=== PATIENT | male | born 1965 ===

== ENCOUNTER 2020-11-21 10:00 | Outpatient (RCR) | payer OTHER, SELFPAY | END 2020-12-07 09:20 | disposition home or self-care (01) | LOC: HO.PT 10:00 | PROVIDERS: PCP Student in an Organized Health Care Education/Training Program; Visit Provider Physician Assistant | DX: M26.81 Anterior soft tissue impingement (principal); Z94.0 Kidney transplant status | CPT/HCPCS: 97110; 97162; 97530 ==

== ENCOUNTER 2022-06-21 13:02 | Emergency (ER) | payer OTHER, SELFPAY ==
--- NOTE | ~2022-06-21 | XR_ITS ---
EXAMINATION: XR hip LT min 2V, XR lumbar spine 2-3V CLINICAL INFORMATION: Reason for Exam left hip pain after fall COMPARISON: None. TECHNIQUE: AP pelvis, 2 views left hip; 3 views lumbosacral spine FINDINGS: Pelvis and left hip no acute fracture or dislocation. Bilateral hip joint spaces are maintained. Small marginal osteophytes at both hips consistent with mild osteoarthritis. Pubic symphysis and sacroiliac joints are congruent and intact. Surgical clips project over the right pelvis. Vascular calcifications are seen. Patchy increased sclerosis of the bones about the pelvis and proximal femurs. Lumbar spine: Normal alignment. No subluxation. Vertebral body heights are maintained. No acute fracture. Mild multilevel degenerative disc disease with anterior endplate proliferative bone throughout the lumbar spine. Intervertebral disc heights are fairly well-maintained. Lower lumbar facet arthrosis. No pars defects. Moderate vascular calcifications. Patchy increased sclerosis throughout the bones noted. XR/XR lumbar spine 2-3V IMPRESSION: 1. No acute fracture or dislocation identified at the pelvis or left hip. 2. Mild multilevel degenerative disc disease throughout the lumbar spine. No subluxation or fracture in the lumbar spine. 3. Mild bilateral hip joint osteoarthritis. 4. Patchy increased sclerosis throughout the bones, nonspecific though cannot exclude sclerotic osseous metastasis is a potential etiology. Correlate with history of known malignancy and with PSA. Whole body bone scan may be helpful.
--- NOTE | ~2022-06-21 | XR_ITS ---
EXAMINATION: XR hip LT min 2V, XR lumbar spine 2-3V CLINICAL INFORMATION: Reason for Exam left hip pain after fall COMPARISON: None. TECHNIQUE: AP pelvis, 2 views left hip; 3 views lumbosacral spine FINDINGS: Pelvis and left hip no acute fracture or dislocation. Bilateral hip joint spaces are maintained. Small marginal osteophytes at both hips consistent with mild osteoarthritis. Pubic symphysis and sacroiliac joints are congruent and intact. Surgical clips project over the right pelvis. Vascular calcifications are seen. Patchy increased sclerosis of the bones about the pelvis and proximal femurs. Lumbar spine: Normal alignment. No subluxation. Vertebral body heights are maintained. No acute fracture. Mild multilevel degenerative disc disease with anterior endplate proliferative bone throughout the lumbar spine. Intervertebral disc heights are fairly well-maintained. Lower lumbar facet arthrosis. No pars defects. Moderate vascular calcifications. Patchy increased sclerosis throughout the bones noted. XR/XR hip LT min 2V IMPRESSION: 1. No acute fracture or dislocation identified at the pelvis or left hip. 2. Mild multilevel degenerative disc disease throughout the lumbar spine. No subluxation or fracture in the lumbar spine. 3. Mild bilateral hip joint osteoarthritis. 4. Patchy increased sclerosis throughout the bones, nonspecific though cannot exclude sclerotic osseous metastasis is a potential etiology. Correlate with history of known malignancy and with PSA. Whole body bone scan may be helpful.
[2022-06-21 13:21] VITALS: BP 158/90; PULSE 60; O2SAT 99
[2022-06-21 13:25] VITALS: BP 151/92; PULSE 62; RESP 18; TEMP 36.8; O2SAT 100; BMI 28.8
[2022-06-21 13:28] VITALS: BP 151/92; PULSE 60; RESP 18
--- NOTE | 2022-06-21 13:47 | ED.FALL ---
HPI - Fall General Chief Complaint: Fall Stated Complaint: fall from bath-+headstrike; refused c-collar Time Seen by Provider: 06/21/22 13:47 Source: patient Mode of arrival: EMS Limitations: no limitations History of Present Illness HPI Narrative: Patient walks with a walker due to neuropathy from diabetes, in addition he is a kidney transplant patient. No LOC. Patient with back pain and head pain. He slipped getting out of the bathtub complaint: fall Onset (ago): hour(s) Fall from: standing Fall witnessed: no Place fall occurred: home Loss of consciousness: none Context: tripped/slipped Related Data Home Medications Medication Instructions Recorded Confirmed amlodipine 10 mg tablet 10 mg PO DAILY 05/23/21 05/23/21 carvedilol 25 mg tablet 25 mg PO BID 05/23/21 05/23/21 dapagliflozin 10 mg tablet 10 mg PO DAILY 05/23/21 05/23/21 (Farxiga) entecavir 0.5 mg tablet 0.5 mg PO DAILY 05/23/21 05/23/21 ergocalciferol (vitamin D2) 1,250 1,250 mcg PO QWEEK 05/23/21 05/23/21 mcg (50,000 unit) capsule (Vitamin D2) gabapentin 100 mg capsule 0 mg PO 05/23/21 05/23/21 glipizide 10 mg tablet, extended 10 mg PO BID 05/23/21 05/23/21 release 24 hr hydrocortisone 1 % topical cream appl topical 05/23/21 05/23/21 insulin glargine 100 unit/mL (3 40 unit subcut 05/23/21 05/23/21 mL) subcutaneous pen (Lantus Solostar U-100 Insulin) magnesium oxide 400 mg (241.3 mg 400 mg PO DAILY 05/23/21 05/23/21 magnesium) tablet metformin 500 mg tablet 500 mg PO BID 05/23/21 05/23/21 omeprazole 40 mg capsule,delayed 40 mg PO BID 05/23/21 05/23/21 release pen needle, diabetic 31 gauge x #1,200 ea 05/23/21 05/23/21 5/16 (BD Ultra-Fine Short Pen Needle) ropinirole 0.5 mg tablet 0.5 mg PO BEDTIME 05/23/21 05/23/21 tacrolimus 0.75 mg tablet,extended 1.5 mg PO DAILY 05/23/21 05/23/21 release 24 hr (Envarsus XR) tacrolimus 1 mg tablet,extended 2 mg PO DAILY 05/23/21 05/23/21 release 24 hr (Envarsus XR) tamsulosin 0.4 mg capsule 0.4 mg PO DAILY 05/23/21 05/23/21 Allergies Allergy/AdvReac Type Severity Reaction Status Date / Time No Known Allergies Allergy Unverified 05/23/21 10:09 [No Known Allergies*] Review of Systems Review of Systems: Yes all other systems are reviewed and are negative Musculoskeletal: Comments: Head and back pain Neurologic: Denies Sensory deficit (Neuro) [facility] Past Medical History Medical History Diabetes HTN (hypertension) Surgical History Kidney transplanted Family History Family History Father Diabetes HTN (hypertension) Mother Diabetes HTN (hypertension) Brother Diabetes Chronic kidney disease Social History Social History Household Members: None Housing: Apartment Alcohol intake: never Patient Tobacco Use Status: Former Tobacco user Smoked in Last 30 Days: No Use of substances other than those prescribed or required for medical reasons: No Advance Directives: No Advance Directives Information Provided: Yes Physical Exam Vital Signs: Vital Signs: Last Vital Signs Temp 98.2 F 06/21/22 13:25 Pulse 54 06/21/22 14:35 Resp 18 06/21/22 14:35 BP 149/90 H 06/21/22 14:35 Pulse Ox 99 06/21/22 14:35 O2 Del Method 06/21/22 14:35 BMI result Body Mass Index 28.8 Const: Other: male chronically ill, looking older than stated age Nutritional Appearance: average body habitus Orientation/consciousness: oriented to person and patient oriented x3 Limitations: no limitations HEENT: Other: no evidence of any head trauma Ears: external ears normal General nose exam: Normal external nose present Mouth: Normal oral and palatal mucosa present and oropharynx normal Throat: Yes posterior oropharynx normal Eyes: General: appearance normal, both eyes and all related structures Neck: Other: supple Neck: Yes normal visual inspection Chest: Chest palpation & inspection: normal inspection of the chest Resp: Auscultation: clear to auscultation bilaterally Cardio: Jugular venous distension: no JVD Rate: regular rate Rhythm: regular rhythm Heart sounds: S1 normal heart sound present and S2 normal heart sound present GI: Inspection: Yes normal to inspection Palpation (GI): Soft to palpation, nontender and No hepatosplenomegaly present Auscultation: normal bowel sounds : General: Yes no CVA tenderness Back/Spine/Pelvis: Back: no CVA tenderness Skin: General skin exam: no rashes or lesions noted Neuro: Other: lower extremities are at baseline 4/5 or 3/5 General: oriented to person and patient oriented x3 Cranial nerves: Yes CN's II-XII intact bilaterally Sensory Exam: No Sensory deficit (Neuro) Extrem: Other: left hip with pain on range of motion Psych: Appearance: grossly normal Medical Decision Making Differential Diagnosis Differential Diagnoses: The differential diagnosis associated with the presentation includes (pelvic fracture, hip fracture, lumbar fracture) Independent Interpretation I performed an independent interpretation of an: Plain X-Ray (lumbar xray severe djd Hip xray no pelvic fracture, no hip fracture) Independent Historian Clinical information obtained from an independent historian. History obtained from or confirmed by: Other ([employer] INSPECTOR) Tests considered The following testing was considered but not selected: CT of hip but no subtle signs of fracture on xray Chronic Conditions Patient?s care impacted by: Diabetes, Hypertension and Other (renal failure with transplant) Discharge Plan Discharge Clinical Impression: Contusion of hip, Contusion of back Patient Disposition: Home, Self-Care Instructions: Contusion in Adults (ED), Hip Contusion (ED) Prescriptions: No Action Envarsus XR 0.75 mg tablet extended release 24 hr 1.5 mg PO DAILY ergocalciferol (vitamin D2) [Vitamin D2] 1,250 mcg (50,000 unit) capsule 1,250 mcg PO QWEEK entecavir 0.5 mg tablet 0.5 mg PO DAILY gabapentin 100 mg capsule 0 mg PO ropinirole 0.5 mg tablet 0.5 mg PO BEDTIME amlodipine 10 mg tablet 10 mg PO DAILY Farxiga 10 mg tablet 10 mg PO DAILY (DME) pen needle, diabetic [BD Ultra-Fine Short Pen Needle] 31 gauge x 5/16 needle See Rx Instructions subcut DAILY Qty: 1200 Rx Instructions: As directed hydrocortisone 1 % cream topical glipizide 10 mg tablet extended release 24hr 10 mg PO BID magnesium oxide 400 mg (241.3 mg magnesium) tablet 400 mg PO DAILY metformin 500 mg tablet 500 mg PO BID carvedilol 25 mg tablet 25 mg PO BID tamsulosin 0.4 mg capsule 0.4 mg PO DAILY omeprazole 40 mg capsule,delayed release(DR/EC) 40 mg PO BID Envarsus XR 1 mg tablet extended release 24 hr 2 mg PO DAILY Lantus Solostar U-100 Insulin 100 unit/mL (3 mL) insulin pen 40 unit subcut Referrals: Physician,Unknown J [Primary Care Provider] - 5 days
[2022-06-21 14:35] VITALS: BP 149/90; PULSE 54; RESP 18; O2SAT 99
== END 2022-06-21 15:28 | disposition home or self-care (01) ==
PROVIDERS: Emergency Provider Emergency Medicine
DX: S70.02XA Contusion of left hip, initial encounter (principal); S30.0XXA Contusion of lower back and pelvis, initial encounter; W18.2XXA Fall in (into) shower or empty bathtub, initial encounter; E11.21 Type 2 diabetes mellitus with diabetic nephropathy; I10 Essential (primary) hypertension; Z94.0 Kidney transplant status; Z87.891 Personal history of nicotine dependence; Z79.4 Long term (current) use of insulin; Z79.899 Other long term (current) drug therapy; Y93.E1 Activity, personal bathing and showering; Y92.012 Bathroom of single-family (private) house as the place of occurrence of the external cause; Y99.9 Unspecified external cause status
CPT/HCPCS: 72100; 73502; 99283; 99284

== ENCOUNTER 2022-09-08 05:16 | Emergency (ER) | payer OTHER, SELFPAY ==
--- NOTE | ~2022-09-08 | CT_ITS ---
Examination: CT thoracic and CT lumbar spine with IV contrast. CLINICAL HISTORY: Bilateral leg weakness. COMPARISON: Lumbar spine 06/21/2022. TECHNIQUE: 2 mm thin axial and reformatted 2 mm thin sagittal and coronal images of thoracic and lumbar spine were obtained following IV 85 mL Omnipaque 350. DLP 933. This CT examination was performed using dose optimization technique as appropriate, variously including the following: Automated exposure control Adjustment of MA and/or KV according to patient size(this includes techniques or standardized protocols for targeted exams where dose is matched to indication/reason for exam; extremities or head. Use of iterative reconstruction techniques. FINDINGS: THORACIC SPINE: On sagittal reconstructed images there is normal thoracic kyphosis. The vertebral heights, alignment and disc heights are normal. The bone marrow appears osteopenic. No fracture, lytic or sclerotic process seen. There is minimal ventral spondylosis. There is no evidence of disc bulge, herniation or spinal canal stenosis. The neural foramina are patent bilaterally. The prevertebral and paravertebral soft tissues are normal. Dependent upper and lower lobe lungs are unremarkable. Except for minimal scarring or atelectasis left lung base. LUMBAR SPINE: There is normal lumbar lordosis. The vertebral heights and alignment is normal. There is mild ventral spondylosis L3-L4, L4-L5 disc levels. No aggressive lytic or sclerotic process seen. Heterogeneous appearing bone marrow is noted likely osteopenia/osteoporosis process Excreted contrast is seen in bilateral kidney pelvises and calyces. Hard to exclude radiopaque stone. CT/CT thoracic spine w IV con IMPRESSION: 1. There is no visible fracture, lytic or sclerotic process seen in the thoracic or lumbar spine. 2. There is heterogeneous appearing thoracic, lumbar and pelvic bone marrow likely osteopenia/osteoporosis process. 3. There is minimal ventral spondylosis L3-L4 and L4-L5 disc levels.
[2022-09-08 05:34] VITALS: BP 142/80; PULSE 70; O2SAT 95; BMI 27.4
[2022-09-08 05:39] VITALS: BP 130/77; PULSE 58; RESP 14; TEMP 36.6; O2SAT 96
--- NOTE | 2022-09-08 05:43 | PC.NURSE ---
Pt aox4 at the bedside. Reports increased weakness. Pt is crying reporting being unable to leave the home for the last three months as the wheelchair ramp is not available and falling multiple times as home. Reports wheelchair does not fit inside the bathroom at home. Reports feeling depressed. MD aware.
[2022-09-08 05:59] LABS: MANUAL DIFF FLAG NO
[2022-09-08 06:01] LABS: Basophils Percent Auto 0.4 % (0-2); Eosinophils Absolute Auto 0.3 X10*3/uL (0.0-0.4); Eosinophils Percent Auto 3.8 % (0-4); Hematocrit 42.6 % (42.0-52.0); Hemoglobin 14.7 g/dl (14.0-18.0); Imm Gran Abs Auto 0.03 X10*3/uL (0.00-0.03); Imm Gran Pct Auto 0.4 % (0.0-0.4); Lymphocytes Absolute Auto 1.3 X10*3/uL (1.2-4.9); Lymphocytes Percent Auto 17.2 % (20-40); Mean Corpuscular HGB Conc 34.5 g/dl (31.0-36.0); Mean Corpuscular Volume 89.9 fL (80.0-98.0); Mean Platelet Volume 10.2 fL (9.4-12.4); Monocytes Absolute Auto 0.7 X10*3/uL (0.1-1.2); Monocytes Percent Auto 9.2 % (2-11); Neutrophils Absolute Auto 5.1 x10*3/uL (2.0-8.3); Platelet Count 142 X10*3/uL (160-400); Red Blood Count 4.74 X10*6/uL (4.60-5.80); White Blood Count 7.3 X10*3/uL (4.8-10.8)
[2022-09-08 06:17] LABS: Alanine Aminotransferase 20 U/L (0-40); Alkaline Phosphatase 205 U/L (39-117); Anion Gap 11 (12-20); Aspartate Amino Transferase 17 U/L (5-37); Bilirubin Total 0.3 mg/dL (0.0-1.0); Blood Urea Nitrogen 12 mg/dL (9-16); Calcium 7.8 mg/dL (8.4-10.2); Carbon Dioxide 29 mmol/L (22-29); Chloride 105 mmol/L (96-108); Estimated Glomerular Filt Rate > 60; Glucose Random 226 mg/dL (60-115); Potassium 3.9 mmol/L (3.3-5.1); Sodium 141 mmol/L (135-145); Total Protein 6.2 g/dL (6.5-8.0)
--- NOTE | 2022-09-08 07:25 | ED_ITS ---
HPI - General Adult General Chief complaint: Fall Stated complaint: Weakness Time Seen by Provider: 09/08/22 06:29 Source: patient and RN notes reviewed Mode of arrival: ambulatory Limitations: no limitations History of Present Illness HPI narrative: This is a [id number], with a past medical history of diabetes, diabetic neuropathy, and kidney transplant, who presents emergency department for ongoing worsening weakness in his lower extremities. Patient reports that 3 years ago after receiving his kidney transplant he has noticed increasing weakness in his legs. Initially he was using a cane to ambulate over the last 3 years but for the last 6 months he was using a walker, but 3 months ago he transitioned to using a wheelchair. Patient reports that over the last months he has been using a wheelchair to get around. He reports that he has been unable to get out of his bed for the last week due to weakness in his legs. He admits to falling out of his bed this morning because of the weakness, he called EMS and they were able to pick him up in place him back into his wheelchair he declined EMS transport at that time. He woke this morning and called the EMS as the would like to be re-evaluated due to chronic weakness in her legs. He denies hitting his head or loss of consciousness. He reports that he has had numbness and tingling into his abdomen ever since I was diagnosed with diabetic neuropathy , and has worsened over the last 3 months. He also admits to having back pain. He denies any fevers, chills chest pain, shortness of breath, palpitations, abdominal pain, nausea vomiting or diarrhea. He reports functional urinary incontinence as he is unable to get to the bathroom in time. Denies any bowel incontinence. Denies any bloody or black stool. Last moved his bowels yeste rday which was normal. He becomes very tearful as he is very upset that he no longer is independent in his home and requires more help to perform activities of daily living. He lives alone, has VNA services for 2 hours a day, has been seen by Physical therapy and Occupational therapy, but has not been seen by them in ?a while . No other complaints or concerns at this time. complaint: Weakness in legs Onset (ago): month(s) Location: lower extremity Radiation: non-radiation Relieving factors: none Exacerbating factors: none Associated symptoms: denies other symptoms Treatments prior to arrival: none Related Data Home Medications Medication Instructions Recorded Confirmed amlodipine 10 mg tablet 10 mg PO DAILY 05/23/21 09/08/22 carvedilol 25 mg tablet 25 mg PO BID 05/23/21 09/08/22 dapagliflozin 10 mg tablet 10 mg PO DAILY 05/23/21 09/08/22 ([facility]) entecavir 0.5 mg tablet 0.5 mg PO DAILY 05/23/21 09/08/22 gabapentin 100 mg capsule 100 mg PO TID 05/23/21 09/08/22 glipizide 10 mg tablet, extended 10 mg PO BID 05/23/21 09/08/22 release 24 hr insulin glargine 100 unit/mL (3 44 unit subcut BEDTIME 05/23/21 09/08/22 mL) subcutaneous pen (Lantus Solostar U-100 Insulin) metformin 500 mg tablet 500 mg PO BID 05/23/21 09/08/22 pen needle, diabetic 31 gauge x #1,200 ea 05/23/21 05/23/21/ (BD Ultra-Fine Short Pen Needle) ropinirole 0.5 mg tablet 0.5 mg PO BEDTIME 05/23/21 09/08/22 tacrolimus 1 mg tablet,extended 3 mg PO DAILY 05/23/21 09/08/22 release 24 hr (Envarsus XR) acetaminophen 650 mg 1,300 mg PO Q8H PRN Pain 09/08/22 09/08/22 tablet,extended release capsaicin 0.025 % topical cream 1 appl topical BID 09/08/22 09/08/22 docusate sodium 100 mg capsule 100 mg PO DAILY 09/08/22 09/08/22 duloxetine 30 mg capsule,delayed 30 mg PO DAILY 09/08/22 09/08/22 release Allergies Allergy/AdvReac Type Severity Reaction Status Date / Time No Known Allergies Allergy Unverified 05/23/21 10:09 [No Known Allergies*] Review of Systems Review of Systems: Constitutional: No Weight loss, No Fever, No Chills, No Night Sweats, No Fati lynn, No Malaise ENT/Mouth: No Hearing loss, No Ear Pain, No Nasal Congestion, No Sinus Pain, No Hoarseness, No sore throat, No Rhinorrhea, No Swallowing Difficulty Eyes: No Eye Pain, No Swelling, No Redness, No Foreign Body, No Discharge, No Vision Changes Cardiovascular: No Chest Pain, No SOB, No Dyspnea on Exertion, No Orthopnea, No Edema, No Palpitations Respiratory: No Cough, No Sputum, No Wheezing, No Smoke Exposure, No Dyspnea Gastrointestinal: No Nausea, No Vomiting, No Diarrhea, No Constipation, No Abdominal pain, No Hematochezia, No Melena Genitourinary: No irregular bleeding, No Dysuria, No Urinary Frequency, No Hematuria, No Urinary Incontinence/retention, No Urgency, No Flank Pain, No Urinary Flow Changes, No Hesitancy Musculoskeletal: No joint pain, No Myalgias, No Joint Swelling Skin: No Skin Lesions, No rash Neuro: No Weakness, +Numbness, + Paresthesias, No Loss of Consciousness, No Dizziness, No Headache Psych: No Anxiety/Panic, No Depression, No SI/HI/AH/VH, No Social Issues, Heme/Lymph: No Bruising, No Bleeding,No Lymphadenopathy Endocrine: No Polyuria, No Polydipsia, No Temperature Intolerance Yes all other systems are reviewed and are negative Constitutional: Constitutional: Reports as per HPI [facility] Past Medical History Medical History Diabetes HTN (hypertension) Surgical History Kidney transplanted Family History Family History Father Diabetes HTN (hypertension) Mother Diabetes HTN (hypertension) Brother Diabetes Chronic kidney disease Social History Social History Household Members: None Housing: Apartment Alcohol intake: never Patient Tobacco Use Status: Former Tobacco user Smoked in Last 30 Days: No Use of substances other than those prescribed or required for medical reasons: No Advance Directives: No Advance Directives Information Provided: Yes Physical Exam ED Vital Signs: Vital Signs - 24 hr 09/08/22 13:41 Pulse Rate 62 Respiratory Rate 20 Blood Pressure 137/86 Pulse Oximetry 96 Oxygen Delivery Method Room Air BMI result Body Mass Index 27.4 Const Other: At times he is tearful General: cooperative, comfortable and no acute distress Orientation/consciousness: patient oriented x3 Limitations: no limitations HENMT Head: Yes normal to inspection, Yes normocephalic and Yes atraumatic Ears: hearing grossly normal bilaterally General nose exam: Normal external nose present Face and sinus: Yes normal facial exam Mouth: Normal oral and palatal mucosa present, oropharynx normal and moist mu cous membranes Throat: Yes posterior oropharynx normal Eyes General: appearance normal, both eyes and all related structures Eyelids: Yes eyelids normal Conjunctivae: conjunctivae normal Sclerae: sclerae normal Pupils: Equal, round and reactive pupils present EOM: EOMs intact bilaterally Neck Neck: Yes normal visual inspection, Yes full ROM and Yes no lymphadenopathy Lymphatic: no lymphadenopathy noted Chest Chest palpation & inspection: normal inspection of the chest Resp Effort & Inspection: normal respiratory effort and able to speak in complete sentences Auscultation: clear to auscultation bilaterally, no crackles, no rales, no rhonchi and no wheezes Cardio Rate: regular rate Rhythm: regular rhythm Heart sounds: S1 normal heart sound present and S2 normal heart sound present GI Inspection: Yes normal to inspection Palpation (GI): Soft to palpation, nontender, no guarding and not rigid Rectal Exam - Male: Yes visual inspection normal and Yes normal sphincter tone General: Yes no CVA tenderness Back/Spine/Pelvis Other: No C-spine, T-spine or L-spine tenderness to palpation. No overlying erythema, edema, increased warmth to entire back. No skin changes noted. Lumbar paraspinous muscles with no tenderness to palpation. Back: no CVA tenderness Skin General skin exam: no rashes or lesions noted Trauma: no lacerations or abrasions Wounds: no wounds Neuro Other: Unable to differentiate between sharp and soft sensation on left side of abdomen; patient is able to feel the touch throughout the entire abdomen. General: patient oriented x3, moves all extremities and CN's II-XI intact bilaterally Cranial nerves: Yes Facial sensation intact/muscles of mastication intact, Yes Equal, round and reactive pupils present and Yes Bilaterally intact EOM present Cognition (Neuro): normal cognition Extrem Other: Bilateral DP pulses 2+, distal sensation intact. Patellar reflexes 2+ bilaterally, clonus on the right. Left arm with scarring noted from prior fistula, no surrounding erythema edema fluctuance General: Yes normal to inspection, Yes no pedal edema, Yes no calf tenderness and Yes muscle atrophy Right upper extremity: normal to inspection Left upper extremity: normal to inspection Right lower extremity: normal to inspection Left lower extremity: normal to inspection Course Reevaluation(s) Reevaluation #1: Patient has been intermittently crying throughout the entire day. When asked about why he is crying he says that he is upset that he has lost his independence and unable to and walk around. CT thoracic spine with IV contrast revealing no visible fracture, lytic or sclerotic process, and heterogeneous a ppearing thoracic lumbar and pelvic bone marrow likely osteopenia or osteoporosis process. Minimal ventral spondylosis L3-L4 and L4-L5 disc levels Patient's lab workup has been unremarkable. I discussed these results with the patient and he begins to cry again stating that he wants to get out of here. I explained with patient that I would like for him to be evaluated by Physical therapy, care team, and crisis. Given patient's living situation, living at home using wheelchair with limited visiting nursing assistance it seems as though he is unsafe to return home without more help. Patient willing to speak with these people. Vital signs have been stable throughout his stay in the emergency department. Time: 14:05 Reevaluation #2: Patient seen by care team who report patient has no SI or HI in believes that all of his sadness is secondary to loss of independence and difficulty getting around. Patient has not been able to leave his apartment in last 3 months in his landlord has not been making the necessary repairs to the ramp that patient would be using, as patient is now wheelchair bound. Because of this he has been unable to attend any of his appointments. He does have a SCREEN MAKING SUPERVISOR which is his daughter and another person. Your team spoke with patient's daughter and she sees her father daily and admits that patient has had a mental health declined because he is unable to these apartment. Patient has been in touch with a script editor in house in court care team completed the PCC report and complete a refe rral to [facility] for in-home therapy. Physical therapy recommends short-term rehab. Physician observation initiated pending short-term rehab placement Time: 14:41 Reevaluation #3: Case Management physician and patient adamantly refuses rehabilitation. I spoke with patient at length that this is the best course of treatment and that he is putting himself at risk for falls which can ultimately to very serious consequences including . Despite educating this patient on his current physical deconditioning patient still adamantly refuses as he reports that he has his own way of doing things and he is not comfortable here. I offered his home medications as well as food and coffee however he still refuses. From vital signs stable throughout his emergency for visit today. Patient is stable for discharge. Will get ambulance to transfer patient back into his home as he is unable to get himself up the stairs. Time: 16:37 Medications Administered Discontinued Medications Generic Name Dose Route Start Last Admin Trade Name Nohemy PRN Reason Stop Dose Admin Acetaminophen 975 mg 09/08/22 15:58 09/08/22 16:13 Acetaminophen 325 Mg Tablet PO 09/08/22 15:59 975 mg ONCE ONE Administration Gabapentin 100 mg 09/08/22 15:58 09/08/22 16:13 Gabapentin 100 Mg Capsule PO 09/08/22 15:59 100 mg ONCE ONE Administration Sodium Chloride 1,000 mls @ 999 mls/hr 09/08/22 09:23 09/08/22 12:20 Ns IVCONT 09/08/22 10:23 Infused .Q1H1M ONE Infusion Iohexol 85 ml 09/08/22 11:49 09/08/22 11:50 Iohexol 350 Mg/Ml 100 Ml Infus..Btl IV 09/08/22 11:50 85 ml ONCE ONE Administration Medical Decision Making Medical Decision Making MDM Narrative: 57-year-old male, with a past medical history of diabetic neuropathy, kidney transplant in 2019, presenting for evaluation of lower extremity weakness for the last 3 months. Three years ago he had a kidney transplant the and noticed a worsening function of his lower legs concern to use a cane for ambulation. He then switched over to a walker over the last 6 months as he has had difficulty ambulating. Reports over the last 3 months he has had more difficulty with ambulation, has been using a wheelchair. He also reports some numbness and tingling throughout his abdomen which is been present since ?he has had diabetic neuropathy? which has been ongoing for more than 3 months. Case discussed and patient was seen and evaluated by Dr. Gotti. Distribution of numbness and tingling in abdomen seems to be left-sided on examination. No red flag back pain symptoms. Plan: Labs, UA, Drug screen, CT t-spine and l-spine obtained. Attempt to obtain primary care office notes. Differential Diagnosis Differential Diagnoses: The differential diagnosis associated with the presentation includes Deconditioning, diabetic neuropathy, cauda equina, malignancy, spinal abscess, failure to thrive Admission/Observation Consideration of admission/observation: Escalation of care including admission/observation considered Lab Data [facility] Lab Attestation statement: I reviewed the patient's lab results. 09/08/22 05:52 09/08/22 05:52 Labs: Lab Results 09/08/22 09/08/22 09/08/22 Range/Units 05:52 05:52 10:39 WBC 7.3 (4.8-10.8) X10*3/uL RBC 4.74 (4.60-5.80) X10*6/uL Hgb 14.7 (14.0-18.0) g/dl Hct 42.6 (42.0-52.0) % MCV 89.9 (80.0-98.0) fL MCH 31.0 (27.0-33.0) pg MCHC 34.5 (31.0-36.0) g/dl RDW 12.0 (11.0-16.0) % Plt Count 142 L (160-400) X10*3/uL MPV 10.2 (9.4-12.4) fL Immature Gran % (Auto) 0.4 (0.0-0.4) % Neut % (Auto) 69.0 (45-73) % Lymph % (Auto) 17.2 L (20-40) % [place] % (Auto) 9.2 (2-11) % Eos % (Auto) 3.8 (0-4) % Baso % (Auto) 0.4 (0-2) % Lymph # (Auto) 1.3 (1.2-4.9) X10*3/uL [place] # (Auto) 0.7 (0.1-1.2) X10*3/uL Eos # (Auto) 0.3 (0.0-0.4) X10*3/uL Baso # (Auto) 0.0 (0.0-0.2) X10*3/uL Abs Immat Gran (auto) 0.03 (0.00-0.03) X10*3/uL Absolute Neuts (auto) 5.1 (2.0-8.3) x10*3/uL Absolute Nucleated RBC 0.000 (0.0-0.012) X10*3/uL Nucleated RBC % (auto) 0.0 (0.0-0.2) /100WBC Sodium 141 (135-145) mmol/L Potassium 3.9 (3.3-5.1) mmol/L Chloride 105 (96-108) mmol/L Carbon Dioxide 29 (22-29) mmol/L Anion Gap 11 L (12-20) BUN 12 (9-16) mg/dL Creatinine 1.14 (0.5-1.4) mg/dL Estim Creat Clear Calc 69.0 Estimated GFR > 60 POC Glucose (60-115) mg/dL Random Glucose 226 H (60-115) mg/dL Calcium 7.8 L (8.4-10.2) mg/dL Total Bilirubin 0.3 (0.0-1.0) mg/dL AST 17 (5-37) U/L ALT 20 (0-40) U/L Alkaline Phosphatase 205 H (39-117) U/L Total Creatine Kinase 159 (38-174) U/L Total Protein 6.2 L (6.5-8.0) g/dL Albumin 4.0 (3.5-5.0) g/dL Urine Opiates Screen Not Detected (Not Detect) Urine Fentanyl Screen Not Detected (Not Detect) Ur Barbiturates Screen Not Detected (Not Detect) Ur Phencyclidine Scrn Not Detected (Not Detect) Ur Amphetamines Screen Not Detected (Not Detect) U Benzodiazepines Scrn Not Detected (Not Detect) Urine Cocaine Screen Not Detected (Not Detect) U Marijuana (THC) Screen Not Detected (Not Detect) Ethyl Alcohol < 10 mg/dL COVID-19 ([facility]) (Negative) COVID-19 Clin Com 09/08/22 09/08/22 Range/Units 12:45 14:04 WBC (4.8-10.8) X10*3/uL RBC (4.60-5.80) X10*6/uL Hgb (14.0-18.0) g/dl Hct (42.0-52.0) % MCV (80.0-98.0) fL MCH (27.0-33.0) pg MCHC (31.0-36.0) g/dl RDW (11.0-16.0) % Plt Count (160-400) X10*3/uL MPV (9.4-12.4) fL Immature Gran % (Auto) (0.0-0.4) % Neut % (Auto) (45-73) % Lymph % (Auto) (20-40) % [place] % (Auto) (2-11) % Eos % (Auto) (0-4) % Baso % (Auto) (0-2) % Lymph # (Auto) (1.2-4.9) X10*3/uL [place] # (Auto) (0.1-1.2) X10*3/uL Eos # (Auto) (0.0-0.4) X10*3/uL Baso # (Auto) (0.0-0.2) X10*3/uL Abs Immat Gran (auto) (0.00-0.03) X10*3/uL Absolute Neuts (auto) (2.0-8.3) x10*3/uL Absolute Nucleated RBC (0.0-0.012) X10*3/uL Nucleated RBC % (auto) (0.0-0.2) /100WBC Sodium (135-145) mmol/L Potassium (3.3-5.1) mmol/L Chloride (96-108) mmol/L Carbon Dioxide (22-29) mmol/L Anion Gap (12-20) BUN (9-16) mg/dL Creatinine (0.5-1.4) mg/dL Estim Creat Clear Calc Estimated GFR POC Glucose 94 (60-115) mg/dL Random Glucose (60-115) mg/dL Calcium (8.4-10.2) mg/dL Total Bilirubin (0.0-1.0) mg/dL AST (5-37) U/L ALT (0-40) U/L Alkaline Phosphatase (39-117) U/L Total Creatine Kinase (38-174) U/L Total Protein (6.5-8.0) g/dL Albumin (3.5-5.0) g/dL Urine Opiates Screen (Not Detect) Urine Fentanyl Screen (Not Detect) Ur Barbiturates Screen (Not Detect) Ur Phencyclidine Scrn (Not Detect) Ur Amphetamines Screen (Not Detect) U Benzodiazepines Scrn (Not Detect) Urine Cocaine Screen (Not Detect) U Marijuana (THC) Screen (Not Detect) Ethyl Alcohol mg/dL COVID-19 (IL[facility]) Negative (Negative) COVID-19 Clin Com See Note Radiology Impression Discussion of test interpretation with radiology: I have reviewed the radiologist's reading. Radiologist Impression: Examination: CT thoracic and CT lumbar spine with IV contrast. CLINICAL HISTORY: Bilateral leg weakness. COMPARISON: Lumbar spine 06/21/2022. TECHNIQUE: 2 mm thin axial and reformatted 2 mm thin sagittal and coronal images of thoracic and lumbar spine were obtained following IV 85 mL Omnipaque 350. DLP 933. This CT examination was performed using dose optimization technique as appropriate, variously including the following: Automated exposure control Adjustment of MA and/or KV according to patient size(this includes techniques or standardized protocols for targeted exams where dose is matched to indication/reason for exam;? extremities or head. Use of iterative reconstruction techniques. FINDINGS: THORACIC SPINE:? On sagittal reconstructed images there is normal thoracic kyphosis. The vertebral heights, alignment and disc heights are normal. The bone marrow appears osteopenic. No fracture, lytic or sclerotic process seen. There is minimal ventral spondylosis. There is no evidence of disc bulge, herniation or spinal canal stenosis. The neural foramina are patent bilaterally. The prevertebral and paravertebral soft tissues are normal. Dependent upper and lower lobe lungs are unremarkable. Except for minimal scarring or atelectasis left lung base. LUMBAR SPINE: There is normal lumbar lordosis. The vertebral heights and alignment is normal. There is mild ventral spondylosis L3-L4, L4-L5 disc levels. No aggressive lytic or sclerotic process seen. Heterogeneous appearing bone marrow is noted likely osteopenia/osteoporosis process Excreted contrast is seen in bilateral kidney pelvises and calyces. Hard to exclude radiopaque stone. CT/CT thoracic spine w IV con IMPRESSION: 1.? There is no visible fracture, lytic or sclerotic process seen in the thoracic or lumbar spine. 2.? There is heterogeneous appearing thoracic, lumbar and pelvic bone marrow likely osteopenia/osteoporosis process. 3.? There is minimal ventral spondylosis L3-L4 and L4-L5 disc levels. ? Dictated By: Juan Alberto Hunter MD Examination: CT thoracic and CT lumbar spine with IV contrast. CLINICAL HISTORY: Bilateral leg weakness. COMPARISON: Lumbar spine 06/21/2022. TECHNIQUE: 2 mm thin axial and reformatted 2 mm thin sagittal and coronal images of thoracic and lumbar spine were obtained following IV 85 mL Omnipaque 350. DLP 933. This CT examination was performed using dose optimization technique as appropriate, variously including the following: Automated exposure control Adjustment of MA and/or KV according to patient size(this includes techniques or standardized protocols for targeted exams where dose is matched to indication/reason for exam;? extremities or head. Use of iterative reconstruction techniques. FINDINGS: THORACIC SPINE:? On sagittal reconstructed images there is normal thoracic kyphosis. The vertebral heights, alignment and disc heights are normal. The bone marrow appears osteopenic. No fracture, lytic or sclerotic process seen. There is minimal ventral spondylosis. There is no evidence of disc bulge, herniation or spinal canal stenosis. The neural foramina are patent bilaterally. The prevertebral and paravertebral soft tissues are normal. Dependent upper and lower lobe lungs are unremarkable. Except for minimal scarring or atelectasis left lung base. LUMBAR SPINE: There is normal lumbar lordosis. The vertebral heights and alignment is normal. There is mild ventral spondylosis L3-L4, L4-L5 disc levels. No aggressive lytic or sclerotic process seen. Heterogeneous appearing bone marrow is noted likely osteopenia/osteoporosis process Excreted contrast is seen in bilateral kidney pelvises and calyces. Hard to exclude radiopaque stone. CT/CT lumbar spine w IV con IMPRESSION: 1.? There is no visible fracture, lytic or sclerotic process seen in the thoracic or lumbar spine. 2.? There is heterogeneous appearing thoracic, lumbar and pelvic bone marrow likely osteopenia/osteoporosis process. 3.? There is minimal ventral spondylosis L3-L4 and L4-L5 disc levels. ? Dictated By: Juan Alberto Hunter MD External Record Review External record reviewed: Inpatient record, Office record, Outpatient record, Prior outpatient labs, Prior outpatient radiology, Primary care record and Outside ED record Patient had a recent telemedicine visit with his primary care physician on 09/04/2022, this visit was in regards to the patient being stuck in his apartmen t due to a disagreement with his landlord. In the no and explains that 1 of the ramps to get in and out of his house is blocked and patient cannot get out of his house. Department of Health is involved and they issued many ultimatum stew his landlord to unblock the ramp but they have not been patient is becoming depressed due to this. He does have BPH in with a psychiatrist and believes that the appointment is coming up soon. Primary care's plan was to follow-up with psychiatrist through [facility], sign medical release for his lower so his medical record could be involved. I also obtained medical records from [facility] to try and obtain records regarding any imaging of his back. Patient was seen in the emergency department at [facility] on 07/30/2022 for progressive weakness in his legs since receiving kidney transplant in 2019, and ultimately falling multiple times. At that time patient had a left 5th distal phalanx fracture. He also had a CT RLE, left femur x-ray, left hip x-ray, left knee x-ray, left tib-fib x-ray which were all unremarkable for any acute bony abnormalities. Medical documentation does not indicate that patient has had any imaging of his lumbar spine in the last 6 months. Therefore I think it is reasonable to obtain CT T-spine and L-spine today Critical Care Time Critical Care Time Critical Care Time: Yes Total Critical Care Time: 40 Attestation: I have personally provided critical care time exclusive of time spent on separately billable procedures. Time includes review of lab data, radiology results, discussion with consultants, and monitoring for potential decompensation. Intervention performed as documented. Discharge Plan Discharge Clinical Impression: Weakness Patient Disposition: Home, Self-Care Instructions: Weakness (ED) Additional Instructions: The imaging you had received of your back today showed evidence of osteoarthritis. You were seen by Physical therapy who recommend a short-term rehab, this is the best course of treatment for your weakness in your legs as your symptoms will only progressively get worse putting you more at risk for falls. I highly recommend this however you adamantly refused this today. Please follow-up with your primary care physician, call tomorrow to make an appointment. If any new or worsening symptoms occur please return for re-evaluation. Prescriptions: No Action acetaminophen 650 mg tablet extended release 1,300 mg PO Q8H PRN (Reason: Pain) capsaicin 0.025 % cream 1 appl topical BID docusate sodium 100 mg Capsule 100 mg PO DAILY duloxetine 30 mg Capsule,Delayed Release(Dr/Ec) 30 mg PO DAILY entecavir 0.5 mg tablet 0.5 mg PO DAILY gabapentin 100 mg capsule 100 mg PO TID ropinirole 0.5 mg tablet 0.5 mg PO BEDTIME amlodipine 10 mg tablet 10 mg PO DAILY Farxiga 10 mg tablet 10 mg PO DAILY (DME) pen needle, diabetic [BD Ultra-Fine Short Pen Needle] 31 gauge x 5/16 needle See Rx Instructions subcut DAILY Qty: 1200 Rx Instructions: As directed glipizide 10 mg tablet extended release 24hr 10 mg PO BID metformin 500 mg tablet 500 mg PO BID carvedilol 25 mg tablet 25 mg PO BID Envarsus XR 1 mg tablet extended release 24 hr 3 mg PO DAILY Lantus Solostar U-100 Insulin 100 unit/mL (3 mL) insulin pen 44 unit subcut BEDTIME Interventions: ED Discharge Assessment Last Done: 09/08/22 18:28 Discharge Date/Time: 09/08/22 18:29
[2022-09-08 07:55] LABS: Ethanol < 10 mg/dL
[2022-09-08 09:45] VITALS: BP 127/84; PULSE 60; RESP 18; TEMP 36.8; O2SAT 94
--- NOTE | 2022-09-08 10:09 | PHA.MEDREC ---
Pharmacy Consult ? Medication Reconciliation Pharmacy has completed the medication reconciliation. Med rec complete off of discharge summary dated 09/01 from [facility] on [address] [place] [address]
[2022-09-08] MEDS: 0.9 % Sodium Chloride 1,000 ML 999 ML IVCONT (10:12)
[2022-09-08 11:00] LABS: Amphetamine Screen Urine Not Detected (Not Detect); Barbiturates, Urine Not Detected (Not Detect); Benzodiazepines Screen Urine Not Detected (Not Detect); Cannabinoid Screen Urine Not Detected (Not Detect); Cocaine Screen Urine Not Detected (Not Detect); Fentanyl, urine Not Detected (Not Detect); Opiate Screen Urine Not Detected (Not Detect); Phencyclidine Screen Urine Not Detected (Not Detect)
[2022-09-08] MEDS: iohexoL 350 MG/ML 100 ML INFUS..BTL 85 ML IV (11:50)
[2022-09-08 12:59] LABS: Glucose, Whole Blood 94 mg/dL (60-115)
[2022-09-08 13:41] VITALS: BP 137/86; PULSE 62; RESP 20; O2SAT 96
--- NOTE | 2022-09-08 13:42 | PC.NURSE ---
pt tearful and upset about not being able to get around at home. consult to care team and PT in. Pt brought sandwich
[2022-09-08 14:29] LABS: COVID-19 Test Negative (Negative); IDNOW Serial# 08D9AD1C
--- NOTE | 2022-09-08 14:37 | MHC.CARE ---
CARE Team completed [facility] report due to Pts landlord not completing required updates at his apartment causing Pt to be bound to his apartment x 3months and not able to attend appts ect. Pt alleged that the landlord is now making him pay for the repairs and he is not able to.
--- NOTE | 2022-09-08 14:46 | PC.NURSE ---
pt has met with care team and is now meeting with PT. Recliner brought over from overflow for pt comfort.
--- NOTE | 2022-09-08 14:57 | MHC.CARE ---
CARE Team met with Pt secondary to consult placed for depression and deconditionig. Pt reports expressed frustration related to his recent decline in physical ability and not being able to leave his apartment in the past three months. Pt reports his landlord is not making the necessary repairs to a ramp as Pt is wheelchair bound. The ramp is the only way Pt is able to access the outside. Pt states he is not able to attend his appointments. Pt reports he has a RAIL TRANSPORTATION OPERATOR that is his daughter and another person. CARE Team spoke with Pts daughter Paul, she reported she sees her father daily and he has had a mental health decline since not being able to leave his apartment. She stated he trying to consult with a manager media relations in housing court, as now Pt is being told to have to pay for these repairs. She reports no safety concerns related to his mental health. CARE Team completed [facility] report and will complete a referral to [facility] for inhome therapy.
[2022-09-08] MEDS: Gabapentin 100 MG CAPSULE PO (16:13)
[2022-09-08] MEDS: Acetaminophen 325 MG TABLET 975 MG PO (16:13)
--- NOTE | 2022-09-08 17:05 | MHC.CM.ED ---
Addendum entered by Krystina Salas 09/08/22 17:14: Per Ryann, patient will need BLS transport, as he cannot get into his home. [place] booking BLS transport home. CM spoke with patient, and patient requesting when ambulance will come. Pt dressed and ready to go. Explained that could be an hour or more, as transport home is not an emergency. Pt states if his daughter comes first, he will go home with her. When patient questioned about how he would get in the home, pt states his daughter will help him. Pt is A&Ox4. Primary RN aware. Original Note: CM met with patient at request of Ryann GARCIA. PT is recommending STR. Pt refuses PT in a facility despite CM reassurance that he would get more therapy if he stays in a facility for 1-2 weeks, and then has home PT. Pt absolutely refuses STR, but wants home PT. States he cannot eat others food and he has pets. Pt is refusing to stay overnight and tells CM that he can go home in a private car. When CM asked him if he could get into a car and into his apartment, he adamantly states yes. Pt lives alone. Has W/C, walker and cane. Has a nephew who is his VETERINARY LABORATORY TECHNICIAN. 34 hours/week through [employer]. According to his medical record, patient has been home bound because his landlord has not repaired the ramp into his home. New HCP completed at pt request. New HCP is Paul Fabian (daughter) [phone]. Uploaded into [facility] and [facility]. Copies given to patient. Pt aware that 13 referrals have been placed for home PT with [facility] that contract with [facility]. CM will call pt with offers. Pt tells CM that his nephew will be picking him up. CM following for discharge planning.
--- NOTE | 2022-09-09 16:56 | MHC.CM.ED ---
CM spoke with Francie from [facility]. [facility] will provide home PT services and will be calling patient. CM called patient and updated him on home PT services. Pt is aware that [facility] will be calling him.
== END 2022-09-08 18:29 | disposition home or self-care (01) ==
PROVIDERS: Physician Assistant Medical; Emergency Provider Emergency Medicine Emergency Medical Services; PCP Family Medicine
DX: M62.81 Muscle weakness (generalized) (principal); M54.50 Low back pain, unspecified; M54.6 Pain in thoracic spine; Z87.891 Personal history of nicotine dependence; Z20.822 Contact with and (suspected) exposure to COVID-19; Z20.828 Contact with and (suspected) exposure to other viral communicable diseases; Z79.899 Other long term (current) drug therapy; Z99.3 Dependence on wheelchair
CPT/HCPCS: 36415; 72129; 72132; 80053; 80307; 82550; 82947; 85025; 87635; 96360; 96361; 97162; 99285; Q9967

== ENCOUNTER 2022-09-10 03:06 | Inpatient (IN) | payer OTHER, SELFPAY ==
[2022-09-10] VITALS (8 sets, daily range): BP systolic 115–146; BP diastolic 63–93; PULSE 54–68; RESP 17–20; TEMP 36.4–37.2; O2SAT 94–98; BMI 29.9
--- NOTE | 2022-09-10 03:58 | PC.NURSE ---
pt states prior to having issues with neuropathy and arthritis in his back he had the ability to ambulate with a walker, in the last 3 mos he is now w/c bound and unable to perform household tasks and care for himself, d/t issues with landlord and ramp he is not safe at home since he does not have access to exit/enter home, pt states police reports have been made to gain access to ramp however landlord has not complied and he has been stuck in his home, which is not w/c accessible inside, many of the doorways do not allow w/c access aox4 pt tearful
[2022-09-10 04:00] LABS: COVID-19 Test Negative (Negative); IDNOW Serial# 6674DD1D
[2022-09-10 04:05] LABS: Glucose, Whole Blood 241 mg/dL (60-115)
[2022-09-10 05:12] LABS: Glucose, Whole Blood 199 mg/dL (60-115)
--- NOTE | 2022-09-10 06:35 | ED.PSYCH ---
HPI - Psych General Chief Complaint: Psychiatric Symptoms Stated Complaint: SI Time Seen by Provider: 09/10/22 06:34 Source: patient, EMS, RN notes reviewed and old records reviewed Mode of arrival: EMS History of Present Illness HPI Narrative: 57-year-old male with a past medical history diabetes, diabetic neuropathy, renal transplant, wheelchair-bound, presenting to the ED via EMS complaining of increasing depression with SI. Patient not interactive/cooperative with history/physical exam with this manual writer. Nodding head yes to SI, denies HI or SI plan. Of note patient was recently seen and treated in our ED on 09/08 for chronic LLE weakness and depression, STR was recommended at that time however patient refused & was discharged home. Per triage patient is suicidal with plan to overdose on insulin. Increased stressors surrounding patient's current living situation/mary SADLER complaint: suicidal ideation and feels depressed Onset (ago): day(s) Related Data Home Medications Medication Instructions Recorded Confirmed amlodipine 10 mg tablet 10 mg PO DAILY 05/23/21 09/10/22 carvedilol 25 mg tablet 25 mg PO BID 05/23/21 09/10/22 dapagliflozin 10 mg tablet 10 mg PO DAILY 05/23/21 09/10/22 (Farxiga) entecavir 0.5 mg tablet 0.5 mg PO DAILY 05/23/21 09/10/22 gabapentin 100 mg capsule 100 mg PO TID 05/23/21 09/10/22 glipizide 10 mg tablet, extended 10 mg PO BID 05/23/21 09/10/22 release 24 hr insulin glargine 100 unit/mL (3 44 unit subcut BEDTIME 05/23/21 09/10/22 mL) subcutaneous pen (Lantus Solostar U-100 Insulin) metformin 500 mg tablet 500 mg PO BID 05/23/21 09/10/22 pen needle, diabetic 31 gauge x #1,200 ea 05/23/21 09/10/2209/09 (BD Ultra-Fine Short Pen Needle) ropinirole 0.5 mg tablet 0.5 mg PO BEDTIME 05/23/21 09/10/22 tacrolimus 1 mg tablet,extended 3 mg PO DAILY 05/23/21 09/10/22 release 24 hr (Envarsus XR) acetaminophen 650 mg 1,300 mg PO Q8H PRN Pain 09/08/22 09/10/22 tablet,extended release capsaicin 0.025 % topical cream 1 appl topical BID 09/08/22 09/10/22 docusate sodium 100 mg capsule 100 mg PO DAILY 09/08/22 09/10/22 duloxetine 30 mg capsule,delayed 30 mg PO DAILY 09/08/22 09/10/22 release Allergies Allergy/AdvReac Type Severity Reaction Status Date / Time No Known Allergies Allergy Verified 09/10/22 03:42 [No Known Allergies*] Review of Systems Review of Systems: Psych: No Anxiety/Panic, + Depression, +SI, No HI/AH/VH, No Social Issues History limited due to patient's uncooperation Yes all other systems are reviewed and are negative Constitutional: Constitutional: Reports as per [facility] Past Medical History Attestation statement: The following information was validated with the patient. Source: old records reviewed Medical History Diabetes HTN (hypertension) Surgical History Kidney transplanted Family History Family History Father Diabetes HTN (hypertension) Mother Diabetes HTN (hypertension) Brother Diabetes Chronic kidney disease Social History Social History Household Members: None Housing: Apartment Alcohol intake: unknown Patient Tobacco Use Status: Former Tobacco user Smoked in Last 30 Days: No Use of substances other than those prescribed or required for medical reasons: No Advance Directives: No Advance Directives Information Provided: No Healthcare Proxy: Yes Guardian: No Physical Exam Vital Signs: Vital Signs: Last Vital Signs Temp 97.6 F 09/10/22 11:50 Pulse 68 09/10/22 13:56 Resp 20 09/10/22 13:56 BP 137/84 09/10/22 13:56 Pulse Ox 94 09/10/22 13:56 O2 Del Method Room Air 09/10/22 13:56 BMI result Body Mass Index 29.9 Const: General: no acute distress Orientation/consciousness: patient oriented x3 HEENT: Head: Yes normal to inspection and Yes atraumatic Ears: hearing grossly normal bilaterally General nose exam: Normal external nose present Face and sinus: Yes normal facial exam Eyes: General: appearance normal, both eyes and all related structures EOM: EOMs intact bilaterally Neck: Neck: Yes normal visual inspection and Yes no meningeal signs Resp: Effort & Inspection: normal respiratory effort and no respiratory distress Cardio: Rate: regular rate Heart sounds: S1 normal heart sound present and S2 normal heart sound present GI: Inspection: Yes normal to inspection Skin: Rashes: no rashes Wounds: no wounds Neuro: General: patient oriented x3, tone normal, no meningeal signs and CN's II-XI intact bilaterally Gait exam (Neuro): Normal gait present Extrem: General: Yes normal to inspection Psych: Thought content: Suicidality present and Depressive thoughts present Course Course Course Narrative: -labs reassuring. Magnesium slightly low at 1.5 > p.o. repletion ordered. -labs otherwise unremarkable, patient was evaluated by CARE team and will now be an inpatient bed search. Physician observation initiated at 13:03 -1630--ED care transferred to [facility] pending inpatient bed search Medications Administered Generic Name Dose Route Start Last Admin Trade Name Nohemy PRN Reason Stop Dose Admin Amlodipine Besylate 10 mg 09/10/22 12:00 09/10/22 13:14 Amlodipine Besylate 10 Mg Tablet PO 10 mg DAILY GARRY Administration Protocol Capsaicin 1 appl 09/10/22 12:15 09/10/22 14:53 Capsaicin 0.025% Cream 60 Gm Tube TOPICAL Not Given BID GARRY Protocol Carvedilol 25 mg 09/10/22 12:15 09/10/22 13:14 Carvedilol 25 Mg Tablet PO 25 mg BID GARRY Administration Protocol Docusate Sodium 100 mg 09/10/22 12:15 09/10/22 13:15 Docusate Sodium 100 Mg Capsule PO Not Given DAILY GARRY Duloxetine HCl 30 mg 09/10/22 12:15 09/10/22 13:14 Duloxetine Hcl 30 Mg Capsule.Dr PO 30 mg DAILY GARRY Administration Gabapentin 100 mg 09/10/22 15:00 09/10/22 14:51 Gabapentin 100 Mg Capsule PO 100 mg TID GARRY Administration Glipizide 10 mg 09/10/22 12:15 09/10/22 13:16 Glipizide Xl 10 Mg Tab.Er.24 PO Not Given BID GARRY Metformin HCl 500 mg 09/10/22 12:15 09/10/22 13:16 Metformin Hcl 500 Mg Tablet PO Not Given BID GARRY Discontinued Medications Generic Name Dose Route Start Last Admin Trade Name Nohemy PRN Reason Stop Dose Admin Magnesium Oxide 800 mg 09/10/22 09:38 09/10/22 09:52 Magnesium Oxide 400 Mg Tablet PO 09/10/22 09:39 800 mg ONCE ONE Administration Medical Decision Making Medical Decision Making [facility] Narrative: 57-year-old male with a past medical history diabetes, diabetic neuropathy, renal transplant, wheelchair-bound, presenting to the ED via EMS complaining of increasing depression with SI. Patient not interactive/cooperative with history/physical exam with this manual writer. On exam vital signs stable, NAD, nontoxic appearing, +SI Labs and imaging reviewed from 09/08 Plan: Labs, CARE team consult Please refer to course for remaining clinical decision making, interpretation of labs/imaging results, and discussions with consultants and/or family members. Differential Diagnosis Differential Diagnoses: The differential diagnosis associated with the presentation includes As above Admission/Observation Consideration of admission/observation: Escalation of care including admission/observation considered Lab Data [facility] Lab Attestation statement: I reviewed the patient's lab results. 09/10/22 07:41 09/10/22 07:41 Labs: Lab Results 09/10/22 09/10/22 09/10/22 Range/Units 03:43 04:01 05:08 WBC (4.8-10.8) X10*3/uL RBC (4.60-5.80) X10*6/uL Hgb (14.0-18.0) g/dl Hct (42.0-52.0) % MCV (80.0-98.0) fL MCH (27.0-33.0) pg MCHC (31.0-36.0) g/dl RDW (11.0-16.0) % Plt Count (160-400) X10*3/uL MPV (9.4-12.4) fL Immature Gran % (Auto) (0.0-0.4) % Neut % (Auto) (45-73) % Lymph % (Auto) (20-40) % [place] % (Auto) (2-11) % Eos % (Auto) (0-4) % Baso % (Auto) (0-2) % Lymph # (Auto) (1.2-4.9) X10*3/uL Linn # (Auto) (0.1-1.2) X10*3/uL Eos # (Auto) (0.0-0.4) X10*3/uL Baso # (Auto) (0.0-0.2) X10*3/uL Abs Immat Gran (auto) (0.00-0.03) X10*3/uL Absolute Neuts (auto) (2.0-8.3) x10*3/uL Absolute Nucleated RBC (0.0-0.012) X10*3/uL Nucleated RBC % (auto) (0.0-0.2) /100WBC Sodium (135-145) mmol/L Potassium (3.3-5.1) mmol/L Chloride (96-108) mmol/L Carbon Dioxide (22-29) mmol/L Anion Gap (12-20) BUN (9-16) mg/dL Creatinine (0.5-1.4) mg/dL Estim Creat Clear Calc Estimated GFR POC Glucose 241 H 199 H (60-115) mg/dL Random Glucose (60-115) mg/dL Calcium (8.4-10.2) mg/dL Magnesium (1.6-2.6) mg/dL Total Bilirubin (0.0-1.0) mg/dL Direct Bilirubin (0.0-0.5) mg/dL AST (5-37) U/L ALT (0-40) U/L Alkaline Phosphatase (39-117) U/L Total Protein (6.5-8.0) g/dL Albumin (3.5-5.0) g/dL Urine Color Urine Appearance Urine pH (5.0-9.0) Ur Specific [place] (1.005-1.025) Urine Protein (Neg-Trace) mg/dL Urine Glucose (UA) (Negative) mg/dL Urine Ketones (Negative) mg/dL Urine Blood (Negative) Urine Nitrite (Negative) Ur Leukocyte Esterase (Negative) Urine RBC (0-2) /HPF Urine WBC (0-5) /HPF Ur Squamous Epith Cells (0-2) /HPF Urine Bacteria (None Seen) Hyaline Casts (0-2) /LPF Urine Opiates Screen (Not Detect) Urine Fentanyl Screen (Not Detect) Ur Barbiturates Screen (Not Detect) Ur Phencyclidine Scrn (Not Detect) Ur Amphetamines Screen (Not Detect) U Benzodiazepines Scrn (Not Detect) Urine Cocaine Screen (Not Detect) U Marijuana (THC) Screen (Not Detect) Ethyl Alcohol mg/dL COVID-19 (ILIR) Negative (Negative) COVID-19 Clin Com See Note 09/10/22 09/10/22 09/10/22 Range/Units 07:06 07:41 07:41 WBC 6.3 (4.8-10.8) X10*3/uL RBC 4.53 L (4.60-5.80) X10*6/uL Hgb 13.9 L (14.0-18.0) g/dl Hct 40.9 L (42.0-52.0) % MCV 90.3 (80.0-98.0) fL MCH 30.7 (27.0-33.0) pg MCHC 34.0 (31.0-36.0) g/dl RDW 12.3 (11.0-16.0) % Plt Count 149 L (160-400) X10*3/uL MPV 10.8 (9.4-12.4) fL Immature Gran % (Auto) 0.3 (0.0-0.4) % Neut % (Auto) 66.5 (45-73) % Lymph % (Auto) 19.6 L (20-40) % [place] % (Auto) 9.2 (2-11) % Eos % (Auto) 3.8 (0-4) % Baso % (Auto) 0.6 (0-2) % Lymph # (Auto) 1.2 (1.2-4.9) X10*3/uL Linn # (Auto) 0.6 (0.1-1.2) X10*3/uL Eos # (Auto) 0.2 (0.0-0.4) X10*3/uL Baso # (Auto) 0.0 (0.0-0.2) X10*3/uL Abs Immat Gran (auto) 0.02 (0.00-0.03) X10*3/uL Absolute Neuts (auto) 4.2 (2.0-8.3) x10*3/uL Absolute Nucleated RBC 0.000 (0.0-0.012) X10*3/uL Nucleated RBC % (auto) 0.0 (0.0-0.2) /100WBC Sodium 144 (135-145) mmol/L Potassium 4.0 (3.3-5.1) mmol/L Chloride 109 H (96-108) mmol/L Carbon Dioxide 28 (22-29) mmol/L Anion Gap 11 L (12-20) BUN 11 (9-16) mg/dL Creatinine 1.07 (0.5-1.4) mg/dL Estim Creat Clear Calc 76.4 Estimated GFR > 60 POC Glucose 145 H (60-115) mg/dL Random Glucose 126 H (60-115) mg/dL Calcium 7.8 L (8.4-10.2) mg/dL Magnesium 1.5 L (1.6-2.6) mg/dL Total Bilirubin 0.4 (0.0-1.0) mg/dL Direct Bilirubin 0.1 (0.0-0.5) mg/dL AST 14 (5-37) U/L ALT 16 (0-40) U/L Alkaline Phosphatase 130 H (39-117) U/L Total Protein 5.8 L (6.5-8.0) g/dL Albumin 3.7 (3.5-5.0) g/dL Urine Color Urine Appearance Urine pH (5.0-9.0) Ur Specific [place] (1.005-1.025) Urine Protein (Neg-Trace) mg/dL Urine Glucose (UA) (Negative) mg/dL Urine Ketones (Negative) mg/dL Urine Blood (Negative) Urine Nitrite (Negative) Ur Leukocyte Esterase (Negative) Urine RBC (0-2) /HPF Urine WBC (0-5) /HPF Ur Squamous Epith Cells (0-2) /HPF Urine Bacteria (None Seen) Hyaline Casts (0-2) /LPF Urine Opiates Screen (Not Detect) Urine Fentanyl Screen (Not Detect) Ur Barbiturates Screen (Not Detect) Ur Phencyclidine Scrn (Not Detect) Ur Amphetamines Screen (Not Detect) U Benzodiazepines Scrn (Not Detect) Urine Cocaine Screen (Not Detect) U Marijuana (THC) Screen (Not Detect) Ethyl Alcohol < 10 mg/dL COVID-19 (ILIR) (Negative) COVID-19 Clin Com 09/10/22 09/10/22 Range/Units 09:21 09:21 WBC (4.8-10.8) X10*3/uL RBC (4.60-5.80) X10*6/uL Hgb (14.0-18.0) g/dl Hct (42.0-52.0) % MCV (80.0-98.0) fL MCH (27.0-33.0) pg MCHC (31.0-36.0) g/dl RDW (11.0-16.0) % Plt Count (160-400) X10*3/uL MPV (9.4-12.4) fL Immature Gran % (Auto) (0.0-0.4) % Neut % (Auto) (45-73) % Lymph % (Auto) (20-40) % [place] % (Auto) (2-11) % Eos % (Auto) (0-4) % Baso % (Auto) (0-2) % Lymph # (Auto) (1.2-4.9) X10*3/uL Linn # (Auto) (0.1-1.2) X10*3/uL Eos # (Auto) (0.0-0.4) X10*3/uL Baso # (Auto) (0.0-0.2) X10*3/uL Abs Immat Gran (auto) (0.00-0.03) X10*3/uL Absolute Neuts (auto) (2.0-8.3) x10*3/uL Absolute Nucleated RBC (0.0-0.012) X10*3/uL Nucleated RBC % (auto) (0.0-0.2) /100WBC Sodium (135-145) mmol/L Potassium (3.3-5.1) mmol/L Chloride (96-108) mmol/L Carbon Dioxide (22-29) mmol/L Anion Gap (12-20) BUN (9-16) mg/dL Creatinine (0.5-1.4) mg/dL Estim Creat Clear Calc Estimated GFR POC Glucose (60-115) mg/dL Random Glucose (60-115) mg/dL Calcium (8.4-10.2) mg/dL Magnesium (1.6-2.6) mg/dL Total Bilirubin (0.0-1.0) mg/dL Direct Bilirubin (0.0-0.5) mg/dL AST (5-37) U/L ALT (0-40) U/L Alkaline Phosphatase (39-117) U/L Total Protein (6.5-8.0) g/dL Albumin (3.5-5.0) g/dL Urine Color Yellow Urine Appearance Clear Urine pH 6.5 (5.0-9.0) Ur Specific [place] 1.015 (1.005-1.025) Urine Protein Trace (Neg-Trace) mg/dL Urine Glucose (UA) >=1000 H (Negative) mg/dL Urine Ketones Negative (Negative) mg/dL Urine Blood Negative (Negative) Urine Nitrite Negative (Negative) Ur Leukocyte Esterase Small (1+) H (Negative) Urine RBC 0-2 (0-2) /HPF Urine WBC 0-5 (0-5) /HPF Ur Squamous Epith Cells 0-2 (0-2) /HPF Urine Bacteria None Seen (None Seen) Hyaline Casts 0-2 (0-2) /LPF Urine Opiates Screen Not Detected (Not Detect) Urine Fentanyl Screen Not Detected (Not Detect) Ur Barbiturates Screen Not Detected (Not Detect) Ur Phencyclidine Scrn Not Detected (Not Detect) Ur Amphetamines Screen Not Detected (Not Detect) U Benzodiazepines Scrn Not Detected (Not Detect) Urine Cocaine Screen Not Detected (Not Detect) U Marijuana (THC) Screen Not Detected (Not Detect) Ethyl Alcohol mg/dL COVID-19 (ILIR) (Negative) COVID-19 Clin Com Radiology Impression Discussion of test interpretation with radiology: I have reviewed the radiologist's reading. External Record Review External record reviewed: Inpatient record, Office record, Outpatient record, Prior outpatient labs, Prior outpatient radiology, Primary care record and Outside ED record Tests considered The following testing was considered but not selected: As above Discharge Plan Discharge Clinical Impression: Suicidal ideations Patient Disposition: Still a Patient Prescriptions: No Action acetaminophen 650 mg tablet extended release 1,300 mg PO Q8H PRN (Reason: Pain) capsaicin 0.025 % cream 1 appl topical BID docusate sodium 100 mg Capsule 100 mg PO DAILY duloxetine 30 mg Capsule,Delayed Release(Dr/Ec) 30 mg PO DAILY entecavir 0.5 mg tablet 0.5 mg PO DAILY gabapentin 100 mg capsule 100 mg PO TID ropinirole 0.5 mg tablet 0.5 mg PO BEDTIME amlodipine 10 mg tablet 10 mg PO DAILY Farxiga 10 mg tablet 10 mg PO DAILY (DME) pen needle, diabetic [BD Ultra-Fine Short Pen Needle] 31 gauge x 5/16 needle See Rx Instructions subcut DAILY Qty: 1200 Rx Instructions: As directed glipizide 10 mg tablet extended release 24hr 10 mg PO BID metformin 500 mg tablet 500 mg PO BID carvedilol 25 mg tablet 25 mg PO BID Envarsus XR 1 mg tablet extended release 24 hr 3 mg PO DAILY Lantus Solostar U-100 Insulin 100 unit/mL (3 mL) insulin pen 44 unit subcut BEDTIME Interventions: Caroline-Suicide Risk Severity Scale Last Done: 09/10/22 09:57
[2022-09-10 07:10] LABS: Glucose, Whole Blood 145 mg/dL (60-115)
--- NOTE | 2022-09-10 07:30 | PC.NURSE ---
Pt appears to be sleeping in bed, respirations even and unlabored. Patient observer at bedside.
[2022-09-10 07:48] LABS: MANUAL DIFF FLAG NO
[2022-09-10 07:52] LABS: Basophils Percent Auto 0.6 % (0-2); Eosinophils Absolute Auto 0.2 X10*3/uL (0.0-0.4); Eosinophils Percent Auto 3.8 % (0-4); Hematocrit 40.9 % (42.0-52.0); Hemoglobin 13.9 g/dl (14.0-18.0); Imm Gran Abs Auto 0.02 X10*3/uL (0.00-0.03); Imm Gran Pct Auto 0.3 % (0.0-0.4); Lymphocytes Absolute Auto 1.2 X10*3/uL (1.2-4.9); Lymphocytes Percent Auto 19.6 % (20-40); Mean Corpuscular Hemoglobin 30.7 pg (27.0-33.0); Mean Corpuscular Volume 90.3 fL (80.0-98.0); Mean Platelet Volume 10.8 fL (9.4-12.4); Monocytes Absolute Auto 0.6 X10*3/uL (0.1-1.2); Monocytes Percent Auto 9.2 % (2-11); Neutrophils Absolute Auto 4.2 x10*3/uL (2.0-8.3); Neutrophils Percent Auto 66.5 % (45-73); Platelet Count 149 X10*3/uL (160-400); Red Blood Count 4.53 X10*6/uL (4.60-5.80); Red Cell Distribution Width 12.3 % (11.0-16.0); White Blood Count 6.3 X10*3/uL (4.8-10.8)
[2022-09-10 08:20] LABS: Alanine Aminotransferase 16 U/L (0-40); Albumin Level 3.7 g/dL (3.5-5.0); Alkaline Phosphatase 130 U/L (39-117); Anion Gap 11 (12-20); Aspartate Amino Transferase 14 U/L (5-37); Bilirubin Direct 0.1 mg/dL (0.0-0.5); Bilirubin Total 0.4 mg/dL (0.0-1.0); Blood Urea Nitrogen 11 mg/dL (9-16); Calcium 7.8 mg/dL (8.4-10.2); Carbon Dioxide 28 mmol/L (22-29); Chloride 109 mmol/L (96-108); Creatinine Clr Calc Pharmacy 76.4; Estimated Glomerular Filt Rate > 60; Ethanol < 10 mg/dL; Glucose Random 126 mg/dL (60-115); Magnesium 1.5 mg/dL (1.6-2.6); Sodium 144 mmol/L (135-145); Total Protein 5.8 g/dL (6.5-8.0)
[2022-09-10 09:35] LABS: Appearance Urine Clear; Color Urine Yellow; Glucose Urine UA >=1000 mg/dL (Negative); Leukocyte Esterase Urine Small (1+) (Negative); Nitrite Urine Negative (Negative); PH 6.5 (5.0-9.0); Specific Gravity - Urine 1.015 (1.005-1.025); UMIC TRIGGER UACC YES; Urine Blood Negative (Negative); Urine Ketones Negative (Negative); Urine Protein Trace mg/dL (Neg-Trace)
[2022-09-10 09:41] LABS: Bacteria Urine None Seen (None Seen); Hyaline Casts Urine 0-2 /LPF (0-2); RBC Urine 0-2 /HPF (0-2); Squamous Epithelial Cell Urine 0-2 /HPF (0-2); UACC Culture Trigger YES; WBC Urine 0-5 /HPF (0-5)
[2022-09-10 09:50] LABS: Amphetamine Screen Urine Not Detected (Not Detect); Barbiturates, Urine Not Detected (Not Detect); Benzodiazepines Screen Urine Not Detected (Not Detect); Cannabinoid Screen Urine Not Detected (Not Detect); Cocaine Screen Urine Not Detected (Not Detect); Opiate Screen Urine Not Detected (Not Detect); Phencyclidine Screen Urine Not Detected (Not Detect)
[2022-09-10] MEDS: Magnesium Oxide 400 MG TABLET 800 MG PO (09:52)
--- NOTE | 2022-09-10 09:59 | PC.NURSE ---
Coffee and toast provided for patient, patient observer conversing with patient. Pt not endorsing suicidal ideation at this time, reporting depression.
[2022-09-10 10:00] LABS: Fentanyl, urine Not Detected (Not Detect)
[2022-09-10] MEDS: DULoxetine HCl 30 MG CAPSULE.DR PO (13:14)
[2022-09-10] MEDS: amLODIPine Besylate 10 MG TABLET PO (13:14)
[2022-09-10] MEDS: carvediloL 25 MG TABLET PO ×2 (13:14→22:11)
--- NOTE | 2022-09-10 14:22 | PC.NURSE ---
Plan for inpatient bedsearch, resting in bed patient observer at bedside
[2022-09-10] MEDS: Gabapentin 100 MG CAPSULE PO ×2 (14:51→22:11)
--- NOTE | 2022-09-10 15:01 | PC.NURSE ---
Belongings moved to laundry room in pod, medications sent to pharmacy
--- NOTE | 2022-09-10 16:05 | PC.NURSE ---
Requesting transfer to [facility] d/t problems with medication. Reporting pain and no relief with medications, tylenol offered which patient refused. Patient observer continues to be at bedside monitoring patient.
--- NOTE | 2022-09-10 17:41 | MHC.CM.ED ---
Pt complaining to CM that he has not gotten his medications today, especially his kidney medication and is very concerned since his is a kidney transplant patient. States he wants to leave and be transferred to [facility], as that is his hospital. Pt is an inpatient bed search for SI. CM called his HCP/daughter, Paul, who will bring his medications to the ED tonight. RN and provider aware.
--- NOTE | 2022-09-10 18:40 | PC.NURSE ---
Pt daughter brought home medications in
--- NOTE | 2022-09-10 19:19 | PC.NURSE ---
Took over care at 7:00pm From GILLIAN Mar, Call Pharmacy regarding pt own medication and requesting to taking them, Pharmacy aware.
[2022-09-10] MEDS: TACROLIMUS 1 MG 3 EACH PO (19:51)
--- NOTE | 2022-09-10 19:59 | PC.NURSE ---
Took over care at 7pm from Isabela, Called Pharmacy to address medication concern pending since 12:15pm, pt recieved medcation and remains a 1:1. pt is cooperative at this time, no sign of distress.
[2022-09-10 20:46] LABS: Glucose, Whole Blood 215 mg/dL (60-115)
--- NOTE | 2022-09-10 21:37 | PC.NURSE ---
pt is sleeping at his time no sign of distress or agitations, will continue to monitor.
[2022-09-10] MEDS: rOPINIRole HCL 0.5 MG TABLET PO (21:57)
[2022-09-10] MEDS: glipiZIDE XL 10 MG TAB.ER.24 PO (21:57)
[2022-09-10] MEDS: metFORMIN HCl 500 MG TABLET PO (22:11)
[2022-09-10] MEDS: Insulin Glargine,Hum.rec.anlog 100 UNIT/ML 10 ML VIAL 44 UNIT SUBCUT (22:12)
--- NOTE | 2022-09-10 22:20 | PC.NURSE ---
pt medicated per mar, pt denies any SI/ HI at his time. Will continue monitor
--- NOTE | 2022-09-10 23:03 | PC.NURSE ---
Pt is a&o, denies any sob or chest pain, pt medicated per Mar, Pt luther any SI/HI at this time, pt remains on a 1:1 at this time.
--- NOTE | 2022-09-10 23:03 | MHC.EDTECH ---
THIS PCT JUST ASSUMED CARE OF PATIENT ,VITALS SIGN TAKEN PATIENT RESTING QUIETLY IN BED ,THIS PCT IS ASSIGNED TO PROVIDE 1:1 FOR PATIENT .
[2022-09-11 06:16] VITALS: BP 122/71; PULSE 62; RESP 16; TEMP 36.7; O2SAT 96
[2022-09-11 07:10] VITALS: BP 138/76; PULSE 62; TEMP 36.7; O2SAT 93
[2022-09-11 07:25] LABS: Glucose, Whole Blood 203 mg/dL (60-115)
[2022-09-11] MEDS: Empagliflozin 10 MG TABLET PO (08:36)
[2022-09-11] MEDS: TACROLIMUS 1 MG 3 EACH PO (08:36)
[2022-09-11] MEDS: glipiZIDE XL 10 MG TAB.ER.24 PO ×2 (08:37→21:13)
[2022-09-11] MEDS: DULoxetine HCl 30 MG CAPSULE.DR PO (08:37)
[2022-09-11] MEDS: Docusate Sodium 100 MG CAPSULE PO (08:37)
[2022-09-11] MEDS: carvediloL 25 MG TABLET PO ×2 (08:37→21:15)
[2022-09-11] MEDS: metFORMIN HCl 500 MG TABLET PO ×2 (08:37→21:14)
[2022-09-11] MEDS: amLODIPine Besylate 10 MG TABLET PO (08:37)
[2022-09-11] MEDS: Gabapentin 100 MG CAPSULE PO ×3 (08:38→21:14)
--- NOTE | 2022-09-11 08:53 | PC.NURSE ---
pt medicated as charted. Up to a bedside chair for breakfast. states bilateral hand pain
--- NOTE | 2022-09-11 09:17 | MHC.EDTECH ---
[facility]. Used Urinal, washed up, eating breakfast. No compliants or concerns at this time.
--- NOTE | 2022-09-11 11:02 | ECG_ITS ---
Test Reason : admission Blood Pressure : / mmHG Vent. Rate : 055 BPM Atrial Rate : 055 BPM P-R Int : 218 ms QRS Dur : 086 ms QT Int : 436 ms P-R-T Axes : 019 011 046 degrees QTc Int : 417 ms Sinus bradycardia with 1st degree A-V block Otherwise normal ECG When compared with ECG of 29-AUG-2019 00:51, TX interval has increased T wave inversion no longer evident in Lateral leads Referred By: Marlin Gotti Electronically Signed By:Ac Lozano
--- NOTE | 2022-09-11 13:01 | PC.NURSE ---
PT MOSTLY NAPPING, AWAITING ADMISSION
--- NOTE | 2022-09-11 13:07 | PC.NURSE ---
REPORT GIVEN FOR S1 ADMISSION
--- OUTSIDE RECORDS SUMMARY | 2022-09-11 14:07 | XMS_ITS | Continuity of Care Document ---
Author Name Unknown Organization [facility] Address [address] [place] [address]- Care Team Providers Care Online Merchant Name Role Phone Jose Miguel SADLER, Sakshi Primary Care Physician Encounter [facility] [id number] Date(s): 04/23/20 - 05/23/20 [facility] [address] [place] [address]- Attending Physician: Dileep Montes Admitting Physician: AdmtrDileep Referring Physician: AdmtrDileep Allergies, Adverse Reactions, Alerts No Known Medication Allergies Immunizations Given and Recorded Vaccine Date Status Refusal Reason influenza virus vaccine, inactivated 03/21/20 Give n Not Given Vaccine Date Status Refusal Reason influenza virus vaccine, inactivated 1 02/03/18 No t Given Patient Refuses pneumococcal 23-valent vaccine 02/03/18 Not Given Patient Refuses 1Result Note: pt wants to get his vaccine at his dialysis center where he always gets it Medications Alcohol Pads See Instructions, # 200 each, Refills 5, Tot. Refills 5, Maintenance, use as directed for Type 2 Diabetes Mellitus, 03/23/20 7:59:00 EST, Supply, 168, cm, 03/20/20 23:11:00 EST, Height, 73.55, kg, 03/20/20 19:52:00 EST, Dry Weight Start Date: 03/23/20 Stop Date: 09/19/20 Status: Ordered amLODIPine 10 mg oral tablet 10 mg, 1, tablet, By Mouth, Daily, # 30 tablet, Refills 2, Tot. Refills 2, Maintenance, 03/13/20 15:34:00 EST, Route to Pharmacy Electronically, [facility], 167, cm, 03/13/20 9:06:00EST, Height, 86.2, kg, 01/22/20 7:46:00 EDT, Dry We... Start Date: 03/13/20 Stop Date: 06/11/20 Status: Ordered calcitriol 0.5 mcg oral capsule 2 capsule = 1 mcg, By Mouth, Daily, # 60 capsule, 2 Refills, Maintenance, 05/13/20 16:02:00 EST, Capsule, [facility], 168, cm, 04/02/20 13:09:00 EST, Height, 73.55, kg, 03/20/20 19:52:00 EST, Dry Weight Start Date: 05/13/20 Stop Date: 08/11/20 Status: Ordered Coreg 25 mg oral tablet 25 mg, 1, tablet, By Mouth, 2 times a day, # 60 tablet, Refills 2, Tot. Refills 2, Maintenance, 02/16/20 12:56:00 EDT, Route to Pharmacy Electronically, [facility], 167, cm, 02/15/2010:08:00 EDT, Height, 86.2, kg, 01/22/20 7:46:00 ED... Start Date: 02/16/20 Stop Date: 05/16/20 Status: Ordered dapagliflozin 10 mg oral tablet 1 tablet = 10 mg, By Mouth, Daily, # 30 tablet, 2 Refills, Maintenance, 03/29/20 17:51:00 EST, Tablet, [facility], Partial fill upon patient request if the prescription is for a schedule II opioid drug., 168, cm, 03/29/20 9:02:00 EST,... Start Date: 03/29/20 Stop Date: 06/27/20 Status: Ordered docusate sodium 100 mg oral capsule 100 mg, 1, capsule, By Mouth, Daily, # 30 capsule, Refills 1, Tot. Refills 1, Maintenance, 02/12/2013:29:00 EDT, Route to Pharmacy Electronically, [facility], 167, cm, 02/13/20 8:42:00 EDT, Height, 86.2, kg, 01/22/20 7:46:00 EDT, Dry... Start Date: 02/13/20 Stop Date: 04/13/20 Status: Ordered entecavir 0.5 mg oral tablet 1 tablet = 0.5 mg, By Mouth, Daily, # 30 tablet, 1 Refills, Maintenance, 03/13/20 15:32:00 EST, Tablet, [facility], 167, cm, 03/13/20 9:06:00 EST, Height, 86.2, kg, 01/22/20 7:46:00 EDT, Dry Weight Start Date: 03/13/20 Stop Date: 05/12/20 Status: Ordered Envarsus XR 0.75 mg oral tablet, extended release 1 tablet = 0.75 mg, By Mouth, Daily in AM, to use with envarsus 1 mg tablets, # 30 tablet, 2 Refills, Maintenance, 03/05/20 16:42:00 EST, [facility], 167, cm, 03/05/20 8:28:00 EST, Height, 86.2, kg, 01/22/20 7:46:00 EDT, Dry Weight Start Date: 03/05/20 Stop Date: 06/03/20 Status: Ordered Envarsus XR 1 mg oral tablet, extended release 1 tablet = 1 mg, By Mouth, Daily in AM, # 30 tablet, 2 Refills, Maintenance, 03/13/20 15:32:00 EST,[facility], 167, cm, 03/13/20 9:06:00 EST, Height, 86.2, kg, 01/22/20 7:46:00 EDT,Dry Weight Start Date: 03/13/20 Stop Date: 06/11/20 Status: Ordered Freestyle Dayna Monitor See Instructions, # 1 each, Maintenance, use as directed for Type 2 Diabetes Mellitus, 03/19/20 16:41:00 EST, Supply, 167, cm, 03/19/20 9:57:00 EST, Height, 86.2, kg, 01/22/20 7:46:00 EDT, Dry Weight Start Date: 03/19/20 Stop Date: 04/18/20 Status: Ordered Freestyle Dayna Monitor See Instructions, # 1 each, Refills 0, Tot. Refills 0, Maintenance, please use to scan your sensor to check blood sugars. E11.9, 03/27/20 15:50:00 EST, Supply Start Date: 03/27/20 Status: Ordered Freestyle Dayna Sensor See Instructions, # 2 each, Refills 11, Tot. Refills 11, Maintenance, please use as directed for Type 2 Diabetes Mellitus, replace sesnor every 14 days., 03/27/20 15:52:00 EST, Supply Start Date: 03/27/20 Stop Date: 03/22/21 Status: Ordered Freestyle Lite Lancets See Instructions, # 600 each, Refills 2, Tot. Refills 2, Maintenance, Please use to check blood sugar daily in the AM as directed for Type 2 Diabetes Mellitus E11.9, 03/23/20 7:59:00 EST, Supply, 168, cm, 03/20/20 23:11:00 EST, Height, 73.55, kg, 1... Start Date: 03/23/20 Stop Date: 12/18/20 Status: Ordered Freestyle Lite Monitor See Instructions, # 1 each, Refills 0, Tot. Refills 0, Maintenance, Please use to check blood sugarfor your type 2 diabetes. E11.9, 03/23/20 7:59:00 EST, Supply, 168, cm, 03/20/20 23:11:00 EST, Height, 73.55, kg, 03/20/20 19:52:00 EST, Dry Weight Start Date: 03/23/20 Status: Ordered Freestyle Lite Test Strips See Instructions, # 200 each, Refills 2, Tot. Refills 2, Maintenance, Please use to check blood sugar daily in AM for Type 2 Diabetes Mellitus, 04/25/20 12:59:00 EST, Supply, 168, cm, 04/23/20 8:27:00 EST, Height, 73.55, kg, 03/20/20 19:52:00 EST, Dry... Start Date: 04/25/20 Stop Date: 07/24/20 Status: Ordered gabapentin 100 mg oral capsule 100 mg, 1, capsule, By Mouth, 3 times a day, # 90 capsule, Refills 1, Tot. Refills 1, Maintenance, 04/16/20 10:24:00 EST, Route to Pharmacy Electronically, [facility], Partial fill upon patient request, 168, cm, 04/09/20 8:57:00 EST,... Start Date: 04/16/20 Stop Date: 06/15/20 Status: Ordered glipiZIDE 10 mg oral tablet, extended release 1 tablet = 10 mg, By Mouth, 2 times a day, DX: E11.65, # 60 tablet, 6 Refills, Maintenance, 04/18/20 11:45:00 EST, ER Tablet, [facility], Partial fill upon patient request, 168, cm, 04/16/20 13:36:00 EST, Height, 73.55, kg, 03/20/20 1... Start Date: 04/18/20 Status: Ordered Lantus Solostar Pen 100 units/mL subcutaneous solution See Instructions, Take 36 units daily at bedtime. E11.65, # 30 mL, 3 Refills, Maintenance, 03/29/2020:26:00 EST, [facility], Partial fill upon patient request, 168, cm, 03/29/20 9:02:00 EST, Height, 73.55, kg, 03/20/20 19:52:00 EST,... Start Date: 03/29/20 Status: Ordered magnesium oxide 400 mg oral tablet 1 tablet = 400 mg, By Mouth, Daily, for 30 days, # 30 tablet, 2 Refills, Acute 06/27/20 17:45:00 EST, 03/29/20 17:45:00 EST, [facility], Partial fill upon patient request if the prescription is for a schedule II opioid drug., 168, cm,... Start Date: 03/29/20 Stop Date: 06/27/20 Status: Ordered metFORMIN 500 mg oral tablet 1 tablet = 500 mg, By Mouth, 2 times a day, # 60 tablet, 11 Refills, Maintenance, 04/18/20 11:39:00EST, Tablet, [facility], Partial fill upon patient request, 168, cm, 04/16/20 13:36:00 EST, Height, 73.55, kg, 03/20/20 19:52:00 EST,... Start Date: 04/18/20 Status: Ordered omeprazole 40 mg oral enteric coated capsule 1 capsule = 40 mg, By Mouth, 2 times a day, # 60 capsule, 1 Refills, Maintenance, 04/16/20 10:32:00EST, [facility], Partial fill upon patient request if the prescription is for a schedule II opioid drug., 168, cm, 04/09/20 8:57:00 ES... Start Date: 04/16/20 Stop Date: 2/19/21 Status: Ordered Pen [place], 31 G x 8 mm BD Ultra Fine III See Instructions, # 100 each, Refills 5, Tot. Refills 5, Maintenance, please use as directed with your Lantus pen. E11.9, 03/23/20 7:59:00 EST, Supply, 168, cm, 03/20/20 23:11:00 EST, Height, 73.55, kg, 03/20/20 19:52:00 EST, Dry Weight Start Date: 03/23/20 Stop Date: 09/19/20 Status: Ordered rOPINIRole 0.5 mg oral tablet 1 tablet = 0.5 mg, By Mouth, Daily at bedtime, # 30 tablet, 1 Refills, Maintenance, 03/20/20 16:11:00 EST, Tablet, [facility], Partial fill upon patient request, 167, cm, 03/19/20 9:57:00 EST, Height, 86.2, kg, 01/22/20 7:46:00 Kei GARCIA. Start Date: 03/20/20 Stop Date: 05/19/20 Status: Ordered sulfamethoxazole-trimethoprim 400 mg-80 mg oral tablet 1 tablet, By Mouth, Daily at bedtime, for 30 days, # 30 tablet, 2 Refills, Acute 06/11/20 15:33:00 EST, 03/13/20 15:33:00 EST, Tablet, [facility], 1 tablet By Mouth Daily at bedtime,x30 days, 167, cm, 03/13/20 9:06:00 EST, Height, 86.... Start Date: 03/13/20 Stop Date: 06/11/20 Status: Ordered Problem List Condition Effective Dates Status Health Status Inform ant Polyp of colon, adenomatous( Confirmed) 1 07/24/16 Active Chronic renal impairment(Confirmed) Active ESRD on dialysis(Confirmed) 2 Active -donor kidney transplant(Confirmed) 3 01/22/20 Active HTN (hypertension)(Confirmed) Active 1rept scope 1 yr [address] [facility] M, W, F 3campath induction Social History Social History Type Response Smoking Status Never smoker entered on: 09/25/16 Sex
--- OUTSIDE RECORDS SUMMARY | 2022-09-11 14:07 | XMS_ITS | Continuity of Care Document ---
Author Name Unknown Organization [facility] Address [address] [place] [address]- Care Team Providers Care Solid Waste Collector Name Role Phone Tayo SADLER, Harmony Doan Primary Care Physician Encounter [facility] Date(s): 04/02/22 - 05/02/22 [facility] [address] [place] [address]- Attending Physician: Dileep Montes Admitting Physician: Dileep Motnes Referring Physician: AdmtrDileep Allergies, Adverse Reactions, Alerts No Known Medication Allergies Immunizations Given and Recorded Vaccine Date Status Refusal Reason SARS-CoV-2 (COVID-19) mRNA BNT-162b2 vac 02/22/21 Recorded SARS-CoV-2 (COVID-19) mRNA BNT-162b2 vac 02/01/21 Recorded influenza virus vaccine, inactivated 03/21/20 Give n influenza virus vaccine, inactivated 05/20/16 Celio rded tetanus/diphtheria/pertussis, acel(Tdap) 12/30/16 Recorded Not Given Vaccine Date Status Refusal Reason [...] as directed for Type 2 Diabetes Mellitus, 08/01/21 12:54:00 EDT, Supply, 168, cm, 02/27/21 9:40:00 EDT, Height, 80, kg, 02/27/21 9:40:00 EDT, Dry Weight Start Date: 08/01/21 Stop Date: 01/28/22 Status: Ordered amLODIPine 10 mg oral tablet 10 mg, 1, tablet, By Mouth, Daily, # 30 tablet, Refills 2, Tot. Refills 2, Maintenance, 04/14/22 13:19:00 EST, Route to Pharmacy Electronically, [facility], 170, cm, 04/07/22 14:06:00 EST, Height, 80, kg, 12/12/21 16:28:00 EDT, Dry We... Start Date: 04/14/22 Stop Date: 07/13/22 Status: Ordered Bed pad Bed pad, See Instructions, # 10 pack/packet, Refills 11, Tot. Refills 11, Maintenance, YOAN 99 Diagnosis: Functional incontnence R39.81, 09/17/21 19:52:00 EDT, Supply Start Date: 09/17/21 Status: Ordered Body wipes Body wipes, See Instructions, # 10 pack/packet, Refills 11, Tot. Refills 11, Maintenance, YOAN 99 Diagnosis: R39.81, 09/17/21 19:55:00 EDT, Supply Start Date: 09/17/21 Status: Ordered capsaicin 0.025% topical cream 1 application, Topically, 2 times a day, for 90 days, # 57 Gm, 2 Refills, Acute 01/02/23 13:39:00 EDT, 04/07/22 13:39:00 EST, Cream, [facility], Partial fill upon patient request if the prescription is for a schedule II opioid drug.,... Start Date: 04/07/22 Stop Date: 01/02/23 Status: Ordered Coreg 25 mg oral tablet 25 mg, 1, tablet, By Mouth, 2 times a day, # 60 tablet, Refills 2, Tot. Refills 2, Maintenance, 04/14/22 13:19:00 EST, Route to Pharmacy Electronically, [facility], 170, cm, 04/07/2214:06:00 EST, Height, 80, kg, 12/12/21 16:28:00 EDT... Start Date: 04/14/22 Stop Date: 07/13/22 Status: Ordered Cymbalta 30 mg oral enteric coated capsule 1 capsule = 30 mg, By Mouth, Daily, take one tablet daily for one week then can take two tablets daily if no side effects after the first week, # 30 capsule, 2 Refills, Maintenance, 09/16/21 16:48:00EDT, CR Capsule, [facility], Parti... Start Date: 09/16/21 Stop Date: 12/15/21 Status: Ordered dapagliflozin 10 mg oral tablet 1 tablet = 10 mg, By Mouth, Daily, # 30 tablet, 5 Refills, Maintenance, 01/15/22 12:01:00 EDT, Tablet, [facility], Partial fill upon patient request if the prescription is for a schedule II opioid drug., 170, cm, 12/13/21 11:01:00 EDT... Start Date: 01/15/22 Stop Date: 07/14/22 Status: Ordered Diapers, Adult large Diapers, Adult large, See Instructions, # 30 each, Refills 11, Tot. Refills 11, Maintenance, Adult Large Diagnosis = G81.13, N39.498 YOAN: 99, 09/17/21 19:56:00 EDT, Supply Start Date: 09/17/21 Status: Ordered docusate sodium 100 mg oral capsule 100 mg, 1, capsule, By Mouth, Daily, # 30 capsule, Refills 1, Tot. Refills 1, Maintenance, 02/12/2013:29:00 EDT, Route to Pharmacy Electronically, [facility], 167, cm, 02/13/20 8:42:00 EDT, Height, 86.2, kg, 01/22/20 7:46:00 EDT, Dry... Start Date: 02/13/20 Stop Date: 04/13/20 Status: Ordered entecavir 0.5 mg oral tablet 1 tablet = 0.5 mg, By Mouth, Daily, # 30 tablet, 1 Refills, Maintenance, 03/13/20 15:32:00 EST, Tablet, [facility], 167, cm, 03/13/20 9:06:00 EST, Height, 86.2, kg, 01/22/20 7:46:00 EDT, Dry Weight Start Date: 03/13/20 Stop Date: 05/12/20 Status: Ordered Envarsus XR 1 mg oral tablet, extended release 3 tablet = 3 mg, By Mouth, Daily in AM, # 90 tablet, 2 Refills, Maintenance, 03/13/20 15:32:00 EST,[facility], 167, cm, 03/13/20 9:06:00 EST, [...] Lancets See Instructions, # 600 each, Refills 1, Tot. Refills 1, Maintenance, Please use to check blood sugar daily in the AM as directed for Type 2 Diabetes Mellitus E11.9, 08/01/21 12:54:00 EDT, Supply, 168, cm, 02/27/21 9:40:00 EDT, Height, 80, kg, 11/0... Start Date: 08/01/21 Stop Date: 01/28/22 Status: Ordered gabapentin 100 mg oral capsule 100 mg, 1, capsule, By Mouth, 3 times a day, # 90 capsule, Refills 1, Tot. Refills 1, Maintenance, 04/16/20 10:24:00 EST, Route to Pharmacy Electronically, [facility], Partial fill upon patient request, 168, cm, 04/09/20 8:57:00 EST,... Start Date: 04/16/20 Stop Date: 2/19/21 Status: Ordered glipiZIDE 10 mg oral tablet, extended release 1 tablet = 10 mg, By Mouth, 2 times a day, # 60 tablet, 5 Refills, Maintenance, 01/15/22 12:01:00 EDT, ER Tablet, [facility], DxE11.65, 170, cm, 12/13/21 11:01:00 EDT, Height, 80, kg, 12/12/21 16:28:00 EDT, Dry Weight Start Date: 01/15/22 Status: Ordered Lantus Solostar Pen 100 units/mL subcutaneous solution See Instructions, INJECT 44 UNITS SUBCUTANEOUSLY ONCE DAILY AT BEDTIME, # 15 mL, 2 Refills, Maintenance, 01/16/22 10:11:00 EDT, [facility], 170, cm, 12/13/21 11:01:00 EDT, Height, 80, kg, 12/12/21 16:28:00 EDT, Dry Weight Start Date: 01/16/22 Status: Ordered Mapap Arthritis Pain 650 mg oral tablet, extended release 2 tablet, By Mouth, Every 8 hours, PRN NEEDED FOR PAIN, # 100 tablet, 1 Refills, Maintenance, 04/09/22 13:19:00 EST, [facility], 170, cm, 04/07/22 14:06:00 EST, Height, 80, kg, 12/12/21 16:28:00 EDT, Dry Weight Start Date: 04/09/22 Status: Ordered metFORMIN 500 mg oral tablet 1 tablet = 500 mg, By Mouth, 2 times a day, # 60 tablet, 11 Refills, Maintenance, 04/18/20 11:39:00EST, Tablet, [facility], Partial fill upon patient request, 168, cm, 04/16/20 13:36:00 EST, Height, 73.55, kg, 03/20/20 19:52:00 EST,... Start Date: 04/18/20 Status: Ordered Pen [place], 31 G x 8 mm BD Ultra Fine III See Instructions, # 30 each, Refills 2, Tot. Refills 2, Maintenance, please use as directed with your Lantus pen once daily., 01/25/21 16:21:00 EDT, Supply, 168, cm, 04/23/20 8:27:00 EST, Height, 73.55, kg, 11/24/20 19:52:00 EST, Dry Weight Start Date: 01/25/21 Stop Date: 04/25/21 Status: Ordered rOPINIRole 0.5 mg oral tablet 1 tablet = 0.5 mg, By Mouth, Daily at bedtime, # 30 tablet, 1 Refills, Maintenance, 03/20/20 16:11:00 EST, Tablet, [facility], Partial fill upon patient request, 167, cm, 03/19/20 9:57:00 EST, Height, 86.2, kg, 01/22/20 7:46:00 MARYANATLizbet Start Date: 03/20/20 Stop Date: 05/19/20 Status: Ordered Problem List Condition Confirmation Course Effective Dates Status Health St atus Informant Polyp of colon, adenomatous 1 Confirmed 07/24/16 Active Chronic renal impairment Confirmed Active ESRD on dialysis 2 Confirmed Active -donor kidney transplant 3 Confirmed 01/22/20 Active S/p total knee replacement, bilateral Confirmed Active HTN (hypertension) Confirmed Active Diabetic neuropathy Confirmed Active 1rept scope [address] [facility] M, W, F 3campath induction Vital Signs Most recent to oldest [Reference Range]: 1 Height 168 cm (05/10/19 2:37 PM) Weight 98 kg (05/10/19 2:37 PM) Body Mass Index [18.5-24.99] 34.72 *>HHI* (05/10/19 2:37 PM) Blood Pressure [90-138/55-84 mm Hg] 142/ 60mm Hg *H* (05/05/19 2:37 PM) Blood pressure sites Arm, right (05/05/19 2:37 PM) Dry Weight 96.0 kg (05/05/19 2:37 PM) Weight Obtained Via Standing scale (05/10/19 2:37 PM) Social History Social History Type Response Smoking Status Never smoker entered on: 09/25/16 Sex Note * Event Display: Cardiovascular Result Scanned Authored Date: Patient Care team information Care Team Personnel Name: Teresa Ha RN Position: [facility] Supv Member Role: Primary Care Nurse Name: Elena Roberts RN Position: [facility] RN Member Role: Primary Care Nurse Name: Osvaldo House DO Position: [facility] Renal MD Member Role: Lifetime Consulting Physician Address: Address: [address] [facility] [place] [address]- [place] Name: Alva Melchor RN Position: [facility] RN Member Role: Primary Care Nurse Name: Brendan Guillermo MD Position: [facility] Renal MD Member Role: Lifetime Consulting Physician Address: Address: [address] [facility] [place] [place] [address]- [place] Name: Gale Wilcox Position: [facility] AMB Nurse Member Role: Primary Care Nurse Name: Cata Gong RN Position: [facility] AMB Nurse Member Role: Primary Care Nurse Name: Monae Rodriguez RN Position: [facility] RN Member Role: Primary Care Nurse Name: Alisha Polanco RN Position: [facility] RN Member Role: Primary Care Nurse Name: Gabbie Park RN Position: [facility] OB RN Member Role: Primary Care Nurse Name: Lou Hodge RN Position: [facility] SN RN Member Role: Primary Care Nurse Name: Ryann Salas RN Position: [facility] SN RN Member Role: Primary Care Nurse Name: Harmony Cr MD Position: [facility] Resident Member Role: PCP Address: Address: [address] [place] [address]- [place] Name: Stephanie Schroeder RN Position: [facility] RN Member Role: Primary Care Nurse Name: Lynette Comer RN Position: [facility] Onco RN Member Role: Primary Care Nurse Name: Paul FR[facility] Hteekainez Position: [facility] SN RN Member Role: Primary Care Nurse Name: Olu Cortés MD Position: [facility] Renal MD Member Role: Lifetime Consulting Physician Address: Address: [address] [facility] [place] [address]- Care Team Related Persons Name: TAYLOR ENCISO Name: DARELL ENCISO Address: [place] [address]
--- OUTSIDE RECORDS SUMMARY | 2022-09-11 14:07 | XMS_ITS | Continuity of Care Document ---
Author Name Unknown Organization [facility] Address [address] [place] [address]- Care Team Providers Care Web Ui Developer Name Role Phone Jose Miguel SADLER, Sakshi Primary Care Physician [phone] Encounter [facility] Date(s): 03/28/20 - 04/27/20 [facility] [address] [place] [id number] Allergies, Adverse Reactions, Alerts No Known Medication [...] 03/13/20 15:34:00 EST, Route to Pharmacy Electronically, [facility], 167, cm, 03/13/20 9:06:00EST, Height, 86.2, kg, 01/22/20 7:46:00 EDT, Dry We... Start Date: 03/13/20 Stop Date: 06/11/20 Status: Ordered calcitriol 0.5 mcg oral capsule 2 capsule = 1 mcg, By Mouth, Daily, for 30 days, # 60 capsule, 2 Refills, Hard Stop 05/13/20 16:02:00 EST, 02/13/20 16:02:00 EDT, Capsule, [facility], 167, cm, 02/13/20 8:42:00 EDT, Height, 86.2, kg, 01/22/20 7:46:00 EDT, Dry Weight Start Date: 02/13/20 Stop Date: 05/13/20 Status: Ordered calcitriol 0.5 mcg oral capsule 2 capsule = 1 mcg, By Mouth, Daily, # 60 capsule, 2 Refills, Maintenance, 05/13/20 16:02:00 EST, Capsule, [facility], 168, cm, 04/02/20 13:09:00 EST, Height, 73.55, kg, 03/20/20 19:52:00 EST, Dry Weight Start Date: 05/13/20 Stop Date: 08/11/20 Status: Ordered Coreg 25 mg oral tablet 25 mg, 1, tablet, By Mouth, 2 times a day, # 60 tablet, Refills 2, Tot. Refills 2, Maintenance, 02/16/20 12:56:00 EDT, Route to Pharmacy Electronically, [facility], 167, cm, 02/15/2010:08:00 EDT, Height, 86.2, kg, 01/22/20 7:46:00 ED... Start Date: 02/16/20 Stop Date: 05/16/20 Status: Ordered dapagliflozin 10 mg oral tablet 1 tablet = 10 mg, By Mouth, Daily, # 30 tablet, 2 Refills, Maintenance, 03/29/20 17:51:00 EST, Tablet, [facility], Partial fill upon patient request if the prescription is for a schedule II opioid drug., 168, cm, 03/29/20 9:02:00 EST,... Start Date: 03/29/20 Stop Date: 06/27/20 Status: Ordered docusate sodium 100 mg oral capsule 100 mg, 1, capsule, By Mouth, Daily, # 30 capsule, Refills 1, Tot. Refills 1, Maintenance, 02/12/2013:29:00 EDT, Route to Pharmacy Electronically, [facility], 167, cm, 02/13/20 8:42:00 EDT, Height, 86.2, kg, 01/22/20 7:46:00 EDT, Dry... Start Date: 02/13/20 Stop Date: 04/13/20 Status: Ordered entecavir 0.5 mg oral tablet 1 tablet = 0.5 mg, By Mouth, Daily, # 30 tablet, 1 Refills, Maintenance, 03/13/20 15:32:00 EST, Tablet, [facility], 167, cm, 03/13/20 9:06:00 EST, Height, 86.2, kg, 01/22/20 7:46:00 EDT, Dry Weight Start Date: 03/13/20 Stop Date: 05/12/20 Status: Ordered Envarsus XR 0.75 mg oral tablet, extended release 1 tablet = 0.75 mg, By Mouth, Daily in AM, to use with envarsus 1 mg tablets, # 30 tablet, 2 Refills, Maintenance, 03/05/20 16:42:00 EST, [facility], 167, cm, 03/05/20 8:28:00 EST, Height, 86.2, kg, 01/22/20 7:46:00 EDT, Dry Weight Start Date: 03/05/20 Stop Date: 06/03/20 Status: Ordered Envarsus XR 1 mg oral tablet, extended release 1 tablet = 1 mg, By Mouth, Daily in AM, # 30 tablet, 2 Refills, Maintenance, 03/13/20 15:32:00 EST,[facility], 167, cm, 03/13/20 9:06:00 EST, [...] 04/16/20 10:24:00 EST, Route to Pharmacy Electronically, [facility], Partial fill upon patient request, 168, cm, 04/09/20 8:57:00 EST,... Start Date: 04/16/20 Stop Date: 06/15/20 Status: Ordered glipiZIDE 10 mg oral tablet, extended release 1 tablet = 10 mg, By Mouth, 2 times a day, DX: E11.65, # 60 tablet, 6 Refills, Maintenance, 04/18/20 11:45:00 EST, ER Tablet, [facility], Partial fill upon patient request, 168, cm, 04/16/20 13:36:00 EST, Height, 73.55, kg, 03/20/20 1... Start Date: 04/18/20 Status: Ordered Lantus Solostar Pen 100 units/mL subcutaneous solution See Instructions, Take 36 units daily at bedtime. E11.65, # 30 mL, 3 Refills, Maintenance, 03/29/2020:26:00 EST, [facility], Partial fill upon patient request, 168, cm, 03/29/20 9:02:00 EST, Height, 73.55, kg, 03/20/20 19:52:00 EST,... Start Date: 03/29/20 Status: Ordered magnesium oxide 400 mg oral tablet 1 tablet = 400 mg, By Mouth, Daily, for 30 days, # 30 tablet, 2 Refills, Acute 06/27/20 17:45:00 EST, 03/29/20 17:45:00 EST, [facility], Partial fill upon patient request if the prescription is for a schedule II opioid drug., 168, cm,... Start Date: 03/29/20 Stop Date: 06/27/20 Status: Ordered metFORMIN 500 mg oral tablet 1 tablet = 500 mg, By Mouth, 2 times a day, # 60 tablet, 11 Refills, Maintenance, 04/18/20 11:39:00EST, Tablet, [facility], Partial fill upon patient request, 168, cm, 04/16/20 13:36:00 EST, Height, 73.55, kg, 03/20/20 19:52:00 EST,... Start Date: 04/18/20 Status: Ordered omeprazole 40 mg oral enteric coated capsule 1 capsule = 40 mg, By Mouth, 2 times a day, # 60 capsule, 1 Refills, Maintenance, 04/16/20 10:32:00EST, [facility], Partial fill upon patient request if the prescription is for a schedule II opioid drug., 168, cm, 04/09/20 8:57:00 ES... Start Date: 04/16/20 Stop Date: 06/15/20 Status: Ordered Pen [place], 31 G x 8 mm BD Ultra [...] 1 Refills, Maintenance, 03/20/20 16:11:00 EST, Tablet, [facility], Partial fill upon patient request, 167, cm, 03/19/20 9:57:00 EST, Height, 86.2, kg, 01/22/20 7:46:00 EDT DYovani.. Start Date: 03/20/20 Stop Date: 05/19/20 Status: Ordered sulfamethoxazole-trimethoprim 400 mg-80 mg oral tablet 1 tablet, By Mouth, Daily at bedtime, for 30 days, # 30 tablet, 2 Refills, Acute 06/11/20 15:33:00 EST, 03/13/20 15:33:00 EST, Tablet, [facility], 1 tablet By Mouth Daily at bedtime,x30 days, 167, cm, 03/13/20 9:06:00 EST, Height, 86.... Start Date: 03/13/20 Stop Date: 06/11/20 Status: Ordered valganciclovir 450 mg oral tablet 450 mg, 1, tablet, By Mouth, Daily, for 30 days, # 30 tablet, Refills 2, Tot. Refills 2, Acute 05/13/20 13:27:00 EST, 02/13/20 13:27:00 EDT, Route to Pharmacy Electronically, [facility], 167, cm, 02/13/20 8:42:00 EDT, Height, 86.2, kg... Start Date: 02/13/20 Stop Date: 05/13/20 Status: Ordered Problem List Condition Effective Dates Status Health Status Inform ant Polyp of colon, adenomatous( Confirmed) 1 07/24/16 Active Chronic renal impairment(Confirmed) Active ESRD on dialysis(Confirmed) 2 Active HTN (hypertension)(Confirmed) Active 1rept scope 1 yr [address] [facility] M, W, F Social History Social History Type Response Smoking Status Never smoker entered on: 09/25/16 Sex
--- OUTSIDE RECORDS SUMMARY | 2022-09-11 14:07 | XMS_ITS | Continuity of Care Document ---
Author Name Unknown Organization [facility] ter Address [address] [place] [id number]- Care Team Providers Care Lumber Tailer Name Role Phone Tayo SADLER, Harmony Dona Primary Care Physician Encounter [facility] Date(s): 12/11/21 - 12/13/[address] [address]- Encounter Diagnosis Left hip pain(Final) - 12/12/21 Discharge Disposition: A-D/C Home Attending Physician: Ricardo Rooney MD Admitting Physician: Marc Plasencia MD Referring Physician: Not on Staff, Referring MD Allergies, Adverse Reactions, Alerts No Known Medication [...] 03/13/20 15:34:00 EST, Route to Pharmacy Electronically, [facility], 167, cm, 03/13/20 9:06:00EST, Height, 86.2, kg, 01/22/20 7:46:00 EDT, Dry We... Start Date: 03/13/20 Stop Date: 06/11/20 Status: Ordered Bed pad Bed pad, See Instructions, # 10 pack/packet, Refills 11, Tot. Refills 11, Maintenance, YOAN 99 Diagnosis: Functional incontnence R39.81, 09/17/21 19:52:00 EDT, Supply Start Date: 09/17/21 Status: Ordered Body wipes Body wipes, See Instructions, # 10 pack/packet, Refills 11, Tot. Refills 11, Maintenance, YOAN 99 Diagnosis: R39.81, 09/17/21 19:55:00 EDT, Supply Start Date: 09/17/21 Status: Ordered Coreg 25 mg oral tablet 25 mg, 1, tablet, By Mouth, 2 times a day, # 60 tablet, Refills 2, Tot. Refills 2, Maintenance, 02/16/20 12:56:00 EDT, Route to Pharmacy Electronically, [facility], 167, cm, 02/15/2010:08:00 EDT, Height, 86.2, kg, 01/22/20 7:46:00 ED... Start Date: 02/16/20 Stop Date: 05/16/20 Status: Ordered Cymbalta 30 mg oral enteric coated capsule 1 capsule = 30 mg, By Mouth, Daily, take one tablet daily for one week then can take two tablets daily if no side effects after the first week, # 30 capsule, 2 Refills, Maintenance, 09/16/21 16:48:00EDT, CR Capsule, [facility], Parti... Start Date: 09/16/21 Stop Date: 12/15/21 Status: Ordered dapagliflozin 10 mg oral tablet 1 tablet = 10 mg, By Mouth, Daily, # 30 tablet, 5 Refills, Maintenance, 08/01/21 12:54:00 EDT, Tablet, [facility], Partial fill upon patient request if the prescription is for a schedule II opioid drug., 168, cm, 02/27/21 9:40:00 EDT,... Start Date: 08/01/21 Stop Date: 01/28/22 Status: Ordered Diapers, Adult large Diapers, Adult [...] Maintenance, 02/12/2013:29:00 EDT, Route to Pharmacy Electronically, [facility], 167, cm, 02/13/20 8:42:00 EDT, Height, 86.2, kg, 01/22/20 7:46:00 EDT, Dry... Start Date: 02/13/20 Stop Date: 04/13/20 Status: Ordered entecavir 0.5 mg oral tablet 1 tablet = 0.5 mg, By Mouth, Daily, # 30 tablet, 1 Refills, Maintenance, 03/13/20 15:32:00 EST, Tablet, [facility], 167, cm, 03/13/20 9:06:00 EST, Height, 86.2, kg, 01/22/20 7:46:00 EDT, Dry Weight Start Date: 03/13/20 Stop Date: 05/12/20 Status: Ordered Envarsus XR 1 mg oral tablet, extended release 3 tablet = 3 mg, By Mouth, Daily in AM, # 90 tablet, 2 Refills, Maintenance, 03/13/20 15:32:00 EST,[facility], 167, cm, 03/13/20 9:06:00 EST, Height, 86.2, kg, 01/22/20 7:46:00 EDT,Dry Weight Start Date: 03/13/20 Stop Date: 06/11/20 Status: Ordered Freestyle Dayna Monitor See Instructions, # 1 each, Maintenance, use as directed for Type 2 Diabetes Mellitus, 03/19/20 16:41:00 EST, Supply, 167, cm, 03/19/20 9:57:00 EST, Height, 86.2, kg, 01/22/20 7:46:00 EDT, Dry Weight Start Date: 03/19/20 Stop Date: 12/23/20 Status: Ordered Freestyle Dayna Monitor See Instructions, [...] 04/16/20 10:24:00 EST, Route to Pharmacy Electronically, [facility], Partial fill upon patient request, 168, cm, 04/09/20 8:57:00 EST,... Start Date: 04/16/20 Stop Date: 06/15/20 Status: Ordered gabapentin 100 mg oral capsule 100 mg, Capsule, By Mouth, 12/13/21 9:00:00 EDT Start Date: 12/13/21 Stop Date: 12/13/21 Status: Completed glipiZIDE 10 mg oral tablet, extended release 1 tablet = 10 mg, By Mouth, 2 times a day, # 60 tablet, 5 Refills, Maintenance, 08/01/21 12:54:00 EDT, ER Tablet, [facility], DxE11.65, 168, cm, 02/27/21 9:40:00 EDT, Height, 80, kg,02/27/21 9:40:00 EDT, Dry Weight Start Date: 08/01/21 Status: Ordered Lantus Solostar Pen 100 units/mL subcutaneous solution = 40 units, Subcutaneous Injection, Daily at bedtime, # 15 mL, 2 Refills, Maintenance, 09/16/21 17:26:00 EDT, Solution, [facility], Partial fill upon patient request if the prescription is for a schedule II opioid drug., 168, cm, 08/26... Start Date: 09/16/21 Stop Date: 12/15/21 Status: Ordered metFORMIN 500 mg oral tablet 1 tablet = 500 mg, By Mouth, 2 times a day, # 60 tablet, 11 Refills, Maintenance, 04/18/20 11:39:00EST, Tablet, [facility], Partial fill upon patient request, 168, cm, 04/16/20 13:36:00 EST, Height, 73.55, kg, 03/20/20 19:52:00 EST,... Start Date: 04/18/20 Status: Ordered oxyCODONE 5 mg oral tablet 5 mg, Tablet, By Mouth, Every 6 hours, PRN for Pain , Moderate, Routine, 12/12/21 13:51:00 EDT Start Date: 12/12/21 Stop Date: 12/13/21 Status: Discontinued Pen [place], 31 G x 8 mm BD Ultra Fine III See Instructions, # 30 each, Refills 2, Tot. Refills 2, Maintenance, please use as directed with your Lantus pen once daily., 01/25/21 16:21:00 EDT, Supply, 168, cm, 04/23/20 8:27:00 EST, Height, 73.55, kg, 03/20/20 19:52:00 EST, Dry Weight Start Date: 01/25/21 Stop Date: 04/25/21 Status: Ordered rOPINIRole 0.5 mg oral tablet 1 tablet = 0.5 mg, By Mouth, Daily at bedtime, # 30 tablet, 1 Refills, Maintenance, 03/20/20 16:11:00 EST, Tablet, [facility], Partial fill upon patient request, 167, cm, 03/19/20 9:57:00 EST, Height, 86.2, kg, 01/22/20 7:46:00 EDT, D... Start Date: 03/20/20 Stop Date: 05/19/20 Status: Ordered Tylenol 325 mg oral capsule 2 capsule = 650 mg, By Mouth, Every 6 hours, PRN as needed for fever, # 20 capsule, 0 Refills, Maintenance, 12/13/21 11:51:00 EDT, Capsule, Partial fill upon patient request if the prescription is for a schedule II opioid drug. Start Date: 12/13/21 Status: Ordered Tylenol 8 Hour 650 mg oral tablet, extended release 2 tablet = 1,300 mg, By Mouth, Every 8 hours, PRN as needed for pain, # 100 tablet, 1 Refills, Maintenance, 09/16/21 17:04:00 EDT, ER Tablet, [facility], Partial fill upon patient request if the prescription is for a schedule II opioi... Start Date: 09/16/21 Status: Ordered Problem List Condition Effective Dates Status Health Status Inform ant Polyp of colon, adenomatous( Confirmed) 1 07/24/16 Active Chronic renal impairment(Confirmed) Active ESRD on dialysis(Confirmed) 2 Active -donor kidney transplant(Confirmed) 3 01/22/20 Active S/p total knee replacement, bilateral(Confirmed) Active HTN (hypertension)(Confirmed) Active Diabetic neuropathy(Confirmed) Active 1rept scope 1 yr [address] [facility] M, W, F 3campath induction Results Radiology Reports * Exam Date Time Procedure Performing Provider Status 12/12/21 6:10 AM XR Hip w/Pelvis 2-3 View Left Gabbie Maurice; Callum (Verified) Notes: (XR Hip w/Pelvis 2-3 View Left) Reason For Exam: Pain RESULT: XR Hip w/Pelvis 2-3 View Left XR Hip w/Pelvis 2-3 View Left Hx of Present Illness: Left hip pain. COMPARISON: CT dated 03/12/2020 FINDINGS: Osseous structures are diffusely increased in density similar to CT 02/10/2020, compatible with underlying renal osteodystrophy. No fracture or radiographic evidence of AVN. Mild degenerative changes at pubic symphysis. No significant degenerative changes. Right lower quadrant surgical clips. IMPRESSION: No fracture or malalignment. Renal osteodystrophy. WSN: [id number] Ordering Physician: Tiffanie Paris Dictated By: Garcia Phillips MD Dictated Date/Time: 12/12/21 8:26 am Reviewed By: Garcia Phillips MD Signed By: Garcia Phillips MD Signed Date/Time: 12/12/21 8:26 am Transcribed By: JORY Transcribed Date/Time: 12/12/21 8:24 am Vital Signs Most recent to oldest [Reference Range]: 1 2 3 4 Height 170 cm (12/13/21 11:01 AM) 170 cm (12/13/21 7:07 AM) 170 cm (12/13/21 5:42 AM) Weight 80 kg (12/12/21 1:37 PM) 80 kg (12/12/21 7:55 AM) 80 kg (12/11/21 4:49 PM) Oxygen Saturation [94-100 %] 97 % (12/13/21 11:01 AM) 100 % (12/13/21 7:07 AM) 98 % (12/13/21 5:42 AM) Pulse Rate [55-90 bpm] 57 bpm (12/13/21 11:01 AM) 57 bpm (12/13/21 7:07 AM) 55 bpm (12/13/21 5:42 AM) Body Mass Index [18.5-24.99] 27.68 *H* (12/12/21 1:37 PM) 27.68 *H* (12/12/21 7:55 AM) 27.68 *H* (12/11/21 4:49 PM) Blood Pressure [90-138/55-84 mm Hg] 119/79mm Hg (12/13/21 11:01 AM) 137/94mm Hg (12/13/21 7:07 AM) 156/96mm Hg *H* (12/13/21 5:42 AM) Respiratory Rate [16-30 br/min] 20 br/min (12/13/21 11:01 AM) 20 br/min (12/13/21 9:01 AM) 20 br/min (12/13/21 8:22 AM) 20 br/min (12/13/21 8:22 AM) Temperature [96.8-100.4 DegF] 97.7 DegF (12/13/21 11:01 AM) 97.8 DegF (12/13/21 7:07 AM) 98.7 DegF (12/13/21 5:42 AM) Mode of Delivery (Oxygen) Room air (12/13/21 11:01 AM) Room air (12/13/21 7:07 AM) Room air (12/13/21 5:42 AM) Blood pressure sites Arm, left (12/13/21 11:01 AM) Arm, left (12/13/21 7:07 AM) Arm, right (12/13/21 5:42 AM) Temperature Route Oral (12/13/21 11:01 AM) Oral (12/13/21 7:07 AM) Oral (12/13/21 5:42 AM) Dry Weight 80 kg (12/12/21 4:28 PM) Social History Social History Type Response Smoking Status Never smoker entered on: 09/25/16 Sex
--- OUTSIDE RECORDS SUMMARY | 2022-09-11 14:07 | XMS_ITS | Continuity of Care Document ---
Author Name Unknown Organization [facility] Address [address] [place] [address]- Care Team Providers Care Instrumental Teacher Name Role Phone Jose Miguel SADLER, Sakshi Primary Care Physician [phone] [id number] Date(s): [facility] - 12[facility]29/[facility] [address] [place] [id number] Attending Physician: Ariane Ferrer MD Admitting Physician: Ariane Ferrer MD Referring Physician: Sakshi Gillespie MD Allergies, Adverse Reactions, Alerts No Known [...] 03/13/20 15:34:00 EST, Route to Pharmacy Electronically, [facility], 167, cm, 03/13/20 9:06:00EST, Height, 86.2, kg, 01/22/20 7:46:00 EDT, Dry We... Start Date: 03/13/20 Stop Date: 06/11/20 Status: Ordered calcitriol 0.5 mcg oral capsule 2 capsule = 1 mcg, By Mouth, Daily, # 60 capsule, 2 Refills, Maintenance, 05/13/20 16:02:00 EST, Capsule, [facility], 168, cm, 04/02/20 13:09:00 EST, Height, 73.55, kg, 03/20/20 19:52:00 EST, Dry Weight Start Date: 05/13/20 Stop Date: 08/11/20 Status: Ordered Coreg 25 mg oral tablet 25 mg, 1, tablet, By Mouth, 2 times a day, # 60 tablet, Refills 2, Tot. Refills 2, Maintenance, 02/16/20 12:56:00 EDT, Route to Pharmacy Electronically, [facility], 167, cm, 02/15/2010:08:00 EDT, Height, 86.2, kg, 01/22/20 7:46:00 ED... Start Date: 02/16/20 Stop Date: 05/16/20 Status: Ordered dapagliflozin 10 mg oral tablet 1 tablet = 10 mg, By Mouth, Daily, # 30 tablet, 5 Refills, Maintenance, 08/08/20 13:38:00 EDT, Tablet, [facility], Partial fill upon patient request if the prescription is for a schedule II opioid drug., 168, cm, 04/23/20 8:27:00 EST,... Start Date: 08/08/20 Stop Date: 02/04/21 Status: Ordered docusate sodium 100 mg oral capsule 100 mg, 1, capsule, By Mouth, Daily, # 30 capsule, Refills 1, Tot. Refills 1, Maintenance, 02/12/2013:29:00 EDT, Route to Pharmacy Electronically, [facility], 167, cm, 02/13/20 8:42:00 EDT, Height, 86.2, kg, 01/22/20 7:46:00 EDT, Dry... Start Date: 02/13/20 Stop Date: 04/13/20 Status: Ordered entecavir 0.5 mg oral tablet 1 tablet = 0.5 mg, By Mouth, Daily, # 30 tablet, 1 Refills, Maintenance, 03/13/20 15:32:00 EST, Tablet, [facility], 167, cm, 03/13/20 9:06:00 EST, Height, 86.2, kg, 01/22/20 7:46:00 EDT, Dry Weight Start Date: 03/13/20 Stop Date: 05/12/20 Status: Ordered Envarsus XR 0.75 mg oral tablet, extended release 1 tablet = 0.75 mg, By Mouth, Daily in AM, to use with envarsus 1 mg tablets, # 30 tablet, 2 Refills, Maintenance, 03/05/20 16:42:00 EST, [facility], 167, cm, 03/05/20 8:28:00 EST, Height, 86.2, kg, 01/22/20 7:46:00 EDT, Dry Weight Start Date: 03/05/20 Stop Date: 06/03/20 Status: Ordered Envarsus XR 1 mg oral tablet, extended release 1 tablet = 1 mg, By Mouth, Daily in AM, # 30 tablet, 2 Refills, Maintenance, 03/13/20 15:32:00 EST,[facility], 167, cm, 03/13/20 9:06:00 EST, [...] 04/16/20 10:24:00 EST, Route to Pharmacy Electronically, [facility], Partial fill upon patient request, 168, cm, 04/09/20 8:57:00 EST,... Start Date: 04/16/20 Stop Date: 06/15/20 Status: Ordered glipiZIDE 10 mg oral tablet, extended release 1 tablet = 10 mg, By Mouth, 2 times a day, # 60 tablet, 6 Refills, Maintenance, 07/26/20 14:54:00 EDT, ER Tablet, [facility], DxE11.65, 168, cm, 04/23/20 8:27:00 EST, Height, 73.55, kg, 03/20/20 19:52:00 EST, Dry Weight Start Date: 07/26/20 Status: Ordered Lantus Solostar Pen 100 units/mL subcutaneous solution See Instructions, Take 36 units daily at bedtime. E11.65, # 30 mL, 3 Refills, Maintenance, 03/29/2020:26:00 EST, [facility], Partial fill upon patient request, 168, cm, 03/29/20 9:02:00 EST, Height, 73.55, kg, 03/20/20 19:52:00 EST,... Start Date: 03/29/20 Status: Ordered metFORMIN 500 mg oral tablet 1 tablet = 500 mg, By Mouth, 2 times a day, # 60 tablet, 11 Refills, Maintenance, 04/18/20 11:39:00EST, Tablet, [facility], Partial fill upon patient request, 168, cm, 04/16/20 13:36:00 EST, Height, 73.55, kg, 03/20/20 19:52:00 EST,... Start Date: 04/18/20 Status: Ordered omeprazole 40 mg oral enteric coated capsule 1 capsule = 40 mg, By Mouth, 2 times a day, # 60 capsule, 1 Refills, Maintenance, 04/16/20 10:32:00EST, [facility], Partial fill upon patient request if the prescription is for a schedule II opioid drug., 168, cm, 04/09/20 8:57:00 ES... Start Date: 04/16/20 Stop Date: 06/15/20 Status: Ordered Pen [place], 31 G x 8 mm BD Ultra Fine III See Instructions, # 30 each, Refills 5, Tot. Refills 5, Maintenance, please use as directed with your Lantus pen once daily., 07/26/20 14:46:00 EDT, Supply, 168, cm, 04/23/20 8:27:00 EST, Height, 73.55, kg, 03/20/20 19:52:00 EST, Dry Weight Start Date: 07/26/20 Stop Date: 01/22/21 Status: Ordered rOPINIRole 0.5 mg oral tablet 1 tablet = 0.5 mg, By Mouth, Daily at bedtime, # 30 tablet, 1 Refills, Maintenance, 03/20/20 16:11:00 EST, Tablet, [facility], Partial fill upon patient request, 167, cm, 03/19/20 9:57:00 EST, Height, 86.2, kg, 01/22/20 7:46:00 Kei GARCIA. Start Date: 03/20/20 Stop Date: 05/19/20 Status: Ordered Problem List Condition Effective Dates Status Health Status Inform ant Polyp of colon, adenomatous( Confirmed) 1 07/24/16 Active Chronic renal impairment(Confirmed) Active ESRD on dialysis(Confirmed) 2 Active -donor kidney transplant(Confirmed) 3 01/22/20 Active HTN (hypertension)(Confirmed) Active 1rept scope 1 yr [address] [facility] M, W, F 3campath induction Social History Social History Type Response Smoking Status Never smoker entered on: 09/25/16 Sex
--- OUTSIDE RECORDS SUMMARY | 2022-09-11 14:07 | XMS_ITS | Continuity of Care Document ---
Author Name Unknown Organization [facility] Address [address] [place] [address]- Care Team Providers Care Trench Trimmer Fine Name Role Phone Tayo SADLER, Harmony Doan Primary Care Physician Encounter [facility] Date(s): 05/22/21 - 09/19/21 [facility] [address] [place] [address] Attending Physician: Saba Boyle MD Admitting Physician: Saba Boyle MD Referring Physician: Jose Miguel SADLER , Sakshi Allergies, Adverse Reactions, Alerts No Known Medication [...] 03/13/20 15:34:00 EST, Route to Pharmacy Electronically, [facility], 167, cm, 03/13/20 9:06:00EST, Height, 86.2, kg, 01/22/20 7:46:00 EDT, Dry We... Start Date: 03/13/20 Stop Date: 06/11/20 Status: Ordered ammonium lactate 5% topical lotion 1 application, Topically, 2 times a day, # 120 Gm, 0 Refills, Maintenance, 09/16/21 17:16:00 EDT, Lotion, [facility], Partial fill upon patient request if the prescription is for a schedule II opioid drug., 1 application Topically 2 t... Start Date: 09/16/21 Status: Ordered atorvastatin 40 mg oral tablet 1 tablet = 40 mg, By Mouth, Daily, # 30 tablet, 11 Refills, Maintenance, 09/16/21 16:52:00 EDT, Tablet, [facility], Partial fill upon patient request if the prescription is for a schedule II opioid drug., 168, cm, 09/16/21 16:17:00 ED... Start Date: 09/16/21 Stop Date: 09/11/22 Status: Ordered Bed pad Bed pad, See Instructions, # 10 pack/packet, Refills 11, Tot. Refills 11, Maintenance, YOAN 99 Diagnosis: Functional incontnence R39.81, 09/17/21 19:52:00 EDT, Supply Start Date: 09/17/21 Status: Ordered Body wipes Body wipes, See Instructions, # 10 pack/packet, Refills 11, Tot. Refills 11, Maintenance, YOAN 99 Diagnosis: R39.81, 09/17/21 19:55:00 EDT, Supply Start Date: 09/17/21 Status: Ordered calcitriol 0.5 mcg oral capsule 2 capsule = 1 mcg, By Mouth, Daily, # 60 capsule, 5 Refills, Maintenance, 09/16/21 16:41:00 EDT, Capsule, [facility], 168, cm, 09/16/21 16:17:00 EDT, Height, 80, kg, 02/27/21 9:40:00EDT, Dry Weight Start Date: 09/16/21 Stop Date: 03/15/22 Status: Ordered clotrimazole 1% topical cream 1 application, Topically, 2 times a day, # 60 Gm, 0 Refills, Maintenance, 09/16/21 17:16:00 EDT, Cream, [facility], Partial fill upon patient request if the prescription is for a schedule II opioid drug., 1 application Topically 2 ginna... Start Date: 09/16/21 Status: Ordered Coreg 25 mg oral tablet 25 mg, 1, tablet, By Mouth, 2 times a day, # 60 tablet, Refills 2, Tot. Refills 2, Maintenance, 02/16/20 12:56:00 EDT, Route to Pharmacy Electronically, [facility], 167, cm, 02/15/2010:08:00 EDT, Height, [...] 2 Refills, Maintenance, 09/16/21 16:48:00EDT, CR Capsule, [facility], Parti... Start Date: 09/16/21 Stop Date: 12/15/21 Status: Ordered dapagliflozin 10 mg oral tablet 1 tablet = 10 mg, By Mouth, Daily, # 30 tablet, 5 Refills, Maintenance, 08/01/21 12:54:00 EDT, Tablet, [facility], Partial fill upon patient request [...] Maintenance, 02/12/2013:29:00 EDT, Route to Pharmacy Electronically, [facility], 167, cm, 02/13/20 8:42:00 EDT, Height, 86.2, kg, 01/22/20 7:46:00 EDT, Dry... Start Date: 02/13/20 Stop Date: 04/13/20 Status: Ordered entecavir 0.5 mg oral tablet 1 tablet = 0.5 mg, By Mouth, Daily, # 30 tablet, 1 Refills, Maintenance, 03/13/20 15:32:00 EST, Tablet, [facility], 167, cm, 03/13/20 9:06:00 EST, Height, 86.2, kg, 01/22/20 7:46:00 EDT, Dry Weight Start Date: 03/13/20 Stop Date: 05/12/20 Status: Ordered Envarsus XR 1 mg oral tablet, extended release 1 tablet = 1 mg, By Mouth, Daily in AM, # 30 tablet, 2 Refills, Maintenance, 03/13/20 15:32:00 EST,[facility], 167, cm, 03/13/20 9:06:00 EST, [...] Date: 08/01/21 Stop Date: 01/28/22 Status: Ordered Freestyle Lite Monitor See Instructions, [...] 04/16/20 10:24:00 EST, Route to Pharmacy Electronically, [facility], Partial fill upon patient request, 168, cm, 04/09/20 8:57:00 EST,... Start Date: 04/16/20 Stop Date: 06/15/20 Status: Ordered glipiZIDE 10 mg oral tablet, extended release 1 tablet = 10 mg, By Mouth, 2 times a day, # 60 tablet, 5 Refills, Maintenance, 08/01/21 12:54:00 EDT, ER Tablet, [facility], DxE11.65, 168, cm, 02/27/21 9:40:00 EDT, Height, 80, kg,02/27/21 9:40:00 EDT, Dry Weight Start Date: 08/01/21 Status: Ordered Lantus Solostar Pen 100 units/mL subcutaneous solution = 44 units, Subcutaneous Injection, Daily at bedtime, # 15 mL, 2 Refills, Maintenance, 09/16/21 17:26:00 EDT, Solution, [facility], Partial fill upon patient request if the prescription is for a schedule II opioid drug., 168, cm, 08/26... Start Date: 09/16/21 Stop Date: 12/15/21 Status: Ordered Lantus Solostar Pen 100 units/mL subcutaneous solution See Instructions, Take 40 units daily at bedtime. E11.65, # 30 mL, 3 Refills, Maintenance, 03/29/2020:26:00 EST, [facility], Partial fill upon patient request, 168, cm, 03/29/20 9:02:00 EST, Height, 73.55, kg, 03/20/20 19:52:00 EST,... Start Date: 03/29/20 Status: Ordered metFORMIN 500 mg oral tablet 1 tablet = 500 mg, By Mouth, 2 times a day, # 60 tablet, 11 Refills, Maintenance, 04/18/20 11:39:00EST, Tablet, [facility], Partial fill upon patient request, 168, cm, 04/16/20 13:36:00 EST, Height, 73.55, kg, 03/20/20 19:52:00 EST,... Start Date: 04/18/20 Status: Ordered omeprazole 40 mg oral enteric coated capsule 1 capsule = 40 mg, By Mouth, 2 times a day, # 60 capsule, 1 Refills, Maintenance, 04/16/20 10:32:00EST, [facility], Partial fill upon patient request if the prescription is for a schedule II opioid drug., 168, cm, 04/09/20 8:57:00 ES... Start Date: 04/16/20 Stop Date: 06/15/20 Status: Ordered Pen Mcclusky, 31 G x 8 mm BD Ultra [...] 1 Refills, Maintenance, 03/20/20 16:11:00 EST, Tablet, [facility], Partial fill upon patient request, 167, cm, 03/19/20 9:57:00 EST, Height, 86.2, kg, 01/22/20 7:46:00 EDT, D... Start Date: 03/20/20 Stop Date: 05/19/20 Status: Ordered terbinafine 250 mg oral tablet See Instructions, 1 tablet By Mouth daily for 4 weeks, then DO NOT TAKE FOR FOUR WEEKS, then resumedaily for four weeks, # 60 each, 0 Refills, Maintenance, 09/16/21 17:30:00 EDT, Tablet, [facility], Partial fill upon patient request... Start Date: 09/16/21 Status: Ordered Tylenol 8 Hour 650 mg oral tablet, extended release 2 tablet = 1,300 mg, By Mouth, Every 8 hours, PRN as needed for pain, # 100 tablet, 1 Refills, Maintenance, 09/16/21 17:04:00 EDT, ER Tablet, [facility], Partial fill upon patient request if the prescription is for a schedule II opioi... Start Date: 09/16/21 Status: Ordered Problem List Condition Effective Dates Status Health Status Inform ant Polyp of colon, adenomatous( Confirmed) 1 07/24/16 Active Chronic renal impairment(Confirmed) Active ESRD on dialysis(Confirmed) 2 Active -donor kidney transplant(Confirmed) 3 01/22/20 Active HTN (hypertension)(Confirmed) Active Diabetic neuropathy(Confirmed) Active 1rept scope 1 yr [address] [facility] M, W, F 3campath induction Social History Social History Type Response Smoking Status Never smoker entered on: 09/25/16 Sex
--- OUTSIDE RECORDS SUMMARY | 2022-09-11 14:07 | XMS_ITS | Continuity of Care Document ---
Author Name Unknown Organization [facility] Address [address] [place] [address]- Care Team Providers Care Stick Welder Name Role Phone Sakshi Gillespie MD Primary Care Physician [place] [facility] [place] [id number] Date(s): 05/05/19 - 05/15/19 [facility] [address] [place] [address]- [facility] Attending Physician: Dileep Montes Admitting Physician: Dileep Montes Referring Physician: AdmtrDileep Allergies, Adverse Reactions, Alerts No Known Medication Allergies Immunizations Not Given Vaccine Date Status Refusal Reason influenza virus vaccine, inactivated 1 02/03/18 No t Given Patient Refuses pneumococcal 23-valent vaccine 02/03/18 Not Given Patient Refuses 1Result Note: pt wants to get his vaccine at his dialysis center where he always gets it Medications amLODIPine 10 mg oral tablet 10 mg, 1, tablet, By Mouth, Daily, Refills 0, Maintenance, 12/31/17 11:30:13 EDT Start Date: 12/31/17 Status: Ordered calcitriol 0.5 mcg oral capsule 2 capsule = 1 mcg, By Mouth, 2 times a day, # 120 capsule, 0 Refills, Maintenance, 02/07/18 13:47:24 EDT, Capsule Start Date: 02/07/18 Status: Ordered Calcium Carbonate 250 mg/mL Liquid 5 mL, By Mouth, 4 times a day, PRN Other, 0 Refills, Maintenance, 05/05/19 15:13:00 EST Start Date: 05/05/19 Status: Ordered Coreg 25 mg oral tablet 50 mg, 2, tablet, By Mouth, 2 times a day, Refills 0, Maintenance, 01/09/18 21:15:13 EDT Start Date: 01/09/18 Status: Ordered FLUoxetine 20 mg oral capsule 20 mg, 1, capsule, By Mouth, Daily, # 30 capsule, Refills 1, Tot. Refills 1, Maintenance, 02/01/19 10:08:36 EDT, Route to Pharmacy Electronically, [id number], [facility][id number] Start Date: 02/01/19 Status: Ordered Renvela 800 mg oral tablet 1 tablet = 800 mg, By Mouth, 3 times a day, # 90 tablet, 0 Refills, Maintenance, 05/05/19 15:10:00 EST, Tablet Start Date: 05/05/19 Status: Ordered Tylenol 325 mg oral capsule 2 capsule = 650 mg, By Mouth, PRN as needed for pain, 0 Refills, Maintenance, 01/06/18 10:35:23 EDT, Capsule Start Date: 01/06/18 Status: Ordered Vitamin D 53285 iu oral capsule See Instructions, M, W, F at dialysis, Refills 0, Maintenance, 01/06/18 10:34:54 EDT Start Date: 01/06/18 Status: Ordered Problem List Condition Effective Dates Status Health Status Inform ant Polyp of colon, adenomatous( Confirmed) 1 07/24/16 Active Chronic renal impairment(Confirmed) Active ESRD on dialysis(Confirmed) 2 Active HTN (hypertension)(Confirmed) Active 1rept scope 1 yr [address] [facility] M, W, F Vital Signs Most recent to oldest [Reference [...]
--- OUTSIDE RECORDS SUMMARY | 2022-09-11 14:07 | XMS_ITS | Continuity of Care Document ---
Author Name Unknown Organization [facility] Address [address] [place] [address]- Care Team Providers Care Structural Mill Supervisor Name Role Phone Tayo SADLER, Harmony Doan Primary Care Physician [phone] Encounter [facility] Date(s): 06/10/22 - 07/10/22 [facility] [address] [place] [address] Attending Physician: Admtr, Saleem8 Admitting Physician: Admtr, Ar8 Referring Physician: Admtr, Ar8 Allergies, Adverse Reactions, Alerts No Known Medication [...] center where he always gets it Medications acetaminophen 650 mg oral tablet, extended release 2 tablet, By Mouth, Every 8 hours, PRN NEEDED FOR PAIN, # 100 tablet, 1 Refills, Maintenance, 05/25/22 20:02:00 EST, [facility], 170, cm, 04/07/22 14:06:00 EST, Height, 80, kg, 12/12/21 16:28:00 EDT, Dry Weight Start Date: 05/25/22 Status: Ordered Alcohol Pads See Instructions, # 200 each, [...] 04/14/22 13:19:00 EST, Route to Pharmacy Electronically, [facility], 170, cm, 04/07/22 14:06:00 EST, Height, [...] 09/17/21 Status: Ordered capsaicin 0.025% topical cream See Instructions, APPLY TO AFFECTED AREA TWO TIMES A DAY, # 60 Gm, 2 Refills, Maintenance, 238:53:00 EST, [facility], 30, APPLY TO AFFECTED AREA TWO TIMES A DAY, 170, cm, 04/07/22 14:06:00 EST, Height, 80, kg, 12/12/21 16:28:00... Start Date: 06/23/22 Status: Ordered Coreg 25 mg oral tablet 25 mg, 1, tablet, By Mouth, 2 times a day, # 60 tablet, Refills 2, Tot. Refills 2, Maintenance, 04/14/22 13:19:00 EST, Route to Pharmacy Electronically, [facility], 170, cm, 04/07/2214:06:00 EST, Height, [...] 2 Refills, Maintenance, 09/16/21 16:48:00EDT, CR Capsule, [facility], Parti... Start Date: 09/16/21 Stop Date: 12/15/21 Status: Ordered Diabetic shoes with inserts Diabetic shoes with inserts, See Instructions, # 1 each, Refills 0, Tot. Refills 0, Maintenance, Dx: Diabetes, neuropathy YOAN 99, 05/06/22 11:08:00 EST, Supply Start Date: 05/06/22 Status: Ordered Diapers, Adult large Diapers, Adult [...] Maintenance, 02/12/2013:29:00 EDT, Route to Pharmacy Electronically, [facility], 167, cm, 02/13/20 8:42:00 EDT, Height, 86.2, kg, 01/22/20 7:46:00 EDT, Dry... Start Date: 02/13/20 Stop Date: 04/13/20 Status: Ordered entecavir 0.5 mg oral tablet 1 tablet = 0.5 mg, By Mouth, Daily, # 30 tablet, 1 Refills, Maintenance, 03/13/20 15:32:00 EST, Tablet, [facility], 167, cm, 03/13/20 9:06:00 EST, Height, 86.2, kg, 01/22/20 7:46:00 EDT, Dry Weight Start Date: 03/13/20 Stop Date: 05/12/20 Status: Ordered Envarsus XR 1 mg oral tablet, extended release 3 tablet = 3 mg, By Mouth, Daily in AM, # 90 tablet, 2 Refills, Maintenance, 03/13/20 15:32:00 EST,[facility], 167, cm, 03/13/20 9:06:00 EST, Height, 86.2, kg, 01/22/20 7:46:00 EDT,Dry Weight Start Date: 03/13/20 Stop Date: 06/11/20 Status: Ordered Farxiga 10 mg oral tablet 1 tablet, By Mouth, Daily, # 30 tablet, 5 Refills, Maintenance, 06/20/22 18:08:00 EST, [facility], 170, cm, 04/07/22 14:06:00 EST, Height, 80, kg, 12/12/21 16:28:00 EDT, Dry Weight Start Date: 06/20/22 Status: Ordered Freestyle Dayna Monitor See Instructions, [...] capsule, Refills 1, Tot. Refills 1, Maintenance, 05/21/22 10:26:00 EST, Route to Pharmacy Electronically, [facility], Partial fill upon patient request, 170, cm, 04/07/22 14:06:00 EST,... Start Date: 05/21/22 Stop Date: 07/20/22 Status: Ordered glipiZIDE 10 mg oral tablet, extended release 1 tablet, By Mouth, 2 times a day, # 60 tablet, 5 Refills, Maintenance, 06/20/22 18:08:00 EST, [facility], 170, cm, 04/07/22 14:06:00 EST, Height, 80, kg, 12/12/21 16:28:00 EDT, Dry Weight Start Date: 06/20/22 Status: Ordered Lantus Solostar Pen 100 units/mL subcutaneous solution See Instructions, INJECT 44 UNITS SUBCUTANEOUSLY ONCE DAILY AT BEDTIME, # 15 mL, 2 Refills, Maintenance, 05/25/22 20:02:00 EST, [facility], 170, cm, 04/07/22 14:06:00 EST, Height, 80, kg, 12/12/21 16:28:00 EDT, Dry Weight Start Date: 05/25/22 Status: Ordered metFORMIN 500 mg oral tablet 1 tablet = 500 mg, By Mouth, 2 times a day, # 60 tablet, 11 Refills, Maintenance, 04/18/20 11:39:00EST, Tablet, [facility], Partial fill upon patient request, 168, cm, 04/16/20 13:36:00 EST, Height, 73.55, kg, 03/20/20 19:52:00 EST,... Start Date: 04/18/20 Status: Ordered Pen [place], 31 G x 8 mm BD Ultra [...] 1 Refills, Maintenance, 03/20/20 16:11:00 EST, Tablet, [facility], Partial fill upon patient [...] neuropathy Confirmed Active 1rept scope 1 yr [address] [facility] M, W, F 3campath induction Social History Social History Type Response Smoking Status Never smoker entered on: 09/25/16 Sex Note * Event Display: Laboratory Result Scanned Authored Date: Patient Care team information Care Team Personnel Name: Teresa Ha RN Position: [facility] RN Supv Member Role: Primary Care Nurse Name: Elena Roberts RN Position: [facility] RN Member Role: Primary Care Nurse Name: Osvaldo House DO Position: [facility] Renal MD Member Role: Lifetime Consulting Physician Address: Address: [address] [facility] [place] [address]- Name: Brendan Guillermo MD Position: [facility] Renal MD Member Role: Lifetime Consulting Physician Address: Address: [address] [place] [address] [address] [facility] [place], [place] [address] Name: Gale Wilcox Position: [facility] AMB Nurse Member Role: Primary Care Nurse Name: Cata Gong RN Position: [facility] AMB Nurse Member Role: Primary Care Nurse Name: Monae Rodriguez RN Position: [facility] RN Member Role: Primary Care Nurse Name: Alisha Polanco RN Position: [facility] RN Member Role: Primary Care Nurse Name: Gabbie Park RN Position: [facility] OB RN Member Role: Primary Care Nurse Name: Lou Hodge RN Position: [facility] SN RN Member Role: Primary Care Nurse Name: Ryann Salas RN Position: [facility] SN RN Member Role: Primary Care Nurse Name: Harmony Cr MD Position: [facility] Resident Member Role: PCP Address: Address: [address] [place] [id number]- Name: Stephanie Schroeder RN Position: [facility] RN Member Role: Primary Care Nurse Name: Lynette Comer RN Position: [facility] Onco RN Member Role: Primary Care Nurse Name: Pepe Miller RN Position: [facility] SN RN Member Role: Primary Care Nurse Name: Olu Cortés MD Position: [facility] Renal MD Member Role: Lifetime Consulting Physician Address: Address: [address] [place] [address] [facility] [place] [address]- Care Team Related Persons Name: TAYLOR ENCISO Name: DARELL ENCISO Address: [place] [address]
--- OUTSIDE RECORDS SUMMARY | 2022-09-11 14:07 | XMS_ITS | Continuity of Care Document ---
Author Name Unknown Organization [facility] ter Address [address] [place] [id number]- Care Team Providers Care Freezer Person Name Role Phone Jose Miguel SADLER, Sakshi Primary Care Physician [phone] Encounter [facility] Date(s): 02/15/20 - 02/15/[address] [address]- [facility] Discharge Disposition: A-D/C Home Attending Physician: Jimbo Meyer MD Admitting Physician: Jimbo Meyer MD Referring Physician: Jimbo Meyer MD Allergies, Adverse Reactions, Alerts No Known Medication Allergies Immunizations Not Given Vaccine Date Status Refusal Reason influenza virus vaccine, inactivated 1 02/03/18 No t Given Patient Refuses pneumococcal 23-valent vaccine 02/03/18 Not Given Patient Refuses 1Result Note: pt wants to get his vaccine at his dialysis center where he always gets it Medications acetaminophen 325 mg oral tablet 1-2 tablet, By Mouth, Every 4 hours, PRN, not to exceed 4000 mg/day, # 60 tablet, Refills 0, Tot. Refills 0, Acute 02/26/20 11:20:00 EST, as needed for pain, 01/26/20 11:20:00 EDT, Route to Pharmacy Electronically, [facility], 167, cm... Start Date: 01/26/20 Stop Date: 02/26/20 Status: Ordered amLODIPine 10 mg oral tablet 10 mg, 1, tablet, By Mouth, Daily, # 30 tablet, Refills 0, Tot. Refills 0, Maintenance, 01/24/20 9:40:00 EDT, Route to Pharmacy Electronically, [facility], 167, cm, 01/24/20 7:13:00 EDT, Height, 86.2, kg, 01/22/20 7:46:00 EDT, Dry Weight Start Date: 01/24/20 Status: Ordered calcitriol 0.5 mcg oral capsule 2 capsule = 1 mcg, By Mouth, Daily, # 60 capsule, 2 Refills, Maintenance, 02/13/20 16:02:00 EDT, Capsule, [facility], 167, cm, 02/13/20 8:42:00 EDT, Height, 86.2, kg, 01/22/20 7:46:00 EDT, Dry Weight Start Date: 02/13/20 Stop Date: 05/13/20 Status: Ordered cloNIDine 0.1 mg oral tablet 0.1 mg, 1, tablet, By Mouth, 3 times a day, # 90 tablet, Refills 2, Tot. Refills 2, Maintenance, 01/27/20 9:46:00 EDT, Route to Pharmacy Electronically, [facility], Pt [employer] now, 167, cm, 01/27/20 8:59:00 EDT, Height, 86.2, kg,... Start Date: 01/27/20 Stop Date: 04/26/20 Status: Ordered clotrimazole 10 mg oral lozenge 10 mg, 1, lozenge, By Mouth, 3 times a day after meals, for 30 days, # 90 lozenge, Refills 1, Tot. Refills 1, Acute 04/13/20 13:28:00 EST, 02/13/20 13:28:00 EDT, Route to Pharmacy Electronically, [facility], 167, cm, 02/13/20 8:42:00... Start Date: 02/13/20 Stop Date: 04/13/20 Status: Ordered Coreg 25 mg oral tablet 25 mg, 1, tablet, By Mouth, 2 times a day, # 60 tablet, Refills 0, Tot. Refills 0, Maintenance, 01/24/20 9:40:00 EDT, Route to Pharmacy Electronically, [facility], 167, cm, 01/24/20 7:13:00 EDT, Height, 86.2, kg, 01/22/20 7:46:00 EDT,... Start Date: 01/24/20 Status: Ordered docusate sodium 100 mg oral capsule 100 mg, 1, capsule, By Mouth, 2 times a day, # 60 capsule, Refills 1, Tot. Refills 1, Maintenance, 02/13/20 13:29:00 EDT, Route to Pharmacy Electronically, [facility], 167, cm, 02/13/20 8:42:00 EDT, Height, 86.2, kg, 01/22/20 7:46:00... Start Date: 02/13/20 Stop Date: 04/13/20 Status: Ordered entecavir 0.5 mg oral tablet 1 tablet = 0.5 mg, By Mouth, Daily, # 30 tablet, 0 Refills, Maintenance, 01/24/20 9:39:00 EDT, Tablet, [facility], 167, cm, 01/24/20 7:13:00 EDT, Height, 86.2, kg, 01/22/20 7:46:00 EDT, Dry Weight Start Date: 01/24/20 Status: Ordered Envarsus XR 1 mg oral tablet, extended release 8 tablet = 8 mg, By Mouth, Daily in AM, # 240 tablet, 0 Refills, Maintenance, 01/24/20 9:37:00 EDT,[facility], 167, cm, 01/24/20 7:13:00 EDT, Height, 86.2, kg, 01/22/20 7:46:00 EDT,Dry Weight Start Date: 01/24/20 Status: Ordered glipiZIDE 5 mg oral tablet 5 mg, 1, tablet, By Mouth, Daily, # 30 tablet, Refills 1, Tot. Refills 1, Maintenance, 02/09/20 16:34:00 EDT, Route to Pharmacy Electronically, [facility], 167, cm, 02/09/20 9:30:00 EDT, Height, 86.2, kg, 01/22/20 7:46:00 EDT, Dry Weight Start Date: 02/09/20 Stop Date: 04/09/20 Status: Ordered hydrALAZINE 50 mg oral tablet 1 tablet = 50 mg, By Mouth, 3 times a day, # 90 tablet, 0 Refills, Maintenance, 01/26/20 9:01:00 EDT, Tablet, [facility], 167, cm, 01/26/20 7:33:00 EDT, Height, 86.2, kg, 01/22/20 7:46:00 EDT, Dry Weight Start Date: 01/26/20 Status: Ordered Kayexcelate Powder Kayexcelate Powder, 30 grams, By Mouth, Every Thursday, Thursday and Thursday, # 454 Gm, Refills 1, Tot. Refills 1, Maintenance, Mix 8 level teaspoons in water or apple juice & drink by mouth every Thursday, Thursday & Thursday, 02/01/20 13:40:00 EDT, Needs... Start Date: 02/01/20 Stop Date: 04/01/20 Status: Ordered omeprazole 40 mg oral enteric coated capsule 1 capsule = 40 mg, By Mouth, Daily, # 30 capsule, 2 Refills, Maintenance, 02/02/20 15:39:00 EDT, Suspension, [facility], 167, cm, 02/02/20 10:10:00 EDT, Height, 86.2, kg, 01/22/20 7:46:00 EDT, Dry Weight Start Date: 02/02/20 Stop Date: 05/02/20 Status: Ordered oxyCODONE 5 mg oral tablet 5 mg, 1, tablet, By Mouth, Every 6 hours, for 5 days, Only take for as needed pain, use tylenol andibuprofen as well, # 10 tablet, Refills 0, Tot. Refills 0, Acute 02/20/20 17:02:00 EDT, 02/15/20 17:02:00 EDT, Route to Pharmacy Electronically, [facility]... Start Date: 02/15/20 Stop Date: 02/20/20 Status: Ordered Readi-Cat 2 oral suspension 450 mL = 9 Gm, By Mouth, Once, # 450 mL, 0 Refills, Soft Stop, 02/09/20 15:38:00 EDT, [facility], 450 mL By Mouth Once, 167, cm, 02/09/20 9:30:00 EDT, Height, 86.2, kg, 01/22/20 7:46:00 EDT, Dry Weight Start Date: 02/09/20 Status: Ordered Readi-Cat 2 oral suspension 900 mL = 18 Gm, By Mouth, Once, Drink 1 bottle at midnight then bring second bottlwe to appointment, # 900 mL, 0 Refills, Soft Stop, 02/09/20 15:54:00 EDT, [facility], 900 mL By Mouth Once,Instr:Drink 1 bottle at midnight then bring s... Start Date: 02/09/20 Status: Ordered rOPINIRole 0.5 mg oral tablet 1 tablet = 0.5 mg, By Mouth, Daily at bedtime, 0 Refills, Maintenance, 01/22/20 8:36:00 EDT Start Date: 01/22/20 Status: Ordered Senna 8.6 mg oral tablet 8.6 mg, 1, tablet, By Mouth, Daily, for 30 days, # 30 tablet, Refills 1, Tot. Refills 1, Acute, 04/13/20 13:29:00 EST, 02/13/20 13:29:00 EDT, Route to Pharmacy Electronically, [facility], 167, cm, 02/13/20 8:42:00 EDT, Height, 86.2, k... Start Date: 02/13/20 Stop Date: 04/13/20 Status: Ordered sulfamethoxazole-trimethoprim 400 mg-80 mg oral tablet 1 tablet, By Mouth, Daily at bedtime, for 30 days, # 30 tablet, 1 Refills, Acute 03/26/20 10:31:00 EST, 01/26/20 10:31:00 EDT, Tablet, [facility], 1 tablet By Mouth Daily at bedtime,x30 days, 167, cm, 01/26/20 9:51:00 EDT, Height, 86.... Start Date: 01/26/20 Stop Date: 03/26/20 Status: Ordered valganciclovir 450 mg oral tablet 450 mg, 1, tablet, By Mouth, Daily, for 30 days, # 30 tablet, Refills 2, Tot. Refills 2, Acute 05/13/20 13:27:00 EST, 02/13/20 13:27:00 EDT, Route to Pharmacy Electronically, [facility], 167, cm, 02/13/20 8:42:00 EDT, Height, 86.2, kg... Start Date: 02/13/20 Stop Date: 05/13/20 Status: Ordered Veltassa 8.4 g oral powder for reconstitution = 8.4 Gm, By Mouth, Every Thursday, Thursday and Thursday, # 30 pack/packet, 1 Refills, Maintenance, 02/01/20 12:58:00 EDT, [facility], Needs Delivery Today, 167, cm, 02/01/20 8:51:00 EDT, Height, 86.2, kg, 01/22/20 7:46:00 EDT, Dry Weight Start Date: 02/01/20 Stop Date: 04/01/20 Status: Ordered Problem List Condition Effective Dates Status Health Status Inform ant Polyp of colon, adenomatous( Confirmed) 1 07/24/16 Active Chronic renal impairment(Confirmed) Active ESRD on dialysis(Confirmed) 2 Active HTN (hypertension)(Confirmed) Active 1rept scope 1 yr [address] [facility] M, W, F Vital Signs Most recent to oldest [Reference Range]: 1 2 3 Oxygen Saturation [94-100 %] 100 % (02/15/20 6:00 PM) 100 % (02/15/20 5:45 PM) 100 % (02/15/20 5:40 PM) Pulse Rate [55-90 bpm] 63 bpm (02/15/20 1:05 PM) Blood Pressure [90-138/55-84 mm Hg] 107/97mm Hg (02/15/20 6:00 PM) 92/64mm Hg (02/15/20 5:45 PM) 86/59mm Hg *L* (02/15/20 5:40 PM) Respiratory Rate [16-30 br/min] 22 br/min (02/15/20 6:00 PM) 9 br/min *L* (02/15/20 5:45 PM) 25 br/min (02/15/20 5:40 PM) Temperature [96.8-100.4 DegF] 97.3 DegF (02/15/20 4:48 PM) 97.3 DegF (02/15/20 1:05 PM) Liters per Minute 2 L/min (02/15/20 5:45 PM) Mode of Delivery (Oxygen) Room air (02/15/20 6:00 PM) Nasal cannula (02/15/20 5:45 PM) Room air (02/15/20 5:00 PM) Blood pressure sites Leg, right (02/15/20 6:00 PM) Leg, right (02/15/20 5:00 PM) Leg, right (02/15/20 4:48 PM) Temperature Route Temporal (02/15/20 4:48 PM) Femoral (02/15/20 1:05 PM) Social History Social History Type Response Smoking Status Never smoker entered on: 09/25/16 Sex
--- OUTSIDE RECORDS SUMMARY | 2022-09-11 14:07 | XMS_ITS | Continuity of Care Document ---
Author Name Unknown Organization [facility] Address [address] [place] [address]- Care Team Providers Care Rat Culturist Name Role Phone Jose Miguel SADLER, Sakshi Primary Care Physician Encounter [facility] Date(s): 04/19/20 - 05/19/20 [facility] [address] [place] [id number] Allergies, Adverse Reactions, Alerts No Known Medication [...] 03/13/20 15:34:00 EST, Route to Pharmacy Electronically, [facility], 167, cm, 03/13/20 9:06:00EST, Height, 86.2, kg, 01/22/20 7:46:00 EDT, Dry We... Start Date: 03/13/20 Stop Date: 06/11/20 Status: Ordered calcitriol 0.5 mcg oral capsule 2 capsule = 1 mcg, By Mouth, Daily, # 60 capsule, 2 Refills, Maintenance, 05/13/20 16:02:00 EST, Capsule, [facility], 168, cm, 04/02/20 13:09:00 EST, Height, 73.55, kg, 03/20/20 19:52:00 EST, Dry Weight Start Date: 05/13/20 Stop Date: 08/11/20 Status: Ordered Coreg 25 mg oral tablet 25 mg, 1, tablet, By Mouth, 2 times a day, # 60 tablet, Refills 2, Tot. Refills 2, Maintenance, 02/16/20 12:56:00 EDT, Route to Pharmacy Electronically, [facility], 167, cm, 02/15/2010:08:00 EDT, Height, 86.2, kg, 01/22/20 7:46:00 ED... Start Date: 02/16/20 Stop Date: 05/16/20 Status: Ordered dapagliflozin 10 mg oral tablet 1 tablet = 10 mg, By Mouth, Daily, # 30 tablet, 2 Refills, Maintenance, 03/29/20 17:51:00 EST, Tablet, [facility], Partial fill upon patient request if the prescription is for a schedule II opioid drug., 168, cm, 03/29/20 9:02:00 EST,... Start Date: 03/29/20 Stop Date: 06/27/20 Status: Ordered docusate sodium 100 mg oral capsule 100 mg, 1, capsule, By Mouth, Daily, # 30 capsule, Refills 1, Tot. Refills 1, Maintenance, 02/12/2013:29:00 EDT, Route to Pharmacy Electronically, [facility], 167, cm, 02/13/20 8:42:00 EDT, Height, 86.2, kg, 01/22/20 7:46:00 EDT, Dry... Start Date: 02/13/20 Stop Date: 04/13/20 Status: Ordered entecavir 0.5 mg oral tablet 1 tablet = 0.5 mg, By Mouth, Daily, # 30 tablet, 1 Refills, Maintenance, 03/13/20 15:32:00 EST, Tablet, [facility], 167, cm, 03/13/20 9:06:00 EST, Height, 86.2, kg, 01/22/20 7:46:00 EDT, Dry Weight Start Date: 03/13/20 Stop Date: 05/12/20 Status: Ordered Envarsus XR 0.75 mg oral tablet, extended release 1 tablet = 0.75 mg, By Mouth, Daily in AM, to use with envarsus 1 mg tablets, # 30 tablet, 2 Refills, Maintenance, 03/05/20 16:42:00 EST, [facility], 167, cm, 03/05/20 8:28:00 EST, Height, 86.2, kg, 01/22/20 7:46:00 EDT, Dry Weight Start Date: 03/05/20 Stop Date: 06/03/20 Status: Ordered Envarsus XR 1 mg oral tablet, extended release 1 tablet = 1 mg, By Mouth, Daily in AM, # 30 tablet, 2 Refills, Maintenance, 03/13/20 15:32:00 EST,[facility], 167, cm, 03/13/20 9:06:00 EST, [...] 04/16/20 10:24:00 EST, Route to Pharmacy Electronically, [facility], Partial fill upon patient request, 168, cm, 04/09/20 8:57:00 EST,... Start Date: 04/16/20 Stop Date: 06/15/20 Status: Ordered glipiZIDE 10 mg oral tablet, extended release 1 tablet = 10 mg, By Mouth, 2 times a day, DX: E11.65, # 60 tablet, 6 Refills, Maintenance, 04/18/20 11:45:00 EST, ER Tablet, [facility], Partial fill upon patient request, 168, cm, 04/16/20 13:36:00 EST, Height, 73.55, kg, 03/20/20 1... Start Date: 04/18/20 Status: Ordered Lantus Solostar Pen 100 units/mL subcutaneous solution See Instructions, Take 36 units daily at bedtime. E11.65, # 30 mL, 3 Refills, Maintenance, 03/29/2020:26:00 EST, [facility], Partial fill upon patient request, 168, cm, 03/29/20 9:02:00 EST, Height, 73.55, kg, 03/20/20 19:52:00 EST,... Start Date: 03/29/20 Status: Ordered magnesium oxide 400 mg oral tablet 1 tablet = 400 mg, By Mouth, Daily, for 30 days, # 30 tablet, 2 Refills, Acute 06/27/20 17:45:00 EST, 03/29/20 17:45:00 EST, [facility], Partial fill upon patient request if the prescription is for a schedule II opioid drug., 168, cm,... Start Date: 03/29/20 Stop Date: 06/27/20 Status: Ordered metFORMIN 500 mg oral tablet 1 tablet = 500 mg, By Mouth, 2 times a day, # 60 tablet, 11 Refills, Maintenance, 04/18/20 11:39:00EST, Tablet, [facility], Partial fill upon patient request, 168, cm, 04/16/20 13:36:00 EST, Height, 73.55, kg, 03/20/20 19:52:00 EST,... Start Date: 04/18/20 Status: Ordered omeprazole 40 mg oral enteric coated capsule 1 capsule = 40 mg, By Mouth, 2 times a day, # 60 capsule, 1 Refills, Maintenance, 04/16/20 10:32:00EST, [facility], Partial fill upon patient request if the prescription is for a schedule II opioid drug., 168, cm, 04/09/20 8:57:00 ES... Start Date: 04/16/20 Stop Date: 06/15/20 Status: Ordered Pen [place], 31 G x 8 mm BD Ultra [...] 1 Refills, Maintenance, 03/20/20 16:11:00 EST, Tablet, [facility], Partial fill upon patient request, 167, cm, 03/19/20 9:57:00 EST, Height, 86.2, kg, 01/22/20 7:46:00 EDTKei. Start Date: 03/20/20 Stop Date: 05/19/20 Status: Ordered sulfamethoxazole-trimethoprim 400 mg-80 mg oral tablet 1 tablet, By Mouth, Daily at bedtime, for 30 days, # 30 tablet, 2 Refills, Acute 06/11/20 15:33:00 EST, 03/13/20 15:33:00 EST, Tablet, [facility], 1 tablet By Mouth Daily [...] HTN (hypertension)(Confirmed) Active 1rept scope 1 yr [address] [facility] M, W, F 3campath induction Social History Social History Type Response Smoking Status Never smoker entered on: 09/25/16 Sex
--- OUTSIDE RECORDS SUMMARY | 2022-09-11 14:07 | XMS_ITS | Continuity of Care Document ---
Author Name Unknown Organization [facility] Address [address] [place] [address]- Care Team Providers Care Prorate Clerk Name Role Phone Tayo SADLER, Harmony Doan Primary Care Physician Encounter [facility] Date(s): 06/30/22 - 07/30/[address] [address] Attending Physician: Admtr, Ar8 Admitting Physician: Admtr, Ar8 Referring Physician: Admtr, [...] tablet, 1 Refills, Maintenance, 05/25/22 20:02:00 EST, [facility], 170, cm, 04/07/22 14:06:00 EST, [...] 04/14/22 13:19:00 EST, Route to Pharmacy Electronically, [facility], 170, cm, 04/07/22 14:06:00 EST, Height, [...] 60 Gm, 2 Refills, Maintenance, 238:53:00 EST, [facility], 30, APPLY TO AFFECTED AREA TWO TIMES A DAY, 170, cm, 04/07/22 14:06:00 EST, Height, 80, kg, 12/12/21 16:28:00... Start Date: 06/23/22 Status: Ordered Coreg 25 mg oral tablet 25 mg, 1, tablet, By Mouth, 2 times a day, # 60 tablet, Refills 2, Tot. Refills 2, Maintenance, 04/14/22 13:19:00 EST, Route to Pharmacy Electronically, [facility], 170, cm, 04/07/2214:06:00 EST, Height, 80, kg, 12/12/21 16:28:00 EDT... Start Date: 04/14/22 Stop Date: 07/13/22 Status: Ordered Cymbalta 30 mg oral enteric coated capsule 1 capsule = 30 mg, By Mouth, Daily, do not crush or chew, # 30 capsule, 0 Refills, Maintenance, 07/22/22 12:28:00 EDT, CR Capsule, [facility], Partial fill upon patient request if the prescription is for a schedule II opioid drug., 17... Start Date: 07/22/22 Status: Ordered Diabetic shoes with inserts Diabetic [...] Maintenance, 02/12/2013:29:00 EDT, Route to Pharmacy Electronically, [facility], 167, cm, 02/13/20 8:42:00 EDT, Height, 86.2, kg, 01/22/20 7:46:00 EDT, Dry... Start Date: 02/13/20 Stop Date: 04/13/20 Status: Ordered entecavir 0.5 mg oral tablet 1 tablet = 0.5 mg, By Mouth, Daily, # 30 tablet, 1 Refills, Maintenance, 03/13/20 15:32:00 EST, Tablet, [facility], 167, cm, 03/13/20 9:06:00 EST, Height, 86.2, kg, 01/22/20 7:46:00 EDT, Dry Weight Start Date: 03/13/20 Stop Date: 05/12/20 Status: Ordered Envarsus XR 1 mg oral tablet, extended release 3 tablet = 3 mg, By Mouth, Daily in AM, # 90 tablet, 2 Refills, Maintenance, 03/13/20 15:32:00 EST,[facility], 167, cm, 03/13/20 9:06:00 EST, Height, 86.2, kg, 01/22/20 7:46:00 EDT,Dry Weight Start Date: 03/13/20 Stop Date: 06/11/20 Status: Ordered Farxiga 10 mg oral tablet 1 tablet, By Mouth, Daily, # 30 tablet, 5 Refills, Maintenance, 06/20/22 18:08:00 EST, [facility], 170, cm, 04/07/22 14:06:00 [...] 05/21/22 10:26:00 EST, Route to Pharmacy Electronically, [facility], Partial fill upon patient request, 170, cm, 04/07/22 14:06:00 EST,... Start Date: 05/21/22 Stop Date: 07/20/22 Status: Ordered glipiZIDE 10 mg oral tablet, extended release 1 tablet, By Mouth, 2 times a day, # 60 tablet, 5 Refills, Maintenance, 06/20/22 18:08:00 EST, [facility], 170, cm, 04/07/22 14:06:00 EST, Height, 80, kg, 12/12/21 16:28:00 EDT, Dry Weight Start Date: 06/20/22 Status: Ordered Lantus Solostar Pen 100 units/mL subcutaneous solution See Instructions, INJECT 44 UNITS SUBCUTANEOUSLY ONCE DAILY AT BEDTIME, # 15 mL, 2 Refills, Maintenance, 05/25/22 20:02:00 EST, [facility], 170, cm, 04/07/22 14:06:00 EST, Height, 80, kg, 12/12/21 16:28:00 EDT, Dry Weight Start Date: 05/25/22 Status: Ordered metFORMIN 500 mg oral tablet 1 tablet = 500 mg, By Mouth, 2 times a day, # 60 tablet, 11 Refills, Maintenance, 04/18/20 11:39:00EST, Tablet, [facility], Partial fill upon patient request, 168, cm, 04/16/20 13:36:00 EST, Height, 73.55, kg, 03/20/20 19:52:00 EST,... Start Date: 04/18/20 Status: Ordered Pen [place], 31 G x 8 mm BD Ultra [...] 1 Refills, Maintenance, 03/20/20 16:11:00 EST, Tablet, [facility], Partial fill upon patient [...] neuropathy Confirmed Active 1rept scope 1 yr [address] [facility] M, W, F 3campath induction Social History Social History Type Response Smoking Status Never (less than 100 in lifetime) entered on: 07/22/22 Sex Male Patient Care team information Care Team Personnel Name: Teresa Ha RN Position: [facility] RN Supv Member Role: Primary Care Nurse Name: Elena Roberts RN Position: [facility] RN Member Role: Primary Care Nurse Name: Osvaldo House DO Position: [facility] Renal MD Member Role: Lifetime Consulting Physician Address: Address: [address] [facility] [place] [address]- Name: Brendan Guillermo MD Position: [facility] Renal MD Member Role: Lifetime Consulting Physician Address: Address: [address] [facility] [place], [place] [address] Name: Gale Wilcox Position: [facility] AMB Nurse Member Role: Primary Care Nurse Name: Cata Gong RN Position: [facility] AMB Nurse Member Role: Primary Care Nurse Name: Monae Rodriguez RN Position: [facility] RN Member Role: Primary Care Nurse Name: Alisha Polanco RN Position: [facility] RN Member Role: Primary Care Nurse Name: Gabbie Park RN Position: [facility] OB RN Member Role: Primary Care Nurse Name: Lou Hodge RN Position: [facility] SN RN Member Role: Primary Care Nurse Name: Ryann Salas RN Position: [facility] SN RN Member Role: Primary Care Nurse Name: Harmony Cr MD Position: [facility] Resident Member Role: PCP Address: Address: [address] [place] [address]- Name: Stephanie Schroeder RN Position: [facility] RN Member Role: Primary Care Nurse Name: Lynette Comer RN Position: [facility] Onco RN Member Role: Primary Care Nurse Name: Pepe Miller RN Position: [facility] SN RN Member Role: Primary Care Nurse Name: Olu Cortés MD Position: [facility] Renal MD Member Role: Lifetime Consulting Physician Address: Address: [address] [place] [address] [facility] [place] [address]- Care Team Related Persons Name: TAYLOR ENCISO Name: DARELL ENCISO Address: [place] [address]
--- OUTSIDE RECORDS SUMMARY | 2022-09-11 14:07 | XMS_ITS | Continuity of Care Document ---
Author Name Unknown Organization [facility] Address Unknown Care Team Providers Care Slip Caster Name Role Phone Sakshi Gillespie MD Primary Care Physician Encounter [facility] Date(s): 02/12/21 - 03/14/21 [facility] Attending Physician: Dileep Montes Admitting Physician: Dileep Montes Referring Physician: Dileep Montes Allergies, Adverse Reactions, Alerts No Known Medication [...] 03/13/20 15:34:00 EST, Route to Pharmacy Electronically, [facility], 167, cm, 03/13/20 9:06:00EST, Height, 86.2, kg, 01/22/20 7:46:00 EDT, Dry We... Start Date: 03/13/20 Stop Date: 06/11/20 Status: Ordered calcitriol 0.5 mcg oral capsule 2 capsule = 1 mcg, By Mouth, Daily, # 60 capsule, 2 Refills, Maintenance, 05/13/20 16:02:00 EST, Capsule, [facility], 168, cm, 04/02/20 13:09:00 EST, Height, 73.55, kg, 03/20/20 19:52:00 EST, Dry Weight Start Date: 05/13/20 Stop Date: 08/11/20 Status: Ordered Coreg 25 mg oral tablet 25 mg, 1, tablet, By Mouth, 2 times a day, # 60 tablet, Refills 2, Tot. Refills 2, Maintenance, 02/16/20 12:56:00 EDT, Route to Pharmacy Electronically, [facility], 167, cm, 02/15/2010:08:00 EDT, Height, 86.2, kg, 01/22/20 7:46:00 ED... Start Date: 02/16/20 Stop Date: 05/16/20 Status: Ordered dapagliflozin 10 mg oral tablet 1 tablet = 10 mg, By Mouth, Daily, # 30 tablet, 2 Refills, Maintenance, 02/04/21 13:38:00 EDT, Tablet, [facility], Partial fill upon patient request if the prescription is for a schedule II opioid drug., 168, cm, 04/23/20 8:27:00 EST,... Start Date: 02/04/21 Stop Date: 05/05/21 Status: Ordered docusate sodium 100 mg oral capsule 100 mg, 1, capsule, By Mouth, Daily, # 30 capsule, Refills 1, Tot. Refills 1, Maintenance, 02/12/2013:29:00 EDT, Route to Pharmacy Electronically, [facility], 167, cm, 02/13/20 8:42:00 EDT, Height, 86.2, kg, 01/22/20 7:46:00 EDT, Dry... Start Date: 02/13/20 Stop Date: 04/13/20 Status: Ordered entecavir 0.5 mg oral tablet 1 tablet = 0.5 mg, By Mouth, Daily, # 30 tablet, 1 Refills, Maintenance, 03/13/20 15:32:00 EST, Tablet, [facility], 167, cm, 03/13/20 9:06:00 EST, Height, 86.2, kg, 01/22/20 7:46:00 EDT, Dry Weight Start Date: 03/13/20 Stop Date: 05/12/20 Status: Ordered Envarsus XR 0.75 mg oral tablet, extended release 1 tablet = 0.75 mg, By Mouth, Daily in AM, to use with envarsus 1 mg tablets, # 30 tablet, 2 Refills, Maintenance, 03/05/20 16:42:00 EST, [facility], 167, cm, 03/05/20 8:28:00 EST, Height, 86.2, kg, 01/22/20 7:46:00 EDT, Dry Weight Start Date: 03/05/20 Stop Date: 06/03/20 Status: Ordered Envarsus XR 1 mg oral tablet, extended release 1 tablet = 1 mg, By Mouth, Daily in AM, # 30 tablet, 2 Refills, Maintenance, 03/13/20 15:32:00 EST,[facility], 167, cm, 03/13/20 9:06:00 EST, [...] 04/16/20 10:24:00 EST, Route to Pharmacy Electronically, [facility], Partial fill upon patient request, 168, cm, 04/09/20 8:57:00 EST,... Start Date: 04/16/20 Stop Date: 06/15/20 Status: Ordered glipiZIDE 10 mg oral tablet, extended release 1 tablet = 10 mg, By Mouth, 2 times a day, # 60 tablet, 6 Refills, Maintenance, 07/26/20 14:54:00 EDT, ER Tablet, [facility], DxE11.65, 168, cm, 04/23/20 8:27:00 EST, Height, 73.55, kg, 03/20/20 19:52:00 EST, Dry Weight Start Date: 07/26/20 Status: Ordered Lantus Solostar Pen 100 units/mL subcutaneous solution See Instructions, Take 40 units daily at bedtime. E11.65, # 30 mL, 3 Refills, Maintenance, 03/29/2020:26:00 EST, [facility], Partial fill upon patient request, 168, cm, 03/29/20 9:02:00 EST, Height, 73.55, kg, 03/20/20 19:52:00 EST,... Start Date: 03/29/20 Status: Ordered metFORMIN 500 mg oral tablet 1 tablet = 500 mg, By Mouth, 2 times a day, # 60 tablet, 11 Refills, Maintenance, 04/18/20 11:39:00EST, Tablet, [facility], Partial fill upon patient request, 168, cm, 04/16/20 13:36:00 EST, Height, 73.55, kg, 03/20/20 19:52:00 EST,... Start Date: 04/18/20 Status: Ordered omeprazole 40 mg oral enteric coated capsule 1 capsule = 40 mg, By Mouth, 2 times a day, # 60 capsule, 1 Refills, Maintenance, 04/16/20 10:32:00EST, [facility], Partial fill upon patient request if the prescription is for a schedule II opioid drug., 168, cm, 04/09/20 8:57:00 ES... Start Date: 04/16/20 Stop Date: 06/15/20 Status: Ordered Pen [place], 31 G x 8 mm BD Ultra [...] 1 Refills, Maintenance, 03/20/20 16:11:00 EST, Tablet, [facility], Partial fill upon patient request, 167, cm, 03/19/20 9:57:00 EST, Height, 86.2, kg, 01/22/20 7:46:00 Lizbet GARCIA Start Date: 03/20/20 Stop Date: 05/19/20 Status: Ordered Problem List Condition Effective Dates Status Health Status Inform ant Polyp of colon, adenomatous( Confirmed) 1 07/24/16 Active Chronic renal impairment(Confirmed) Active ESRD on dialysis(Confirmed) 2 Active -donor kidney transplant(Confirmed) 3 01/22/20 Active HTN (hypertension)(Confirmed) Active 1rept scope 1 yr [address] [facility] M, W, F 3campath induction Vital Signs [...]
--- OUTSIDE RECORDS SUMMARY | 2022-09-11 14:07 | XMS_ITS | Continuity of Care Document ---
Author Name Unknown Organization [facility] Address [address] [place] [address]- Care Team Providers Care Twisting Operator Name Role Phone Tayo SADLER, Harmony Doan Primary Care Physician Encounter [facility] Date(s): 08/20/21 - 09/19/21 [facility] [address] [place] [id number] Attending Physician: Dileep Montes Admitting Physician: AdmDileep mcclure Referring Physician: AdmtrDileep Allergies, Adverse Reactions, Alerts [...] 03/13/20 15:34:00 EST, Route to Pharmacy Electronically, [facility], 167, cm, 03/13/20 9:06:00EST, Height, 86.2, kg, 01/22/20 7:46:00 EDT, Dry We... Start Date: 03/13/20 Stop Date: 06/11/20 Status: Ordered ammonium lactate 5% topical lotion 1 application, Topically, 2 times a day, # 120 Gm, 0 Refills, Maintenance, 09/16/21 17:16:00 EDT, Lotion, [facility], Partial fill upon patient request if the prescription is for a schedule II opioid drug., 1 application Topically 2 t... Start Date: 09/16/21 Status: Ordered atorvastatin 40 mg oral tablet 1 tablet = 40 mg, By Mouth, Daily, # 30 tablet, 11 Refills, Maintenance, 09/16/21 16:52:00 EDT, Tablet, [facility], Partial fill upon patient request [...] 5 Refills, Maintenance, 09/16/21 16:41:00 EDT, Capsule, [facility], 168, cm, 09/16/21 16:17:00 EDT, Height, 80, kg, 02/27/21 9:40:00EDT, Dry Weight Start Date: 09/16/21 Stop Date: 03/15/22 Status: Ordered clotrimazole 1% topical cream 1 application, Topically, 2 times a day, # 60 Gm, 0 Refills, Maintenance, 09/16/21 17:16:00 EDT, Cream, [facility], Partial fill upon patient request if the prescription is for a schedule II opioid drug., 1 application Topically 2 ginna... Start Date: 09/16/21 Status: Ordered Coreg 25 mg oral tablet 25 mg, 1, tablet, By Mouth, 2 times a day, # 60 tablet, Refills 2, Tot. Refills 2, Maintenance, 02/16/20 12:56:00 EDT, Route to Pharmacy Electronically, [facility], 167, cm, 02/15/2010:08:00 EDT, Height, [...] 2 Refills, Maintenance, 09/16/21 16:48:00EDT, CR Capsule, [facility], Parti... Start Date: 09/16/21 Stop Date: 12/15/21 Status: Ordered dapagliflozin 10 mg oral tablet 1 tablet = 10 mg, By Mouth, Daily, # 30 tablet, 5 Refills, Maintenance, 08/01/21 12:54:00 EDT, Tablet, [facility], Partial fill upon patient request [...] Maintenance, 02/12/2013:29:00 EDT, Route to Pharmacy Electronically, [facility], 167, cm, 02/13/20 8:42:00 EDT, Height, 86.2, kg, 01/22/20 7:46:00 EDT, Dry... Start Date: 02/13/20 Stop Date: 04/13/20 Status: Ordered entecavir 0.5 mg oral tablet 1 tablet = 0.5 mg, By Mouth, Daily, # 30 tablet, 1 Refills, Maintenance, 03/13/20 15:32:00 EST, Tablet, [facility], 167, cm, 03/13/20 9:06:00 EST, Height, 86.2, kg, 01/22/20 7:46:00 EDT, Dry Weight Start Date: 03/13/20 Stop Date: 05/12/20 Status: Ordered Envarsus XR 1 mg oral tablet, extended release 1 tablet = 1 mg, By Mouth, Daily in AM, # 30 tablet, 2 Refills, Maintenance, 03/13/20 15:32:00 EST,[facility], 167, cm, 03/13/20 9:06:00 EST, [...] 04/16/20 10:24:00 EST, Route to Pharmacy Electronically, [facility], Partial fill upon patient request, 168, cm, 04/09/20 8:57:00 EST,... Start Date: 04/16/20 Stop Date: 06/15/20 Status: Ordered glipiZIDE 10 mg oral tablet, extended release 1 tablet = 10 mg, By Mouth, 2 times a day, # 60 tablet, 5 Refills, Maintenance, 08/01/21 12:54:00 EDT, ER Tablet, [facility], DxE11.65, 168, cm, 02/27/21 9:40:00 EDT, Height, 80, kg,02/27/21 9:40:00 EDT, Dry Weight Start Date: 08/01/21 Status: Ordered Lantus Solostar Pen 100 units/mL subcutaneous solution = 44 units, Subcutaneous Injection, Daily at bedtime, # 15 mL, 2 Refills, Maintenance, 09/16/21 17:26:00 EDT, Solution, [facility], Partial fill upon patient request if the prescription is for a schedule II opioid drug., 168, cm, 08/26... Start Date: 09/16/21 Stop Date: 12/15/21 Status: Ordered Lantus Solostar Pen 100 units/mL subcutaneous solution See Instructions, Take 40 units daily at bedtime. E11.65, # 30 mL, 3 Refills, Maintenance, 03/29/2020:26:00 EST, [facility], Partial fill upon patient request, 168, cm, 03/29/20 9:02:00 EST, Height, 73.55, kg, 03/20/20 19:52:00 EST,... Start Date: 03/29/20 Status: Ordered metFORMIN 500 mg oral tablet 1 tablet = 500 mg, By Mouth, 2 times a day, # 60 tablet, 11 Refills, Maintenance, 04/18/20 11:39:00EST, Tablet, [facility], Partial fill upon patient request, 168, cm, 04/16/20 13:36:00 EST, Height, 73.55, kg, 03/20/20 19:52:00 EST,... Start Date: 04/18/20 Status: Ordered omeprazole 40 mg oral enteric coated capsule 1 capsule = 40 mg, By Mouth, 2 times a day, # 60 capsule, 1 Refills, Maintenance, 04/16/20 10:32:00EST, [facility], Partial fill upon patient request if the prescription is for a schedule II opioid drug., 168, cm, 04/09/20 8:57:00 ES... Start Date: 04/16/20 Stop Date: 06/15/20 Status: Ordered Pen [place], 31 G x 8 mm BD Ultra [...] 1 Refills, Maintenance, 03/20/20 16:11:00 EST, Tablet, [facility], Partial fill upon patient request, [...] 0 Refills, Maintenance, 09/16/21 17:30:00 EDT, Tablet, [facility], Partial fill upon patient request... Start Date: 09/16/21 Status: Ordered Tylenol 8 Hour 650 mg oral tablet, extended release 2 tablet = 1,300 mg, By Mouth, Every 8 hours, PRN as needed for pain, # 100 tablet, 1 Refills, Maintenance, 09/16/21 17:04:00 EDT, ER Tablet, [facility], Partial fill upon patient request [...] Diabetic neuropathy(Confirmed) Active 1rept scope 1 yr [address] [facility] M, W, F 3campath induction Social History Social History Type Response Smoking Status Never smoker entered on: 09/25/16 Sex
--- OUTSIDE RECORDS SUMMARY | 2022-09-11 14:08 | XMS_ITS | Continuity of Care Document ---
Author Name Unknown Organization [facility] Address [address] [place] [address]- Care Team Providers Care Epic Director Name Role Phone Jose Miguel SADLER, Sakshi Primary Care Physician Encounter [facility] [place] Date(s): 08/08/20 - 09/07/20 [facility] [address] [place] [id number] Allergies, Adverse Reactions, Alerts No [...] 03/13/20 15:34:00 EST, Route to Pharmacy Electronically, [facility], 167, cm, 03/13/20 9:06:00EST, Height, 86.2, kg, 01/22/20 7:46:00 EDT, Dry We... Start Date: 03/13/20 Stop Date: 06/11/20 Status: Ordered calcitriol 0.5 mcg oral capsule 2 capsule = 1 mcg, By Mouth, Daily, # 60 capsule, 2 Refills, Maintenance, 05/13/20 16:02:00 EST, Capsule, [facility], 168, cm, 04/02/20 13:09:00 EST, Height, 73.55, kg, 03/20/20 19:52:00 EST, Dry Weight Start Date: 05/13/20 Stop Date: 08/11/20 Status: Ordered Coreg 25 mg oral tablet 25 mg, 1, tablet, By Mouth, 2 times a day, # 60 tablet, Refills 2, Tot. Refills 2, Maintenance, 02/16/20 12:56:00 EDT, Route to Pharmacy Electronically, [facility], 167, cm, 02/15/2010:08:00 EDT, Height, 86.2, kg, 01/22/20 7:46:00 ED... Start Date: 02/16/20 Stop Date: 05/16/20 Status: Ordered dapagliflozin 10 mg oral tablet 1 tablet = 10 mg, By Mouth, Daily, # 30 tablet, 5 Refills, Maintenance, 08/08/20 13:38:00 EDT, Tablet, [facility], Partial fill upon patient request if the prescription is for a schedule II opioid drug., 168, cm, 04/23/20 8:27:00 EST,... Start Date: 08/08/20 Stop Date: 02/04/21 Status: Ordered docusate sodium 100 mg oral capsule 100 mg, 1, capsule, By Mouth, Daily, # 30 capsule, Refills 1, Tot. Refills 1, Maintenance, 02/12/2013:29:00 EDT, Route to Pharmacy Electronically, [facility], 167, cm, 02/13/20 8:42:00 EDT, [...] tablet, 2 Refills, Maintenance, 03/05/20 16:42:00 EST, [facility], 167, cm, 03/05/20 8:28:00 EST, Height, 86.2, kg, 01/22/20 7:46:00 EDT, Dry Weight Start Date: 03/05/20 Stop Date: 06/03/20 Status: Ordered Envarsus XR 1 mg oral tablet, extended release 1 tablet = 1 mg, By Mouth, Daily in AM, # 30 tablet, 2 Refills, Maintenance, 03/13/20 15:32:00 EST,[facility], 167, cm, 03/13/20 9:06:00 EST, [...] 04/16/20 10:24:00 EST, Route to Pharmacy Electronically, [facility], Partial fill upon patient request, 168, cm, 04/09/20 8:57:00 EST,... Start Date: 04/16/20 Stop Date: 06/15/20 Status: Ordered glipiZIDE 10 mg oral tablet, extended release 1 tablet = 10 mg, By Mouth, 2 times a day, # 60 tablet, 6 Refills, Maintenance, 07/26/20 14:54:00 EDT, ER Tablet, [facility], DxE11.65, 168, cm, 04/23/20 8:27:00 EST, Height, 73.55, kg, 03/20/20 19:52:00 EST, Dry Weight Start Date: 07/26/20 Status: Ordered Lantus Solostar Pen 100 units/mL subcutaneous solution See Instructions, Take 36 units daily at bedtime. E11.65, # 30 mL, 3 Refills, Maintenance, 03/29/2020:26:00 EST, [facility], Partial fill upon patient request, 168, cm, 03/29/20 9:02:00 EST, Height, 73.55, kg, 03/20/20 19:52:00 EST,... Start Date: 03/29/20 Status: Ordered metFORMIN 500 mg oral tablet 1 tablet = 500 mg, By Mouth, 2 times a day, # 60 tablet, 11 Refills, Maintenance, 04/18/20 11:39:00EST, Tablet, [facility], Partial fill upon patient request, 168, cm, 04/16/20 13:36:00 EST, Height, 73.55, kg, 03/20/20 19:52:00 EST,... Start Date: 04/18/20 Status: Ordered omeprazole 40 mg oral enteric coated capsule 1 capsule = 40 mg, By Mouth, 2 times a day, # 60 capsule, 1 Refills, Maintenance, 04/16/20 10:32:00EST, [facility], Partial fill upon patient request if the prescription is for a schedule II opioid drug., 168, cm, 04/09/20 8:57:00 ES... Start Date: 04/16/20 Stop Date: 06/15/20 Status: Ordered Pen [place], 31 G x 8 mm BD Ultra Fine III See Instructions, # 30 each, Refills 5, Tot. Refills 5, Maintenance, please use as directed with your Lantus pen once daily., 07/26/20 14:46:00 EDT, Supply, 168, cm, 04/23/20 8:27:00 EST, Height, 73.55, kg, 03/20/20 19:52:00 EST, Dry Weight Start Date: 07/26/20 Stop Date: 9/28/21 Status: Ordered rOPINIRole 0.5 mg oral tablet 1 tablet = 0.5 mg, By Mouth, Daily at bedtime, # 30 tablet, 1 Refills, Maintenance, 03/20/20 16:11:00 EST, Tablet, [facility], Partial fill upon patient [...] HTN (hypertension)(Confirmed) Active 1rept scope 1 yr [address] [facility] M, W, F 3campath induction Social History Social History Type Response Smoking Status Never smoker entered on: 09/25/16 Sex
--- OUTSIDE RECORDS SUMMARY | 2022-09-11 14:08 | XMS_ITS | Continuity of Care Document ---
Author Name Unknown Organization [facility] Address [address] [place] [address]- Care Team Providers Care Operations Superintendent Name Role Phone Sakshi Gillespie MD Primary Care Physician Encounter [facility] Date(s): 03/21/19 - 04/30/19 [facility] [address] [place] [address]- [facility] Attending Physician: Peace Mendoza MD Admitting Physician: Peace Mendoza MD Allergies, Adverse Reactions, Alerts No Known [...] EDT, Capsule Start Date: 02/07/18 Status: Ordered calcium carbonate 500 mg (200 mg elemental calcium) oral tablet, chewable 3,000 mg, 6, tablet, Chew, 4 times a day, # 240 tablet, Refills 0, Tot. Refills 0, Maintenance, 02/07/18 14:36:00 EDT, Do Not Route Start Date: 02/07/18 Stop Date: 02/17/18 Status: Ordered Coreg 25 mg oral tablet 50 mg, 2, tablet, By Mouth, 2 times a day, Refills 0, Maintenance, 01/09/18 21:15:13 EDT Start Date: 01/09/18 Status: Ordered FLUoxetine 20 mg oral capsule 20 mg, 1, capsule, By Mouth, Daily, # 30 capsule, Refills 1, Tot. Refills 1, Maintenance, 02/01/19 10:08:36 EDT, Route to Pharmacy Electronically, [id number], [facility] #[id number] Start Date: 02/01/19 Status: Ordered NuLYTELY with Flavor Packs oral powder for reconstitution See Instructions, 240 mL By Mouth Every 15 minutes, # 1 each, 0 Refills, Maintenance, 04/06/18 11:56:00 EST, 240 mL By Mouth Every 15 minutes Start Date: 04/06/18 Status: Ordered Tylenol 325 mg oral capsule 2 capsule = 650 mg, By Mouth, PRN as needed for pain, 0 Refills, Maintenance, 01/06/18 10:35:23 EDT, Capsule Start Date: 01/06/18 Status: Ordered Vitamin D 29691 iu oral capsule See Instructions, M, W, F at dialysis, Refills 0, Maintenance, 01/06/18 10:34:54 EDT Start Date: 01/06/18 Status: Ordered Problem List Condition Effective Dates Status Health Status Inform ant Polyp of colon, adenomatous( Confirmed) 1 07/24/16 Active Chronic renal impairment(Confirmed) Active ESRD on dialysis(Confirmed) 2 Active HTN (hypertension)(Confirmed) Active 1rept scope 1 yr [address] [facility] M, W, F Social History Social History Type Response Smoking Status Never smoker entered on: 09/25/16 Sex
--- OUTSIDE RECORDS SUMMARY | 2022-09-11 14:08 | XMS_ITS | Continuity of Care Document ---
Author Name Unknown Organization [facility] Address [address] [place] [address]- Care Team Providers Care Supply Chain Planner Name Role Phone Jose Miguel SADLER, Sakshi Primary Care Physician Encounter [facility] [place](s): 02/15/20 - 04/06/20 [facility] [address] [place] [id number] Attending Physician: Ariane Ferrer MD Admitting Physician: Ariane Ferrer MD Referring Physician: Gino Billingsley MD Allergies, Adverse Reactions, Alerts No Known [...] it Medications acetaminophen 325 mg oral tablet 650 mg, 2, tablet, By Mouth, Every 4 hours, PRN, for 30 days, # 50 tablet, Refills 1, Tot. Refills 1, Acute 04/27/20 16:53:00 EST, as needed for pain, 02/27/20 16:53:00 EST, Route to Pharmacy Electronically, [facility], 167, cm, 02/26... Start Date: 02/27/20 Stop Date: 04/27/20 Status: Ordered Alcohol Pads See Instructions, # [...] 03/13/20 15:34:00 EST, Route to Pharmacy Electronically, [facility], 167, cm, 03/13/20 9:06:00EST, Height, 86.2, kg, 01/22/20 7:46:00 EDT, Dry We... Start Date: 03/13/20 Stop Date: 06/11/20 Status: Ordered calcitriol 0.5 mcg oral capsule 2 capsule = 1 mcg, By Mouth, Daily, for 30 days, # 60 capsule, 2 Refills, Hard Stop 05/13/20 16:02:00 EST, 02/13/20 16:02:00 EDT, Capsule, [facility], 167, cm, 02/13/20 8:42:00 EDT, Height, 86.2, kg, 01/22/20 7:46:00 EDT, Dry Weight Start Date: 02/13/20 Stop Date: 05/13/20 Status: Ordered calcitriol 0.5 mcg oral capsule 2 capsule = 1 mcg, By Mouth, Daily, # 60 capsule, 2 Refills, Maintenance, 05/13/20 16:02:00 EST, Capsule, [facility], 168, cm, 04/02/20 13:09:00 EST, Height, 73.55, kg, 03/20/20 19:52:00 EST, Dry Weight Start Date: 05/13/20 Stop Date: 08/11/20 Status: Ordered clotrimazole 10 mg oral lozenge 10 mg, 1, lozenge, By Mouth, 3 times a day after meals, for 30 days, # 90 lozenge, Refills 1, Tot. Refills 1, Acute 04/13/20 13:28:00 EST, 02/13/20 13:28:00 EDT, Route to Pharmacy Electronically, [facility], 167, cm, 02/13/20 8:42:00... Start Date: 02/13/20 Stop Date: 04/13/20 Status: Ordered Coreg 25 mg oral tablet 25 mg, 1, tablet, By Mouth, 2 times a day, # 60 tablet, Refills 2, Tot. Refills 2, Maintenance, 02/16/20 12:56:00 EDT, Route to Pharmacy Electronically, [facility], 167, cm, 02/15/2010:08:00 EDT, Height, 86.2, kg, 01/22/20 7:46:00 ED... Start Date: 02/16/20 Stop Date: 05/16/20 Status: Ordered dapagliflozin 10 mg oral tablet 1 tablet = 10 mg, By Mouth, Daily, # 30 tablet, 2 Refills, Maintenance, 03/29/20 17:51:00 EST, Tablet, [facility], Partial fill upon patient request if the prescription is for a schedule II opioid drug., 168, cm, 03/29/20 9:02:00 EST,... Start Date: 03/29/20 Stop Date: 06/27/20 Status: Ordered docusate sodium 100 mg oral capsule 100 mg, 1, capsule, By Mouth, Daily, # 30 capsule, Refills 1, Tot. Refills 1, Maintenance, 02/12/2013:29:00 EDT, Route to Pharmacy Electronically, [facility], 167, cm, 02/13/20 8:42:00 EDT, Height, 86.2, kg, 01/22/20 7:46:00 EDT, Dry... Start Date: 02/13/20 Stop Date: 04/13/20 Status: Ordered entecavir 0.5 mg oral tablet 1 tablet = 0.5 mg, By Mouth, Daily, # 30 tablet, 1 Refills, Maintenance, 03/13/20 15:32:00 EST, Tablet, [facility], 167, cm, 03/13/20 9:06:00 EST, Height, 86.2, kg, 01/22/20 7:46:00 EDT, Dry Weight Start Date: 03/13/20 Stop Date: 05/12/20 Status: Ordered Envarsus XR 0.75 mg oral tablet, extended release 1 tablet = 0.75 mg, By Mouth, Daily in AM, to use with envarsus 1 mg tablets, # 30 tablet, 2 Refills, Maintenance, 03/05/20 16:42:00 EST, [facility], 167, cm, 03/05/20 8:28:00 EST, Height, 86.2, kg, 01/22/20 7:46:00 EDT, Dry Weight Start Date: 03/05/20 Stop Date: 06/03/20 Status: Ordered Envarsus XR 1 mg oral tablet, extended release 1 tablet = 1 mg, By Mouth, Daily in AM, # 30 tablet, 2 Refills, Maintenance, 03/13/20 15:32:00 EST,[facility], 167, cm, 03/13/20 9:06:00 [...] Strips See Instructions, # 200 each, Refills 3, Tot. Refills 3, Maintenance, Please use to check blood sugar daily in AM for Type 2 Diabetes Mellitus, 03/23/20 7:59:00 EST, Supply, 168, cm, 03/20/20 23:11:00 EST, Height, 73.55, kg, 03/20/20 19:52:00 EST, Dry... Start Date: 03/23/20 Stop Date: 07/21/20 Status: Ordered gabapentin 100 mg oral capsule 100 mg, 1, capsule, By Mouth, 3 times a day, # 90 capsule, Refills 0, Tot. Refills 0, Maintenance, 03/21/20 12:39:00 EST, Route to Pharmacy Electronically, [facility], Partial fill upon patient request, 168, cm, 03/20/20 23:11:00 EST,... Start Date: 03/21/20 Status: Ordered glipiZIDE 10 mg oral tablet, extended release 1 tablet = 10 mg, By Mouth, 2 times a day, # 60 tablet, 0 Refills, Maintenance, 03/21/20 12:39:00 EST, ER Tablet, [facility], Partial fill upon patient request, 168, cm, 03/20/20 23:11:00 EST, Height, 73.55, kg, 03/20/20 19:52:00 EST,... Start Date: 03/21/20 Status: Ordered Lantus Solostar Pen 100 units/mL subcutaneous solution See Instructions, Take 36 units daily at bedtime. E11.65, # 30 mL, 3 Refills, Maintenance, 03/29/2020:26:00 EST, [facility], Partial fill upon patient request, 168, cm, 03/29/20 9:02:00 EST, Height, 73.55, kg, 03/20/20 19:52:00 EST,... Start Date: 03/29/20 Status: Ordered magnesium oxide 400 mg oral tablet 1 tablet = 400 mg, By Mouth, Daily, for 30 days, # 30 tablet, 2 Refills, Acute 06/27/20 17:45:00 EST, 03/29/20 17:45:00 EST, [facility], Partial fill upon patient request if the prescription is for a schedule II opioid drug., 168, cm,... Start Date: 03/29/20 Stop Date: 06/27/20 Status: Ordered metFORMIN 500 mg oral tablet 1 tablet = 500 mg, By Mouth, 2 times a day, # 60 tablet, 0 Refills, Maintenance, 03/23/20 9:44:00 EST, Tablet, [facility], Partial fill upon patient request, 168, cm, 03/20/20 23:11:00 EST, Height, 73.55, kg, 03/20/20 19:52:00 EST, Dr... Start Date: 03/23/20 Status: Ordered omeprazole 40 mg oral enteric coated capsule 1 capsule = 40 mg, By Mouth, Daily, # 30 capsule, 2 Refills, Maintenance, 02/02/20 15:39:00 EDT, Suspension, [facility], 167, cm, 02/02/20 10:10:00 EDT, Height, 86.2, kg, 01/22/20 7:46:00 EDT, Dry Weight Start Date: 02/02/20 Stop Date: 05/02/20 Status: Ordered Pen [place], 31 G x 8 mm BD Ultra [...] 1 Refills, Maintenance, 03/20/20 16:11:00 EST, Tablet, [facility], Partial fill upon patient request, 167, cm, 03/19/20 9:57:00 EST, Height, 86.2, kg, 01/22/20 7:46:00 EDT, D... Start Date: 03/20/20 Stop Date: 05/19/20 Status: Ordered Senna 8.6 mg oral tablet 8.6 mg, 1, tablet, By Mouth, Daily, for 30 days, # 30 tablet, Refills 1, Tot. Refills 1, Acute, 04/13/20 13:29:00 EST, 02/13/20 13:29:00 EDT, Route to Pharmacy Electronically, [facility], 167, cm, 02/13/20 8:42:00 EDT, Height, 86.2, k... Start Date: 02/13/20 Stop Date: 04/13/20 Status: Ordered sulfamethoxazole-trimethoprim 400 mg-80 mg oral tablet 1 tablet, By Mouth, Daily at bedtime, for 30 days, # 30 tablet, 2 Refills, Acute 06/11/20 15:33:00 EST, 03/13/20 15:33:00 EST, Tablet, [facility], 1 tablet By Mouth Daily at bedtime,x30 days, 167, cm, 03/13/20 9:06:00 EST, Height, 86.... Start Date: 03/13/20 Stop Date: 06/11/20 Status: Ordered valganciclovir 450 mg oral tablet 450 mg, 1, tablet, By Mouth, Daily, for 30 days, # 30 tablet, Refills 2, Tot. Refills 2, Acute 05/13/20 13:27:00 EST, 02/13/20 13:27:00 EDT, Route to Pharmacy Electronically, [facility], 167, cm, 02/13/20 8:42:00 EDT, Height, 86.2, kg... Start Date: 02/13/20 Stop Date: 05/13/20 Status: Ordered Problem List Condition Effective Dates Status Health Status Inform ant Polyp of colon, adenomatous( Confirmed) 1 07/24/16 Active Chronic renal impairment(Confirmed) Active ESRD on dialysis(Confirmed) 2 Active HTN (hypertension)(Confirmed) Active 1rept scope 1 yr [address] [facility] M, W, F Social History Social History Type Response Smoking Status Never smoker entered on: 09/25/16 Sex
--- OUTSIDE RECORDS SUMMARY | 2022-09-11 14:08 | XMS_ITS | Continuity of Care Document ---
Author Name Unknown Organization [facility] Address [address] [place] [address]- Care Team Providers Care Learning And Development Coordinator Name Role Phone Jose Miguel SADLER, Sakshi Primary Care Physician Encounter [facility] [place] Date(s): 03/31/19 - 05/28/19 [facility] [address] [place] [address]- [facility] Attending Physician: Gino Billingsley MD Admitting Physician: Gino Billingsley MD Allergies, Adverse Reactions, [...] 02/01/19 10:08:36 EDT, Route to Pharmacy Electronically, [id number], [facility]acy #[id number] Start Date: 02/01/19 Status: Ordered Renvela [...] Start Date: 01/06/18 Status: Ordered Vitamin D 30695 iu oral capsule See Instructions, M, W, F at dialysis, Refills 0, Maintenance, 01/06/18 10:34:54 EDT Start Date: 01/06/18 Status: Ordered Problem List Condition Effective Dates Status Health Status Inform ant Polyp of colon, adenomatous( Confirmed) 1 07/24/16 Active Chronic renal impairment(Confirmed) Active ESRD on dialysis(Confirmed) 2 Active HTN (hypertension)(Confirmed) Active 1rept scope [address] [address] [facility] M, W, F Social History Social History Type Response Smoking Status Never smoker entered on: 09/25/16 Sex
--- OUTSIDE RECORDS SUMMARY | 2022-09-11 14:08 | XMS_ITS | Continuity of Care Document ---
Author Name Unknown Organization [facility] Address [address] [place] [address]- Care Team Providers Care Spool Fixer Name Role Phone Tayo SADLER, Harmony Doan Primary Care Physician [phone] [place] [facility] [place] [facility] [id number] Date(s): 10/30/21 - 11/29/[address] [address] Attending Physician: Dileep Montes Admitting Physician: AdmtrDileep Referring Physician: Admtr, Ar8 Allergies, Adverse Reactions, [...] 03/13/20 15:34:00 EST, Route to Pharmacy Electronically, [facility], 167, cm, 03/13/20 9:06:00EST, Height, 86.2, kg, 01/22/20 7:46:00 EDT, Dry We... Start Date: 03/13/20 Stop Date: 06/11/20 Status: Ordered ammonium lactate 5% topical lotion 1 application, Topically, 2 times a day, # 120 Gm, 2 Refills, Maintenance, 09/20/21 20:13:00 EDT, Lotion, [facility], Partial fill upon patient request if the prescription is for a schedule II opioid drug., 1 application Topically 2 t... Start Date: 09/20/21 Status: Ordered atorvastatin 40 mg oral tablet 1 tablet = 40 mg, By Mouth, Daily, # 30 tablet, 11 Refills, Maintenance, 09/16/21 16:52:00 EDT, Tablet, [facility], Partial fill upon patient request [...] 5 Refills, Maintenance, 09/16/21 16:41:00 EDT, Capsule, [facility], 168, cm, 09/16/21 16:17:00 EDT, Height, 80, kg, 02/27/21 9:40:00EDT, Dry Weight Start Date: 09/16/21 Stop Date: 03/15/22 Status: Ordered clotrimazole 1% topical cream 1 application, Topically, 2 times a day, # 60 Gm, 0 Refills, Maintenance, 09/16/21 17:16:00 EDT, Cream, [facility], Partial fill upon patient request if the prescription is for a schedule II opioid drug., 1 application Topically 2 ginna... Start Date: 09/16/21 Status: Ordered Coreg 25 mg oral tablet 25 mg, 1, tablet, By Mouth, 2 times a day, # 60 tablet, Refills 2, Tot. Refills 2, Maintenance, 02/16/20 12:56:00 EDT, Route to Pharmacy Electronically, [facility], 167, cm, 02/15/2010:08:00 EDT, Height, [...] 2 Refills, Maintenance, 09/16/21 16:48:00EDT, CR Capsule, [facility], Parti... Start Date: 09/16/21 Stop Date: 12/15/21 Status: Ordered dapagliflozin 10 mg oral tablet 1 tablet = 10 mg, By Mouth, Daily, # 30 tablet, 5 Refills, Maintenance, 08/01/21 12:54:00 EDT, Tablet, [facility], Partial fill upon patient request [...] Maintenance, 02/12/2013:29:00 EDT, Route to Pharmacy Electronically, [facility], 167, cm, 02/13/20 8:42:00 EDT, Height, 86.2, kg, 01/22/20 7:46:00 EDT, Dry... Start Date: 02/13/20 Stop Date: 04/13/20 Status: Ordered entecavir 0.5 mg oral tablet 1 tablet = 0.5 mg, By Mouth, Daily, # 30 tablet, 1 Refills, Maintenance, 03/13/20 15:32:00 EST, Tablet, [facility], 167, cm, 03/13/20 9:06:00 EST, Height, 86.2, kg, 01/22/20 7:46:00 EDT, Dry Weight Start Date: 03/13/20 Stop Date: 05/12/20 Status: Ordered Envarsus XR 1 mg oral tablet, extended release 1 tablet = 1 mg, By Mouth, Daily in AM, # 30 tablet, 2 Refills, Maintenance, 03/13/20 15:32:00 EST,[facility], 167, cm, 03/13/20 9:06:00 EST, [...] cm, 02/27/21 9:40:00 EDT, Height, 80, kg, 110... Start Date: 08/01/21 Stop Date: 01/28/22 Status: Ordered gabapentin 100 mg oral capsule 100 mg, 1, capsule, By Mouth, 3 times a day, # 90 capsule, Refills 1, Tot. Refills 1, Maintenance, 04/16/20 10:24:00 EST, Route to Pharmacy Electronically, [facility], Partial fill upon patient request, 168, cm, 04/09/20 8:57:00 EST,... Start Date: 04/16/20 Stop Date: 06/15/20 Status: Ordered glipiZIDE 10 mg oral tablet, extended release 1 tablet = 10 mg, By Mouth, 2 times a day, # 60 tablet, 5 Refills, Maintenance, 08/01/21 12:54:00 EDT, ER Tablet, [facility], DxE11.65, 168, cm, 02/27/21 9:40:00 EDT, Height, 80, kg,02/27/21 9:40:00 EDT, Dry Weight Start Date: 08/01/21 Status: Ordered Lantus Solostar Pen 100 units/mL subcutaneous solution = 44 units, Subcutaneous Injection, Daily at bedtime, # 15 mL, 2 Refills, Maintenance, 09/16/21 17:26:00 EDT, Solution, [facility], Partial fill upon patient request if the prescription is for a schedule II opioid drug., 168, cm, 08/26... Start Date: 09/16/21 Stop Date: 12/15/21 Status: Ordered metFORMIN 500 mg oral tablet 1 tablet = 500 mg, By Mouth, 2 times a day, # 60 tablet, 11 Refills, Maintenance, 04/18/20 11:39:00EST, Tablet, [facility], Partial fill upon patient request, 168, cm, 04/16/20 13:36:00 EST, Height, 73.55, kg, 03/20/20 19:52:00 EST,... Start Date: 04/18/20 Status: Ordered omeprazole 40 mg oral enteric coated capsule 1 capsule = 40 mg, By Mouth, 2 times a day, # 60 capsule, 1 Refills, Maintenance, 04/16/20 10:32:00EST, [facility], Partial fill upon patient request if the prescription is for a schedule II opioid drug., 168, cm, 04/09/20 8:57:00 ES... Start Date: 04/16/20 Stop Date: 06/15/20 Status: Ordered Pen [place], 31 G x 8 mm BD Ultra [...] 1 Refills, Maintenance, 03/20/20 16:11:00 EST, Tablet, [facility], Partial fill upon patient request, 167, cm, 03/19/20 9:57:00 EST, Height, 86.2, kg, 01/22/20 7:46:00 EDT, D... Start Date: 03/20/20 Stop Date: 05/19/20 Status: Ordered Tylenol 8 Hour 650 mg oral tablet, extended release 2 tablet = 1,300 mg, By Mouth, Every 8 hours, PRN as needed for pain, # 100 tablet, 1 Refills, Maintenance, 09/16/21 17:04:00 EDT, ER Tablet, [facility], Partial fill upon patient [...] Diabetic neuropathy(Confirmed) Active 1rept scope 1 yr [address] [facility] M, W, F 3campath induction Social History Social History Type Response Smoking Status Never smoker entered on: 09/25/16 Sex
--- OUTSIDE RECORDS SUMMARY | 2022-09-11 14:08 | XMS_ITS | Continuity of Care Document ---
Author Name Unknown Organization [facility] Address [address] [place] [address]- Care Team Providers Care Photoengraving Finisher Name Role Phone Tayo SADLER, Harmony Doan Primary Care Physician Encounter [facility] [place] Date(s): 08/04/22 - 09/05/22 [facility]/[address] [address]- Attending Physician: April Paul MD Admitting Physician: April Paul MD Allergies, Adverse Reactions, Alerts No Known [...] PAIN, # 100 tablet, 1 Refills, Maintenance, 08/02/22 0:25:00 EDT, [facility], 168, cm, 07/30/22 13:32:00 EDT, Height, 78.2, kg, 07/30/22 13:32:00 EDT, Dry Weight Start Date: 08/02/22 Status: Ordered Alcohol Pads See Instructions, # [...] 04/14/22 13:19:00 EST, Route to Pharmacy Electronically, [facility], 170, cm, 04/07/22 14:06:00 EST, Height, 80, kg, 12/12/21 16:28:00 EDT, Dry We... Start Date: 04/14/22 Stop Date: 07/13/22 Status: Ordered atorvastatin 40 mg oral tablet 1 tablet, By Mouth, Daily, # 30 tablet, 11 Refills, Maintenance, 09/01/22 15:58:00 EDT, [facility], 168, cm, 09/01/22 12:04:00 EDT, Height, 78.2, kg, 07/30/22 13:32:00 EDT, Dry Weight Start Date: 09/01/22 Status: Ordered Bed pad Bed pad, See [...] 60 Gm, 2 Refills, Maintenance, 238:53:00 EST, [facility], 30, APPLY TO AFFECTED AREA TWO TIMES A DAY, 170, cm, 04/07/22 14:06:00 EST, Height, 80, kg, 12/12/21 16:28:00... Start Date: 06/23/22 Status: Ordered carvedilol 25 mg oral tablet 1, tablet, By Mouth, 2 times a day, # 60 tablet, Refills 11, Maintenance, 08/01/22 9:47:00 EDT, Route to Pharmacy Electronically, [facility], 168, cm, 07/30/22 13:32:00 EDT, Height, 78.2, kg, 07/30/22 13:32:00 EDT, Dry Weight Start Date: 08/01/22 Status: Ordered Diabetic shoes with inserts Diabetic [...] Date: 02/13/20 Stop Date: 04/13/20 Status: Ordered duloxetine 30 mg oral enteric coated capsule 1 capsule, By Mouth, Daily, DO NOT CRUSH OR CHEW., # 30 capsule, 0 Refills, Maintenance, 09/01/22 15:58:00 EDT, [facility], 168, cm, 09/01/22 12:04:00 EDT, Height, 78.2, kg, 07/30/2312:32:00 EDT, Dry Weight Start Date: 09/01/22 Status: Ordered entecavir 0.5 mg oral tablet 1 tablet = 0.5 mg, By Mouth, Daily, # 30 tablet, 1 Refills, Maintenance, 03/13/20 15:32:00 EST, Tablet, [facility], 167, cm, 03/13/20 9:06:00 EST, Height, 86.2, kg, 01/22/20 7:46:00 EDT, Dry Weight Start Date: 03/13/20 Stop Date: 05/12/20 Status: Ordered Envarsus XR 1 mg oral tablet, extended release 3 tablet = 3 mg, By Mouth, Daily in AM, # 90 tablet, 2 Refills, Maintenance, 03/13/20 15:32:00 EST,[facility], 167, cm, 03/13/20 9:06:00 EST, Height, 86.2, kg, 01/22/20 7:46:00 EDT,Dry Weight Start Date: 03/13/20 Stop Date: 06/11/20 Status: Ordered Farxiga 10 mg oral tablet 1 tablet, By Mouth, Daily, # 30 tablet, 5 Refills, Maintenance, 06/20/22 18:08:00 EST, [facility], 170, cm, 04/07/22 14:06:00 EST, [...] 05/21/22 10:26:00 EST, Route to Pharmacy Electronically, [facility], Partial fill upon patient request, 170, cm, 04/07/22 14:06:00 EST,... Start Date: 05/21/22 Stop Date: 07/20/22 Status: Ordered glipiZIDE 10 mg oral tablet, extended release 1 tablet, By Mouth, 2 times a day, # 60 tablet, 5 Refills, Maintenance, 06/20/22 18:08:00 EST, [facility], 170, cm, 04/07/22 14:06:00 EST, Height, 80, kg, 12/12/21 16:28:00 EDT, Dry Weight Start Date: 06/20/22 Status: Ordered Lantus Solostar Pen 100 units/mL subcutaneous solution See Instructions, INJECT 44 UNITS SUBCUTANEOUSLY ONCE DAILY AT BEDTIME, # 15 mL, 2 Refills, Maintenance, 05/25/22 20:02:00 EST, [facility], 170, cm, 04/07/22 14:06:00 EST, Height, 80, kg, 12/12/21 16:28:00 EDT, Dry Weight Start Date: 05/25/22 Status: Ordered metFORMIN 500 mg oral tablet 1 tablet = 500 mg, By Mouth, 2 times a day, # 60 tablet, 11 Refills, Maintenance, 04/18/20 11:39:00EST, Tablet, [facility], Partial fill upon patient request, 168, cm, 04/16/20 13:36:00 EST, Height, 73.55, kg, 03/20/20 19:52:00 EST,... Start Date: 04/18/20 Status: Ordered Pen [place], 31 G x 8 mm BD Ultra [...] (hypertension) Confirmed Active Diabetic neuropathy Confirmed Active *[id number] Professor/Nurse Anesthetist Sole Crawley Confirmed Active 1rept scope 1 yr [address] [facility] M, W, F 3campath induction Social History Social History Type Response Smoking Status Never (less than 100 in lifetime) entered on: 07/22/22 Sex Male Patient Care team information Care Team Personnel Name: Teresa Ha RN Position: [facility] RN Supv Member Role: Primary Care Nurse Name: Elena Roberts RN Position: S RN Member Role: Primary Care Nurse Name: Osvaldo House DO Position: [facility] Renal MD Member Role: Lifetime Consulting Physician Address: Address: [address] [facility] [place] [address]- [place] Name: Brendan Guillermo MD Position: [facility] Renal MD Member Role: Lifetime Consulting Physician Address: Address: [address] [facility] [place] [address]- [place] Name: Brenden Gale Position: [facility] AMB Nurse Member Role: Primary Care Nurse Name: Cata Gong RN Position: [facility] AMB Nurse Member Role: Primary Care Nurse Name: Monae Rodriguez RN Position: [facility] RN Member Role: Primary Care Nurse Name: Alisha Polanco RN Position: [facility] RN Member Role: Primary Care Nurse Name: Gabbie Park RN Position: [facility] OB RN Member Role: Primary Care Nurse Name: Lou Hodge RN Position: [facility] SN RN Member Role: Primary Care Nurse Name: Ryann Salas RN Position: [facility] SN RN Member Role: Primary Care Nurse Name: Harmony Cr MD Position: [facility] Resident Member Role: PCP Address: Address: [address] [place] [address]- [place] Name: Stephanie Schroeder RN Position: [facility] RN Member Role: Primary Care Nurse Name: Lynette Comer RN Position: [facility] Onco RN Member Role: Primary Care Nurse Name: Pepe Miller RN Position: [facility] SN RN Member Role: Primary Care Nurse Name: Olu Cortés MD Position: [facility] Renal MD Member Role: Lifetime Consulting Physician Address: Address: [address] [facility] [place] [address]- Care Team Related Persons Name: TAYLOR ENCISO Name: DARELL ENCISO Address: [place] [address]
--- OUTSIDE RECORDS SUMMARY | 2022-09-11 14:08 | XMS_ITS | Continuity of Care Document ---
Author Name Unknown Organization [facility] Address [address] [place] [address]- Care Team Providers Care Quill Machine Tender Name Role Phone Harmony Cr MD Primary Care Physician [phone] Encounter [facility] ACCT R [id number] Date(s): 04/29/22 - 07/10/22 [facility] [address] [place] [address]- Attending Physician: Saba Boyle MD Admitting Physician: Saba Boyle MD Referring Physician: Harmony Cr MD Allergies, Adverse Reactions, Alerts No Known [...] tablet, 1 Refills, Maintenance, 05/25/22 20:02:00 EST, [facility], 170, cm, 04/07/22 14:06:00 EST, [...] 04/14/22 13:19:00 EST, Route to Pharmacy Electronically, [facility], 170, cm, 04/07/22 14:06:00 EST, Height, [...] 60 Gm, 2 Refills, Maintenance, 238:53:00 EST, [facility], 30, APPLY TO AFFECTED AREA TWO [...] 2 Refills, Maintenance, 09/16/21 16:48:00EDT, CR Capsule, [facility], Parti... Start Date: 09/16/21 Stop Date: [...] Maintenance, 02/12/2013:29:00 EDT, Route to Pharmacy Electronically, [facility], 167, cm, 02/13/20 8:42:00 EDT, Height, 86.2, kg, 01/22/20 7:46:00 EDT, Dry... Start Date: 02/13/20 Stop Date: 04/13/20 Status: Ordered entecavir 0.5 mg oral tablet 1 tablet = 0.5 mg, By Mouth, Daily, # 30 tablet, 1 Refills, Maintenance, 03/13/20 15:32:00 EST, Tablet, [facility], 167, cm, 03/13/20 9:06:00 EST, Height, 86.2, kg, 01/22/20 7:46:00 EDT, Dry Weight Start Date: 03/13/20 Stop Date: 05/12/20 Status: Ordered Envarsus XR 1 mg oral tablet, extended release 3 tablet = 3 mg, By Mouth, Daily in AM, # 90 tablet, 2 Refills, Maintenance, 03/13/20 15:32:00 EST,[facility], 167, cm, 03/13/20 9:06:00 EST, Height, 86.2, kg, 01/22/20 7:46:00 EDT,Dry Weight Start Date: 03/13/20 Stop Date: 06/11/20 Status: Ordered Farxiga 10 mg oral tablet 1 tablet, By Mouth, Daily, # 30 tablet, 5 Refills, Maintenance, 06/20/22 18:08:00 EST, [facility], 170, cm, 04/07/22 14:06:00 EST, Height, 80, kg, 12/12/21 16:28:00 EDT, Dry Weight Start Date: 06/20/22 Status: Ordered Freestyle Dayna Monitor See Instructions, # 1 each, Maintenance, use as directed for Type 2 Diabetes Mellitus, 03/19/20 16:41:00 EST, Supply, 167, cm, 03/19/20 9:57:00 EST, Height, 86.2, kg, 01/22/20 7:46:00 EDT, Dry Weight Start Date: 03/19/20 Stop Date: 04/18/20 Status: Ordered Freestyle Danya Monitor See Instructions, # 1 each, Refills [...] 05/21/22 10:26:00 EST, Route to Pharmacy Electronically, [facility], Partial fill upon patient request, 170, cm, 04/07/22 14:06:00 EST,... Start Date: 05/21/22 Stop Date: 07/20/22 Status: Ordered glipiZIDE 10 mg oral tablet, extended release 1 tablet, By Mouth, 2 times a day, # 60 tablet, 5 Refills, Maintenance, 06/20/22 18:08:00 EST, [facility], 170, cm, 04/07/22 14:06:00 EST, Height, 80, kg, 12/12/21 16:28:00 EDT, Dry Weight Start Date: 06/20/22 Status: Ordered Lantus Solostar Pen 100 units/mL subcutaneous solution See Instructions, INJECT 44 UNITS SUBCUTANEOUSLY ONCE DAILY AT BEDTIME, # 15 mL, 2 Refills, Maintenance, 05/25/22 20:02:00 EST, [facility], 170, cm, 04/07/22 14:06:00 EST, Height, 80, kg, 12/12/21 16:28:00 EDT, Dry Weight Start Date: 05/25/22 Status: Ordered metFORMIN 500 mg oral tablet 1 tablet = 500 mg, By Mouth, 2 times a day, # 60 tablet, 11 Refills, Maintenance, 04/18/20 11:39:00EST, Tablet, [facility], Partial fill upon patient request, 168, cm, 04/16/20 13:36:00 EST, Height, 73.55, kg, 03/20/20 19:52:00 EST,... Start Date: 04/18/20 Status: Ordered Pen [place], 31 G x 8 mm BD Ultra [...] 1 Refills, Maintenance, 03/20/20 16:11:00 EST, Tablet, [facility], Partial fill upon [...] neuropathy Confirmed Active 1rept scope 1 yr [address] [facility] M, W, F 3campath induction Social History Social History Type Response Smoking Status Never smoker entered on: 09/25/16 Sex Patient Care team information Care Team Personnel Name: Teresa Ha RN Position: [facility] RN Supv Member Role: Primary Care Nurse Name: Elena Roberts RN Position: [facility] RN Member Role: Primary Care Nurse Name: Osvaldo House DO Position: [facility] Renal MD Member Role: Lifetime Consulting Physician Address: Address: [address] [place] [address] [address] [facility] [place] [address]- Name: Brendan Guillermo MD Position: [facility] Renal MD Member Role: Lifetime Consulting Physician Address: Address: [address] [place] [address] [address] [facility], [place] [address]- Name: Gale Wilcox Position: [facility] AMB Nurse Member Role: Primary Care Nurse Name: Cata Gong RN Position: [facility] AMB Nurse Member Role: Primary Care Nurse Name: Monae Rodriguez RN Position: [facility] RN Member Role: Primary Care Nurse Name: Alisha Polanco RN Position: [facility] RN Member Role: Primary Care Nurse Name: Gabbie Park RN Position: [facility] OB RN Member Role: Primary Care Nurse Name: Lou Hodge RN Position: [facility] SN RN Member Role: Primary Care Nurse Name: Ryann Salas RN Position: [facility] SN RN Member Role: Primary Care Nurse Name: Harmony Cr MD Position: [facility] Resident Member Role: PCP Address: Address: [address] [place] [address]- Name: Stephanie Schroeder RN Position: [facility] RN Member Role: Primary Care Nurse Name: Lynette Comer RN Position: [facility] Onco RN Member Role: Primary Care Nurse Name: Pepe Miller RN Position: [facility] SN RN Member Role: Primary Care Nurse Name: Olu Cortés MD Position: [facility] Renal MD Member Role: Lifetime Consulting Physician Address: Address: [address] [place] [address] [facility] [place] [address]- Care Team Related Persons Name: TAYLOR ENCISO Name: DARELL ENCISO Address: [place] [address]
--- OUTSIDE RECORDS SUMMARY | 2022-09-11 14:08 | XMS_ITS | Continuity of Care Document ---
Author Name Unknown Organization [facility] Address [address] [place] [address]- Care Team Providers Care Machine Rope Maker Name Role Phone Tayo SADLER, Harmony Doan Primary Care Physician [id number] Date(s): 01/16/22 - 02/15/22 [facility]/[address] [address]- Attending Physician: Dileep Montes Admitting Physician: AdmDileep mcclure Referring Physician: Admtr, Dileep Allergies, Adverse Reactions, Alerts No Known Medication [...] 03/13/20 15:34:00 EST, Route to Pharmacy Electronically, [facility], 167, cm, 03/13/20 9:06:00EST, [...] 02/16/20 12:56:00 EDT, Route to Pharmacy Electronically, [facility], 167, cm, 02/15/2010:08:00 EDT, [...] 2 Refills, Maintenance, 09/16/21 16:48:00EDT, CR Capsule, [facility], Parti... Start Date: 09/16/21 Stop Date: 12/15/21 Status: Ordered dapagliflozin 10 mg oral tablet 1 tablet = 10 mg, By Mouth, Daily, # 30 tablet, 5 Refills, Maintenance, 01/15/22 12:01:00 EDT, Tablet, [facility], Partial fill upon patient [...] Maintenance, 02/12/2013:29:00 EDT, Route to Pharmacy Electronically, [facility], 167, cm, 02/13/20 8:42:00 EDT, Height, 86.2, kg, 01/22/20 7:46:00 EDT, Dry... Start Date: 02/13/20 Stop Date: 04/13/20 Status: Ordered entecavir 0.5 mg oral tablet 1 tablet = 0.5 mg, By Mouth, Daily, # 30 tablet, 1 Refills, Maintenance, 03/13/20 15:32:00 EST, Tablet, [facility], 167, cm, 03/13/20 9:06:00 EST, Height, 86.2, kg, 01/22/20 7:46:00 EDT, Dry Weight Start Date: 03/13/20 Stop Date: 05/12/20 Status: Ordered Envarsus XR 1 mg oral tablet, extended release 3 tablet = 3 mg, By Mouth, Daily in AM, # 90 tablet, 2 Refills, Maintenance, 03/13/20 15:32:00 EST,[facility], 167, cm, 03/13/20 9:06:00 EST, [...] 04/16/20 10:24:00 EST, Route to Pharmacy Electronically, [facility], Partial fill upon patient request, 168, cm, 04/09/20 8:57:00 EST,... Start Date: 04/16/20 Stop Date: 06/15/20 Status: Ordered glipiZIDE 10 mg oral tablet, extended release 1 tablet = 10 mg, By Mouth, 2 times a day, # 60 tablet, 5 Refills, Maintenance, 01/15/22 12:01:00 EDT, ER Tablet, [facility], [id number], 170, cm, 12/13/21 11:01:00 EDT, Height, 80, kg, 12/12/21 16:28:00 EDT, Dry Weight Start Date: 01/15/22 Status: Ordered Lantus Solostar Pen 100 units/mL subcutaneous solution See Instructions, INJECT 44 UNITS SUBCUTANEOUSLY ONCE DAILY AT BEDTIME, # 15 mL, 2 Refills, Maintenance, 01/16/22 10:11:00 EDT, [facility], 170, cm, 12/13/21 11:01:00 EDT, Height, 80, kg, 12/12/21 16:28:00 EDT, Dry Weight Start Date: 01/16/22 Status: Ordered metFORMIN 500 mg oral tablet 1 tablet = 500 mg, By Mouth, 2 times a day, # 60 tablet, 11 Refills, Maintenance, 04/18/20 11:39:00EST, Tablet, [facility], Partial fill upon patient request, 168, cm, 04/16/20 13:36:00 EST, Height, 73.55, kg, 03/20/20 19:52:00 EST,... Start Date: 04/18/20 Status: Ordered Pen [place], 31 G x 8 mm BD Ultra [...] 1 Refills, Maintenance, 03/20/20 16:11:00 EST, Tablet, [facility], Partial fill upon patient [...] Refills, Maintenance, 09/16/21 17:04:00 EDT, ER Tablet, [facility], Partial fill upon patient request if the prescription is for a schedule II opioi... Start Date: 09/16/21 Status: Ordered Problem List Condition Confirmation Course Effective Dates Status Health St atus Informant Polyp of colon, adenomatous 1 Confirmed 07/24/16 Active Chronic renal impairment Confirmed Active ESRD on dialysis 2 Confirmed Active -donor kidney transplant 3 Confirmed 01/22/20 Active S/p total knee replacement, bilateral Confirmed Active HTN (hypertension) Confirmed Active Diabetic neuropathy Confirmed Active 1rept scope 1 yr [address] [facility] M, W, F 3campath induction Social History Social History Type Response Smoking Status Never smoker entered on: 09/25/16 Sex Patient Care team information Personnel Name: Tayo SADLER, Harmony Doan Address: Address: [address] [place] [address]
--- OUTSIDE RECORDS SUMMARY | 2022-09-11 14:08 | XMS_ITS | Continuity of Care Document ---
Author Name Unknown Organization [facility] Address [address] [place] [address]- Care Team Providers Care Cognos Tm1 Developer Name Role Phone Jose Miguel SADLER, Sakshi Primary Care Physician [phone] Encounter [facility] Date(s): 01/22/20 - 01/26/[address] [address]- [facility] Discharge Disposition: A-D/C Home Attending Physician: Robert Caceres MD Admitting Physician: Robert Caceres MD Referring Physician: Robert Caceres MD Allergies, Adverse Reactions, Alerts No Known [...] 01/26/20 11:20:00 EDT, Route to Pharmacy Electronically, [facility], 167, cm... Start Date: 01/26/20 Stop Date: 02/26/20 Status: Ordered amLODIPine 10 mg oral tablet 10 mg, 1, tablet, By Mouth, Daily, # 30 tablet, Refills 0, Tot. Refills 0, Maintenance, 01/24/20 9:40:00 EDT, Route to Pharmacy Electronically, [facility], 167, cm, 01/24/20 7:13:00 EDT, Height, 86.2, kg, 01/22/20 7:46:00 EDT, Dry Weight Start Date: 01/24/20 Status: Ordered calcitriol 0.5 mcg oral capsule 2 capsule = 1 mcg, By Mouth, Daily, # 60 capsule, 0 Refills, Maintenance, 01/24/20 9:39:00 EDT, Capsule, [facility], 167, cm, 01/24/20 7:13:00 EDT, Height, 86.2, kg, 01/22/20 7:46:00EDT, Dry Weight Start Date: 01/24/20 Status: Ordered calcium carbonate 600 mg oral tablet 2 tablet = 1,200 mg, By Mouth, 2 times a day, # 60 tablet, 0 Refills, Maintenance, 01/24/20 9:38:00EDT, Tablet, [facility], 167, cm, 01/24/20 7:13:00 EDT, Height, 86.2, kg, 207:46:00 EDT, Dry Weight Start Date: 01/24/20 Status: Ordered clotrimazole 10 mg oral lozenge 10 mg, 1, lozenge, By Mouth, 3 times a day, with meals, # 90 lozenge, Refills 0, Tot. Refills 0, Acute 02/23/20 9:41:00 EDT, 01/24/20 9:40:00 EDT, [facility], 167, cm, 01/24/20 7:13:00 EDT, Height, 86... Start Date: 01/24/20 Stop Date: 02/23/20 Status: Ordered Coreg 25 mg oral tablet 25 mg, 1, tablet, By Mouth, 2 times a day, # 60 tablet, Refills 0, Tot. Refills 0, Maintenance, 01/24/20 9:40:00 EDT, Route to Pharmacy Electronically, [facility], 167, cm, 01/24/20 7:13:00 EDT, Height, 86.2, kg, 01/22/20 7:46:00 EDT,... Start Date: 01/24/20 Status: Ordered docusate sodium 100 mg oral capsule 100 mg, 1, capsule, By Mouth, 2 times a day, # 60 capsule, Refills 0, Tot. Refills 0, Maintenance, 01/24/20 9:40:00 EDT, Route to Pharmacy Electronically, [facility], 167, cm, 01/24/20 7:13:00 EDT, Height, 86.2, kg, 01/22/20 7:46:00 E... Start Date: 01/24/20 Status: Ordered entecavir 0.5 mg oral tablet 1 tablet = 0.5 mg, By Mouth, Daily, # 30 tablet, 0 Refills, Maintenance, 01/24/20 9:39:00 EDT, Tablet, [facility], 167, cm, 01/24/20 7:13:00 EDT, Height, 86.2, kg, 01/22/20 7:46:00 EDT, Dry Weight Start Date: 01/24/20 Status: Ordered Envarsus XR 1 mg oral tablet, extended release 8 tablet = 8 mg, By Mouth, Daily in AM, # 240 tablet, 0 Refills, Maintenance, 01/24/20 9:37:00 EDT,[facility], 167, cm, 01/24/20 7:13:00 EDT, Height, 86.2, kg, 01/22/20 7:46:00 EDT,Dry Weight Start Date: 01/24/20 Status: Ordered hydrALAZINE 50 mg oral tablet 1 tablet = 50 mg, By Mouth, 3 times a day, # 90 tablet, 0 Refills, Maintenance, 01/26/20 9:01:00 EDT, Tablet, [facility], 167, cm, 01/26/20 7:33:00 EDT, Height, 86.2, kg, 01/22/20 7:46:00 EDT, Dry Weight Start Date: 01/26/20 Status: Ordered Omeprazole = 40 mg, By Mouth, Daily, 0 Refills, Maintenance, 01/22/20 8:37:00 EDT Start Date: 01/22/20 Status: Ordered oxyCODONE 5 mg oral tablet 5 mg, 1, tablet, By Mouth, Every 6 hours, PRN, for 3 days, # 7 tablet, Refills 0, Tot. Refills 0, Acute 01/29/20 9:56:00 EDT, Pain , Moderate, 01/26/20 9:56:00 EDT, Route to Pharmacy Electronically, [facility], Partial fill upon patient... Start Date: 01/26/20 Stop Date: 01/29/20 Status: Ordered rOPINIRole 0.5 mg oral tablet 1 tablet = 0.5 mg, By Mouth, Daily at bedtime, 0 Refills, Maintenance, 01/22/20 8:36:00 EDT Start Date: 01/22/20 Status: Ordered Senna 8.6 mg oral tablet 8.6 mg, 1, tablet, By Mouth, Daily, # 30 tablet, Refills 0, Tot. Refills 0, Acute, 02/23/20 9:42:00EDT, 01/24/20 9:39:00 EDT, Route to Pharmacy Electronically, [facility], 167, cm, 01/24/20 7:13:00 EDT, Height, 86.2, kg, 01/22/20 7:4... Start Date: 01/24/20 Stop Date: 02/23/20 Status: Ordered sulfamethoxazole-trimethoprim 400 mg-80 mg oral tablet 1 tablet, By Mouth, Daily at bedtime, for 30 days, # 30 tablet, 1 Refills, Acute 03/26/20 10:31:00 EST, 01/26/20 10:31:00 EDT, Tablet, [facility], 1 tablet By Mouth Daily at bedtime,x30 days, 167, cm, 01/26/20 9:51:00 EDT, Height, 86.... Start Date: 01/26/20 Stop Date: 03/26/20 Status: Ordered valganciclovir 450 mg oral tablet 450 mg, 1, tablet, By Mouth, Daily, # 30 tablet, Refills 0, Tot. Refills 0, Acute 02/23/20 9:42:00 EDT, 01/24/20 9:39:00 EDT, Route to Pharmacy Electronically, [facility], 167, cm, 01/24/20 7:13:00 EDT, Height, 86.2, kg, 01/22/20 7:46... Start Date: 01/24/20 Stop Date: 02/23/20 Status: Ordered Problem List Condition Effective Dates Status Health Status Inform ant Polyp of colon, adenomatous( Confirmed) 1 3/30/17 Active Chronic renal impairment(Confirmed) Active ESRD on dialysis(Confirmed) 2 Active HTN (hypertension)(Confirmed) Active 1rept scope [address] [address] [facility] M, W, F Results Orders for Microbiology Reports Name Date Anaerobic Culture (ANAEROBIC CULTURE) Sterile Body Fluid Culture W/ Gram Smear (STERILE FLUID CULT.) 01/22/20 Microbiology Reports TEST:Anaerobic Culture STATUS:Unauthenticated BODY SITE: SOURCE:SWAB1 COLLECTED DATE/TIME:01/22/20 1:06 PM Anaerobic Culture SPECIMEN DESCRIPTION : SWAB DONOR KINDEY FLUID SPECIMEN RECEIVED ON SWAB. RESULTS MAY BE COMPROMISED SPECIAL REQUESTS : NONE CULTURE : NO ANAEROBES ISOLATED SO FAR. REPORT STATUS : PRELIMINARY REPORT TEST:Sterile Fluid Culture STATUS:Auth (Verified) BODY SITE: SOURCE:SWAB1 COLLECTED DATE/TIME:01/22/20 1:06 PM Sterile Fluid Culture SPECIMEN DESCRIPTION : SWAB DONOR KIDNEY FLUID SPECIMEN RECEIVED ON SWAB. RESULTS MAY BE COMPROMISED SPECIAL REQUESTS : NONE GRAM STAIN : NOT DONE CULTURE : NO GROWTH 2 DAYS REPORT STATUS : FINAL 01/24/2020 Radiology Reports * Exam Date Time Procedure Performing Provider Status 01/22/20 8:06 AM Chest 2 Views Frontal and Lat Jeannie Wiggins; Auth (Verified) Notes: (Chest 2 Views Frontal and Lat) Reason For Exam: Preop RESULT: Chest 2 Views Frontal and Lat Chest 2 Views Frontal and Lat REASON: Preop; Clinical Question(s): Transplant COMPARISON: 02/02/2018 FINDINGS: LINES AND TUBES: None. LUNGS AND PLEURA: Clear lungs. Normal pulmonary vascularity. No pleural effusion. No pneumothorax. HEART, MEDIASTINUM AND ERMELINDA: Heart is at the upper limits of normal for size. Normal mediastinal and hilar contour. BONES AND SOFT TISSUES: No acute abnormality. Bones appear diffusely sclerotic, likely due to renal osteodystrophy. IMPRESSION: No evidence of acute abnormality. WSN: [id number] Ordering Physician: Robert Caceres Dictated By: Terrell Myers MD Dictated Date/Time: 01/22/20 9:46 am Reviewed By: Terrell Myers MD Signed By: Terrell Myers MD Signed Date/Time: 01/22/20 9:46 am Transcribed By: JORY Transcribed Date/Time: 01/22/20 9:45 am Vital Signs Most recent to oldest [Reference Range]: 1 2 3 4 Height 167 cm (01/26/20 9:51 AM) 167 cm (01/26/20 7:33 AM) 167 cm (01/26/20 4:10 AM) Weight 90.75 kg (01/26/20 5:37 AM) 91.4 kg (01/25/20 6:36 AM) 91.15 kg (01/24/20 8:21 AM) Oxygen Saturation [94-100 %] 97 % (01/26/20 7:33 AM) 95 % (01/26/20 4:10 AM) 96 % (01/25/20 11:40 PM) Pulse Rate [55-90 bpm] 65 bpm (01/26/20 9:51 AM) 61 bpm (01/26/20 7:37 AM) 61 bpm (01/26/20 7:33 AM) Body Mass Index [18.5-24.99] 30.91 *>HHI* (01/22/20 10:56 AM) 30.91 *>HHI* (01/22/20 7:46 AM) Blood Pressure [90-138/55-84 mm Hg] 133/82mm Hg (01/26/20 9:51 AM) 168/92mm Hg *H* (01/26/20 7:37 AM) 168/92mm Hg *H* (01/26/20 7:37 AM) 168/92mm Hg *H* (01/26/20 7:37 AM) Respiratory Rate [16-30 br/min] 17 br/min (01/26/20 7:33 AM) 18 br/min (01/26/20 4:10 AM) 18 br/min (01/26/20 1:02 AM) Temperature [96.8-100.4 DegF] 98.0 DegF (01/26/20 7:33 AM) 97.7 DegF (01/26/20 4:10 AM) 97.8 DegF (01/25/20 11:40 PM) Liters per Minute 2 L/min (01/23/20 7:00 AM) 2 L/min (01/23/20 3:46 AM) 2 L/min (01/22/20 7:52 PM) Mode of Delivery (Oxygen) Room air (01/26/20 7:33 AM) Room air (01/26/20 4:10 AM) Room air (01/25/20 11:40 PM) Blood pressure sites Arm, left (01/26/20 9:51 AM) Arm, right (01/26/20 4:10 AM) Arm, right (01/25/20 11:40 PM) Temperature Route Oral (01/26/20 7:33 AM) Oral (01/26/20 4:10 AM) Oral (01/25/20 11:40 PM) Dry Weight 86.20 kg (01/22/20 7:46 AM) Weight Obtained Via Standing scale (01/26/20 5:37 AM) Standing scale (01/25/20 6:36 AM) Standing scale (01/24/20 8:21 AM) Social History Social History Type Response Smoking Status Never smoker entered on: 09/25/16 Sex
--- OUTSIDE RECORDS SUMMARY | 2022-09-11 14:08 | XMS_ITS | Continuity of Care Document ---
Author Name Unknown Organization [facility] Address [address] [place] [address]- Care Team Providers Care Cotton Picker Operator Name Role Phone Tayo SADLER, Harmony Doan Primary Care Physician [phone] Encounter [facility] [place](s): 04/08/22 - 05/08/22 [facility]/[address] [address]- [place] Allergies, Adverse Reactions, Alerts No Known Medication [...] 04/14/22 13:19:00 EST, Route to Pharmacy Electronically, [facility], 170, cm, 04/07/22 14:06:00 EST, [...] 01/02/23 13:39:00 EDT, 04/07/22 13:39:00 EST, Cream, [facility], Partial fill upon patient request if the prescription is for a schedule II opioid drug.,... Start Date: 04/07/22 Stop Date: 01/02/23 Status: Ordered Coreg 25 mg oral tablet 25 mg, 1, tablet, By Mouth, 2 times a day, # 60 tablet, Refills 2, Tot. Refills 2, Maintenance, 04/14/22 13:19:00 EST, Route to Pharmacy Electronically, [facility], 170, cm, 04/07/2214:06:00 EST, Height, [...] Refills, Maintenance, 09/16/21 16:48:00EDT, CR Capsule, [facility], Parti... Start Date: 09/16/21 Stop Date: 12/15/21 Status: Ordered dapagliflozin 10 mg oral tablet 1 tablet = 10 mg, By Mouth, Daily, # 30 tablet, 5 Refills, Maintenance, 01/15/22 12:01:00 EDT, Tablet, [facility], Partial fill upon patient request if the prescription is for a schedule II opioid drug., 170, cm, 12/13/21 11:01:00 EDT... Start Date: 01/15/22 Stop Date: 07/14/22 Status: Ordered Diabetic shoes with inserts Diabetic [...] Maintenance, 02/12/2013:29:00 EDT, Route to Pharmacy Electronically, [facility], 167, cm, 02/13/20 8:42:00 EDT, Height, 86.2, kg, 01/22/20 7:46:00 EDT, Dry... Start Date: 02/13/20 Stop Date: 04/13/20 Status: Ordered entecavir 0.5 mg oral tablet 1 tablet = 0.5 mg, By Mouth, Daily, # 30 tablet, 1 Refills, Maintenance, 03/13/20 15:32:00 EST, Tablet, [facility], 167, cm, 03/13/20 9:06:00 EST, Height, 86.2, kg, 01/22/20 7:46:00 EDT, Dry Weight Start Date: 03/13/20 Stop Date: 05/12/20 Status: Ordered Envarsus XR 1 mg oral tablet, extended release 3 tablet = 3 mg, By Mouth, Daily in AM, # 90 tablet, 2 Refills, Maintenance, 03/13/20 15:32:00 EST,[facility], 167, cm, 03/13/20 9:06:00 [...] 10:24:00 EST, Route to Pharmacy Electronically, [facility], Partial fill upon patient request, 168, cm, 04/09/20 8:57:00 EST,... Start Date: 04/16/20 Stop Date: 06/15/20 Status: Ordered glipiZIDE 10 mg oral tablet, extended release 1 tablet = 10 mg, By Mouth, 2 times a day, # 60 tablet, 5 Refills, Maintenance, 01/15/22 12:01:00 EDT, ER Tablet, [facility], DxE11.65, 170, cm, 12/13/21 11:01:00 EDT, Height, 80, kg, 12/12/21 16:28:00 EDT, Dry Weight Start Date: 01/15/22 Status: Ordered Lantus Solostar Pen 100 units/mL subcutaneous solution See Instructions, INJECT 44 UNITS SUBCUTANEOUSLY ONCE DAILY AT BEDTIME, # 15 mL, 2 Refills, Maintenance, 01/16/22 10:11:00 EDT, [facility], 170, cm, 12/13/21 11:01:00 EDT, Height, 80, kg, 12/12/21 16:28:00 EDT, Dry Weight Start Date: 01/16/22 Status: Ordered Mapap Arthritis Pain 650 mg oral tablet, extended release 2 tablet, By Mouth, Every 8 hours, PRN NEEDED FOR PAIN, # 100 tablet, 1 Refills, Maintenance, 04/09/22 13:19:00 EST, [facility], 170, cm, 04/07/22 14:06:00 EST, Height, 80, kg, 12/12/21 16:28:00 EDT, Dry Weight Start Date: 04/09/22 Status: Ordered metFORMIN 500 mg oral tablet 1 tablet = 500 mg, By Mouth, 2 times a day, # 60 tablet, 11 Refills, Maintenance, 04/18/20 11:39:00EST, Tablet, [facility], Partial fill upon patient request, 168, cm, 04/16/20 13:36:00 EST, Height, 73.55, kg, 03/20/20 19:52:00 EST,... Start Date: 04/18/20 Status: Ordered Pen [place], 31 G x 8 mm BD Ultra [...] 1 Refills, Maintenance, 03/20/20 16:11:00 EST, Tablet, [facility], Partial fill upon [...] neuropathy Confirmed Active 1rept scope 1 yr [address] [facility] M, W, F 3campath induction Social History Social History Type Response Smoking Status Never smoker entered on: 09/25/16 Sex Patient Care team information Care Team Personnel Name: Teresa Ha RN Position: [facility] RN Supv Member Role: Primary Care Nurse Name: Elena Roberts RN Position: [facility] RN Member Role: Primary Care Nurse Name: Osvaldo House DO Position: [facility] Renal MD Member Role: Lifetime Consulting Physician Address: Address: [address] [place] [address] [address] [facility] [place], [place] [address] Name: Alva Melchor RN Position: [facility] RN Member Role: Primary Care Nurse Name: Brendan Guillermo MD Position: [facility] Renal MD Member Role: Lifetime Consulting Physician Address: Address: [address] [place] [address] [address] [facility] [place], [place] [address] Name: Gale Wilcox Position: [facility] AMB Nurse Member Role: Primary Care Nurse Name: Cata Gong RN Position: [facility] AMB Nurse Member Role: Primary Care Nurse Name: Monae Rodriguez RN Position: [facility] RN Member Role: Primary Care Nurse Name: Alisha Polanco RN Position: [facility] RN Member Role: Primary Care Nurse Name: Gabbie Park RN Position: [facility] OB RN Member Role: Primary Care Nurse Name: Lou Hodge RN Position: [facility] SN RN Member Role: Primary Care Nurse Name: Ryann Salas RN Position: [facility] SN RN Member Role: Primary Care Nurse Name: Harmony Cr MD Position: [facility] Resident Member Role: PCP Address: Address: [address] [place] [address]- Name: Stephanie Schroeder RN Position: [facility] RN Member Role: Primary Care Nurse Name: Lynette Comer RN Position: [facility] Onco RN Member Role: Primary Care Nurse Name: Paul FRENCH Hteekainez Position: [facility] SN RN Member Role: Primary Care Nurse Name: Olu Cortés MD Position: [facility] Renal MD Member Role: Lifetime Consulting Physician Address: Address: [address] [place] [address] [facility] [place] [address]- Care Team Related Persons Name: TAYLOR ENCISO Name: DARELL ENCISO Address: [place] [address]
--- OUTSIDE RECORDS SUMMARY | 2022-09-11 14:08 | XMS_ITS | Continuity of Care Document ---
Author Name Unknown Organization [facility] Address [address] [place] [address]- Care Team Providers Care Route Rider Supervisor Name Role Phone Jose Miguel SADLER, Sakshi Primary Care Physician [place] [facility] [place] [id number] Date(s): 05/03/20 - 06/02/20 [facility] [address] [place] [address]- Attending Physician: Dileep Montes Admitting Physician: AdmtrDileep Referring Physician: Admtr [id number] Allergies, Adverse Reactions, Alerts No Known [...] 03/13/20 15:34:00 EST, Route to Pharmacy Electronically, [facility], 167, cm, 03/13/20 9:06:00EST, Height, 86.2, kg, 01/22/20 7:46:00 EDT, Dry We... Start Date: 03/13/20 Stop Date: 06/11/20 Status: Ordered calcitriol 0.5 mcg oral capsule 2 capsule = 1 mcg, By Mouth, Daily, # 60 capsule, 2 Refills, Maintenance, 05/13/20 16:02:00 EST, Capsule, [facility], 168, cm, 04/02/20 13:09:00 EST, Height, 73.55, kg, 03/20/20 19:52:00 EST, Dry Weight Start Date: 05/13/20 Stop Date: 08/11/20 Status: Ordered Coreg 25 mg oral tablet 25 mg, 1, tablet, By Mouth, 2 times a day, # 60 tablet, Refills 2, Tot. Refills 2, Maintenance, 02/16/20 12:56:00 EDT, Route to Pharmacy Electronically, [facility], 167, cm, 02/15/2010:08:00 EDT, Height, 86.2, kg, 01/22/20 7:46:00 ED... Start Date: 02/16/20 Stop Date: 05/16/20 Status: Ordered dapagliflozin 10 mg oral tablet 1 tablet = 10 mg, By Mouth, Daily, # 30 tablet, 2 Refills, Maintenance, 03/29/20 17:51:00 EST, Tablet, [facility], Partial fill upon patient request if the prescription is for a schedule II opioid drug., 168, cm, 03/29/20 9:02:00 EST,... Start Date: 03/29/20 Stop Date: 06/27/20 Status: Ordered docusate sodium 100 mg oral capsule 100 mg, 1, capsule, By Mouth, Daily, # 30 capsule, Refills 1, Tot. Refills 1, Maintenance, 02/12/2013:29:00 EDT, Route to Pharmacy Electronically, [facility], 167, cm, 02/13/20 8:42:00 EDT, Height, 86.2, kg, 01/22/20 7:46:00 EDT, Dry... Start Date: 02/13/20 Stop Date: 04/13/20 Status: Ordered entecavir 0.5 mg oral tablet 1 tablet = 0.5 mg, By Mouth, Daily, # 30 tablet, 1 Refills, Maintenance, 03/13/20 15:32:00 EST, Tablet, [facility], 167, cm, 03/13/20 9:06:00 EST, Height, 86.2, kg, 01/22/20 7:46:00 EDT, Dry Weight Start Date: 03/13/20 Stop Date: 05/12/20 Status: Ordered Envarsus XR 0.75 mg oral tablet, extended release 1 tablet = 0.75 mg, By Mouth, Daily in AM, to use with envarsus 1 mg tablets, # 30 tablet, 2 Refills, Maintenance, 03/05/20 16:42:00 EST, [facility], 167, cm, 03/05/20 8:28:00 EST, Height, 86.2, kg, 01/22/20 7:46:00 EDT, Dry Weight Start Date: 03/05/20 Stop Date: 06/03/20 Status: Ordered Envarsus XR 1 mg oral tablet, extended release 1 tablet = 1 mg, By Mouth, Daily in AM, # 30 tablet, 2 Refills, Maintenance, 03/13/20 15:32:00 EST,[facility], 167, cm, 03/13/20 9:06:00 EST, [...] 04/16/20 10:24:00 EST, Route to Pharmacy Electronically, [facility], Partial fill upon patient request, 168, cm, 04/09/20 8:57:00 EST,... Start Date: 04/16/20 Stop Date: 06/15/20 Status: Ordered glipiZIDE 10 mg oral tablet, extended release 1 tablet = 10 mg, By Mouth, 2 times a day, DX: E11.65, # 60 tablet, 6 Refills, Maintenance, 04/18/20 11:45:00 EST, ER Tablet, [facility], Partial fill upon patient request, 168, cm, 04/16/20 13:36:00 EST, Height, 73.55, kg, 03/20/20 1... Start Date: 04/18/20 Status: Ordered Lantus Solostar Pen 100 units/mL subcutaneous solution See Instructions, Take 36 units daily at bedtime. E11.65, # 30 mL, 3 Refills, Maintenance, 03/29/2020:26:00 EST, [facility], Partial fill upon patient request, 168, cm, 03/29/20 9:02:00 EST, Height, 73.55, kg, 03/20/20 19:52:00 EST,... Start Date: 03/29/20 Status: Ordered magnesium oxide 400 mg oral tablet 1 tablet = 400 mg, By Mouth, Daily, for 30 days, # 30 tablet, 2 Refills, Acute 06/27/20 17:45:00 EST, 03/29/20 17:45:00 EST, [facility], Partial fill upon patient request if the prescription is for a schedule II opioid drug., 168, cm,... Start Date: 03/29/20 Stop Date: 06/27/20 Status: Ordered metFORMIN 500 mg oral tablet 1 tablet = 500 mg, By Mouth, 2 times a day, # 60 tablet, 11 Refills, Maintenance, 04/18/20 11:39:00EST, Tablet, [facility], Partial fill upon patient request, 168, cm, 04/16/20 13:36:00 EST, Height, 73.55, kg, 03/20/20 19:52:00 EST,... Start Date: 04/18/20 Status: Ordered omeprazole 40 mg oral enteric coated capsule 1 capsule = 40 mg, By Mouth, 2 times a day, # 60 capsule, 1 Refills, Maintenance, 04/16/20 10:32:00EST, [facility], Partial fill upon patient request if the prescription is for a schedule II opioid drug., 168, cm, 04/09/20 8:57:00 ES... Start Date: 04/16/20 Stop Date: 2/19/21 Status: Ordered Pen [place], 31 G x 8 mm BD Ultra [...] 1 Refills, Maintenance, 03/20/20 16:11:00 EST, Tablet, [facility], Partial fill upon patient request, 167, cm, 03/19/20 9:57:00 EST, Height, 86.2, kg, 01/22/20 7:46:00 Kei GARCIA. Start Date: 03/20/20 Stop Date: 05/19/20 Status: Ordered sulfamethoxazole-trimethoprim 400 mg-80 mg oral tablet 1 tablet, By Mouth, Daily at bedtime, for 30 days, # 30 tablet, 2 Refills, Acute 06/11/20 15:33:00 EST, 03/13/20 15:33:00 EST, Tablet, [facility], 1 tablet By Mouth [...] HTN (hypertension)(Confirmed) Active 1rept scope 1 yr [address] [facility] M, W, F 3campath induction Vital Signs [...]
--- OUTSIDE RECORDS SUMMARY | 2022-09-11 14:08 | XMS_ITS | Continuity of Care Document ---
Author Name Unknown Organization [facility] Address [address] [place] [address]- Care Team Providers Care Mechanical Adjuster Name Role Phone Jose Miguel SADLER, Sakshi Primary Care Physician [place] [facility] [place] 04/25/20 - 05/25/20 [facility] [address] [place] [id number] Allergies, Adverse Reactions, Alerts No [...] 03/13/20 15:34:00 EST, Route to Pharmacy Electronically, [facility], 167, cm, 03/13/20 9:06:00EST, Height, 86.2, kg, 01/22/20 7:46:00 EDT, Dry We... Start Date: 03/13/20 Stop Date: 06/11/20 Status: Ordered calcitriol 0.5 mcg oral capsule 2 capsule = 1 mcg, By Mouth, Daily, # 60 capsule, 2 Refills, Maintenance, 05/13/20 16:02:00 EST, Capsule, [facility], 168, cm, 04/02/20 13:09:00 EST, Height, 73.55, kg, 03/20/20 19:52:00 EST, Dry Weight Start Date: 05/13/20 Stop Date: 08/11/20 Status: Ordered Coreg 25 mg oral tablet 25 mg, 1, tablet, By Mouth, 2 times a day, # 60 tablet, Refills 2, Tot. Refills 2, Maintenance, 02/16/20 12:56:00 EDT, Route to Pharmacy Electronically, [facility], 167, cm, 02/15/2010:08:00 EDT, Height, 86.2, kg, 01/22/20 7:46:00 ED... Start Date: 02/16/20 Stop Date: 05/16/20 Status: Ordered dapagliflozin 10 mg oral tablet 1 tablet = 10 mg, By Mouth, Daily, # 30 tablet, 2 Refills, Maintenance, 03/29/20 17:51:00 EST, Tablet, [facility], Partial fill upon patient request if the prescription is for a schedule II opioid drug., 168, cm, 03/29/20 9:02:00 EST,... Start Date: 03/29/20 Stop Date: 06/27/20 Status: Ordered docusate sodium 100 mg oral capsule 100 mg, 1, capsule, By Mouth, Daily, # 30 capsule, Refills 1, Tot. Refills 1, Maintenance, 02/12/2013:29:00 EDT, Route to Pharmacy Electronically, [facility], 167, cm, 02/13/20 8:42:00 EDT, Height, 86.2, kg, 01/22/20 7:46:00 EDT, Dry... Start Date: 02/13/20 Stop Date: 04/13/20 Status: Ordered entecavir 0.5 mg oral tablet 1 tablet = 0.5 mg, By Mouth, Daily, # 30 tablet, 1 Refills, Maintenance, 03/13/20 15:32:00 EST, Tablet, [facility], 167, cm, 03/13/20 9:06:00 EST, Height, 86.2, kg, 01/22/20 7:46:00 EDT, Dry Weight Start Date: 03/13/20 Stop Date: 05/12/20 Status: Ordered Envarsus XR 0.75 mg oral tablet, extended release 1 tablet = 0.75 mg, By Mouth, Daily in AM, to use with envarsus 1 mg tablets, # 30 tablet, 2 Refills, Maintenance, 03/05/20 16:42:00 EST, [facility], 167, cm, 03/05/20 8:28:00 EST, Height, 86.2, kg, 01/22/20 7:46:00 EDT, Dry Weight Start Date: 03/05/20 Stop Date: 06/03/20 Status: Ordered Envarsus XR 1 mg oral tablet, extended release 1 tablet = 1 mg, By Mouth, Daily in AM, # 30 tablet, 2 Refills, Maintenance, 03/13/20 15:32:00 EST,[facility], 167, cm, 03/13/20 9:06:00 EST, [...] 04/16/20 10:24:00 EST, Route to Pharmacy Electronically, [facility], Partial fill upon patient request, 168, cm, 04/09/20 8:57:00 EST,... Start Date: 04/16/20 Stop Date: 06/15/20 Status: Ordered glipiZIDE 10 mg oral tablet, extended release 1 tablet = 10 mg, By Mouth, 2 times a day, DX: E11.65, # 60 tablet, 6 Refills, Maintenance, 04/18/20 11:45:00 EST, ER Tablet, [facility], Partial fill upon patient request, 168, cm, 04/16/20 13:36:00 EST, Height, 73.55, kg, 03/20/20 1... Start Date: 04/18/20 Status: Ordered Lantus Solostar Pen 100 units/mL subcutaneous solution See Instructions, Take 36 units daily at bedtime. E11.65, # 30 mL, 3 Refills, Maintenance, 03/29/2020:26:00 EST, [facility], Partial fill upon patient request, 168, cm, 03/29/20 9:02:00 EST, Height, 73.55, kg, 03/20/20 19:52:00 EST,... Start Date: 03/29/20 Status: Ordered magnesium oxide 400 mg oral tablet 1 tablet = 400 mg, By Mouth, Daily, for 30 days, # 30 tablet, 2 Refills, Acute 06/27/20 17:45:00 EST, 03/29/20 17:45:00 EST, [facility], Partial fill upon patient request if the prescription is for a schedule II opioid drug., 168, cm,... Start Date: 03/29/20 Stop Date: 06/27/20 Status: Ordered metFORMIN 500 mg oral tablet 1 tablet = 500 mg, By Mouth, 2 times a day, # 60 tablet, 11 Refills, Maintenance, 04/18/20 11:39:00EST, Tablet, [facility], Partial fill upon patient request, 168, cm, 04/16/20 13:36:00 EST, Height, 73.55, kg, 03/20/20 19:52:00 EST,... Start Date: 04/18/20 Status: Ordered omeprazole 40 mg oral enteric coated capsule 1 capsule = 40 mg, By Mouth, 2 times a day, # 60 capsule, 1 Refills, Maintenance, 04/16/20 10:32:00EST, [facility], Partial fill upon patient request if the prescription is for a schedule II opioid drug., 168, cm, 04/09/20 8:57:00 ES... Start Date: 04/16/20 Stop Date: 06/15/20 Status: Ordered Pen [place], 31 G x 8 mm BD Ultra [...] 1 Refills, Maintenance, 03/20/20 16:11:00 EST, Tablet, [facility], Partial fill upon patient request, 167, cm, 03/19/20 9:57:00 EST, Height, 86.2, kg, 01/22/20 7:46:00 EDTKei. Start Date: 03/20/20 Stop Date: 05/19/20 Status: Ordered sulfamethoxazole-trimethoprim 400 mg-80 mg oral tablet 1 tablet, By Mouth, Daily at bedtime, for 30 days, # 30 tablet, 2 Refills, Acute 06/11/20 15:33:00 EST, 03/13/20 15:33:00 EST, Tablet, [facility], 1 tablet By Mouth [...] HTN (hypertension)(Confirmed) Active 1rept scope 1 yr [address] [facility] M, W, F 3campath induction Social History Social History Type Response Smoking Status Never smoker entered on: 09/25/16 Sex
--- OUTSIDE RECORDS SUMMARY | 2022-09-11 14:08 | XMS_ITS | Continuity of Care Document ---
Author Name Unknown Organization [facility] Address [address] [place] [address]- Care Team Providers Care Apiculture Teacher Name Role Phone Tayo SADLER, Harmony Doan Primary Care Physician [phone] [facility] [id number] Date(s): 05/01/22 - 05/31/22 [facility]/[address] [address]- Attending Physician: Dileep Montes Admitting Physician: Admtr, Ar8 Referring Physician: Admtr, [...] 1 Refills, Maintenance, 05/25/22 20:02:00 EST, [facility], 170, cm, 04/07/22 14:06:00 EST, [...] 04/14/22 13:19:00 EST, Route to Pharmacy Electronically, [facility], 170, cm, 04/07/22 14:06:00 EST, [...] 01/02/23 13:39:00 EDT, 04/07/22 13:39:00 EST, Cream, [facility], Partial fill upon patient request if the prescription is for a schedule II opioid drug.,... Start Date: 04/07/22 Stop Date: 01/02/23 Status: Ordered Coreg 25 mg oral tablet 25 mg, 1, tablet, By Mouth, 2 times a day, # 60 tablet, Refills 2, Tot. Refills 2, Maintenance, 04/14/22 13:19:00 EST, Route to Pharmacy Electronically, [facility], 170, cm, 04/07/2214:06:00 EST, Height, [...] 2 Refills, Maintenance, 09/16/21 16:48:00EDT, CR Capsule, [facility], Parti... Start Date: 09/16/21 Stop Date: 12/15/21 Status: Ordered dapagliflozin 10 mg oral tablet 1 tablet = 10 mg, By Mouth, Daily, # 30 tablet, 5 Refills, Maintenance, 01/15/22 12:01:00 EDT, Tablet, [facility], Partial fill upon patient request [...] Maintenance, 02/12/2013:29:00 EDT, Route to Pharmacy Electronically, [facility], 167, cm, 02/13/20 8:42:00 EDT, Height, 86.2, kg, 01/22/20 7:46:00 EDT, Dry... Start Date: 02/13/20 Stop Date: 04/13/20 Status: Ordered entecavir 0.5 mg oral tablet 1 tablet = 0.5 mg, By Mouth, Daily, # 30 tablet, 1 Refills, Maintenance, 03/13/20 15:32:00 EST, Tablet, [facility], 167, cm, 03/13/20 9:06:00 EST, Height, 86.2, kg, 01/22/20 7:46:00 EDT, Dry Weight Start Date: 03/13/20 Stop Date: 05/12/20 Status: Ordered Envarsus XR 1 mg oral tablet, extended release 3 tablet = 3 mg, By Mouth, Daily in AM, # 90 tablet, 2 Refills, Maintenance, 03/13/20 15:32:00 EST,[facility], 167, cm, 03/13/20 9:06:00 EST, [...] 05/21/22 10:26:00 EST, Route to Pharmacy Electronically, [facility], Partial fill upon patient request, 170, cm, 04/07/22 14:06:00 EST,... Start Date: 05/21/22 Stop Date: 07/20/22 Status: Ordered glipiZIDE 10 mg oral tablet, extended release 1 tablet = 10 mg, By Mouth, 2 times a day, # 60 tablet, 5 Refills, Maintenance, 01/15/22 12:01:00 EDT, ER Tablet, [facility], DxE11.65, 170, cm, 12/13/21 11:01:00 EDT, Height, 80, kg, 12/12/21 16:28:00 EDT, Dry Weight Start Date: 01/15/22 Status: Ordered Lantus Solostar Pen 100 units/mL subcutaneous solution See Instructions, INJECT 44 UNITS SUBCUTANEOUSLY ONCE DAILY AT BEDTIME, # 15 mL, 2 Refills, Maintenance, 05/25/22 20:02:00 EST, [facility], 170, cm, 04/07/22 14:06:00 EST, Height, 80, kg, 12/12/21 16:28:00 EDT, Dry Weight Start Date: 05/25/22 Status: Ordered metFORMIN 500 mg oral tablet 1 tablet = 500 mg, By Mouth, 2 times a day, # 60 tablet, 11 Refills, Maintenance, 04/18/20 11:39:00EST, Tablet, [facility], Partial fill upon patient request, 168, cm, 04/16/20 13:36:00 EST, Height, 73.55, kg, 03/20/20 19:52:00 EST,... Start Date: 04/18/20 Status: Ordered Pen [place], 31 G x 8 mm BD Ultra [...] 1 Refills, Maintenance, 03/20/20 16:11:00 EST, Tablet, [facility], Partial fill upon patient request, 167, cm, 03/19/20 9:57:00 EST, Height, 86.2, kg, 01/22/20 7:46:00 EDT, D... Start Date: 03/20/20 Stop Date: 05/19/20 Status: Ordered Problem List Condition Confirmation Course Effective Dates Status Health atus Informant Polyp of colon, adenomatous 1 Confirmed 07/24/16 Active Chronic renal impairment Confirmed Active ESRD on dialysis 2 Confirmed Active -donor kidney transplant 3 Confirmed 01/22/20 Active S/p total knee replacement, bilateral Confirmed Active HTN (hypertension) Confirmed Active Diabetic neuropathy Confirmed Active 1rept scope 1 yr [address] [facility] M, W, F 3campath induction Social History Social History Type Response Smoking Status Never smoker entered on: 09/25/16 Sex Patient Care team information Care Team Personnel Name: Teresa Ha RN Position: S GILLIAN Supv Member Role: Primary Care Nurse Name: Elena Roberts RN Position: S RN Member Role: Primary Care Nurse Name: Osvaldo House DO Position: S Renal MD Member Role: Lifetime Consulting Physician Address: Address: [address] [facility] [place], [place] [address] Name: Alva Melchor RN Position: S RN Member Role: Primary Care Nurse Name: Brendan Guillermo MD Position: S Renal MD Member Role: Lifetime Consulting Physician Address: Address: [address] [facility] [place] [address]- [place] Name: Gale Wilcox Position: [facility] AMB Nurse Member Role: Primary Care Nurse Name: Cata Gong RN Position: [facility] AMB Nurse Member Role: Primary Care Nurse Name: Monae Rodriguez RN Position: [facility] RN Member Role: Primary Care Nurse Name: Alisha Polanco RN Position: [facility] RN Member Role: Primary Care Nurse Name: Gabbie Park RN Position: [facility] OB RN Member Role: Primary Care Nurse Name: Lou Hodge RN Position: [facility] SN RN Member Role: Primary Care Nurse Name: Ryann Salas RN Position: [facility] SN RN Member Role: Primary Care Nurse Name: Harmony Cr MD Position: [facility] Resident Member Role: PCP Address: Address: [address] [place] [id number]- Name: Stephanie Schroeder RN Position: [facility] RN Member Role: Primary Care Nurse Name: Lynette Comer RN Position: [facility] Onco RN Member Role: Primary Care Nurse Name: Pepe Miller RN Position: [facility] SN RN Member Role: Primary Care Nurse Name: Olu Cortés MD Position: [facility] Renal MD Member Role: Lifetime Consulting Physician Address: Address: [address] [place] [address] [facility] [place] [address]- Care Team Related Persons Name: TAYLOR ENCISO Name: DARELL ENCISO Address: [place] [address]
--- OUTSIDE RECORDS SUMMARY | 2022-09-11 14:08 | XMS_ITS | Continuity of Care Document ---
Author Name Unknown Organization [facility] Address [address] [place] [address]- Care Team Providers Care Cra Name Role Phone Jose Miguel SADLER, Sakshi Primary Care Physician Encounter [facility] Date(s): 06/12/20 - 07/12/20 [facility] [address] [place] [id number] Attending Physician: Dileep Montes Admitting Physician: Admtr, Dileep Referring Physician: Admtr, Ar8 Allergies, Adverse Reactions, [...] 03/13/20 15:34:00 EST, Route to Pharmacy Electronically, [facility], 167, cm, 03/13/20 9:06:00EST, Height, 86.2, kg, 01/22/20 7:46:00 EDT, Dry We... Start Date: 03/13/20 Stop Date: 06/11/20 Status: Ordered calcitriol 0.5 mcg oral capsule 2 capsule = 1 mcg, By Mouth, Daily, # 60 capsule, 2 Refills, Maintenance, 05/13/20 16:02:00 EST, Capsule, [facility], 168, cm, 04/02/20 13:09:00 EST, Height, 73.55, kg, 03/20/20 19:52:00 EST, Dry Weight Start Date: 05/13/20 Stop Date: 08/11/20 Status: Ordered Coreg 25 mg oral tablet 25 mg, 1, tablet, By Mouth, 2 times a day, # 60 tablet, Refills 2, Tot. Refills 2, Maintenance, 02/16/20 12:56:00 EDT, Route to Pharmacy Electronically, [facility], 167, cm, 02/15/2010:08:00 EDT, Height, 86.2, kg, 01/22/20 7:46:00 ED... Start Date: 02/16/20 Stop Date: 05/16/20 Status: Ordered dapagliflozin 10 mg oral tablet 1 tablet = 10 mg, By Mouth, Daily, # 30 tablet, 2 Refills, Maintenance, 03/29/20 17:51:00 EST, Tablet, [facility], Partial fill upon patient request if the prescription is for a schedule II opioid drug., 168, cm, 03/29/20 9:02:00 EST,... Start Date: 03/29/20 Stop Date: 06/27/20 Status: Ordered docusate sodium 100 mg oral capsule 100 mg, 1, capsule, By Mouth, Daily, # 30 capsule, Refills 1, Tot. Refills 1, Maintenance, 02/12/2013:29:00 EDT, Route to Pharmacy Electronically, [facility], 167, cm, 02/13/20 8:42:00 EDT, Height, 86.2, kg, 01/22/20 7:46:00 EDT, Dry... Start Date: 02/13/20 Stop Date: 04/13/20 Status: Ordered entecavir 0.5 mg oral tablet 1 tablet = 0.5 mg, By Mouth, Daily, # 30 tablet, 1 Refills, Maintenance, 03/13/20 15:32:00 EST, Tablet, [facility], 167, cm, 03/13/20 9:06:00 EST, Height, 86.2, kg, 01/22/20 7:46:00 EDT, Dry Weight Start Date: 03/13/20 Stop Date: 05/12/20 Status: Ordered Envarsus XR 0.75 mg oral tablet, extended release 1 tablet = 0.75 mg, By Mouth, Daily in AM, to use with envarsus 1 mg tablets, # 30 tablet, 2 Refills, Maintenance, 03/05/20 16:42:00 EST, [facility], 167, cm, 03/05/20 8:28:00 EST, Height, 86.2, kg, 01/22/20 7:46:00 EDT, Dry Weight Start Date: 03/05/20 Stop Date: 06/03/20 Status: Ordered Envarsus XR 1 mg oral tablet, extended release 1 tablet = 1 mg, By Mouth, Daily in AM, # 30 tablet, 2 Refills, Maintenance, 03/13/20 15:32:00 EST,[facility], 167, cm, 03/13/20 9:06:00 EST, [...] 04/16/20 10:24:00 EST, Route to Pharmacy Electronically, [facility], Partial fill upon patient request, 168, cm, 04/09/20 8:57:00 EST,... Start Date: 04/16/20 Stop Date: 06/15/20 Status: Ordered glipiZIDE 10 mg oral tablet, extended release 1 tablet = 10 mg, By Mouth, 2 times a day, DX: E11.65, # 60 tablet, 6 Refills, Maintenance, 04/18/20 11:45:00 EST, ER Tablet, [facility], Partial fill upon patient request, 168, cm, 04/16/20 13:36:00 EST, Height, 73.55, kg, 03/20/20 1... Start Date: 04/18/20 Status: Ordered Lantus Solostar Pen 100 units/mL subcutaneous solution See Instructions, Take 36 units daily at bedtime. E11.65, # 30 mL, 3 Refills, Maintenance, 03/29/2020:26:00 EST, [facility], Partial fill upon patient request, 168, cm, 03/29/20 9:02:00 EST, Height, 73.55, kg, 03/20/20 19:52:00 EST,... Start Date: 03/29/20 Status: Ordered metFORMIN 500 mg oral tablet 1 tablet = 500 mg, By Mouth, 2 times a day, # 60 tablet, 11 Refills, Maintenance, 04/18/20 11:39:00EST, Tablet, [facility], Partial fill upon patient request, 168, cm, 04/16/20 13:36:00 EST, Height, 73.55, kg, 03/20/20 19:52:00 EST,... Start Date: 04/18/20 Status: Ordered omeprazole 40 mg oral enteric coated capsule 1 capsule = 40 mg, By Mouth, 2 times a day, # 60 capsule, 1 Refills, Maintenance, 04/16/20 10:32:00EST, [facility], Partial fill upon patient request if the prescription is for a schedule II opioid drug., 168, cm, 04/09/20 8:57:00 ES... Start Date: 04/16/20 Stop Date: 06/15/20 Status: Ordered Pen [place], 31 G x 8 mm BD Ultra [...] 1 Refills, Maintenance, 03/20/20 16:11:00 EST, Tablet, [facility], Partial fill upon patient [...] HTN (hypertension)(Confirmed) Active 1rept scope 1 yr [address] [facility] M, W, F 3campath induction Social History Social History Type Response Smoking Status Never smoker entered on: 09/25/16 Sex
--- OUTSIDE RECORDS SUMMARY | 2022-09-11 14:08 | XMS_ITS | Continuity of Care Document ---
Author Name Unknown Organization [facility] Address [address] [place] [address]- Care Team Providers Care Hospice Aide Name Role Phone Jose Miguel SADLER, Sakshi Primary Care Physician Encounter [facility] Date(s): 04/17/20 - 05/17/20 [facility] [address] [place] [address] [id number] Attending Physician: Dileep Montes Admitting Physician: Admtr, [...] 03/13/20 15:34:00 EST, Route to Pharmacy Electronically, [facility], 167, cm, 03/13/20 9:06:00EST, Height, 86.2, kg, 01/22/20 7:46:00 EDT, Dry We... Start Date: 03/13/20 Stop Date: 06/11/20 Status: Ordered calcitriol 0.5 mcg oral capsule 2 capsule = 1 mcg, By Mouth, Daily, # 60 capsule, 2 Refills, Maintenance, 05/13/20 16:02:00 EST, Capsule, [facility], 168, cm, 04/02/20 13:09:00 EST, Height, 73.55, kg, 03/20/20 19:52:00 EST, Dry Weight Start Date: 05/13/20 Stop Date: 08/11/20 Status: Ordered Coreg 25 mg oral tablet 25 mg, 1, tablet, By Mouth, 2 times a day, # 60 tablet, Refills 2, Tot. Refills 2, Maintenance, 02/16/20 12:56:00 EDT, Route to Pharmacy Electronically, [facility], 167, cm, 02/15/2010:08:00 EDT, Height, 86.2, kg, 01/22/20 7:46:00 ED... Start Date: 02/16/20 Stop Date: 05/16/20 Status: Ordered dapagliflozin 10 mg oral tablet 1 tablet = 10 mg, By Mouth, Daily, # 30 tablet, 2 Refills, Maintenance, 03/29/20 17:51:00 EST, Tablet, [facility], Partial fill upon patient request if the prescription is for a schedule II opioid drug., 168, cm, 03/29/20 9:02:00 EST,... Start Date: 03/29/20 Stop Date: 06/27/20 Status: Ordered docusate sodium 100 mg oral capsule 100 mg, 1, capsule, By Mouth, Daily, # 30 capsule, Refills 1, Tot. Refills 1, Maintenance, 02/12/2013:29:00 EDT, Route to Pharmacy Electronically, [facility], 167, cm, 02/13/20 8:42:00 EDT, Height, 86.2, kg, 01/22/20 7:46:00 EDT, Dry... Start Date: 02/13/20 Stop Date: 04/13/20 Status: Ordered entecavir 0.5 mg oral tablet 1 tablet = 0.5 mg, By Mouth, Daily, # 30 tablet, 1 Refills, Maintenance, 03/13/20 15:32:00 EST, Tablet, [facility], 167, cm, 03/13/20 9:06:00 EST, Height, 86.2, kg, 01/22/20 7:46:00 EDT, Dry Weight Start Date: 03/13/20 Stop Date: 05/12/20 Status: Ordered Envarsus XR 0.75 mg oral tablet, extended release 1 tablet = 0.75 mg, By Mouth, Daily in AM, to use with envarsus 1 mg tablets, # 30 tablet, 2 Refills, Maintenance, 03/05/20 16:42:00 EST, [facility], 167, cm, 03/05/20 8:28:00 EST, Height, 86.2, kg, 01/22/20 7:46:00 EDT, Dry Weight Start Date: 03/05/20 Stop Date: 06/03/20 Status: Ordered Envarsus XR 1 mg oral tablet, extended release 1 tablet = 1 mg, By Mouth, Daily in AM, # 30 tablet, 2 Refills, Maintenance, 03/13/20 15:32:00 EST,[facility], 167, cm, 03/13/20 9:06:00 EST, Height, [...] 04/16/20 10:24:00 EST, Route to Pharmacy Electronically, [facility], Partial fill upon patient request, 168, cm, 04/09/20 8:57:00 EST,... Start Date: 04/16/20 Stop Date: 06/15/20 Status: Ordered glipiZIDE 10 mg oral tablet, extended release 1 tablet = 10 mg, By Mouth, 2 times a day, DX: E11.65, # 60 tablet, 6 Refills, Maintenance, 04/18/20 11:45:00 EST, ER Tablet, [facility], Partial fill upon patient request, 168, cm, 04/16/20 13:36:00 EST, Height, 73.55, kg, 03/20/20 1... Start Date: 04/18/20 Status: Ordered Lantus Solostar Pen 100 units/mL subcutaneous solution See Instructions, Take 36 units daily at bedtime. E11.65, # 30 mL, 3 Refills, Maintenance, 03/29/2020:26:00 EST, [facility], Partial fill upon patient request, 168, cm, 03/29/20 9:02:00 EST, Height, 73.55, kg, 03/20/20 19:52:00 EST,... Start Date: 03/29/20 Status: Ordered magnesium oxide 400 mg oral tablet 1 tablet = 400 mg, By Mouth, Daily, for 30 days, # 30 tablet, 2 Refills, Acute 06/27/20 17:45:00 EST, 03/29/20 17:45:00 EST, [facility], Partial fill upon patient request if the prescription is for a schedule II opioid drug., 168, cm,... Start Date: 03/29/20 Stop Date: 06/27/20 Status: Ordered metFORMIN 500 mg oral tablet 1 tablet = 500 mg, By Mouth, 2 times a day, # 60 tablet, 11 Refills, Maintenance, 04/18/20 11:39:00EST, Tablet, [facility], Partial fill upon patient request, 168, cm, 04/16/20 13:36:00 EST, Height, 73.55, kg, 03/20/20 19:52:00 EST,... Start Date: 04/18/20 Status: Ordered omeprazole 40 mg oral enteric coated capsule 1 capsule = 40 mg, By Mouth, 2 times a day, # 60 capsule, 1 Refills, Maintenance, 04/16/20 10:32:00EST, [facility], Partial fill upon patient request if the prescription is for a schedule II opioid drug., 168, cm, 04/09/20 8:57:00 ES... Start Date: 04/16/20 Stop Date: 06/15/20 Status: Ordered Pen [place], 31 G x 8 mm BD Ultra [...] 1 Refills, Maintenance, 03/20/20 16:11:00 EST, Tablet, [facility], Partial fill upon patient request, 167, cm, 03/19/20 9:57:00 EST, Height, 86.2, kg, 01/22/20 7:46:00 Kei GARCIA. Start Date: 03/20/20 Stop Date: 05/19/20 Status: Ordered sulfamethoxazole-trimethoprim 400 mg-80 mg oral tablet 1 tablet, By Mouth, Daily at bedtime, for 30 days, # 30 tablet, 2 Refills, Acute 06/11/20 15:33:00 EST, 03/13/20 15:33:00 EST, Tablet, [facility], 1 tablet By Mouth [...] HTN (hypertension)(Confirmed) Active 1rept scope 1 yr [address] [facility] M, W, F 3campath induction Social History Social History Type Response Smoking Status Never smoker entered on: 09/25/16 Sex
--- OUTSIDE RECORDS SUMMARY | 2022-09-11 14:08 | XMS_ITS | Continuity of Care Document ---
Author Name Unknown Organization [facility] Address [address] [place] [address]- Care Team Providers Care Shovel Log Loader Operator Name Role Phone Tayo SADLER, Harmony Doan Primary [facility] Phys[id number] Date[facility]/07/22 - 05/31/22 [facility]/[address] [address]- Attending Physician: April Paul MD Admitting Physician: [...] tablet, 1 Refills, Maintenance, 05/25/22 20:02:00 EST, [facility], 170, cm, 04/07/22 14:06:00 [...] 04/14/22 13:19:00 EST, Route to Pharmacy Electronically, [facility], 170, cm, 04/07/22 14:06:00 EST, [...] 01/02/23 13:39:00 EDT, 04/07/22 13:39:00 EST, Cream, [facility], Partial fill upon patient request if the prescription is for a schedule II opioid drug.,... Start Date: 04/07/22 Stop Date: 01/02/23 Status: Ordered Coreg 25 mg oral tablet 25 mg, 1, tablet, By Mouth, 2 times a day, # 60 tablet, Refills 2, Tot. Refills 2, Maintenance, 04/14/22 13:19:00 EST, Route to Pharmacy Electronically, [facility], 170, cm, 04/07/2214:06:00 EST, Height, [...] 2 Refills, Maintenance, 09/16/21 16:48:00EDT, CR Capsule, [facility], Parti... Start Date: 09/16/21 Stop Date: 12/15/21 Status: Ordered dapagliflozin 10 mg oral tablet 1 tablet = 10 mg, By Mouth, Daily, # 30 tablet, 5 Refills, Maintenance, 01/15/22 12:01:00 EDT, Tablet, [facility], Partial fill upon patient request [...] Maintenance, 02/12/2013:29:00 EDT, Route to Pharmacy Electronically, [facility], 167, cm, 02/13/20 8:42:00 EDT, Height, 86.2, kg, 01/22/20 7:46:00 EDT, Dry... Start Date: 02/13/20 Stop Date: 04/13/20 Status: Ordered entecavir 0.5 mg oral tablet 1 tablet = 0.5 mg, By Mouth, Daily, # 30 tablet, 1 Refills, Maintenance, 03/13/20 15:32:00 EST, Tablet, [facility], 167, cm, 03/13/20 9:06:00 EST, Height, 86.2, kg, 01/22/20 7:46:00 EDT, Dry Weight Start Date: 03/13/20 Stop Date: 05/12/20 Status: Ordered Envarsus XR 1 mg oral tablet, extended release 3 tablet = 3 mg, By Mouth, Daily in AM, # 90 tablet, 2 Refills, Maintenance, 03/13/20 15:32:00 EST,[place] [...] 05/21/22 10:26:00 EST, Route to Pharmacy Electronically, [facility], Partial fill upon patient request, 170, cm, 04/07/22 14:06:00 EST,... Start Date: 05/21/22 Stop Date: 07/20/22 Status: Ordered glipiZIDE 10 mg oral tablet, extended release 1 tablet = 10 mg, By Mouth, 2 times a day, # 60 tablet, 5 Refills, Maintenance, 01/15/22 12:01:00 EDT, ER Tablet, [facility], DxE11.65, 170, cm, 12/13/21 11:01:00 EDT, Height, 80, kg, 12/12/21 16:28:00 EDT, Dry Weight Start Date: 01/15/22 Status: Ordered Lantus Solostar Pen 100 units/mL subcutaneous solution See Instructions, INJECT 44 UNITS SUBCUTANEOUSLY ONCE DAILY AT BEDTIME, # 15 mL, 2 Refills, Maintenance, 05/25/22 20:02:00 EST, [facility], 170, cm, 04/07/22 14:06:00 EST, [...] EST,... Start Date: 04/18/20 Status: Ordered Pen [place], 31 G x 8 mm BD Ultra [...] 1 Refills, Maintenance, 03/20/20 16:11:00 EST, Tablet, [facility], Partial fill upon [...] neuropathy Confirmed Active 1rept scope 1 yr [address] [facility] M, W, F 3campath induction Social History Social History Type Response Smoking Status Never smoker entered on: 09/25/16 Sex Patient Care team information Care Team Personnel Name: Teresa Ha RN Position: S RN Supv Member Role: Primary Care Nurse Name: Elena Roberts RN Position: S RN Member Role: Primary Care Nurse Name: Osvaldo House DO Position: S Renal MD Member Role: Lifetime Consulting Physician Address: Address: [address] [facility] [place] [address]- Name: Alva Melchor RN Position: S RN Member Role: Primary Care Nurse Name: Brendan Guillermo MD Position: S Renal MD Member Role: Lifetime Consulting Physician Address: Address: [address] [facility] [place] [address]- Name: Gale Wilcox Position: [facility] AMB Nurse Member Role: Primary Care Nurse Name: Cata Gong RN Position: [facility] AMB Nurse Member Role: Primary Care Nurse Name: Monae Rodriguez RN Position: [facility] RN Member Role: Primary Care Nurse Name: Alisha Polanco RN Position: [facility] RN Member Role: Primary Care Nurse Name: Gabbie Park RN Position: [facility] OB RN Member Role: Primary Care Nurse Name: Lou Hodge RN Position: [facility] SN RN Member Role: Primary Care Nurse Name: Ryann Salas RN Position: [facility] SN RN Member Role: Primary Care Nurse Name: Harmony Cr MD Position: [facility] Resident Member Role: PCP Address: Address: [address] [place] [address]- Name: Stephanie Schroeder RN Position: [facility] RN Member Role: Primary Care Nurse Name: Lynette Comer RN Position: [facility] Onco RN Member Role: Primary Care Nurse Name: Pepe Miller RN Position: [facility] SN RN Member Role: Primary Care Nurse Name: Olu Cortés MD Position: [facility] Renal MD Member Role: Lifetime Consulting Physician Address: Address: [address] [place] [address] [facility] [place] [place] [address]- Care Team Related Persons Name: TAYLOR ENCISO Name: DARELL ENCISO Address: [place] [address]
--- OUTSIDE RECORDS SUMMARY | 2022-09-11 14:08 | XMS_ITS | Continuity of Care Document ---
Author Name Unknown Organization [facility] Address [address] [place] [address]- Care Team Providers Care Commercial Artist Lettering Name Role Phone Jose Miguel SADLER, Sakshi Primary Care Physician Encounter [facility] [place] Date(s): 11/29/20 - 12/29/20 [facility] [address] [place] [id number] Attending Physician: Dileep Montes Admitting Physician: [...] 15:34:00 EST, Route to Pharmacy Electronically, [facility], 167, cm, 03/13/20 9:06:00EST, Height, 86.2, kg, 01/22/20 7:46:00 EDT, Dry We... Start Date: 03/13/20 Stop Date: 06/11/20 Status: Ordered calcitriol 0.5 mcg oral capsule 2 capsule = 1 mcg, By Mouth, Daily, # 60 capsule, 2 Refills, Maintenance, 05/13/20 16:02:00 EST, Capsule, [facility], 168, cm, 04/02/20 13:09:00 EST, Height, 73.55, kg, 03/20/20 19:52:00 EST, Dry Weight Start Date: 05/13/20 Stop Date: 08/11/20 Status: Ordered Coreg 25 mg oral tablet 25 mg, 1, tablet, By Mouth, 2 times a day, # 60 tablet, Refills 2, Tot. Refills 2, Maintenance, 02/16/20 12:56:00 EDT, Route to Pharmacy Electronically, [facility], 167, cm, 02/15/2010:08:00 EDT, Height, 86.2, kg, 01/22/20 7:46:00 ED... Start Date: 02/16/20 Stop Date: 05/16/20 Status: Ordered dapagliflozin 10 mg oral tablet 1 tablet = 10 mg, By Mouth, Daily, # 30 tablet, 5 Refills, Maintenance, 08/08/20 13:38:00 EDT, Tablet, [facility], Partial fill upon patient request if the prescription is for a schedule II opioid drug., 168, cm, 04/23/20 8:27:00 EST,... Start Date: 08/08/20 Stop Date: 02/04/21 Status: Ordered docusate sodium 100 mg oral capsule 100 mg, 1, capsule, By Mouth, Daily, # 30 capsule, Refills 1, Tot. Refills 1, Maintenance, 02/12/2013:29:00 EDT, Route to Pharmacy Electronically, [facility], 167, cm, 02/13/20 8:42:00 EDT, Height, 86.2, kg, 01/22/20 7:46:00 EDT, Dry... Start Date: 02/13/20 Stop Date: 04/13/20 Status: Ordered entecavir 0.5 mg oral tablet 1 tablet = 0.5 mg, By Mouth, Daily, # 30 tablet, 1 Refills, Maintenance, 03/13/20 15:32:00 EST, Tablet, [facility], 167, cm, 03/13/20 9:06:00 EST, Height, 86.2, kg, 01/22/20 7:46:00 EDT, Dry Weight Start Date: 03/13/20 Stop Date: 05/12/20 Status: Ordered Envarsus XR 0.75 mg oral tablet, extended release 1 tablet = 0.75 mg, By Mouth, Daily in AM, to use with envarsus 1 mg tablets, # 30 tablet, 2 Refills, Maintenance, 03/05/20 16:42:00 EST, [facility], 167, cm, 03/05/20 8:28:00 EST, Height, 86.2, kg, 01/22/20 7:46:00 EDT, Dry Weight Start Date: 03/05/20 Stop Date: 06/03/20 Status: Ordered Envarsus XR 1 mg oral tablet, extended release 1 tablet = 1 mg, By Mouth, Daily in AM, # 30 tablet, 2 Refills, Maintenance, 03/13/20 15:32:00 EST,[facility], 167, cm, 03/13/20 9:06:00 [...] 10:24:00 EST, Route to Pharmacy Electronically, [facility], Partial fill upon patient request, 168, cm, 04/09/20 8:57:00 EST,... Start Date: 04/16/20 Stop Date: 06/15/20 Status: Ordered glipiZIDE 10 mg oral tablet, extended release 1 tablet = 10 mg, By Mouth, 2 times a day, # 60 tablet, 6 Refills, Maintenance, 07/26/20 14:54:00 EDT, ER Tablet, [facility], DxE11.65, 168, cm, 04/23/20 8:27:00 EST, Height, 73.55, kg, 03/20/20 19:52:00 EST, Dry Weight Start Date: 07/26/20 Status: Ordered Lantus Solostar Pen 100 units/mL subcutaneous solution See Instructions, Take 36 units daily at bedtime. E11.65, # 30 mL, 3 Refills, Maintenance, 03/29/2020:26:00 EST, [facility], Partial fill upon patient request, 168, cm, 03/29/20 9:02:00 EST, Height, 73.55, kg, 03/20/20 19:52:00 EST,... Start Date: 03/29/20 Status: Ordered metFORMIN 500 mg oral tablet 1 tablet = 500 mg, By Mouth, 2 times a day, # 60 tablet, 11 Refills, Maintenance, 04/18/20 11:39:00EST, Tablet, [facility], Partial fill upon patient request, 168, cm, 04/16/20 13:36:00 EST, Height, 73.55, kg, 03/20/20 19:52:00 EST,... Start Date: 04/18/20 Status: Ordered omeprazole 40 mg oral enteric coated capsule 1 capsule = 40 mg, By Mouth, 2 times a day, # 60 capsule, 1 Refills, Maintenance, 04/16/20 10:32:00EST, [facility], Partial fill upon patient request if the prescription is for a schedule II opioid drug., 168, cm, 04/09/20 8:57:00 ES... Start Date: 04/16/20 Stop Date: 06/15/20 Status: Ordered Pen [place], 31 G x 8 mm BD Ultra [...] Refills, Maintenance, 03/20/20 16:11:00 EST, Tablet, [facility], Partial fill upon patient request, [...] HTN (hypertension)(Confirmed) Active 1rept scope 1 yr [address] [facility] M, W, F 3campath induction Social History Social History Type Response Smoking Status Never smoker entered on: 09/25/16 Sex
--- OUTSIDE RECORDS SUMMARY | 2022-09-11 14:08 | XMS_ITS | Continuity of Care Document ---
Author Name Unknown Organization [facility] Address [address] [place] [address]- Care Team Providers Care Optical Lathe Operator Name Role Phone Jose Miguel SADLER, Sakshi Primary Care Physician [place] [facility](s): 03/14/20 - 07/12/20 [facility] [address] [place] [address] Attending Physician: Ariane Ferrer MD Admitting Physician: [...] 03/13/20 15:34:00 EST, Route to Pharmacy Electronically, [facility], 167, cm, 03/13/20 9:06:00EST, Height, 86.2, kg, 09/27/20 7:46:00 EDT, Dry We... Start Date: 03/13/20 Stop Date: 06/11/20 Status: Ordered calcitriol 0.5 mcg oral capsule 2 capsule = 1 mcg, By Mouth, Daily, # 60 capsule, 2 Refills, Maintenance, 05/13/20 16:02:00 EST, Capsule, [facility], 168, cm, 04/02/20 13:09:00 EST, Height, 73.55, kg, 03/20/20 19:52:00 EST, Dry Weight Start Date: 05/13/20 Stop Date: 08/11/20 Status: Ordered Coreg 25 mg oral tablet 25 mg, 1, tablet, By Mouth, 2 times a day, # 60 tablet, Refills 2, Tot. Refills 2, Maintenance, 02/16/20 12:56:00 EDT, Route to Pharmacy Electronically, [facility], 167, cm, 02/15/2010:08:00 EDT, Height, 86.2, kg, 01/22/20 7:46:00 ED... Start Date: 02/16/20 Stop Date: 05/16/20 Status: Ordered dapagliflozin 10 mg oral tablet 1 tablet = 10 mg, By Mouth, Daily, # 30 tablet, 2 Refills, Maintenance, 03/29/20 17:51:00 EST, Tablet, [facility], Partial fill upon patient request if the prescription is for a schedule II opioid drug., 168, cm, 03/29/20 9:02:00 EST,... Start Date: 03/29/20 Stop Date: 06/27/20 Status: Ordered docusate sodium 100 mg oral capsule 100 mg, 1, capsule, By Mouth, Daily, # 30 capsule, Refills 1, Tot. Refills 1, Maintenance, 02/12/2013:29:00 EDT, Route to Pharmacy Electronically, [facility], 167, cm, 02/13/20 8:42:00 EDT, Height, 86.2, kg, 01/22/20 7:46:00 EDT, Dry... Start Date: 02/13/20 Stop Date: 04/13/20 Status: Ordered entecavir 0.5 mg oral tablet 1 tablet = 0.5 mg, By Mouth, Daily, # 30 tablet, 1 Refills, Maintenance, 03/13/20 15:32:00 EST, Tablet, [facility], 167, cm, 03/13/20 9:06:00 EST, Height, 86.2, kg, 01/22/20 7:46:00 EDT, Dry Weight Start Date: 03/13/20 Stop Date: 05/12/20 Status: Ordered Envarsus XR 0.75 mg oral tablet, extended release 1 tablet = 0.75 mg, By Mouth, Daily in AM, to use with envarsus 1 mg tablets, # 30 tablet, 2 Refills, Maintenance, 03/05/20 16:42:00 EST, [facility], 167, cm, 03/05/20 8:28:00 EST, Height, 86.2, kg, 01/22/20 7:46:00 EDT, Dry Weight Start Date: 03/05/20 Stop Date: 06/03/20 Status: Ordered Envarsus XR 1 mg oral tablet, extended release 1 tablet = 1 mg, By Mouth, Daily in AM, # 30 tablet, 2 Refills, Maintenance, 03/13/20 15:32:00 EST,[facility], 167, cm, 03/13/20 9:06:00 EST, Height, [...] 04/16/20 10:24:00 EST, Route to Pharmacy Electronically, [facility], Partial fill upon patient request, 168, cm, 04/09/20 8:57:00 EST,... Start Date: 04/16/20 Stop Date: 06/15/20 Status: Ordered glipiZIDE 10 mg oral tablet, extended release 1 tablet = 10 mg, By Mouth, 2 times a day, DX: E11.65, # 60 tablet, 6 Refills, Maintenance, 04/18/20 11:45:00 EST, ER Tablet, [facility], Partial fill upon patient request, 168, cm, 04/16/20 13:36:00 EST, Height, 73.55, kg, 03/20/20 1... Start Date: 04/18/20 Status: Ordered Lantus Solostar Pen 100 units/mL subcutaneous solution See Instructions, Take 36 units daily at bedtime. E11.65, # 30 mL, 3 Refills, Maintenance, 03/29/2020:26:00 EST, [facility], Partial fill upon patient request, 168, cm, 03/29/20 9:02:00 EST, Height, 73.55, kg, 03/20/20 19:52:00 EST,... Start Date: 03/29/20 Status: Ordered metFORMIN 500 mg oral tablet 1 tablet = 500 mg, By Mouth, 2 times a day, # 60 tablet, 11 Refills, Maintenance, 04/18/20 11:39:00EST, Tablet, [facility], Partial fill upon patient request, 168, cm, 04/16/20 13:36:00 EST, Height, 73.55, kg, 03/20/20 19:52:00 EST,... Start Date: 04/18/20 Status: Ordered omeprazole 40 mg oral enteric coated capsule 1 capsule = 40 mg, By Mouth, 2 times a day, # 60 capsule, 1 Refills, Maintenance, 04/16/20 10:32:00EST, [facility], Partial fill upon patient request if the prescription is for a schedule II opioid drug., 168, cm, 04/09/20 8:57:00 ES... Start Date: 04/16/20 Stop Date: 06/15/20 Status: Ordered Pen [place], 31 G x 8 mm BD Ultra [...] 1 Refills, Maintenance, 03/20/20 16:11:00 EST, Tablet, [facility], Partial fill upon patient [...] HTN (hypertension)(Confirmed) Active 1rept scope 1 yr [address] [facility] M, W, F 3campath induction Social History Social History Type Response Smoking Status Never smoker entered on: 09/25/16 Sex
--- OUTSIDE RECORDS SUMMARY | 2022-09-11 14:08 | XMS_ITS | Continuity of Care Document ---
Author Name Unknown Organization [facility] ter Address [address] [place] [id number]- Care Team Providers Care Fire Chief'S Aide Name Role Phone Tayo SADLER, Harmony Doan Primary Care Physician [phone] [place] [facility] [place]): [place] - 07/30/[address] [address]- Discharge Disposition: A-D/C Home Attending Physician: Sheyla Esposito MD Admitting Physician: Sheyla Esposito MD Referring Physician: Not on Staff, Referring [...] tablet, 1 Refills, Maintenance, 05/25/22 20:02:00 EST, [facility], 170, cm, 04/07/22 [...] 04/14/22 13:19:00 EST, Route to Pharmacy Electronically, [facility], 170, cm, 04/07/22 14:06:00 [...] 60 Gm, 2 Refills, Maintenance, 238:53:00 EST, [facility], 30, APPLY TO AFFECTED AREA TWO TIMES A DAY, 170, cm, 04/07/22 14:06:00 EST, Height, 80, kg, 12/12/21 16:28:00... Start Date: 06/23/22 Status: Ordered Coreg 25 mg oral tablet 25 mg, 1, tablet, By Mouth, 2 times a day, # 60 tablet, Refills 2, Tot. Refills 2, Maintenance, 04/14/22 13:19:00 EST, Route to Pharmacy Electronically, [facility], 170, cm, 04/07/2214:06:00 EST, Height, 80, kg, 12/12/21 16:28:00 EDT... Start Date: 04/14/22 Stop Date: 07/13/22 Status: Ordered Cymbalta 30 mg oral enteric coated capsule 1 capsule = 30 mg, By Mouth, Daily, do not crush or chew, # 30 capsule, 0 Refills, Maintenance, 07/22/22 12:28:00 EDT, CR Capsule, [facility], Partial fill upon patient [...] Route to Pharmacy Electronically, [facility], 167, cm, 02/13/20 8:42:00 EDT, Height, 86.2, kg, 01/22/20 7:46:00 EDT, Dry... Start Date: 02/13/20 Stop Date: 04/13/20 Status: Ordered entecavir 0.5 mg oral tablet 1 tablet = 0.5 mg, By Mouth, Daily, # 30 tablet, 1 Refills, Maintenance, 03/13/20 15:32:00 EST, Tablet, [facility], 167, cm, 03/13/20 9:06:00 EST, Height, 86.2, kg, 01/22/20 7:46:00 EDT, Dry Weight Start Date: 03/13/20 Stop Date: 05/12/20 Status: Ordered Envarsus XR 1 mg oral tablet, extended release 3 tablet = 3 mg, By Mouth, Daily in AM, # 90 tablet, 2 Refills, Maintenance, 03/13/20 15:32:00 EST,[facility], 167, cm, 03/13/20 9:06:00 EST, Height, 86.2, kg, 01/22/20 7:46:00 EDT,Dry Weight Start Date: 03/13/20 Stop Date: 06/11/20 Status: Ordered Farxiga 10 mg oral tablet 1 tablet, By Mouth, Daily, # 30 tablet, 5 Refills, Maintenance, 06/20/22 18:08:00 EST, [facility], 170, cm, 04/07/22 14:06:00 EST, [...] 05/21/22 10:26:00 EST, Route to Pharmacy Electronically, [facility], Partial fill upon patient request, 170, cm, 04/07/22 14:06:00 EST,... Start Date: 05/21/22 Stop Date: 07/20/22 Status: Ordered glipiZIDE 10 mg oral tablet, extended release 1 tablet, By Mouth, 2 times a day, # 60 tablet, 5 Refills, Maintenance, 06/20/22 18:08:00 EST, [facility], 170, cm, 04/07/22 14:06:00 EST, Height, 80, kg, 12/12/21 16:28:00 EDT, Dry Weight Start Date: 06/20/22 Status: Ordered Lantus Solostar Pen 100 units/mL subcutaneous solution See Instructions, INJECT 44 UNITS SUBCUTANEOUSLY ONCE DAILY AT BEDTIME, # 15 mL, 2 Refills, Maintenance, 05/25/22 20:02:00 EST, [facility], 170, cm, 04/07/22 14:06:00 EST, Height, 80, kg, 12/12/21 16:28:00 EDT, Dry Weight Start Date: 05/25/22 Status: Ordered metFORMIN 500 mg oral tablet 1 tablet = 500 mg, By Mouth, 2 times a day, # 60 tablet, 11 Refills, Maintenance, 04/18/20 11:39:00EST, Tablet, [facility], Partial fill upon patient request, 168, cm, 04/16/20 13:36:00 EST, Height, 73.55, kg, 03/20/20 19:52:00 EST,... Start Date: 04/18/20 Status: Ordered OxyCODONE IR Tablet 5 mg, Tablet, By Mouth, Once, PRN for Pain , Moderate, STAT, 07/30/22 13:42:00 EDT Start Date: 07/30/22 Stop Date: 07/30/22 Status: Completed Pen [place], 31 G x 8 mm BD Ultra [...] 1 Refills, Maintenance, 03/20/20 16:11:00 EST, Tablet, [facility], Partial fill upon patient request, 167, cm, 03/19/20 9:57:00 EST, Height, 86.2, kg, 01/22/20 7:46:00 EDT DYovani.. Start Date: 03/20/20 Stop Date: 05/19/20 Status: Ordered Problem List Condition Confirmation Course Effective Dates Status [facility] at[facility] Informant Polyp of colon, adenomatous 1 Confirmed 07/24/16 Active Chronic renal impairment Confirmed Active ESRD on dialysis 2 Confirmed Active -donor kidney transplant 3 Confirmed 01/22/20 Active S/p total knee replacement, bilateral Confirmed Active HTN (hypertension) Confirmed Active Diabetic neuropathy Confirmed Active 1rept scope [address] [address] [facility] M, W, F 3campath induction Results Radiology Reports * Exam Date Time Procedure Performing Provider Status 07/30/22 12:[address] Ext Lower W/O Contrast Right Karen Vaughan; Auth (Verified) Notes: (CT Ext Lower W/O Contrast Right) Reason For Exam: Fracture RESULT: CT Ext Lower W/O Contrast Right CT Ext Lower W/O Contrast Right Hx of Present Illness: Multiple falls x 2 months, increased weakness, fall this am while getting OOB, ripped off toenail to 3rd toe. TECHNIQUE: Helical CT labeled right foot without contrast formatted in 3 planes. Weight-based protocol using automatic tube modulation was used to optimize exposure parameters. CTDIvol Body: 9.50 mGy, DLP Body: 290 mGy*cm. COMPARISONS: None FINDINGS: Bones and joints: No fractures or focal osseous lesions are seen. Prominent Achilles enthesophyte with a prominent plantar calcaneal spur. Other scattered smaller enthesophytes and/or chondrocalcinosis. Soft Tissues: Nonspecific mild circumferential superficial soft tissue edema most notably along thefifth ray. No focal fluid collections. IMPRESSION: No acute osseous abnormalities. WSN: [id number] Ordering Physician: Sheyla Esposito Dictated By: Volodymyr Nathan MD Dictated Date/Time: 07/30/22 1:09 pm Reviewed By: Volodymyr Nathan MD Signed By: Volodymyr Nathan MD Signed Date/Time: 07/30/22 1:09 pm Transcribed By: JORY Transcribed Date/Time: 07/30/22 1:00 pm * Exam Date Time Procedure Performing Provider Status 07/30/22 12:[address] Pelvis W/O Contrast Carlos Reynolds; Auth (Verified) Notes: (CT Pelvis W/O Contrast) Reason For Exam: Trauma RESULT: CT Pelvis W/O Contrast CT Pelvis W/O Contrast INDICATION: Posttraumatic evaluation. Hx of Present Illness: Pt coming from home with status post multiple falls x 2 months. TECHNIQUE: Spiral CT without contrast through the pelvis only formatted in 3 planes. Automatic tubemodulation and/or iterative dose reconstruction were used to optimize exposure parameters. CTDIvol Body: 9.50 mGy, DLP Body: 293 mGy*cm. COMPARISON: Left hip CT 12/12/2021, pelvis CT 02/10/2020. FINDINGS: GI tract: Moderately stool-filled redundant colon with scattered colonic diverticulosis. Normal-appearing appendix. Reproductive organs: Unremarkable. Bladder: Unremarkable. Lymph nodes: No enlarged nodes. Peritoneum and mesentery: Transplant planted kidney in the right iliac fossa without evidence of urolithiasis or hydroureteronephrosis. Vascular: Severe atherosclerotic changes, no aneurysm. Bones: No acute fractures or focal osseous lesions. Heterogeneous diffuse sclerotic changes and trabecular thickening likely related to renal osteodystrophy appears largely unchanged. IMPRESSION: No acute process. WSN: [id number] Ordering Physician: Sheyla Esposito Dictated By: Volodymyr Nathan MD Dictated Date/Time: 07/30/22 12:59 p Reviewed By: Volodymyr Nathan MD Signed By: Volodymyr Nathan MD Signed Date/Time: 07/30/22 12:59 pm Transcribed By: JORY Transcribed Date/Time: 07/30/22 12:44 pm * Exam Date Time Procedure Performing Provider Status 07/30/22 9:10 AM Foot Min 3 Views Left Ximena Tapia ; Auth (Verified) Notes: (Foot Min 3 Views Left) Reason For Exam: with Pain;Trauma RESULT: Foot Min 3 Views Left Foot Min 3 Views Left, 3 views HX OF PRESENT ILLNESS: Pt coming from home with c o multiple falls x 2 months, increased weakness, fall this am while getting OOB, ripped off toenail to 3rd toe. Pt sts hx neuropathy, in PT its not helping . Pt denies any LOC thinners, denies any head neck pain.; Reason: Trauma; with Pain; Clinical Question(s): Fracture COMPARISON: None. FINDINGS: Nondisplaced fracture of the tip of the distal phalanx of the fifth toe. Orthopedic screws in the medial malleolus. No arthritic changes. There are atherosclerotic vascular calcifications. Dorsal and plantar calcaneal spurs. IMPRESSION: Nondisplaced fracture of the tip of the distal phalanx of the fifth toe. A critical result message ([place]) has been communicated via the [employer] system on 07/30/2022 9:33 AM, Message ID [id number]. WSN: [id number] Ordering Physician: Sheyla Esposito Dictated By: Terrell Myers MD Dictated Date/Time: 07/30/22 9:33 am Reviewed By: Terrell Myers MD Signed By: Terrell Myers MD Signed Date/Time: 07/30/22 9:33 am Transcribed By: JORY Transcribed Date/Time: 07/30/22 9:32 am * Exam Date Time Procedure Performing Provider Status 07/30/22 9:10 AM XR Femur 2 Views Left Ximena Tapia ; Auth (Verified) Notes: (XR Femur 2 Views Left) Reason For Exam: with Pain;Trauma RESULT: Femur 2 Views Left PROCEDURE: XR Hip w/Pelvis 2-3 View Left, Tibia/Fibula 2 Views Left, Knee 1 or 2 Views Left, Femur 2 Views Left CLINICAL INDICATION: 57 years old Male with Hx of Present Illness: Pt coming from home with c o multiple falls x 2 months, increased weakness, fall this am while getting OOB, pain LEFT hip, LEFT femur, LEFT knee, LEFT lower leg ripped off toenail to 3rd toe. Pt sts hx neuropathy, in PT its not helping . Pt denies any LOC thinners, denies any head neck pain.; Reason: Trauma; With Pain; Clinical Question(s): Fracture. TECHNIQUE: AP pelvis and AP and frog lateral views of the LEFT hip, AP and crosstable lateral viewsof the LEFT femur, AP and crosstable lateral views of the LEFT knee and AP and crosstable lateral views of the LEFT tibia and fibula are obtained. COMPARISONS: Pelvis and LEFT hip of December 12, 2021. LEFT knee July 01, 2017 FINDINGS: Bones and joints: No acute fracture or dislocation. Two screws noted within the medial malleolus fixating a now completely healed fracture.Mild to moderate enthesopathy (calcification at ligament andtendon insertion sites) in the upper pole of the patella increased since 2018 with coarse calcifications noted now at the distal quadriceps tendon which exhibits irregularity and focal thickening possibly from prior injury or calcific tendinopathy. Minor linear calcification within the proximal aspect of the patella tendon which is not thickened. Soft Tissues: Surgical clips in the RIGHT pelvis medially. Severe arterial calcifications. No otherevidence of radiopaque foreign body. IMPRESSION: 1. No evidence of acute bony injuries in the pelvis, LEFT hip, LEFT femur, LEFT knee, LEFT tibia orfibula. Prior ORIF of medial malleolar fracture.. 2. Enthesopathy in the upper pole of the patella and possible posttraumatic calcification of the irregularly thickened distal quadriceps tendon versus calcific tendinopathy, also seen to a lesser degree in the patellar tendon which is not thickened. Thank you for allowing me to participate in the care of this patient. WSN: [id number] Ordering Physician: Sheyla Esposito Dictated By: Edwin Castro MD Dictated Date/Time: 07/30/22 9:32 am Reviewed By: Edwin Castro MD Signed By: Edwin Castro MD Signed Date/Time: 07/30/22 9:32 am Transcribed By: JORY Transcribed Date/Time: 07/30/22 9:27 am * Exam Date Time Procedure Performing Provider Status 07/30/22 9:10 AM Knee 1 or 2 Views Left Tapia , Collee n; Auth (Verified) Notes: (Knee 1 or 2 Views Left) Reason For Exam: with Pain;Trauma RESULT: Knee 1 or 2 Views Left PROCEDURE: XR Hip w/Pelvis 2-3 View Left, Tibia/Fibula 2 Views Left, Knee 1 or 2 Views Left, Femur 2 Views Left CLINICAL INDICATION: 57 years old Male with Hx of Present Illness: Pt coming from home with c o multiple falls x 2 months, increased weakness, fall this am while getting OOB, pain LEFT hip, LEFT femur, LEFT knee, LEFT lower leg ripped off toenail to 3rd toe. Pt sts hx neuropathy, in PT its not helping . Pt denies any LOC thinners, denies any head neck pain.; Reason: Trauma; With Pain; Clinical Question(s): Fracture. TECHNIQUE: AP pelvis and AP and frog lateral views of the LEFT hip, AP and crosstable lateral viewsof the LEFT femur, AP and crosstable lateral views of the LEFT knee and AP and crosstable lateral views of the LEFT tibia and fibula are obtained. COMPARISONS: Pelvis and LEFT hip of December 12, 2021. LEFT knee July 01, 2017 FINDINGS: Bones and joints: No acute fracture or dislocation. Two screws noted within the medial malleolus fixating a now completely healed fracture.Mild to moderate enthesopathy (calcification at ligament andtendon insertion sites) in the upper pole of the patella increased since 2018 with coarse calcifications noted now at the distal quadriceps tendon which exhibits irregularity and focal thickening possibly from prior injury or calcific tendinopathy. Minor linear calcification within the proximal aspect of the patella tendon which is not thickened. Soft Tissues: Surgical clips in the RIGHT pelvis medially. Severe arterial calcifications. No otherevidence of radiopaque foreign body. IMPRESSION: 1. No evidence of acute bony injuries in the pelvis, LEFT hip, LEFT femur, LEFT knee, LEFT tibia orfibula. Prior ORIF of medial malleolar fracture.. 2. Enthesopathy in the upper pole of the patella and possible posttraumatic calcification of the irregularly thickened distal quadriceps tendon versus calcific tendinopathy, also seen to a lesser degree in the patellar tendon which is not thickened. Thank you for allowing me to participate in the care of this patient. WSN: [id number] Ordering Physician: Sheyla Esposito Dictated By: Edwin Castro MD Dictated Date/Time: 07/30/22 9:32 am Reviewed By: Edwin Castro MD Signed By: Edwin Castro MD Signed Date/Time: 07/30/22 9:32 am Transcribed By: JORY Transcribed Date/Time: 07/30/22 9:27 am * Exam Date Time Procedure Performing Provider Status 07/30/22 9:10 AM Tibia/Fibula 2 Views Left Willie Col perez; Auth (Verified) Notes: (Tibia/Fibula 2 Views Left) Reason For Exam: with Pain;Trauma RESULT: Tibia/Fibula 2 Views Left PROCEDURE: XR Hip w/Pelvis 2-3 View Left, Tibia/Fibula 2 Views Left, Knee 1 or 2 Views Left, Femur 2 Views Left CLINICAL INDICATION: 57 years old Male with Hx of Present Illness: Pt coming from home with c o multiple falls x 2 months, increased weakness, fall this am while getting OOB, pain LEFT hip, LEFT femur, LEFT knee, LEFT lower leg ripped off toenail to 3rd toe. Pt sts hx neuropathy, in PT its not helping . Pt denies any LOC thinners, denies any head neck pain.; Reason: Trauma; With Pain; Clinical Question(s): Fracture. TECHNIQUE: AP pelvis and AP and frog lateral views of the LEFT hip, AP and crosstable lateral viewsof the LEFT femur, AP and crosstable lateral views of the LEFT knee and AP and crosstable lateral views of the LEFT tibia and fibula are obtained. COMPARISONS: Pelvis and LEFT hip of December 12, 2021. LEFT knee July 01, 2017 FINDINGS: Bones and joints: No acute fracture or dislocation. Two screws noted within the medial malleolus fixating a now completely healed fracture.Mild to moderate enthesopathy (calcification at ligament andtendon insertion sites) in the upper pole of the patella increased since 2018 with coarse calcifications noted now at the distal quadriceps tendon which exhibits irregularity and focal thickening possibly from prior injury or calcific tendinopathy. Minor linear calcification within the proximal aspect of the patella tendon which is not thickened. Soft Tissues: Surgical clips in the RIGHT pelvis medially. Severe arterial calcifications. No otherevidence of radiopaque foreign body. IMPRESSION: 1. No evidence of acute bony injuries in the pelvis, LEFT hip, LEFT femur, LEFT knee, LEFT tibia orfibula. Prior ORIF of medial malleolar fracture.. 2. Enthesopathy in the upper pole of the patella and possible posttraumatic calcification of the irregularly thickened distal quadriceps tendon versus calcific tendinopathy, also seen to a lesser degree in the patellar tendon which is not thickened. Thank you for allowing me to participate in the care of this patient. WSN: [id number] Ordering Physician: Sheyla Esposito Dictated By: Edwin Castro MD Dictated Date/Time: 07/30/22 9:32 am Reviewed By: Edwin Castro MD Signed By: Edwin Castro MD Signed Date/Time: 07/30/22 9:32 am Transcribed By: JORY Transcribed Date/Time: 07/30/22 9:27 am * Exam Date Time Procedure Performing Provider Status 07/30/22 9:10 AM XR Hip w/Pelvis 2-3 View Left Ximena Tapia; Callum (Verified) Notes: (XR Hip w/Pelvis 2-3 View Left) Reason For Exam: With Pain;Trauma RESULT: XR Hip w/Pelvis 2-3 View Left PROCEDURE: XR Hip w/Pelvis 2-3 View Left, Tibia/Fibula 2 Views Left, Knee 1 or 2 Views Left, Femur 2 Views Left CLINICAL INDICATION: 57 years old Male with Hx of Present Illness: Pt coming from home with c o multiple falls x 2 months, increased weakness, fall this am while getting OOB, pain LEFT hip, LEFT femur, LEFT knee, LEFT lower leg ripped off toenail to 3rd toe. Pt sts hx neuropathy, in PT its not helping . Pt denies any LOC thinners, denies any head neck pain.; Reason: Trauma; With Pain; Clinical Question(s): Fracture. TECHNIQUE: AP pelvis and AP and frog lateral views of the LEFT hip, AP and crosstable lateral viewsof the LEFT femur, AP and crosstable lateral views of the LEFT knee and AP and crosstable lateral views of the LEFT tibia and fibula are obtained. COMPARISONS: Pelvis and LEFT hip of December 12, 2021. LEFT knee July 01, 2017 FINDINGS: Bones and joints: No acute fracture or dislocation. Two screws noted within the medial malleolus fixating a now completely healed fracture.Mild to moderate enthesopathy (calcification at ligament andtendon insertion sites) in the upper pole of the patella increased since 2018 with coarse calcifications noted now at the distal quadriceps tendon which exhibits irregularity and focal thickening possibly from prior injury or calcific tendinopathy. Minor linear calcification within the proximal aspect of the patella tendon which is not thickened. Soft Tissues: Surgical clips in the RIGHT pelvis medially. Severe arterial calcifications. No otherevidence of radiopaque foreign body. IMPRESSION: 1. No evidence of acute bony injuries in the pelvis, LEFT hip, LEFT femur, LEFT knee, LEFT tibia orfibula. Prior ORIF of medial malleolar fracture.. 2. Enthesopathy in the upper pole of the patella and possible posttraumatic calcification of the irregularly thickened distal quadriceps tendon versus calcific tendinopathy, also seen to a lesser degree in the patellar tendon which is not thickened. Thank you for allowing me to participate in the care of this patient. WSN: [id number] Ordering Physician: Sheyla Esposito Dictated By: Edwin Castro MD Dictated Date/Time: 07/30/22 9:32 am Reviewed By: Edwin Castro MD Signed By: Edwin Castro MD Signed Date/Time: 07/30/22 9:32 am Transcribed By: JORY Transcribed Date/Time: 07/30/22 9:27 am * Exam Date Time Procedure Performing Provider Status 07/30/22 9:10 AM Foot Min 3 Views Right Ashley Tapia; Callum (Verified) Notes: (Foot Min 3 Views Right) Reason For Exam: with Pain;Trauma RESULT: Foot Min 3 Views Right Knee 1 or 2 Views Right, Tibia/Fibula 2 Views Right, Foot Min 3 Views Right INDICATION: Multiple falls including today. Dialysis patient. Diabetes. Posttraumatic right lower extremity tenderness. TECHNIQUE: AP and lateral right knee. AP and lateral right tibia-fibula. AP, oblique, lateral right foot.. COMPARISON: 07/01/2017 FINDINGS: No fracture of the visualized part of the femur. No fracture or focal lesion patella, tibia, and fibula. Knee joint shows no osteoarthritis. No joint effusion. There is calcification within the quadricepstendon. The ankle joint is intact. Examination of bones of the feet, on the lateral view only there is a mildly displaced 7 x 3 mm fragment avulsed from the anterior dorsal surface of the talus. No other fracture of the foot. No arthritic changes of the foot. Large spur at insertion of Achilles tendon. Moderate plantar spur. Soft tissues show prominent atherosclerotic calcification and no gas or opaque foreign body. IMPRESSION: 1. There is a small avulsion fragment arising from the anterior dorsal aspect of the talus.. 2. Otherwise no fracture of the right lower extremity from knee down to the toes. 3. No arthritic change involving knee, ankle, or joints of foot.. 4. Plantar spurs. 5. Prominent atherosclerosis.. WSN: [id number] Ordering Physician: Sheyla Esposito Dictated By: Luis Enrique To MD Dictated Date/Time: 07/30/22 9:37 am Reviewed By: Luis Enrique To MD Signed By: Luis Enrique To MD Signed Date/Time: 07/30/22 9:37 am Transcribed By: JORY Transcribed Date/Time: 07/30/22 9:27 am * Exam Date Time Procedure Performing Provider Status 07/30/22 9:10 AM Tibia/Fibula 2 Views Right Katarzyna Tapia; Auth (Verified) Notes: (Tibia/Fibula 2 Views Right) Reason For Exam: with Pain;Trauma RESULT: Tibia/Fibula 2 Views Right Knee 1 or 2 Views Right, Tibia/Fibula 2 Views Right, Foot Min 3 Views Right INDICATION: Multiple falls including today. Dialysis patient. Diabetes. Posttraumatic right lower extremity tenderness. TECHNIQUE: AP and lateral right knee. AP and lateral right tibia-fibula. AP, oblique, lateral right foot.. COMPARISON: 07/01/2017 FINDINGS: No fracture of the visualized part of the femur. No fracture or focal lesion patella, tibia, and fibula. Knee joint shows no osteoarthritis. No joint effusion. There is calcification within the quadricepstendon. The ankle joint is intact. Examination of bones of the feet, on the lateral view only there is a mildly displaced 7 x 3 mm fragment avulsed from the anterior dorsal surface of the talus. No other fracture of the foot. No arthritic changes of the foot. Large spur at insertion of Achilles tendon. Moderate plantar spur. Soft tissues show prominent atherosclerotic calcification and no gas or opaque foreign body. IMPRESSION: 1. There is a small avulsion fragment arising from the anterior dorsal aspect of the talus.. 2. Otherwise no fracture of the right lower extremity from knee down to the toes. 3. No arthritic change involving knee, ankle, or joints of foot.. 4. Plantar spurs. 5. Prominent atherosclerosis.. WSN: [id number] Ordering Physician: Sheyla Esposito Dictated By: Luis Enrique To MD Dictated Date/Time: 07/30/22 9:37 am Reviewed By: Luis Enrique To MD Signed By: Luis Enrique To MD Signed Date/Time: 07/30/22 9:37 am Transcribed By: JORY Transcribed Date/Time: 07/30/22 9:27 am * Exam Date Time Procedure Performing Provider Status 07/30/22 9:10 AM Knee 1 or 2 Views Right Eric Tapia en; Auth (Verified) Notes: (Knee 1 or 2 Views Right) Reason For Exam: with Pain;Trauma RESULT: Knee 1 or 2 Views Right Knee 1 or 2 Views Right, Tibia/Fibula 2 Views Right, Foot Min 3 Views Right INDICATION: Multiple falls including today. Dialysis patient. Diabetes. Posttraumatic right lower extremity tenderness. TECHNIQUE: AP and lateral right knee. AP and lateral right tibia-fibula. AP, oblique, lateral right foot.. COMPARISON: 07/01/2017 FINDINGS: No fracture of the visualized part of the femur. No fracture or focal lesion patella, tibia, and fibula. Knee joint shows no osteoarthritis. No joint effusion. There is calcification within the quadricepstendon. The ankle joint is intact. Examination of bones of the feet, on the lateral view only there is a mildly displaced 7 x 3 mm fragment avulsed from the anterior dorsal surface of the talus. No other fracture of the foot. No arthritic changes of the foot. Large spur at insertion of Achilles tendon. Moderate plantar spur. Soft tissues show prominent atherosclerotic calcification and no gas or opaque foreign body. IMPRESSION: 1. There is a small avulsion fragment arising from the anterior dorsal aspect of the talus.. 2. Otherwise no fracture of the right lower extremity from knee down to the toes. 3. No arthritic change involving knee, ankle, or joints of foot.. 4. Plantar spurs. 5. Prominent atherosclerosis.. WSN: [id number] Ordering Physician: Sheyla Esposito Dictated By: Luis Enrique To MD Dictated Date/Time: 07/30/22 9:37 am Reviewed By: Luis Enrique To MD Signed By: Luis Enrique To MD Signed Date/Time: 07/30/22 9:37 am Transcribed By: CSB Transcribed Date/Time: 07/30/22 9:27 am Vital Signs Most recent to oldest [Reference Range]: 1 2 3 Height 168 cm (07/30/22 1:32 PM) 168 cm (07/30/22 8:03 AM) 168 cm (07/30/22 7:54 AM) Weight 78.2 kg (07/30/22 1:32 PM) 78.2 kg (07/30/22 8:03 AM) 78.2 kg (07/30/22 7:54 AM) Oxygen Saturation [94-100 %] 97 % (07/30/22 4:04 PM) 97 % (07/30/22 1:32 PM) 100 % (07/30/22 8:03 AM) Pulse Rate [55-90 bpm] 70 bpm (07/30/22 4:04 PM) 70 bpm (07/30/22 1:32 PM) 63 bpm (07/30/22 8:03 AM) Body Mass Index [18.5-24.99 kg/m2] 27.71 kg/m2 *H* (07/30/22 1:32 PM) 27.71 kg/m2 *H* (07/30/22 8:03 AM) Blood Pressure [90-138/55-84 mm Hg] 119/77mm Hg (07/30/22 4:04 PM) 106/62mm Hg (07/30/22 1:32 PM) 138/74mm Hg (07/30/22 8:03 AM) Respiratory Rate [16-30 br/min] 18 br/min (07/30/22 4:04 PM) 18 br/min (07/30/22 3:32 PM) 17 br/min (07/30/22 1:32 PM) Temperature [96.8-100.4 DegF] 97 DegF (07/30/22 1:32 PM) 98.1 DegF (07/30/22 8:03 AM) Mode of Delivery (Oxygen) Room air (07/30/22 4:04 PM) Room air (07/30/22 1:32 PM) Room air (07/30/22 8:03 AM) Blood pressure sites Arm, right (07/30/22 8:03 AM) Temperature Route Oral (07/30/22 1:32 PM) Oral (07/30/22 8:03 AM) Dry Weight 78.2 kg (07/30/22 1:32 PM) 78.2 kg (07/30/22 8:03 AM) 78.2 kg (07/30/22 7:54 AM) Weight Obtained Via Patient/family state d (07/30/22 7:54 AM) Dry Weight Obtained Via Patient/family s tated (07/30/22 7:54 AM) Social History Social History Type Response Smoking Status Never (less than 100 in lifetime) entered on: 07/22/22 Sex Male Note * Sheyla Esposito MD: PERFORM, SIGN, VERIFY Event Display: Patient Education Handout Authored Date: [id number] * Sheyla Esposito MD: PERFORM Event Display: Patient Education Leaflets Authored Date: [id number] Closed Toe Fracture ?? [id number] Closed Toe Fracture Your??toe is broken (fractured). This causes pain, swelling, and sometimes bruising. This injury usually takes about 4 to 6 weeks to heal, sometimes longer. Toe injuries are often treated by taping the injured toe to the next one (kristy taping). Or you may have a hard shoe, splint, or cast. These protect the injured toe and hold it in position. If the toenail has been severely injured, it may fall off in 1 to 2 weeks. It takes up to 12 monthsfor a new toenail to grow back. Home care Follow these guidelines when caring for yourself at home: ??? You may be given a cast shoe to wear to keep your toe from moving. If not, you can use a sandal or any shoe that doesn???t put pressure on the injured toe until the swelling and pain go away. If using a sandal, be careful not to hit yourfoot against anything. Another injury could make the fracture worse. If you were given crutches, don???t put full weight on the injured foot until you can do so without pain, or as directed by your healthcare provider. ??? Keep your foot elevated to reduce pain and swelling. When sleeping, put a pillow under the injured leg. When sitting, support the injured leg so it's above your waist. This is very important during the first 2 days (48 hours). ??? Put an ice pack on the injured area. Do this for 20 minutes every 1 to 2 hours the first day for pain relief. You can make an ice pack by wrapping a plastic bag of ice cubes in a thin towel. As the ice melts, be careful that any cloth or paper tape doesn???t get wet. Continue using the ice pack 3 to 4 times a day for the next 2 days. Then, usethe ice pack as needed to ease pain and swelling. ??? If kristy tape was used and it becomes wet or dirty, change it. You may replace it with paper, plastic, or cloth tape. Cloth tape and paper tape must be kept dry. ??? You may use acetaminophen or ibuprofen to control pain, unless another pain medi cine was prescribed. If you have chronic liver or kidney disease, talk with your healthcare provider before using these medicines. Also, talk with your provider if you???ve had a stomach ulcer, gastrointestinal bleeding, or take a blood thinner. ??? You may return to sports or physical education activities after 4 weeks when you can run without pain, or as directed by your healthcare provider. ?? Follow-up care Follow up with your healthcare provider or as advised. This is to make sure the bone is healing theway it should. X-rays may be taken. You will be told of any new findings that may affect your care. ?? When to seek medical advice Call your healthcare provider right away if any of these occur: ??? Pain or swelling gets worse ???The cast or splint cracks ??? The cast and padding get wet and stay wet more than 24 hours ??? Bad odor from the cast or splint or wound fluid stains the cast ??? Tightness or pressure under the castor splint gets worse ??? Toe becomes cold, blue, numb, or tingly ??? You can???t move the toe ??? Signs of infection: fever, redness, warmth, swelling, or drainage from the wound??or cast ??? Fever of??100.4??F (38??C)??or higher, or as directed by your healthcare provider ??? Shaking chills ?? Last Reviewed Date: 2021 ?? [id number] [employer]. All rights reserved. This information is not intended as a substitute for professional medical care. Always follow your healthcare professional's instructions. ?? XR Femur - left 2 Views * Kathy , GERONIMO S: LAWANDA Castro MD, Edwin Doan: VERIFY Event Display: Result: Authored Date: [id number] PROCEDURE: XR Hip w/Pelvis 2-3 View Left, Tibia/Fibula 2 Views Left, Knee 1 or 2 Views Left, Femur 2 Views Left CLINICAL INDICATION: 57 years old Male with Hx of Present Illness: Pt coming from home with c o multiple falls x 2 months, increased weakness, fall this am while getting OOB, pain LEFT hip, LEFT femur, LEFT knee, LEFT lower leg ripped off toenail to 3rd toe. Pt sts hx neuropathy, in PT its not helping . Pt denies any LOC thinners, denies any head neck pain.; Reason: Trauma; With Pain; Clinical Question(s): Fracture. TECHNIQUE: AP pelvis and AP and frog lateral views of the LEFT hip, AP and crosstable lateral viewsof the LEFT femur, AP and crosstable lateral views of the LEFT knee and AP and crosstable lateral views of the LEFT tibia and fibula are obtained. COMPARISONS: Pelvis and LEFT hip of December 12, 2021. LEFT knee July 01, 2017 FINDINGS: Bones and joints: No acute fracture or dislocation. Two screws noted within the medial malleolus fixating a now completely healed fracture.Mild to moderate enthesopathy (calcification at ligament andtendon insertion sites) in the upper pole of the patella increased since 2018 with coarse calcifications noted now at the distal quadriceps tendon which exhibits irregularity and focal thickening possibly from prior injury or calcific tendinopathy. Minor linear calcification within the proximal aspect of the patella tendon which is not thickened. Soft Tissues: Surgical clips in the RIGHT pelvis medially. Severe arterial calcifications. No otherevidence of radiopaque foreign body. IMPRESSION: 1. No evidence of acute bony injuries in the pelvis, LEFT hip, LEFT femur, LEFT knee, LEFT tibia orfibula. Prior ORIF of medial malleolar fracture.. 2. Enthesopathy in the upper pole of the patella and possible posttraumatic calcification of the irregularly thickened distal quadriceps tendon versus calcific tendinopathy, also seen to a lesser degree in the patellar tendon which is not thickened. Thank you for allowing me to participate in the care of this patient. WSN: [id number] Ordering Physician: Sheyla Esposito Dictated By: Edwin Castro MD Dictated Date/Time: 07/30/22 9:32 am Reviewed By: Edwin Castro MD Signed By: Edwin Castro MD Signed Date/Time: 07/30/22 9:32 am Transcribed By: JORY Transcribed Date/Time: 07/30/22 9:27 am XR Knee - left 1 or 2 Views * [facility] , CIS S: TRANSCRIBE Edwin Castro MD: VERIFY Event Display: Result: Authored Date: [id number] PROCEDURE: XR Hip w/Pelvis 2-3 View Left, Tibia/Fibula 2 Views Left, Knee 1 or 2 Views Left, Femur 2 Views Left CLINICAL INDICATION: 57 years old Male with Hx of Present Illness: Pt coming from home with c o multiple falls x 2 months, increased weakness, fall this am while getting OOB, pain LEFT hip, LEFT femur, LEFT knee, LEFT lower leg ripped off toenail to 3rd toe. Pt sts hx neuropathy, in PT its not helping . Pt denies any LOC thinners, denies any head neck pain.; Reason: Trauma; With Pain; Clinical Question(s): Fracture. TECHNIQUE: AP pelvis and AP and frog lateral views of the LEFT hip, AP and crosstable lateral viewsof the LEFT femur, AP and crosstable lateral views of the LEFT knee and AP and crosstable lateral views of the LEFT tibia and fibula are obtained. COMPARISONS: Pelvis and LEFT hip of December 12, 2021. LEFT knee July 01, 2017 FINDINGS: Bones and joints: No acute fracture or dislocation. Two screws noted within the medial malleolus fixating a now completely healed fracture.Mild to moderate enthesopathy (calcification at ligament andtendon insertion sites) in the upper pole of the patella increased since 2018 with coarse calcifications noted now at the distal quadriceps tendon which exhibits irregularity and focal thickening possibly from prior injury or calcific tendinopathy. Minor linear calcification within the proximal aspect of the patella tendon which is not thickened. Soft Tissues: Surgical clips in the RIGHT pelvis medially. Severe arterial calcifications. No otherevidence of radiopaque foreign body. IMPRESSION: 1. No evidence of acute bony injuries in the pelvis, LEFT hip, LEFT femur, LEFT knee, LEFT tibia orfibula. Prior ORIF of medial malleolar fracture.. 2. Enthesopathy in the upper pole of the patella and possible posttraumatic calcification of the irregularly thickened distal quadriceps tendon versus calcific tendinopathy, also seen to a lesser degree in the patellar tendon which is not thickened. Thank you for allowing me to participate in the care of this patient. WSN: [id number] Ordering Physician: Sheyla Esposito Dictated By: Edwin Castro MD Dictated Date/Time: 07/30/22 9:32 am Reviewed By: Edwin Castro MD Signed By: Edwin Castro MD Signed Date/Time: 07/30/22 9:32 am Transcribed By: CSHung Transcribed Date/Time: 07/30/22 9:27 am XR Tibia and Fibula - left 2 Views * [facility] , CIS S: TRANSCRIBE Edwin Castro MD: VERIFY Event Display: Result: Authored Date: [id number] PROCEDURE: XR Hip w/Pelvis 2-3 View Left, Tibia/Fibula 2 Views Left, Knee 1 or 2 Views Left, Femur 2 Views Left CLINICAL INDICATION: 57 years old Male with Hx of Present Illness: Pt coming from home with c o multiple falls x 2 months, increased weakness, fall this am while getting OOB, pain LEFT hip, LEFT femur, LEFT knee, LEFT lower leg ripped off toenail to 3rd toe. Pt sts hx neuropathy, in PT its not helping . Pt denies any LOC thinners, denies any head neck pain.; Reason: Trauma; With Pain; Clinical Question(s): Fracture. TECHNIQUE: AP pelvis and AP and frog lateral views of the LEFT hip, AP and crosstable lateral viewsof the LEFT femur, AP and crosstable lateral views of the LEFT knee and AP and crosstable lateral views of the LEFT tibia and fibula are obtained. COMPARISONS: Pelvis and LEFT hip of December 12, 2021. LEFT knee July 01, 2017 FINDINGS: Bones and joints: No acute fracture or dislocation. Two screws noted within the medial malleolus fixating a now completely healed fracture.Mild to moderate enthesopathy (calcification at ligament andtendon insertion sites) in the upper pole of the patella increased since 2018 with coarse calcifications noted now at the distal quadriceps tendon which exhibits irregularity and focal thickening possibly from prior injury or calcific tendinopathy. Minor linear calcification within the proximal aspect of the patella tendon which is not thickened. Soft Tissues: Surgical clips in the RIGHT pelvis medially. Severe arterial calcifications. No otherevidence of radiopaque foreign body. IMPRESSION: 1. No evidence of acute bony injuries in the pelvis, LEFT hip, LEFT femur, LEFT knee, LEFT tibia orfibula. Prior ORIF of medial malleolar fracture.. 2. Enthesopathy in the upper pole of the patella and possible posttraumatic calcification of the irregularly thickened distal quadriceps tendon versus calcific tendinopathy, also seen to a lesser degree in the patellar tendon which is not thickened. Thank you for allowing me to participate in the care of this patient. WSN: [id number] Ordering Physician: Sheyla Esposito Dictated By: Edwin Castro MD Dictated Date/Time: 07/30/22 9:32 am Reviewed By: Edwin Castro MD Signed By: Edwin Castro MD Signed Date/Time: 07/30/22 9:32 am Transcribed By: JORY Transcribed Date/Time: 07/30/22 9:27 am XR Pelvis and Hip - left Views * [facility] , CIS S: TRANSCRIBE Edwin Castro MD: VERIFY Event Display: Result: Authored Date: [id number] PROCEDURE: XR Hip w/Pelvis 2-3 View Left, Tibia/Fibula 2 Views Left, Knee 1 or 2 Views Left, Femur 2 Views Left CLINICAL INDICATION: 57 years old Male with Hx of Present Illness: Pt coming from home with c o multiple falls x 2 months, increased weakness, fall this am while getting OOB, pain LEFT hip, LEFT femur, LEFT knee, LEFT lower leg ripped off toenail to 3rd toe. Pt sts hx neuropathy, in PT its not helping . Pt denies any LOC thinners, denies any head neck pain.; Reason: Trauma; With Pain; Clinical Question(s): Fracture. TECHNIQUE: AP pelvis and AP and frog lateral views of the LEFT hip, AP and crosstable lateral viewsof the LEFT femur, AP and crosstable lateral views of the LEFT knee and AP and crosstable lateral views of the LEFT tibia and fibula are obtained. COMPARISONS: Pelvis and LEFT hip of December 12, 2021. LEFT knee July 01, 2017 FINDINGS: Bones and joints: No acute fracture or dislocation. Two screws noted within the medial malleolus fixating a now completely healed fracture.Mild to moderate enthesopathy (calcification at ligament andtendon insertion sites) in the upper pole of the patella increased since 2018 with coarse calcifications noted now at the distal quadriceps tendon which exhibits irregularity and focal thickening possibly from prior injury or calcific tendinopathy. Minor linear calcification within the proximal aspect of the patella tendon which is not thickened. Soft Tissues: Surgical clips in the RIGHT pelvis medially. Severe arterial calcifications. No otherevidence of radiopaque foreign body. IMPRESSION: 1. No evidence of acute bony injuries in the pelvis, LEFT hip, LEFT femur, LEFT knee, LEFT tibia orfibula. Prior ORIF of medial malleolar fracture.. 2. Enthesopathy in the upper pole of the patella and possible posttraumatic calcification of the irregularly thickened distal quadriceps tendon versus calcific tendinopathy, also seen to a lesser degree in the patellar tendon which is not thickened. Thank you for allowing me to participate in the care of this patient. WSN: [id number] Ordering Physician: Sheyla Esposito Dictated By: Edwin Castro MD Dictated Date/Time: 07/30/22 9:32 am Reviewed By: Edwin Castro MD Signed By: Edwin Castro MD Signed Date/Time: 07/30/22 9:32 am Transcribed By: JORY Transcribed Date/Time: 07/30/22 9:27 am XR Foot - left GE 3 Views * [facility] , CIS S: TRANSCRIBE Terrell Myers MD S: VERIFY Event Display: Result: Authored Date: [id number] Foot Min 3 Views Left, 3 views HX OF PRESENT ILLNESS: Pt coming from home with c o multiple falls x 2 months, increased weakness, fall this am while getting OOB, ripped off toenail to 3rd toe. Pt sts hx neuropathy, in PT its not helping . Pt denies any LOC thinners, denies any head neck pain.; Reason: Trauma; with Pain; Clinical Question(s): Fracture COMPARISON: None. FINDINGS: Nondisplaced fracture of the tip of the distal phalanx of the fifth toe. Orthopedic screws in the medial malleolus. No arthritic changes. There are atherosclerotic vascular calcifications. Dorsal and plantar calcaneal spurs. IMPRESSION: Nondisplaced fracture of the tip of the distal phalanx of the fifth toe. A critical result message ([place]) has been communicated via the [employer] system on 07/30/2022 9:33 AM, Message ID [id number]. WSN: [id number] Ordering Physician: Sheyla Esposito Dictated By: Terrell Myers MD Dictated Date/Time: 07/30/22 9:33 am Reviewed By: Terrell Myers MD Signed By: Terrell Myers MD Signed Date/Time: 07/30/22 9:33 am Transcribed By: JORY Transcribed Date/Time: 07/30/22 9:32 am XR Foot - right GE 3 Views * [facility] , CIS S: TRANSCRIBE Luis Enrique To MD D: VERIFY Event Display: Result: Authored Date: [id number] Knee 1 or 2 Views Right, Tibia/Fibula 2 Views Right, Foot Min 3 Views Right INDICATION: Multiple falls including today. Dialysis patient. Diabetes. Posttraumatic right lower extremity tenderness. TECHNIQUE: AP and lateral right knee. AP and lateral right tibia-fibula. AP, oblique, lateral right foot.. COMPARISON: 07/01/2017 FINDINGS: No fracture of the visualized part of the femur. No fracture or focal lesion patella, tibia, and fibula. Knee joint shows no osteoarthritis. No joint effusion. There is calcification within the quadricepstendon. The ankle joint is intact. Examination of bones of the feet, on the lateral view only there is a mildly displaced 7 x 3 mm fragment avulsed from the anterior dorsal surface of the talus. No other fracture of the foot. No arthritic changes of the foot. Large spur at insertion of Achilles tendon. Moderate plantar spur. Soft tissues show prominent atherosclerotic calcification and no gas or opaque foreign body. IMPRESSION: 1. There is a small avulsion fragment arising from the anterior dorsal aspect of the talus.. 2. Otherwise no fracture of the right lower extremity from knee down to the toes. 3. No arthritic change involving knee, ankle, or joints of foot.. 4. Plantar spurs. 5. Prominent atherosclerosis.. WSN: [id number] Ordering Physician: Sheyla Esposito Dictated By: Luis Enrique To MD Dictated Date/Time: 07/30/22 9:37 am Reviewed By: Luis Enrique To MD Signed By: Luis Enrique To MD Signed Date/Time: 07/30/22 9:37 am Transcribed By: JORY Transcribed Date/Time: 07/30/22 9:27 am XR Tibia and Fibula - right 2 Views * [facility] [employer] , CIS S: TRANSCRIBE Luis Enrique To MD: VERIFY Event Display: Result: Authored Date: [id number] Knee 1 or 2 Views Right, Tibia/Fibula 2 Views Right, Foot Min 3 Views Right INDICATION: Multiple falls including today. Dialysis patient. Diabetes. Posttraumatic right lower extremity tenderness. TECHNIQUE: AP and lateral right knee. AP and lateral right tibia-fibula. AP, oblique, lateral right foot.. COMPARISON: 07/01/2017 FINDINGS: No fracture of the visualized part of the femur. No fracture or focal lesion patella, tibia, and fibula. Knee joint shows no osteoarthritis. No joint effusion. There is calcification within the quadricepstendon. The ankle joint is intact. Examination of bones of the feet, on the lateral view only there is a mildly displaced 7 x 3 mm fragment avulsed from the anterior dorsal surface of the talus. No other fracture of the foot. No arthritic changes of the foot. Large spur at insertion of Achilles tendon. Moderate plantar spur. Soft tissues show prominent atherosclerotic calcification and no gas or opaque foreign body. IMPRESSION: 1. There is a small avulsion fragment arising from the anterior dorsal aspect of the talus.. 2. Otherwise no fracture of the right lower extremity from knee down to the toes. 3. No arthritic change involving knee, ankle, or joints of foot.. 4. Plantar spurs. 5. Prominent atherosclerosis.. WSN: [id number] Ordering Physician: Sheyla Esposito Dictated By: Luis Enrique To MD Dictated Date/Time: 07/30/22 9:37 am Reviewed By: Luis Enrique To MD Signed By: Luis Enrique To MD Signed Date/Time: 07/30/22 9:37 am Transcribed By: JORY Transcribed Date/Time: 07/30/22 9:27 am XR Knee - right 1 or 2 Views * BHSPcierra , CIS S: Luis Enrique Morse MD: VERIFY Event Display: Result: Authored Date: [id number] Knee 1 or 2 Views Right, Tibia/Fibula 2 Views Right, Foot Min 3 Views Right INDICATION: Multiple falls including today. Dialysis patient. Diabetes. Posttraumatic right lower extremity tenderness. TECHNIQUE: AP and lateral right knee. AP and lateral right tibia-fibula. AP, oblique, lateral right foot.. COMPARISON: 07/01/2017 FINDINGS: No fracture of the visualized part of the femur. No fracture or focal lesion patella, tibia, and fibula. Knee joint shows no osteoarthritis. No joint effusion. There is calcification within the quadricepstendon. The ankle joint is intact. Examination of bones of the feet, on the lateral view only there is a mildly displaced 7 x 3 mm fragment avulsed from the anterior dorsal surface of the talus. No other fracture of the foot. No arthritic changes of the foot. Large spur at insertion of Achilles tendon. Moderate plantar spur. Soft tissues show prominent atherosclerotic calcification and no gas or opaque foreign body. IMPRESSION: 1. There is a small avulsion fragment arising from the anterior dorsal aspect of the talus.. 2. Otherwise no fracture of the right lower extremity from knee down to the toes. 3. No arthritic change involving knee, ankle, or joints of foot.. 4. Plantar spurs. 5. Prominent atherosclerosis.. WSN: [id number] Ordering Physician: Sheyla Esposito Dictated By: Luis Enrique To MD Dictated Date/Time: 07/30/22 9:37 am Reviewed By: Luis Enrique To MD Signed By: Luis Enrique To MD Signed Date/Time: 07/30/22 9:37 am Transcribed By: JORY Transcribed Date/Time: 07/30/22 9:[address] Pelvis WO contrast * SPowerjaquelin , CIS S: Volodymyr Duckworth MD: VERIFY Event Display: Result: Authored Date: [id number] CT Pelvis W/O Contrast INDICATION: Posttraumatic evaluation. Hx of Present Illness: Pt coming from home with status post multiple falls x 2 months. TECHNIQUE: Spiral CT without contrast through the pelvis only formatted in 3 planes. Automatic tubemodulation and/or iterative dose reconstruction were used to optimize exposure parameters. CTDIvol Body: 9.50 mGy, DLP Body: 293 mGy*cm. COMPARISON: Left hip CT 12/12/2021, pelvis CT 02/10/2020. FINDINGS: GI tract: Moderately stool-filled redundant colon with scattered colonic diverticulosis. Normal-appearing appendix. Reproductive organs: Unremarkable. Bladder: Unremarkable. Lymph nodes: No enlarged nodes. Peritoneum and mesentery: Transplant planted kidney in the right iliac fossa without evidence of urolithiasis or hydroureteronephrosis. Vascular: Severe atherosclerotic changes, no aneurysm. Bones: No acute fractures or focal osseous lesions. Heterogeneous diffuse sclerotic changes and trabecular thickening likely related to renal osteodystrophy appears largely unchanged. IMPRESSION: No acute process. WSN: [id number] Ordering Physician: Sheyla Esposito Dictated By: Volodymyr Nathan MD Dictated Date/Time: 07/30/22 12:59 p Reviewed By: Volodymyr Nathan MD Signed By: Volodymyr Nathan MD Signed Date/Time: 07/30/22 12:59 pm Transcribed By: JORY Transcribed Date/Time: 07/30/22 12:[address] Lower extremity WO contrast * [facility] , CIS S: TRANSCRIBE Volodymyr Nathan MD: VERIFY Event Display: Result: Authored Date: [id number] CT Ext Lower W/O Contrast Right Hx of Present Illness: Multiple falls x 2 months, increased weakness, fall this am while getting OOB, ripped off toenail to 3rd toe. TECHNIQUE: Helical CT labeled right foot without contrast formatted in 3 planes. Weight-based protocol using automatic tube modulation was used to optimize exposure parameters. CTDIvol Body: 9.50 mGy, DLP Body: 290 mGy*cm. COMPARISONS: None FINDINGS: Bones and joints: No fractures or focal osseous lesions are seen. Prominent Achilles enthesophyte with a prominent plantar calcaneal spur. Other scattered smaller enthesophytes and/or chondrocalcinosis. Soft Tissues: Nonspecific mild circumferential superficial soft tissue edema most notably along thefifth ray. No focal fluid collections. IMPRESSION: No acute osseous abnormalities. WSN: [id number] Ordering Physician: Sheyla Esposito Dictated By: Volodymyr Nathan MD Dictated Date/Time: 07/30/22 1:09 pm Reviewed By: Volodymyr Nathan MD Signed By: Volodymyr Nathan MD Signed Date/Time: 07/30/22 1:09 pm Transcribed By: CSHung Transcribed Date/Time: 07/30/22 1:00 pm Patient Care team information Care Team Personnel Name: Teresa Ha RN Position: [facility] RN Supv Member Role: Primary Care Nurse Name: Elena Roberts RN Position: [facility] RN Member Role: Primary Care Nurse Name: Osvaldo House DO Position: [facility] Renal MD Member Role: Lifetime Consulting Physician Address: Address: [address] [facility] [place] [address]- Name: Brendan Guillermo MD Position: [facility] Renal MD Member Role: Lifetime Consulting Physician Address: Address: [address] [facility] [place] [address]- Name: Gale Wilcox Position: [facility] AMB Nurse Member Role: Primary Care Nurse Name: Cata Gong RN Position: [facility] AMB Nurse Member Role: Primary Care Nurse Name: Monae Rodriguez RN Position: [facility] RN Member Role: Primary Care Nurse Name: Alisha Polanco RN Position: [facility] RN Member Role: Primary Care Nurse Name: Gabbie Park RN Position: [facility] OB RN Member Role: Primary Care Nurse Name: Lou Hodge RN Position: [facility] SN RN Member Role: Primary Care Nurse Name: Ryann Salas RN Position: [facility] SN RN Member Role: Primary Care Nurse Name: Harmony Cr MD Position: [facility] Resident Member Role: PCP Address: Address: [address] [place] [address]- [place] Name: Stephanie Schroeder RN Position: [facility] RN Member Role: Primary Care Nurse Name: Lynette Comer RN Position: [facility] Onco RN Member Role: Primary Care Nurse Name: Pepe Miller RN Position: [facility] SN RN Member Role: Primary Care Nurse Name: Olu Cortés MD Position: [facility] Renal MD Member Role: Lifetime Consulting Physician Address: Address: [address] [facility] [place] [address]- [facility] Attending Position: [facility] ED Attendings Patient Name: Sheyla Esposito MD Position: [facility] ED Medicine MD Member Role: Admitting Physician Address: Address: [address] [place] [id number]- Name: Faith Melendez RN Position: [facility] ED RN W/OE and Tasks Member Role: Patient Care Provider Name: Makenna Be Position: [facility] ED TA [facility] Member Role: Med Dir Care Team Related Persons Name: TAYLOR ENCISO Name: DARELL ENCISO Address: [place] [address]
--- OUTSIDE RECORDS SUMMARY | 2022-09-11 14:08 | XMS_ITS | Continuity of Care Document ---
Author Name Unknown Organization [facility] Address [address] [place] [address]- Care Team Providers Care Casting And Curing Operator Name Role Phone Jose Miguel SADLER, Sakshi Primary Care Physician Encounter [facility] Date(s): 04/02/20 - 05/02/[address] [address]- Allergies, Adverse Reactions, Alerts No Known Medication [...] 03/13/20 15:34:00 EST, Route to Pharmacy Electronically, [facility], 167, cm, 03/13/20 9:06:00EST, Height, 86.2, kg, 01/22/20 7:46:00 EDT, Dry We... Start Date: 03/13/20 Stop Date: 06/11/20 Status: Ordered calcitriol 0.5 mcg oral capsule 2 capsule = 1 mcg, By Mouth, Daily, for 30 days, # 60 capsule, 2 Refills, Hard Stop 05/13/20 16:02:00 EST, 02/13/20 16:02:00 EDT, Capsule, [facility], 167, cm, 02/13/20 8:42:00 EDT, Height, 86.2, kg, 01/22/20 7:46:00 EDT, Dry Weight Start Date: 02/13/20 Stop Date: 05/13/20 Status: Ordered calcitriol 0.5 mcg oral capsule 2 capsule = 1 mcg, By Mouth, Daily, # 60 capsule, 2 Refills, Maintenance, 05/13/20 16:02:00 EST, Capsule, [facility], 168, cm, 04/02/20 13:09:00 EST, Height, 73.55, kg, 03/20/20 19:52:00 EST, Dry Weight Start Date: 05/13/20 Stop Date: 08/11/20 Status: Ordered Coreg 25 mg oral tablet 25 mg, 1, tablet, By Mouth, 2 times a day, # 60 tablet, Refills 2, Tot. Refills 2, Maintenance, 02/16/20 12:56:00 EDT, Route to Pharmacy Electronically, [facility], 167, cm, 02/15/2010:08:00 EDT, Height, 86.2, kg, 01/22/20 7:46:00 ED... Start Date: 02/16/20 Stop Date: 05/16/20 Status: Ordered dapagliflozin 10 mg oral tablet 1 tablet = 10 mg, By Mouth, Daily, # 30 tablet, 2 Refills, Maintenance, 03/29/20 17:51:00 EST, Tablet, [facility], Partial fill upon patient request if the prescription is for a schedule II opioid drug., 168, cm, 03/29/20 9:02:00 EST,... Start Date: 03/29/20 Stop Date: 06/27/20 Status: Ordered docusate sodium 100 mg oral capsule 100 mg, 1, capsule, By Mouth, Daily, # 30 capsule, Refills 1, Tot. Refills 1, Maintenance, 02/12/2013:29:00 EDT, Route to Pharmacy Electronically, [facility], 167, cm, 02/13/20 8:42:00 EDT, Height, 86.2, kg, 01/22/20 7:46:00 EDT, Dry... Start Date: 02/13/20 Stop Date: 04/13/20 Status: Ordered entecavir 0.5 mg oral tablet 1 tablet = 0.5 mg, By Mouth, Daily, # 30 tablet, 1 Refills, Maintenance, 03/13/20 15:32:00 EST, Tablet, [facility], 167, cm, 03/13/20 9:06:00 EST, Height, 86.2, kg, 01/22/20 7:46:00 EDT, Dry Weight Start Date: 03/13/20 Stop Date: 05/12/20 Status: Ordered Envarsus XR 0.75 mg oral tablet, extended release 1 tablet = 0.75 mg, By Mouth, Daily in AM, to use with envarsus 1 mg tablets, # 30 tablet, 2 Refills, Maintenance, 03/05/20 16:42:00 EST, [facility], 167, cm, 03/05/20 8:28:00 EST, Height, 86.2, kg, 01/22/20 7:46:00 EDT, Dry Weight Start Date: 03/05/20 Stop Date: 06/03/20 Status: Ordered Envarsus XR 1 mg oral tablet, extended release 1 tablet = 1 mg, By Mouth, Daily in AM, # 30 tablet, 2 Refills, Maintenance, 03/13/20 15:32:00 EST,[facility], 167, cm, 03/13/20 9:06:00 EST, [...] 04/16/20 10:24:00 EST, Route to Pharmacy Electronically, [facility], Partial fill upon patient request, 168, cm, 04/09/20 8:57:00 EST,... Start Date: 04/16/20 Stop Date: 06/15/20 Status: Ordered glipiZIDE 10 mg oral tablet, extended release 1 tablet = 10 mg, By Mouth, 2 times a day, DX: E11.65, # 60 tablet, 6 Refills, Maintenance, 04/18/20 11:45:00 EST, ER Tablet, [facility], Partial fill upon patient request, 168, cm, 04/16/20 13:36:00 EST, Height, 73.55, kg, 03/20/20 1... Start Date: 04/18/20 Status: Ordered Lantus Solostar Pen 100 units/mL subcutaneous solution See Instructions, Take 36 units daily at bedtime. E11.65, # 30 mL, 3 Refills, Maintenance, 03/29/2020:26:00 EST, [facility], Partial fill upon patient request, 168, cm, 03/29/20 9:02:00 EST, Height, 73.55, kg, 03/20/20 19:52:00 EST,... Start Date: 03/29/20 Status: Ordered magnesium oxide 400 mg oral tablet 1 tablet = 400 mg, By Mouth, Daily, for 30 days, # 30 tablet, 2 Refills, Acute 06/27/20 17:45:00 EST, 03/29/20 17:45:00 EST, [facility], Partial fill upon patient request if the prescription is for a schedule II opioid drug., 168, cm,... Start Date: 03/29/20 Stop Date: 06/27/20 Status: Ordered metFORMIN 500 mg oral tablet 1 tablet = 500 mg, By Mouth, 2 times a day, # 60 tablet, 11 Refills, Maintenance, 04/18/20 11:39:00EST, Tablet, [facility], Partial fill upon patient request, 168, cm, 04/16/20 13:36:00 EST, Height, 73.55, kg, 03/20/20 19:52:00 EST,... Start Date: 04/18/20 Status: Ordered omeprazole 40 mg oral enteric coated capsule 1 capsule = 40 mg, By Mouth, 2 times a day, # 60 capsule, 1 Refills, Maintenance, 04/16/20 10:32:00EST, [facility], Partial fill upon patient request if the prescription is for a schedule II opioid drug., 168, cm, 04/09/20 8:57:00 ES... Start Date: 04/16/20 Stop Date: 06/15/20 Status: Ordered Pen [place], 31 G x 8 mm BD Ultra [...] 1 Refills, Maintenance, 03/20/20 16:11:00 EST, Tablet, [facility], Partial fill upon patient request, 167, cm, 03/19/20 9:57:00 EST, Height, 86.2, kg, 01/22/20 7:46:00 EDT DYovnai.. Start Date: 03/20/20 Stop Date: 05/19/20 Status: Ordered sulfamethoxazole-trimethoprim 400 mg-80 mg oral tablet 1 tablet, By Mouth, Daily at bedtime, for 30 days, # 30 tablet, 2 Refills, Acute 06/11/20 15:33:00 EST, 03/13/20 15:33:00 EST, Tablet, [facility], 1 tablet By Mouth Daily at bedtime,x30 days, 167, cm, 03/13/20 9:06:00 EST, Height, 86.... Start Date: 03/13/20 Stop Date: 06/11/20 Status: Ordered valganciclovir 450 mg oral tablet 450 mg, 1, tablet, By Mouth, Daily, for 30 days, # 30 tablet, Refills 2, Tot. Refills 2, Acute 05/13/20 13:27:00 EST, 02/13/20 13:27:00 EDT, Route to Pharmacy Electronically, [facility], 167, cm, 02/13/20 8:42:00 EDT, Height, 86.2, kg... Start Date: 02/13/20 Stop Date: 05/13/20 Status: Ordered Problem List Condition Effective Dates Status Health Status Inform ant Polyp of colon, adenomatous( Confirmed) 1 07/24/16 Active Chronic renal impairment(Confirmed) Active ESRD on dialysis(Confirmed) 2 Active -donor kidney transplant(Confirmed) 3 01/22/20 Active HTN (hypertension)(Confirmed) Active 1rept scope 1 yr [address] [facility] M, W, F 3campath induction Social History Social History Type Response Smoking Status Never smoker entered on: 09/25/16 Sex
--- OUTSIDE RECORDS SUMMARY | 2022-09-11 14:08 | XMS_ITS | Continuity of Care Document ---
Author Name Unknown Organization [facility] Address [address] [place] [address]- Care Team Providers Care Gynecological Assistant Name Role Phone Tayo SADLER, Harmony Doan Primary Care Physician Encounter [facility] Date(s): 06/30/22 - 07/30/22 [facility]/[address] [address]- [place] Allergies, Adverse Reactions, Alerts No Known [...] tablet, 1 Refills, Maintenance, 05/25/22 20:02:00 EST, [facility], 170, cm, 04/07/22 14:06:00 [...] 04/14/22 13:19:00 EST, Route to Pharmacy Electronically, [facility], 170, cm, 04/07/22 14:06:00 EST, [...] 60 Gm, 2 Refills, Maintenance, 238:53:00 EST, [facility], 30, APPLY TO AFFECTED AREA TWO TIMES A DAY, 170, cm, 04/07/22 14:06:00 EST, Height, 80, kg, 12/12/21 16:28:00... Start Date: 06/23/22 Status: Ordered Coreg 25 mg oral tablet 25 mg, 1, tablet, By Mouth, 2 times a day, # 60 tablet, Refills 2, Tot. Refills 2, Maintenance, 04/14/22 13:19:00 EST, Route to Pharmacy Electronically, [facility], 170, cm, 04/07/2214:06:00 EST, Height, 80, kg, 12/12/21 16:28:00 EDT... Start Date: 04/14/22 Stop Date: 07/13/22 Status: Ordered Cymbalta 30 mg oral enteric coated capsule 1 capsule = 30 mg, By Mouth, Daily, do not crush or chew, # 30 capsule, 0 Refills, Maintenance, 07/22/22 12:28:00 EDT, CR Capsule, [facility] [...] Maintenance, 02/12/2013:29:00 EDT, Route to Pharmacy Electronically, [facility], 167, cm, 02/13/20 8:42:00 EDT, Height, 86.2, kg, 01/22/20 7:46:00 EDT, Dry... Start Date: 02/13/20 Stop Date: 04/13/20 Status: Ordered entecavir 0.5 mg oral tablet 1 tablet = 0.5 mg, By Mouth, Daily, # 30 tablet, 1 Refills, Maintenance, 03/13/20 15:32:00 EST, Tablet, [facility], 167, cm, 03/13/20 9:06:00 EST, Height, 86.2, kg, 01/22/20 7:46:00 EDT, Dry Weight Start Date: 03/13/20 Stop Date: 05/12/20 Status: Ordered Envarsus XR 1 mg oral tablet, extended release 3 tablet = 3 mg, By Mouth, Daily in AM, # 90 tablet, 2 Refills, Maintenance, 03/13/20 15:32:00 EST,[facility], 167, cm, 03/13/20 9:06:00 EST, Height, 86.2, kg, 01/22/20 7:46:00 EDT,Dry Weight Start Date: 03/13/20 Stop Date: 06/11/20 Status: Ordered Farxiga 10 mg oral tablet 1 tablet, By Mouth, Daily, # 30 tablet, 5 Refills, Maintenance, 06/20/22 18:08:00 EST, [facility], 170, cm, 04/07/22 14:06:00 [...] 05/21/22 10:26:00 EST, Route to Pharmacy Electronically, [facility], Partial fill upon patient request, 170, cm, 04/07/22 14:06:00 EST,... Start Date: 05/21/22 Stop Date: 07/20/22 Status: Ordered glipiZIDE 10 mg oral tablet, extended release 1 tablet, By Mouth, 2 times a day, # 60 tablet, 5 Refills, Maintenance, 06/20/22 18:08:00 EST, [facility], 170, cm, 04/07/22 14:06:00 EST, Height, 80, kg, 12/12/21 16:28:00 EDT, Dry Weight Start Date: 06/20/22 Status: Ordered Lantus Solostar Pen 100 units/mL subcutaneous solution See Instructions, INJECT 44 UNITS SUBCUTANEOUSLY ONCE DAILY AT BEDTIME, # 15 mL, 2 Refills, Maintenance, 05/25/22 20:02:00 EST, [facility], 170, cm, 04/07/22 14:06:00 EST, Height, 80, kg, 12/12/21 16:28:00 EDT, Dry Weight Start Date: 05/25/22 Status: Ordered metFORMIN 500 mg oral tablet 1 tablet = 500 mg, By Mouth, 2 times a day, # 60 tablet, 11 Refills, Maintenance, 04/18/20 11:39:00EST, Tablet, [facility], Partial fill upon patient request, 168, cm, 04/16/20 13:36:00 EST, Height, 73.55, kg, 03/20/20 19:52:00 EST,... Start Date: 04/18/20 Status: Ordered Pen [place], 31 G x 8 mm BD Ultra [...] EST, Height, 86.2, kg, 01/22/20 7:46:00 EDT, DYovani.. Start Date: 03/20/20 Stop Date: 05/19/20 [...] neuropathy Confirmed Active 1rept scope 1 yr [address] [facility] M, W, F 3campath induction Social History Social History Type Response Smoking Status Never (less than 100 in lifetime) entered on: 07/22/22 Sex Male Patient Care team information Care Team Personnel Name: Teresa Ha RN Position: [facility] RN Supv Member Role: Primary Care Nurse Name: Elena Roberts RN Position: [facility] RN Member Role: Primary Care Nurse Name: Osvaldo House DO Position: [facility] Renal MD Member Role: Lifetime Consulting Physician Address: Address: [address] [facility] [place], [place] [address] Name: Brendan Guillermo MD Position: [facility] Renal MD Member Role: Lifetime Consulting Physician Address: Address: [address] [facility] [place] [place] [address]- Name: Gale Wilcox Position: [facility] AMB Nurse Member Role: Primary Care Nurse Name: Cata Gong RN Position: [facility] AMB Nurse Member Role: Primary Care Nurse Name: Monae Rodriguez RN Position: S RN Member Role: Primary Care Nurse Name: Alisha Polanco RN Position: S RN Member Role: Primary Care Nurse Name: Gabbie Park RN Position: [facility] OB RN Member Role: Primary Care Nurse Name: Lou Hodge RN Position: [facility] SN RN Member Role: Primary Care Nurse Name: Ryann Salas RN Position: [facility] SN RN Member Role: Primary Care Nurse Name: Harmony Cr MD Position: [facility] Resident Member Role: PCP Address: Address: [address] [place] [id number]- Name: Stephanie Schroeder RN Position: [facility] RN Member Role: Primary Care Nurse Name: Lynette Comer RN Position: [facility] Onco RN Member Role: Primary Care Nurse Name: Paul FRENCH Hteekainez Position: [facility] SN RN Member Role: Primary Care Nurse Name: Olu Cortés MD Position: [facility] Renal MD Member Role: Lifetime Consulting Physician Address: Address: [address] [place] [address] [facility] [place] [address]- Care Team Related Persons Name: TAYLOR ENCISO Name: DARELL ENCISO Address: [place] [address]
--- OUTSIDE RECORDS SUMMARY | 2022-09-11 14:08 | XMS_ITS | Continuity of Care Document ---
Author Name Unknown Organization [facility] Address Unknown Care Team Providers Care Circular Head Saw Operator Name Role Phone Tayo SADLER, Harmony Doan Primary Care Physician [phone] Encounter [facility] Date(s): 10/08/21 - 11/07/21 [facility] Allergies, Adverse Reactions, Alerts No Known Medication [...] 03/13/20 15:34:00 EST, Route to Pharmacy Electronically, [facility], 167, cm, 03/13/20 9:06:00EST, Height, 86.2, kg, 01/22/20 7:46:00 EDT, Dry We... Start Date: 03/13/20 Stop Date: 06/11/20 Status: Ordered ammonium lactate 5% topical lotion 1 application, Topically, 2 times a day, # 120 Gm, 2 Refills, Maintenance, 09/20/21 20:13:00 EDT, Lotion, [facility], Partial fill upon patient request if the prescription is for a schedule II opioid drug., 1 application Topically 2 t... Start Date: 09/20/21 Status: Ordered atorvastatin 40 mg oral tablet 1 tablet = 40 mg, By Mouth, Daily, # 30 tablet, 11 Refills, Maintenance, 09/16/21 16:52:00 EDT, Tablet, [facility], Partial fill upon patient request [...] 5 Refills, Maintenance, 09/16/21 16:41:00 EDT, Capsule, [facility], 168, cm, 09/16/21 16:17:00 EDT, Height, 80, kg, 02/27/21 9:40:00EDT, Dry Weight Start Date: 09/16/21 Stop Date: 03/15/22 Status: Ordered clotrimazole 1% topical cream 1 application, Topically, 2 times a day, # 60 Gm, 0 Refills, Maintenance, 09/16/21 17:16:00 EDT, Cream, [facility], Partial fill upon patient request if the prescription is for a schedule II opioid drug., 1 application Topically 2 ginna... Start Date: 09/16/21 Status: Ordered Coreg 25 mg oral tablet 25 mg, 1, tablet, By Mouth, 2 times a day, # 60 tablet, Refills 2, Tot. Refills 2, Maintenance, 02/16/20 12:56:00 EDT, Route to Pharmacy Electronically, [facility], 167, cm, 02/15/2010:08:00 EDT, Height, [...] 2 Refills, Maintenance, 09/16/21 16:48:00EDT, CR Capsule, [facility], Parti... Start Date: 09/16/21 Stop Date: 12/15/21 Status: Ordered dapagliflozin 10 mg oral tablet 1 tablet = 10 mg, By Mouth, Daily, # 30 tablet, 5 Refills, Maintenance, 08/01/21 12:54:00 EDT, Tablet, [facility], Partial fill upon patient request [...] Maintenance, 02/12/2013:29:00 EDT, Route to Pharmacy Electronically, [facility], 167, cm, 02/13/20 8:42:00 EDT, Height, 86.2, kg, 01/22/20 7:46:00 EDT, Dry... Start Date: 02/13/20 Stop Date: 04/13/20 Status: Ordered entecavir 0.5 mg oral tablet 1 tablet = 0.5 mg, By Mouth, Daily, # 30 tablet, 1 Refills, Maintenance, 03/13/20 15:32:00 EST, Tablet, [facility], 167, cm, 03/13/20 9:06:00 EST, Height, 86.2, kg, 01/22/20 7:46:00 EDT, Dry Weight Start Date: 03/13/20 Stop Date: 05/12/20 Status: Ordered Envarsus XR 1 mg oral tablet, extended release 1 tablet = 1 mg, By Mouth, Daily in AM, # 30 tablet, 2 Refills, Maintenance, 03/13/20 15:32:00 EST,[facility], 167, cm, 03/13/20 9:06:00 EST, [...] cm, 02/27/21 9:40:00 EDT, Height, 80, kg, ... Start Date: 08/01/21 Stop Date: 01/28/22 Status: Ordered gabapentin 100 mg oral capsule 100 mg, 1, capsule, By Mouth, 3 times a day, # 90 capsule, Refills 1, Tot. Refills 1, Maintenance, 04/16/20 10:24:00 EST, Route to Pharmacy Electronically, [facility], Partial fill upon patient request, 168, cm, 04/09/20 8:57:00 EST,... Start Date: 04/16/20 Stop Date: 06/15/20 Status: Ordered glipiZIDE 10 mg oral tablet, extended release 1 tablet = 10 mg, By Mouth, 2 times a day, # 60 tablet, 5 Refills, Maintenance, 08/01/21 12:54:00 EDT, ER Tablet, [facility], DxE11.65, 168, cm, 02/27/21 9:40:00 EDT, Height, 80, kg,02/27/21 9:40:00 EDT, Dry Weight Start Date: 08/01/21 Status: Ordered Lantus Solostar Pen 100 units/mL subcutaneous solution = 44 units, Subcutaneous Injection, Daily at bedtime, # 15 mL, 2 Refills, Maintenance, 09/16/21 17:26:00 EDT, Solution, [facility], Partial fill upon patient request if the prescription is for a schedule II opioid drug., 168, cm, 08/26... Start Date: 09/16/21 Stop Date: 12/15/21 Status: Ordered metFORMIN 500 mg oral tablet 1 tablet = 500 mg, By Mouth, 2 times a day, # 60 tablet, 11 Refills, Maintenance, 04/18/20 11:39:00EST, Tablet, [facility], Partial fill upon patient request, 168, cm, 04/16/20 13:36:00 EST, Height, 73.55, kg, 03/20/20 19:52:00 EST,... Start Date: 04/18/20 Status: Ordered omeprazole 40 mg oral enteric coated capsule 1 capsule = 40 mg, By Mouth, 2 times a day, # 60 capsule, 1 Refills, Maintenance, 04/16/20 10:32:00EST, [facility], Partial fill upon patient request if the prescription is for a schedule II opioid drug., 168, cm, 04/09/20 8:57:00 ES... Start Date: 04/16/20 Stop Date: 06/15/20 Status: Ordered Pen [place], 31 G x 8 mm BD Ultra [...] 1 Refills, Maintenance, 03/20/20 16:11:00 EST, Tablet, [facility], Partial fill upon patient request, 167, cm, 03/19/20 9:57:00 EST, Height, 86.2, kg, 01/22/20 7:46:00 EDT, D... Start Date: 03/20/20 Stop Date: 05/19/20 Status: Ordered Tylenol 8 Hour 650 mg oral tablet, extended release 2 tablet = 1,300 mg, By Mouth, Every 8 hours, PRN as needed for pain, # 100 tablet, 1 Refills, Maintenance, 09/16/21 17:04:00 EDT, ER Tablet, [facility], Partial fill upon patient request [...] Diabetic neuropathy(Confirmed) Active 1rept scope 1 yr [address] [facility] M, W, F 3campath induction Social History Social History Type Response Smoking Status Never smoker entered on: 09/25/16 Sex
--- OUTSIDE RECORDS SUMMARY | 2022-09-11 14:08 | XMS_ITS | Continuity of Care Document ---
Author Name Unknown Organization [facility] Address [address] [place] [address]- Care Team Providers Care Film Tests Checker Name Role Phone Tayo SADELR, Harmony Doan Primary Care Physician Encounter [facility] Date(s): 10/22/21 - 11/21/21 [facility] [address] [place] [id number] Allergies, Adverse Reactions, Alerts No Known Medication [...] 03/13/20 15:34:00 EST, Route to Pharmacy Electronically, [facility], 167, cm, 03/13/20 9:06:00EST, Height, 86.2, kg, 01/22/20 7:46:00 EDT, Dry We... Start Date: 03/13/20 Stop Date: 06/11/20 Status: Ordered ammonium lactate 5% topical lotion 1 application, Topically, 2 times a day, # 120 Gm, 2 Refills, Maintenance, 09/20/21 20:13:00 EDT, Lotion, [facility], Partial fill upon patient request if the prescription is for a schedule II opioid drug., 1 application Topically 2 t... Start Date: 09/20/21 Status: Ordered atorvastatin 40 mg oral tablet 1 tablet = 40 mg, By Mouth, Daily, # 30 tablet, 11 Refills, Maintenance, 09/16/21 16:52:00 EDT, Tablet, [facility], Partial fill upon patient request [...] 5 Refills, Maintenance, 09/16/21 16:41:00 EDT, Capsule, [facility], 168, cm, 09/16/21 16:17:00 EDT, Height, 80, kg, 02/27/21 9:40:00EDT, Dry Weight Start Date: 09/16/21 Stop Date: 03/15/22 Status: Ordered clotrimazole 1% topical cream 1 application, Topically, 2 times a day, # 60 Gm, 0 Refills, Maintenance, 09/16/21 17:16:00 EDT, Cream, [facility], Partial fill upon patient request if the prescription is for a schedule II opioid drug., 1 application Topically 2 ginna... Start Date: 09/16/21 Status: Ordered Coreg 25 mg oral tablet 25 mg, 1, tablet, By Mouth, 2 times a day, # 60 tablet, Refills 2, Tot. Refills 2, Maintenance, 02/16/20 12:56:00 EDT, Route to Pharmacy Electronically, [facility], 167, cm, 02/15/2010:08:00 EDT, Height, [...] 2 Refills, Maintenance, 09/16/21 16:48:00EDT, CR Capsule, [facility], Parti... Start Date: 09/16/21 Stop Date: 12/15/21 Status: Ordered dapagliflozin 10 mg oral tablet 1 tablet = 10 mg, By Mouth, Daily, # 30 tablet, 5 Refills, Maintenance, 08/01/21 12:54:00 EDT, Tablet, [facility], Partial fill upon patient request [...] Maintenance, 02/12/2013:29:00 EDT, Route to Pharmacy Electronically, [facility], 167, cm, 02/13/20 8:42:00 EDT, Height, 86.2, kg, 01/22/20 7:46:00 EDT, Dry... Start Date: 02/13/20 Stop Date: 04/13/20 Status: Ordered entecavir 0.5 mg oral tablet 1 tablet = 0.5 mg, By Mouth, Daily, # 30 tablet, 1 Refills, Maintenance, 03/13/20 15:32:00 EST, Tablet, [facility], 167, cm, 03/13/20 9:06:00 EST, Height, 86.2, kg, 01/22/20 7:46:00 EDT, Dry Weight Start Date: 03/13/20 Stop Date: 05/12/20 Status: Ordered Envarsus XR 1 mg oral tablet, extended release 1 tablet = 1 mg, By Mouth, Daily in AM, # 30 tablet, 2 Refills, Maintenance, 03/13/20 15:32:00 EST,[facility], 167, cm, 03/13/20 9:06:00 EST, [...] cm, 02/27/21 9:40:00 EDT, Height, 80, kg, 0... Start Date: 08/01/21 Stop Date: 01/28/22 Status: Ordered gabapentin 100 mg oral capsule 100 mg, 1, capsule, By Mouth, 3 times a day, # 90 capsule, Refills 1, Tot. Refills 1, Maintenance, 04/16/20 10:24:00 EST, Route to Pharmacy Electronically, [facility], Partial fill upon patient request, 168, cm, 04/09/20 8:57:00 EST,... Start Date: 04/16/20 Stop Date: 06/15/20 Status: Ordered glipiZIDE 10 mg oral tablet, extended release 1 tablet = 10 mg, By Mouth, 2 times a day, # 60 tablet, 5 Refills, Maintenance, 08/01/21 12:54:00 EDT, ER Tablet, [facility], DxE11.65, 168, cm, 02/27/21 9:40:00 EDT, Height, 80, kg,02/27/21 9:40:00 EDT, Dry Weight Start Date: 08/01/21 Status: Ordered Lantus Solostar Pen 100 units/mL subcutaneous solution = 44 units, Subcutaneous Injection, Daily at bedtime, # 15 mL, 2 Refills, Maintenance, 09/16/21 17:26:00 EDT, Solution, [facility], Partial fill upon patient request if the prescription is for a schedule II opioid drug., 168, cm, 08/26... Start Date: 09/16/21 Stop Date: 12/15/21 Status: Ordered metFORMIN 500 mg oral tablet 1 tablet = 500 mg, By Mouth, 2 times a day, # 60 tablet, 11 Refills, Maintenance, 04/18/20 11:39:00EST, Tablet, [facility], Partial fill upon patient request, 168, cm, 04/16/20 13:36:00 EST, Height, 73.55, kg, 03/20/20 19:52:00 EST,... Start Date: 04/18/20 Status: Ordered omeprazole 40 mg oral enteric coated capsule 1 capsule = 40 mg, By Mouth, 2 times a day, # 60 capsule, 1 Refills, Maintenance, 04/16/20 10:32:00EST, [facility], Partial fill upon patient request if the prescription is for a schedule II opioid drug., 168, cm, 04/09/20 8:57:00 ES... Start Date: 04/16/20 Stop Date: 06/15/20 Status: Ordered Pen [place], 31 G x 8 mm BD Ultra [...] 1 Refills, Maintenance, 03/20/20 16:11:00 EST, Tablet, [facility], Partial fill upon patient request, 167, cm, 03/19/20 9:57:00 EST, Height, 86.2, kg, 01/22/20 7:46:00 EDT, D... Start Date: 03/20/20 Stop Date: 05/19/20 Status: Ordered Tylenol 8 Hour 650 mg oral tablet, extended release 2 tablet = 1,300 mg, By Mouth, Every 8 hours, PRN as needed for pain, # 100 tablet, 1 Refills, Maintenance, 09/16/21 17:04:00 EDT, ER Tablet, [facility], Partial fill upon patient [...] Diabetic neuropathy(Confirmed) Active 1rept scope 1 yr [address] [facility] M, W, F 3campath induction Social History Social History Type Response Smoking Status Never smoker entered on: 09/25/16 Sex
--- OUTSIDE RECORDS SUMMARY | 2022-09-11 14:08 | XMS_ITS | Continuity of Care Document ---
Author Name Unknown Organization [facility] Address Unknown Care Team Providers Care Accountancy Professor Name Role Phone Tayo SADLER, Harmony Doan Primary Care Physician Encounter [facility] [place] Date(s): 09/17/21 - 10/17/21 [facility] Allergies, Adverse Reactions, Alerts No Known Medication [...] 03/13/20 15:34:00 EST, Route to Pharmacy Electronically, [facility], 167, cm, 03/13/20 9:06:00EST, Height, 86.2, kg, 01/22/20 7:46:00 EDT, Dry We... Start Date: 03/13/20 Stop Date: 06/11/20 Status: Ordered ammonium lactate 5% topical lotion 1 application, Topically, 2 times a day, # 120 Gm, 0 Refills, Maintenance, 09/16/21 17:16:00 EDT, Lotion, [facility], Partial fill upon patient request if the prescription is for a schedule II opioid drug., 1 application Topically 2 t... Start Date: 09/16/21 Status: Ordered ammonium lactate 5% topical lotion 1 application, Topically, 2 times a day, # 120 Gm, 2 Refills, Maintenance, 09/20/21 20:13:00 EDT, Lotion, [facility], Partial fill upon patient request if the prescription is for a schedule II opioid drug., 1 application Topically 2 t... Start Date: 09/20/21 Status: Ordered atorvastatin 40 mg oral tablet 1 tablet = 40 mg, By Mouth, Daily, # 30 tablet, 11 Refills, Maintenance, 09/16/21 16:52:00 EDT, Tablet, [facility], Partial fill upon patient [...] 5 Refills, Maintenance, 09/16/21 16:41:00 EDT, Capsule, [facility], 168, cm, 09/16/21 16:17:00 EDT, Height, 80, kg, 02/27/21 9:40:00EDT, Dry Weight Start Date: 09/16/21 Stop Date: 03/15/22 Status: Ordered clotrimazole 1% topical cream 1 application, Topically, 2 times a day, # 60 Gm, 0 Refills, Maintenance, 09/16/21 17:16:00 EDT, Cream, [facility], Partial fill upon patient request if the prescription is for a schedule II opioid drug., 1 application Topically 2 ginna... Start Date: 09/16/21 Status: Ordered Coreg 25 mg oral tablet 25 mg, 1, tablet, By Mouth, 2 times a day, # 60 tablet, Refills 2, Tot. Refills 2, Maintenance, 02/16/20 12:56:00 EDT, Route to Pharmacy Electronically, [facility], 167, cm, 02/15/2010:08:00 EDT, [...] 2 Refills, Maintenance, 09/16/21 16:48:00EDT, CR Capsule, [facility], Parti... Start Date: 09/16/21 Stop Date: 12/15/21 Status: Ordered dapagliflozin 10 mg oral tablet 1 tablet = 10 mg, By Mouth, Daily, # 30 tablet, 5 Refills, Maintenance, 08/01/21 12:54:00 EDT, Tablet, [facility], Partial fill upon patient [...] Maintenance, 02/12/2013:29:00 EDT, Route to Pharmacy Electronically, [facility], 167, cm, 02/13/20 8:42:00 EDT, Height, 86.2, kg, 01/22/20 7:46:00 EDT, Dry... Start Date: 02/13/20 Stop Date: 04/13/20 Status: Ordered entecavir 0.5 mg oral tablet 1 tablet = 0.5 mg, By Mouth, Daily, # 30 tablet, 1 Refills, Maintenance, 03/13/20 15:32:00 EST, Tablet, [facility], 167, cm, 03/13/20 9:06:00 EST, Height, 86.2, kg, 01/22/20 7:46:00 EDT, Dry Weight Start Date: 03/13/20 Stop Date: 05/12/20 Status: Ordered Envarsus XR 1 mg oral tablet, extended release 1 tablet = 1 mg, By Mouth, Daily in AM, # 30 tablet, 2 Refills, Maintenance, 03/13/20 15:32:00 EST,[facility], 167, cm, 03/13/20 9:06:00 [...] 04/16/20 10:24:00 EST, Route to Pharmacy Electronically, [facility], Partial fill upon patient request, 168, cm, 04/09/20 8:57:00 EST,... Start Date: 04/16/20 Stop Date: 06/15/20 Status: Ordered glipiZIDE 10 mg oral tablet, extended release 1 tablet = 10 mg, By Mouth, 2 times a day, # 60 tablet, 5 Refills, Maintenance, 08/01/21 12:54:00 EDT, ER Tablet, [facility], DxE11.65, 168, cm, 02/27/21 9:40:00 EDT, Height, 80, kg,02/27/21 9:40:00 EDT, Dry Weight Start Date: 08/01/21 Status: Ordered Lantus Solostar Pen 100 units/mL subcutaneous solution = 44 units, Subcutaneous Injection, Daily at bedtime, # 15 mL, 2 Refills, Maintenance, 09/16/21 17:26:00 EDT, Solution, [facility], Partial fill upon patient request if the prescription is for a schedule II opioid drug., 168, cm, 08/26... Start Date: 09/16/21 Stop Date: 12/15/21 Status: Ordered Lantus Solostar Pen 100 units/mL subcutaneous solution See Instructions, Take 40 units daily at bedtime. E11.65, # 30 mL, 3 Refills, Maintenance, 03/29/2020:26:00 EST, [facility], Partial fill upon patient request, 168, cm, 03/29/20 9:02:00 EST, Height, 73.55, kg, 03/20/20 19:52:00 EST,... Start Date: 03/29/20 Status: Ordered metFORMIN 500 mg oral tablet 1 tablet = 500 mg, By Mouth, 2 times a day, # 60 tablet, 11 Refills, Maintenance, 04/18/20 11:39:00EST, Tablet, [facility], Partial fill upon patient request, 168, cm, 04/16/20 13:36:00 EST, Height, 73.55, kg, 03/20/20 19:52:00 EST,... Start Date: 04/18/20 Status: Ordered omeprazole 40 mg oral enteric coated capsule 1 capsule = 40 mg, By Mouth, 2 times a day, # 60 capsule, 1 Refills, Maintenance, 04/16/20 10:32:00EST, [facility], Partial fill upon patient request if the prescription is for a schedule II opioid drug., 168, cm, 04/09/20 8:57:00 ES... Start Date: 04/16/20 Stop Date: 06/15/20 Status: Ordered Pen [place], 31 G x 8 mm BD Ultra [...] 1 Refills, Maintenance, 03/20/20 16:11:00 EST, Tablet, [facility], Partial fill upon [...] 0 Refills, Maintenance, 09/16/21 17:30:00 EDT, Tablet, [facility], Partial fill upon patient request... Start Date: 09/16/21 Status: Ordered Tylenol 8 Hour 650 mg oral tablet, extended release 2 tablet = 1,300 mg, By Mouth, Every 8 hours, PRN as needed for pain, # 100 tablet, 1 Refills, Maintenance, 09/16/21 17:04:00 EDT, ER Tablet, [facility], Partial fill upon [...] Diabetic neuropathy(Confirmed) Active 1rept scope 1 yr [address] [facility] M, W, F 3campath induction Social History Social History Type Response Smoking Status Never smoker entered on: 09/25/16 Sex
--- OUTSIDE RECORDS SUMMARY | 2022-09-11 14:09 | XMS_ITS | Continuity of Care Document ---
Author Name Unknown Organization [facility] Address [address] [place] [address]- Care Team Providers Care Water Treatment Plant Engineer Name Role Phone Tayo SADLER, Harmony Doan Primary Care Physician Encounter [facility] [place] Date(s): 11/12/21 - 12/25/21 [facility]/[address] [address]- Attending Physician: April Paul MD Admitting Physician: [...] 03/13/20 15:34:00 EST, Route to Pharmacy Electronically, [facility], 167, cm, 03/13/20 9:06:00EST, Height, [...] 02/16/20 12:56:00 EDT, Route to Pharmacy Electronically, [facility], 167, cm, 02/15/2010:08:00 EDT, Height, [...] 2 Refills, Maintenance, 09/16/21 16:48:00EDT, CR Capsule, [facility], Parti... Start Date: 09/16/21 Stop Date: 12/15/21 Status: Ordered dapagliflozin 10 mg oral tablet 1 tablet = 10 mg, By Mouth, Daily, # 30 tablet, 5 Refills, Maintenance, 08/01/21 12:54:00 EDT, Tablet, [facility], Partial fill upon patient request [...] Maintenance, 02/12/2013:29:00 EDT, Route to Pharmacy Electronically, [facility], 167, cm, 02/13/20 8:42:00 EDT, Height, 86.2, kg, 01/22/20 7:46:00 EDT, Dry... Start Date: 02/13/20 Stop Date: 04/13/20 Status: Ordered entecavir 0.5 mg oral tablet 1 tablet = 0.5 mg, By Mouth, Daily, # 30 tablet, 1 Refills, Maintenance, 03/13/20 15:32:00 EST, Tablet, [facility], 167, cm, 03/13/20 9:06:00 EST, Height, 86.2, kg, 01/22/20 7:46:00 EDT, Dry Weight Start Date: 03/13/20 Stop Date: 05/12/20 Status: Ordered Envarsus XR 1 mg oral tablet, extended release 3 tablet = 3 mg, By Mouth, Daily in AM, # 90 tablet, 2 Refills, Maintenance, 03/13/20 15:32:00 EST,[facility], 167, cm, 03/13/20 9:06:00 [...] 04/16/20 10:24:00 EST, Route to Pharmacy Electronically, [facility], Partial fill upon patient request, 168, cm, 04/09/20 8:57:00 EST,... Start Date: 04/16/20 Stop Date: 06/15/20 Status: Ordered glipiZIDE 10 mg oral tablet, extended release 1 tablet = 10 mg, By Mouth, 2 times a day, # 60 tablet, 5 Refills, Maintenance, 08/01/21 12:54:00 EDT, ER Tablet, [facility], DxE11.65, 168, cm, 02/27/21 9:40:00 EDT, Height, 80, kg,02/27/21 9:40:00 EDT, Dry Weight Start Date: 08/01/21 Status: Ordered Lantus Solostar Pen 100 units/mL subcutaneous solution = 40 units, Subcutaneous Injection, Daily at bedtime, # 15 mL, 2 Refills, Maintenance, 09/16/21 17:26:00 EDT, Solution, [facility], Partial fill upon patient request if the prescription is for a schedule II opioid drug., 168, cm, 08/26... Start Date: 09/16/21 Stop Date: 12/15/21 Status: Ordered metFORMIN 500 mg oral tablet 1 tablet = 500 mg, By Mouth, 2 times a day, # 60 tablet, 11 Refills, Maintenance, 04/18/20 11:39:00EST, Tablet, [facility], Partial fill upon patient request, 168, cm, 04/16/20 13:36:00 EST, Height, 73.55, kg, 03/20/20 19:52:00 EST,... Start Date: 04/18/20 Status: Ordered Pen [place], 31 G x 8 mm BD Ultra [...] 1 Refills, Maintenance, 03/20/20 16:11:00 EST, Tablet, [facility], Partial fill upon patient request, [...] Refills, Maintenance, 09/16/21 17:04:00 EDT, ER Tablet, [facility], Partial fill upon patient request [...] Diabetic neuropathy(Confirmed) Active 1rept scope 1 yr [address] [facility] M, W, F 3campath induction Social History Social History Type Response Smoking Status Never smoker entered on: 09/25/16 Sex Care Team Personnel Name: Tayo SADLER, Harmony Doan Address: [address] [place] [id number]
--- OUTSIDE RECORDS SUMMARY | 2022-09-11 14:09 | XMS_ITS | Continuity of Care Document ---
Author Name Unknown Organization [facility] Address Unknown Care Team Providers Care Director Speech Name Role Phone Sakshi Gillespie MD Primary Care Physician Encounter [facility] [place] Date(s): 08/13/21 - 09/12/21 [facility] Allergies, Adverse Reactions, Alerts No Known [...] 03/13/20 15:34:00 EST, Route to Pharmacy Electronically, [facility], 167, cm, 03/13/20 9:06:00EST, Height, 86.2, kg, 01/22/20 7:46:00 EDT, Dry We... Start Date: 03/13/20 Stop Date: 06/11/20 Status: Ordered calcitriol 0.5 mcg oral capsule 2 capsule = 1 mcg, By Mouth, Daily, # 60 capsule, 2 Refills, Maintenance, 05/13/20 16:02:00 EST, Capsule, [facility], 168, cm, 04/02/20 13:09:00 EST, Height, 73.55, kg, 03/20/20 19:52:00 EST, Dry Weight Start Date: 05/13/20 Stop Date: 08/11/20 Status: Ordered Coreg 25 mg oral tablet 25 mg, 1, tablet, By Mouth, 2 times a day, # 60 tablet, Refills 2, Tot. Refills 2, Maintenance, 02/16/20 12:56:00 EDT, Route to Pharmacy Electronically, [facility], 167, cm, 02/15/2010:08:00 EDT, Height, 86.2, kg, 01/22/20 7:46:00 ED... Start Date: 02/16/20 Stop Date: 05/16/20 Status: Ordered dapagliflozin 10 mg oral tablet 1 tablet = 10 mg, By Mouth, Daily, # 30 tablet, 5 Refills, Maintenance, 08/01/21 12:54:00 EDT, Tablet, [facility], Partial fill upon patient request if the prescription is for a schedule II opioid drug., 168, cm, 02/27/21 9:40:00 EDT,... Start Date: 08/01/21 Stop Date: 01/28/22 Status: Ordered docusate sodium 100 mg oral capsule 100 mg, 1, capsule, By Mouth, Daily, # 30 capsule, Refills 1, Tot. Refills 1, Maintenance, 02/12/2013:29:00 EDT, Route to Pharmacy Electronically, [facility], 167, cm, 02/13/20 8:42:00 EDT, Height, 86.2, kg, 01/22/20 7:46:00 EDT, Dry... Start Date: 02/13/20 Stop Date: 04/13/20 Status: Ordered entecavir 0.5 mg oral tablet 1 tablet = 0.5 mg, By Mouth, Daily, # 30 tablet, 1 Refills, Maintenance, 03/13/20 15:32:00 EST, Tablet, [facility], 167, cm, 03/13/20 9:06:00 EST, Height, 86.2, kg, 01/22/20 7:46:00 EDT, Dry Weight Start Date: 03/13/20 Stop Date: 05/12/20 Status: Ordered Envarsus XR 0.75 mg oral tablet, extended release 1 tablet = 0.75 mg, By Mouth, Daily in AM, to use with envarsus 1 mg tablets, # 30 tablet, 2 Refills, Maintenance, 03/05/20 16:42:00 EST, [facility], 167, cm, 03/05/20 8:28:00 EST, Height, 86.2, kg, 01/22/20 7:46:00 EDT, Dry Weight Start Date: 03/05/20 Stop Date: 06/03/20 Status: Ordered Envarsus XR 1 mg oral tablet, extended release 1 tablet = 1 mg, By Mouth, Daily in AM, # 30 tablet, 2 Refills, Maintenance, 03/13/20 15:32:00 EST,[facility], 167, cm, 03/13/20 9:06:00 [...] 04/16/20 10:24:00 EST, Route to Pharmacy Electronically, [facility], Partial fill upon patient request, 168, cm, 04/09/20 8:57:00 EST,... Start Date: 04/16/20 Stop Date: 06/15/20 Status: Ordered glipiZIDE 10 mg oral tablet, extended release 1 tablet = 10 mg, By Mouth, 2 times a day, # 60 tablet, 5 Refills, Maintenance, 08/01/21 12:54:00 EDT, ER Tablet, [facility], DxE11.65, 168, cm, 02/27/21 9:40:00 EDT, Height, 80, kg,02/27/21 9:40:00 EDT, Dry Weight Start Date: 08/01/21 Status: Ordered Lantus Solostar Pen 100 units/mL subcutaneous solution See Instructions, Take 40 units daily at bedtime. E11.65, # 30 mL, 3 Refills, Maintenance, 03/29/2020:26:00 EST, [facility], Partial fill upon patient request, 168, cm, 03/29/20 9:02:00 EST, Height, 73.55, kg, 03/20/20 19:52:00 EST,... Start Date: 03/29/20 Status: Ordered metFORMIN 500 mg oral tablet 1 tablet = 500 mg, By Mouth, 2 times a day, # 60 tablet, 11 Refills, Maintenance, 04/18/20 11:39:00EST, Tablet, [facility], Partial fill upon patient request, 168, cm, 04/16/20 13:36:00 EST, Height, 73.55, kg, 03/20/20 19:52:00 EST,... Start Date: 04/18/20 Status: Ordered omeprazole 40 mg oral enteric coated capsule 1 capsule = 40 mg, By Mouth, 2 times a day, # 60 capsule, 1 Refills, Maintenance, 04/16/20 10:32:00EST, [facility], Partial fill upon patient request if the prescription is for a schedule II opioid drug., 168, cm, 04/09/20 8:57:00 ES... Start Date: 04/16/20 Stop Date: 06/15/20 Status: Ordered Pen [place], 31 G x 8 mm BD Ultra [...] 1 Refills, Maintenance, 03/20/20 16:11:00 EST, Tablet, [facility], Partial fill upon patient [...] HTN (hypertension)(Confirmed) Active 1rept scope 1 yr [address] [facility] M, W, F 3campath induction Social History Social History Type Response Smoking Status Never smoker entered on: 09/25/16 Sex
--- OUTSIDE RECORDS SUMMARY | 2022-09-11 14:09 | XMS_ITS | Continuity of Care Document ---
Author Name Unknown Organization [facility] Address [address] [place] [address]- Care Team Providers Care Cadworx Piping Designer Name Role Phone Tayo SADLER, Harmony Doan Primary Care Physician Encounter [facility] [place] Date(s): 09/18/21 - 11/29/[address] [address]- Attending Physician: Not on Staff, Attending MD Allergies, Adverse Reactions, Alerts No Known [...] 15:34:00 EST, Route to Pharmacy Electronically, [facility], 167, cm, 03/13/20 9:06:00EST, Height, 86.2, kg, 01/22/20 7:46:00 EDT, Dry We... Start Date: 03/13/20 Stop Date: 06/11/20 Status: Ordered ammonium lactate 5% topical lotion 1 application, Topically, 2 times a day, # 120 Gm, 2 Refills, Maintenance, 09/20/21 20:13:00 EDT, Lotion, [facility], Partial fill upon patient request if the prescription is for a schedule II opioid drug., 1 application Topically 2 t... Start Date: 09/20/21 Status: Ordered atorvastatin 40 mg oral tablet 1 tablet = 40 mg, By Mouth, Daily, # 30 tablet, 11 Refills, Maintenance, 09/16/21 16:52:00 EDT, Tablet, [facility], Partial fill upon patient request if [...] 5 Refills, Maintenance, 09/16/21 16:41:00 EDT, Capsule, [facility], 168, cm, 09/16/21 16:17:00 EDT, Height, 80, kg, 02/27/21 9:40:00EDT, Dry Weight Start Date: 09/16/21 Stop Date: 03/15/22 Status: Ordered clotrimazole 1% topical cream 1 application, Topically, 2 times a day, # 60 Gm, 0 Refills, Maintenance, 09/16/21 17:16:00 EDT, Cream, [facility], Partial fill upon patient request if the prescription is for a schedule II opioid drug., 1 application Topically 2 ginna... Start Date: 09/16/21 Status: Ordered Coreg 25 mg oral tablet 25 mg, 1, tablet, By Mouth, 2 times a day, # 60 tablet, Refills 2, Tot. Refills 2, Maintenance, 02/16/20 12:56:00 EDT, Route to Pharmacy Electronically, [facility], 167, cm, 02/15/2010:08:00 EDT, Height, [...] 2 Refills, Maintenance, 09/16/21 16:48:00EDT, CR Capsule, [facility], Parti... Start Date: 09/16/21 Stop Date: 12/15/21 Status: Ordered dapagliflozin 10 mg oral tablet 1 tablet = 10 mg, By Mouth, Daily, # 30 tablet, 5 Refills, Maintenance, 08/01/21 12:54:00 EDT, Tablet, [facility], Partial fill upon patient request if [...] Maintenance, 02/12/2013:29:00 EDT, Route to Pharmacy Electronically, [facility], 167, cm, 02/13/20 8:42:00 EDT, Height, 86.2, kg, 01/22/20 7:46:00 EDT, Dry... Start Date: 02/13/20 Stop Date: 04/13/20 Status: Ordered entecavir 0.5 mg oral tablet 1 tablet = 0.5 mg, By Mouth, Daily, # 30 tablet, 1 Refills, Maintenance, 03/13/20 15:32:00 EST, Tablet, [facility], 167, cm, 03/13/20 9:06:00 EST, Height, 86.2, kg, 01/22/20 7:46:00 EDT, Dry Weight Start Date: 03/13/20 Stop Date: 05/12/20 Status: Ordered Envarsus XR 1 mg oral tablet, extended release 1 tablet = 1 mg, By Mouth, Daily in AM, # 30 tablet, 2 Refills, Maintenance, 03/13/20 15:32:00 EST,[facility], 167, cm, 03/13/20 9:06:00 EST, Height, [...] 10:24:00 EST, Route to Pharmacy Electronically, [facility], Partial fill upon patient request, 168, cm, 04/09/20 8:57:00 EST,... Start Date: 04/16/20 Stop Date: 06/15/20 Status: Ordered glipiZIDE 10 mg oral tablet, extended release 1 tablet = 10 mg, By Mouth, 2 times a day, # 60 tablet, 5 Refills, Maintenance, 08/01/21 12:54:00 EDT, ER Tablet, [facility], DxE11.65, 168, cm, 02/27/21 9:40:00 EDT, Height, 80, kg,02/27/21 9:40:00 EDT, Dry Weight Start Date: 08/01/21 Status: Ordered Lantus Solostar Pen 100 units/mL subcutaneous solution = 44 units, Subcutaneous Injection, Daily at bedtime, # 15 mL, 2 Refills, Maintenance, 09/16/21 17:26:00 EDT, Solution, [facility], Partial fill upon patient request if the prescription is for a schedule II opioid drug., 168, cm, 08/26... Start Date: 09/16/21 Stop Date: 12/15/21 Status: Ordered metFORMIN 500 mg oral tablet 1 tablet = 500 mg, By Mouth, 2 times a day, # 60 tablet, 11 Refills, Maintenance, 04/18/20 11:39:00EST, Tablet, [facility], Partial fill upon patient request, 168, cm, 04/16/20 13:36:00 EST, Height, 73.55, kg, 03/20/20 19:52:00 EST,... Start Date: 04/18/20 Status: Ordered omeprazole 40 mg oral enteric coated capsule 1 capsule = 40 mg, By Mouth, 2 times a day, # 60 capsule, 1 Refills, Maintenance, 04/16/20 10:32:00EST, [facility], Partial fill upon patient request if the prescription is for a schedule II opioid drug., 168, cm, 04/09/20 8:57:00 ES... Start Date: 04/16/20 Stop Date: 06/15/20 Status: Ordered Pen [place], 31 G x 8 mm BD Ultra [...] Refills, Maintenance, 03/20/20 16:11:00 EST, Tablet, [facility], Partial fill [...] Refills, Maintenance, 09/16/21 17:04:00 EDT, ER Tablet, [facility], Partial fill upon patient request [...] Diabetic neuropathy(Confirmed) Active 1rept scope [address] [address] [facility] M, W, F 3campath induction Social History Social History Type Response Smoking Status Never smoker entered on: 09/25/16 Sex
--- OUTSIDE RECORDS SUMMARY | 2022-09-11 14:09 | XMS_ITS | Continuity of Care Document ---
Author Name Unknown Organization [facility] Address [address] [place] [address]- Care Team Providers Care Parcel Contractor Name Role Phone Jose Miguel SADLER, Sakshi Primary Care Physician Encounter [facility] [id number] Date(s): 03/13/20 - 04/20/[address] [facility] [address] [place], [place] [address] Attending Physician: Peace Mendoza MD Admitting Physician: [...] 02/27/20 16:53:00 EST, Route to Pharmacy Electronically, [facility], 167, cm, 02/26... Start [...] 03/13/20 15:34:00 EST, Route to Pharmacy Electronically, [facility], 167, cm, 03/13/20 9:06:00EST, Height, 86.2, kg, 01/22/20 7:46:00 EDT, Dry We... Start Date: 03/13/20 Stop Date: 06/11/20 Status: Ordered calcitriol 0.5 mcg oral capsule 2 capsule = 1 mcg, By Mouth, Daily, for 30 days, # 60 capsule, 2 Refills, Hard Stop 05/13/20 16:02:00 EST, 02/13/20 16:02:00 EDT, Capsule, [facility], 167, cm, 02/13/20 8:42:00 EDT, Height, 86.2, kg, 01/22/20 7:46:00 EDT, Dry Weight Start Date: 02/13/20 Stop Date: 05/13/20 Status: Ordered calcitriol 0.5 mcg oral capsule 2 capsule = 1 mcg, By Mouth, Daily, # 60 capsule, 2 Refills, Maintenance, 05/13/20 16:02:00 EST, Capsule, [facility], 168, cm, 04/02/20 13:09:00 EST, Height, 73.55, kg, 03/20/20 19:52:00 EST, Dry Weight Start Date: 05/13/20 Stop Date: 08/11/20 Status: Ordered Coreg 25 mg oral tablet 25 mg, 1, tablet, By Mouth, 2 times a day, # 60 tablet, Refills 2, Tot. Refills 2, Maintenance, 02/16/20 12:56:00 EDT, Route to Pharmacy Electronically, [facility], 167, cm, 02/15/2010:08:00 EDT, Height, 86.2, kg, 01/22/20 7:46:00 ED... Start Date: 02/16/20 Stop Date: 05/16/20 Status: Ordered dapagliflozin 10 mg oral tablet 1 tablet = 10 mg, By Mouth, Daily, # 30 tablet, 2 Refills, Maintenance, 03/29/20 17:51:00 EST, Tablet, [facility], Partial fill upon patient request if the prescription is for a schedule II opioid drug., 168, cm, 03/29/20 9:02:00 EST,... Start Date: 03/29/20 Stop Date: 06/27/20 Status: Ordered docusate sodium 100 mg oral capsule 100 mg, 1, capsule, By Mouth, Daily, # 30 capsule, Refills 1, Tot. Refills 1, Maintenance, 02/12/2013:29:00 EDT, Route to Pharmacy Electronically, [facility], 167, cm, 02/13/20 8:42:00 EDT, Height, 86.2, kg, 01/22/20 7:46:00 EDT, Dry... Start Date: 02/13/20 Stop Date: 04/13/20 Status: Ordered entecavir 0.5 mg oral tablet 1 tablet = 0.5 mg, By Mouth, Daily, # 30 tablet, 1 Refills, Maintenance, 03/13/20 15:32:00 EST, Tablet, [facility], 167, cm, 03/13/20 9:06:00 EST, Height, 86.2, kg, 01/22/20 7:46:00 EDT, Dry Weight Start Date: 03/13/20 Stop Date: 05/12/20 Status: Ordered Envarsus XR 0.75 mg oral tablet, extended release 1 tablet = 0.75 mg, By Mouth, Daily in AM, to use with envarsus 1 mg tablets, # 30 tablet, 2 Refills, Maintenance, 03/05/20 16:42:00 EST, [facility], 167, cm, 03/05/20 8:28:00 EST, Height, 86.2, kg, 01/22/20 7:46:00 EDT, Dry Weight Start Date: 03/05/20 Stop Date: 06/03/20 Status: Ordered Envarsus XR 1 mg oral tablet, extended release 1 tablet = 1 mg, By Mouth, Daily in AM, # 30 tablet, 2 Refills, Maintenance, 03/13/20 15:32:00 EST,[facility], 167, cm, 03/13/20 9:06:00 EST, Height, [...] 10:24:00 EST, Route to Pharmacy Electronically, [facility], Partial fill upon patient request, 168, cm, 04/09/20 8:57:00 EST,... Start Date: 04/16/20 Stop Date: 06/15/20 Status: Ordered glipiZIDE 10 mg oral tablet, extended release 1 tablet = 10 mg, By Mouth, 2 times a day, DX: E11.65, # 60 tablet, 6 Refills, Maintenance, 04/18/20 11:45:00 EST, ER Tablet, [facility], Partial fill upon patient request, 168, cm, 04/16/20 13:36:00 EST, Height, 73.55, kg, 03/20/20 1... Start Date: 04/18/20 Status: Ordered Lantus Solostar Pen 100 units/mL subcutaneous solution See Instructions, Take 36 units daily at bedtime. E11.65, # 30 mL, 3 Refills, Maintenance, 03/29/2020:26:00 EST, [facility], Partial fill upon patient request, 168, cm, 03/29/20 9:02:00 EST, Height, 73.55, kg, 03/20/20 19:52:00 EST,... Start Date: 03/29/20 Status: Ordered magnesium oxide 400 mg oral tablet 1 tablet = 400 mg, By Mouth, Daily, for 30 days, # 30 tablet, 2 Refills, Acute 06/27/20 17:45:00 EST, 03/29/20 17:45:00 EST, [facility], Partial fill upon patient request if the prescription is for a schedule II opioid drug., 168, cm,... Start Date: 03/29/20 Stop Date: 06/27/20 Status: Ordered metFORMIN 500 mg oral tablet 1 tablet = 500 mg, By Mouth, 2 times a day, # 60 tablet, 11 Refills, Maintenance, 04/18/20 11:39:00EST, Tablet, [facility], Partial fill upon patient request, 168, cm, 04/16/20 13:36:00 EST, Height, 73.55, kg, 03/20/20 19:52:00 EST,... Start Date: 04/18/20 Status: Ordered omeprazole 40 mg oral enteric coated capsule 1 capsule = 40 mg, By Mouth, 2 times a day, # 60 capsule, 1 Refills, Maintenance, 04/16/20 10:32:00EST, [facility], Partial fill upon patient request if the prescription is for a schedule II opioid drug., 168, cm, 04/09/20 8:57:00 ES... Start Date: 04/16/20 Stop Date: 06/15/20 Status: Ordered Pen [place], 31 G x 8 mm BD Ultra [...] 1 Refills, Maintenance, 03/20/20 16:11:00 EST, Tablet, [facility], Partial fill upon patient request, 167, cm, 03/19/20 9:57:00 EST, Height, 86.2, kg, 01/22/20 7:46:00 EDT DYovani.. Start Date: 03/20/20 Stop Date: 05/19/20 Status: Ordered sulfamethoxazole-trimethoprim 400 mg-80 mg oral tablet 1 tablet, By Mouth, Daily at bedtime, for 30 days, # 30 tablet, 2 Refills, Acute 06/11/20 15:33:00 EST, 03/13/20 15:33:00 EST, Tablet, [facility], 1 tablet By Mouth Daily at bedtime,x30 days, 167, cm, 03/13/20 9:06:00 EST, Height, 86.... Start Date: 03/13/20 Stop Date: 06/11/20 Status: Ordered valganciclovir 450 mg oral tablet 450 mg, 1, tablet, By Mouth, Daily, for 30 days, # 30 tablet, Refills 2, Tot. Refills 2, Acute 05/13/20 13:27:00 EST, 02/13/20 13:27:00 EDT, Route to Pharmacy Electronically, [facility], 167, cm, 02/13/20 8:42:00 EDT, Height, 86.2, kg... Start Date: 02/13/20 Stop Date: 05/13/20 Status: Ordered Problem List Condition Effective Dates Status Health Status Inform ant Polyp of colon, adenomatous( Confirmed) 1 07/24/16 Active Chronic renal impairment(Confirmed) Active ESRD on dialysis(Confirmed) 2 Active HTN (hypertension)(Confirmed) Active 1rept scope 1 yr [address] [facility] M, W, F Social History Social History Type Response Smoking Status Never smoker entered on: 09/25/16 Sex
--- OUTSIDE RECORDS SUMMARY | 2022-09-11 14:09 | XMS_ITS | Continuity of Care Document ---
Author Name Unknown Organization [facility] Address [address] [place] [address]- Care Team Providers Care Street Sweeper Operator Name Role Phone Tayo SADLER, Harmony Doan Primary Care Physician Encounter [facility] [place] Date(s): 05/24/22 - 07/30/[address] [address] Attending Physician: April Paul MD Admitting Physician: April Paul MD Referring Physician: April Paul MD Allergies, Adverse Reactions, [...] tablet, 1 Refills, Maintenance, 05/25/22 20:02:00 EST, [facility], 170, cm, 04/07/22 14:06:00 EST, [...] 04/14/22 13:19:00 EST, Route to Pharmacy Electronically, [facility], 170, cm, 04/07/22 14:06:00 EST, [...] 60 Gm, 2 Refills, Maintenance, 238:53:00 EST, [facility], 30, APPLY TO AFFECTED AREA [...] Maintenance, 02/12/2013:29:00 EDT, Route to Pharmacy Electronically, [facility], 167, cm, 02/13/20 8:42:00 EDT, Height, 86.2, kg, 01/22/20 7:46:00 EDT, Dry... Start Date: 02/13/20 Stop Date: 04/13/20 Status: Ordered entecavir 0.5 mg oral tablet 1 tablet = 0.5 mg, By Mouth, Daily, # 30 tablet, 1 Refills, Maintenance, 03/13/20 15:32:00 EST, Tablet, [facility], 167, cm, 03/13/20 9:06:00 EST, [...] tablet, 5 Refills, Maintenance, 06/20/22 18:08:00 EST, [facility], 170, cm, 04/07/22 14:06:00 EST, [...] 05/21/22 10:26:00 EST, Route to Pharmacy Electronically, [facility], Partial fill upon patient request, 170, cm, 04/07/22 14:06:00 EST,... Start Date: 05/21/22 Stop Date: 07/20/22 Status: Ordered glipiZIDE 10 mg oral tablet, extended release 1 tablet, By Mouth, 2 times a day, # 60 tablet, 5 Refills, Maintenance, 06/20/22 18:08:00 EST, [facility], 170, cm, 04/07/22 14:06:00 EST, Height, 80, kg, 12/12/21 16:28:00 EDT, Dry Weight Start Date: 06/20/22 Status: Ordered Lantus Solostar Pen 100 units/mL subcutaneous solution See Instructions, INJECT 44 UNITS SUBCUTANEOUSLY ONCE DAILY AT BEDTIME, # 15 mL, 2 Refills, Maintenance, 05/25/22 20:02:00 EST, [facility], 170, cm, 04/07/22 14:06:00 EST, Height, 80, kg, 12/12/21 16:28:00 EDT, Dry Weight Start Date: 05/25/22 Status: Ordered metFORMIN 500 mg oral tablet 1 tablet = 500 mg, By Mouth, 2 times a day, # 60 tablet, 11 Refills, Maintenance, 04/18/20 11:39:00EST, Tablet, [facility], Partial fill upon patient request, 168, cm, 04/16/20 13:36:00 EST, Height, 73.55, kg, 03/20/20 19:52:00 EST,... Start Date: 04/18/20 Status: Ordered Pen [place], 31 G x 8 mm BD Ultra [...] neuropathy Confirmed Active 1rept scope 1 yr [address] [facility] M, W, F 3campath induction Social History Social History Type Response Smoking Status Never (less than 100 in lifetime) entered on: 07/22/22 Sex Male Patient Care team information Care Team Personnel Name: Teresa Ha RN Position: [facility] RN Supv Member Role: Primary Care Nurse Name: Elena Roberts RN Position: [facility] RN Member Role: Primary Care Nurse Name: Osvaldo House DO Position: [facility] Renal MD Member Role: Lifetime Consulting Physician Address: Address: [address] [place] [address] [address] [facility] [place] [address]- Name: Brendan Guillermo MD Position: [facility] Renal MD Member Role: Lifetime Consulting Physician Address: Address: [address] [place] [address] [address] [facility] [place], [place] [address] Name: Gale Wilcox Position: [facility] AMB Nurse Member Role: Primary Care Nurse Name: Ctaa Gong RN Position: [facility] AMB Nurse Member Role: Primary Care Nurse Name: Monae Rodriguez RN Position: [facility] RN Member Role: Primary Care Nurse Name: Alisha Polanco RN Position: [facility] RN Member Role: Primary Care Nurse Name: Gabbie Park RN Position: [facility] OB RN Member Role: Primary Care Nurse Name: Lou Hodge RN Position: [facility] SN RN Member Role: Primary Care Nurse Name: Ryann Salas RN Position: [facility] SN RN Member Role: Primary Care Nurse Name: Harmony Cr MD Position: [facility] Resident Member Role: PCP Address: Address: [address] [place] [address]- Name: Stephanie Schroeder RN Position: [facility] RN Member Role: Primary Care Nurse Name: Lynette Comer RN Position: [facility] Onco RN Member Role: Primary Care Nurse Name: Pepe Miller RN Position: [facility] SN RN Member Role: Primary Care Nurse Name: Olu Cortés MD Position: [facility] Renal MD Member Role: Lifetime Consulting Physician Address: Address: [address] [place] [address] [facility] [place] [address]- Care Team Related Persons Name: TAYLOR ENCISO Name: DARELL ENCISO Address: [place] [address]
--- OUTSIDE RECORDS SUMMARY | 2022-09-11 14:09 | XMS_ITS | Continuity of Care Document ---
Author Name Unknown Organization [facility] Address [address] [place] [address]- Care Team Providers Care Cyber Ops Planner Name Role Phone Tayo SADLER, Harmony Doan [id number] - [facility]/15/[facility]/[address] [address]- Attending Physician: April Paul MD Admitting Physician: [...] 03/13/20 15:34:00 EST, Route to Pharmacy Electronically, [facility], 167, cm, 03/13/20 9:06:00EST, [...] 02/16/20 12:56:00 EDT, Route to Pharmacy Electronically, [facility], 167, cm, 02/15/2010:08:00 EDT, [...] 2 Refills, Maintenance, 09/16/21 16:48:00EDT, CR Capsule, [facility], Parti... Start Date: 09/16/21 Stop Date: 12/15/21 Status: Ordered dapagliflozin 10 mg oral tablet 1 tablet = 10 mg, By Mouth, Daily, # 30 tablet, 5 Refills, Maintenance, 01/15/22 12:01:00 EDT, Tablet, [facility], Partial fill upon patient [...] Maintenance, 02/12/2013:29:00 EDT, Route to Pharmacy Electronically, [facility], 167, cm, 02/13/20 8:42:00 EDT, Height, 86.2, kg, 01/22/20 7:46:00 EDT, Dry... Start Date: 02/13/20 Stop Date: 04/13/20 Status: Ordered entecavir 0.5 mg oral tablet 1 tablet = 0.5 mg, By Mouth, Daily, # 30 tablet, 1 Refills, Maintenance, 03/13/20 15:32:00 EST, Tablet, [facility], 167, cm, 03/13/20 9:06:00 EST, Height, 86.2, kg, 01/22/20 7:46:00 EDT, Dry Weight Start Date: 03/13/20 Stop Date: 05/12/20 Status: Ordered Envarsus XR 1 mg oral tablet, extended release 3 tablet = 3 mg, By Mouth, Daily in AM, # 90 tablet, 2 Refills, Maintenance, 03/13/20 15:32:00 EST,[facility], 167, cm, 03/13/20 9:06:00 EST, [...] 04/16/20 10:24:00 EST, Route to Pharmacy Electronically, [facility], Partial fill upon patient request, 168, cm, 04/09/20 8:57:00 EST,... Start Date: 04/16/20 Stop Date: 06/15/20 Status: Ordered glipiZIDE 10 mg oral tablet, extended release 1 tablet = 10 mg, By Mouth, 2 times a day, # 60 tablet, 5 Refills, Maintenance, 01/15/22 12:01:00 EDT, ER Tablet, [facility], DxE11.65, 170, cm, 12/13/21 11:01:00 EDT, Height, 80, kg, 12/12/21 16:28:00 EDT, Dry Weight Start Date: 01/15/22 Status: Ordered Lantus Solostar Pen 100 units/mL subcutaneous solution See Instructions, INJECT 44 UNITS SUBCUTANEOUSLY ONCE DAILY AT BEDTIME, # 15 mL, 2 Refills, Maintenance, 01/16/22 10:11:00 EDT, [facility], 170, cm, 12/13/21 11:01:00 EDT, Height, 80, kg, 12/12/21 16:28:00 EDT, Dry Weight Start Date: 01/16/22 Status: Ordered metFORMIN 500 mg oral tablet 1 tablet = 500 mg, By Mouth, 2 times a day, # 60 tablet, 11 Refills, Maintenance, 04/18/20 11:39:00EST, Tablet, [facility], Partial fill upon patient request, 168, cm, 04/16/20 13:36:00 EST, Height, 73.55, kg, 03/20/20 19:52:00 EST,... Start Date: 04/18/20 Status: Ordered Pen [place], 31 G x 8 mm BD Ultra [...] 1 Refills, Maintenance, 03/20/20 16:11:00 EST, Tablet, [facility], Partial fill upon patient [...] Refills, Maintenance, 09/16/21 17:04:00 EDT, ER Tablet, [facility], Partial fill upon patient [...] neuropathy Confirmed Active 1rept scope 1 yr [address] [facility] M, W, F 3campath induction Social History Social History Type Response Smoking Status Never smoker entered on: 09/25/16 Sex Patient Care team information Personnel Name: Tayo SADLER, Harmony Doan Address: Address: [address] [place] [id number]
--- OUTSIDE RECORDS SUMMARY | 2022-09-11 14:09 | XMS_ITS | Continuity of Care Document ---
Author Name Unknown Organization [facility] Address [address] [place] [address]- Care Team Providers Care Pharmacy Intake Coordinator Name Role Phone Tayo SADLER, Harmony Doan Primary Care Physician Encounter [facility] Date(s): 10/08/21 - 11/07/21 [facility] [address] [place] [id number] Allergies, Adverse [...] 03/13/20 15:34:00 EST, Route to Pharmacy Electronically, [facility], 167, cm, 03/13/20 9:06:00EST, Height, 86.2, kg, 01/22/20 7:46:00 EDT, Dry We... Start Date: 03/13/20 Stop Date: 06/11/20 Status: Ordered ammonium lactate 5% topical lotion 1 application, Topically, 2 times a day, # 120 Gm, 2 Refills, Maintenance, 09/20/21 20:13:00 EDT, Lotion, [facility], Partial fill upon patient request if the prescription is for a schedule II opioid drug., 1 application Topically 2 t... Start Date: 09/20/21 Status: Ordered atorvastatin 40 mg oral tablet 1 tablet = 40 mg, By Mouth, Daily, # 30 tablet, 11 Refills, Maintenance, 09/16/21 16:52:00 EDT, Tablet, [facility], Partial fill upon patient request [...] 5 Refills, Maintenance, 09/16/21 16:41:00 EDT, Capsule, [facility], 168, cm, 09/16/21 16:17:00 EDT, Height, 80, kg, 02/27/21 9:40:00EDT, Dry Weight Start Date: 09/16/21 Stop Date: 03/15/22 Status: Ordered clotrimazole 1% topical cream 1 application, Topically, 2 times a day, # 60 Gm, 0 Refills, Maintenance, 09/16/21 17:16:00 EDT, Cream, [facility], Partial fill upon patient request if the prescription is for a schedule II opioid drug., 1 application Topically 2 ginna... Start Date: 09/16/21 Status: Ordered Coreg 25 mg oral tablet 25 mg, 1, tablet, By Mouth, 2 times a day, # 60 tablet, Refills 2, Tot. Refills 2, Maintenance, 02/16/20 12:56:00 EDT, Route to Pharmacy Electronically, [facility], 167, cm, 02/15/2010:08:00 EDT, [...] 2 Refills, Maintenance, 09/16/21 16:48:00EDT, CR Capsule, [facility], Parti... Start Date: 09/16/21 Stop Date: 12/15/21 Status: Ordered dapagliflozin 10 mg oral tablet 1 tablet = 10 mg, By Mouth, Daily, # 30 tablet, 5 Refills, Maintenance, 08/01/21 12:54:00 EDT, Tablet, [facility], Partial fill upon patient request [...] Maintenance, 02/12/2013:29:00 EDT, Route to Pharmacy Electronically, [facility], 167, cm, 02/13/20 8:42:00 EDT, Height, 86.2, kg, 01/22/20 7:46:00 EDT, Dry... Start Date: 02/13/20 Stop Date: 04/13/20 Status: Ordered entecavir 0.5 mg oral tablet 1 tablet = 0.5 mg, By Mouth, Daily, # 30 tablet, 1 Refills, Maintenance, 03/13/20 15:32:00 EST, Tablet, [facility], 167, cm, 03/13/20 9:06:00 EST, Height, 86.2, kg, 01/22/20 7:46:00 EDT, Dry Weight Start Date: 03/13/20 Stop Date: 05/12/20 Status: Ordered Envarsus XR 1 mg oral tablet, extended release 1 tablet = 1 mg, By Mouth, Daily in AM, # 30 tablet, 2 Refills, Maintenance, 03/13/20 15:32:00 EST,[facility], 167, cm, 03/13/20 9:06:00 EST, [...] 04/16/20 10:24:00 EST, Route to Pharmacy Electronically, [facility], Partial fill upon patient request, 168, cm, 04/09/20 8:57:00 EST,... Start Date: 04/16/20 Stop Date: 06/15/20 Status: Ordered glipiZIDE 10 mg oral tablet, extended release 1 tablet = 10 mg, By Mouth, 2 times a day, # 60 tablet, 5 Refills, Maintenance, 08/01/21 12:54:00 EDT, ER Tablet, [facility], DxE11.65, 168, cm, 02/27/21 9:40:00 EDT, Height, 80, kg,02/27/21 9:40:00 EDT, Dry Weight Start Date: 08/01/21 Status: Ordered Lantus Solostar Pen 100 units/mL subcutaneous solution = 44 units, Subcutaneous Injection, Daily at bedtime, # 15 mL, 2 Refills, Maintenance, 09/16/21 17:26:00 EDT, Solution, [facility], Partial fill upon patient request if the prescription is for a schedule II opioid drug., 168, cm, 2... Start Date: 09/16/21 Stop Date: 12/15/21 Status: Ordered metFORMIN 500 mg oral tablet 1 tablet = 500 mg, By Mouth, 2 times a day, # 60 tablet, 11 Refills, Maintenance, 04/18/20 11:39:00EST, Tablet, [facility], Partial fill upon patient request, 168, cm, 04/16/20 13:36:00 EST, Height, 73.55, kg, 03/20/20 19:52:00 EST,... Start Date: 04/18/20 Status: Ordered omeprazole 40 mg oral enteric coated capsule 1 capsule = 40 mg, By Mouth, 2 times a day, # 60 capsule, 1 Refills, Maintenance, 04/16/20 10:32:00EST, [facility], Partial fill upon patient request if the prescription is for a schedule II opioid drug., 168, cm, 04/09/20 8:57:00 ES... Start Date: 04/16/20 Stop Date: 06/15/20 Status: Ordered Pen [place], 31 G x 8 mm BD Ultra [...] 1 Refills, Maintenance, 03/20/20 16:11:00 EST, Tablet, [facility], Partial fill upon [...] Refills, Maintenance, 09/16/21 17:04:00 EDT, ER Tablet, [facility], Partial fill upon [...] Diabetic neuropathy(Confirmed) Active 1rept scope 1 yr [address] [facility] M, W, F 3campath induction Social History Social History Type Response Smoking Status Never smoker entered on: 09/25/16 Sex
--- OUTSIDE RECORDS SUMMARY | 2022-09-11 14:09 | XMS_ITS | Continuity of Care Document ---
Author Name Unknown Organization [facility] Address [address] [place] [address]- Care Team Providers Care Tanning Consultant Name Role Phone Tayo SADLER, Harmony Doan Primary Care Physician Encounter [facility] [place] Date(s): 05/19/22 - 06/18/22 [facility]/[address] [address]- [place] Allergies, Adverse Reactions, Alerts No Known [...] tablet, 1 Refills, Maintenance, 05/25/22 20:02:00 EST, [facility], 170, cm, 04/07/22 14:06:00 EST, [...] 13:19:00 EST, Route to Pharmacy Electronically, [facility], 170, cm, 04/07/22 14:06:00 EST, [...] 01/02/23 13:39:00 EDT, 04/07/22 13:39:00 EST, Cream, [facility], Partial fill upon patient request if the prescription is for a schedule II opioid drug.,... Start Date: 04/07/22 Stop Date: 01/02/23 Status: Ordered Coreg 25 mg oral tablet 25 mg, 1, tablet, By Mouth, 2 times a day, # 60 tablet, Refills 2, Tot. Refills 2, Maintenance, 04/14/22 13:19:00 EST, Route to Pharmacy Electronically, [facility], 170, cm, 04/07/2214:06:00 EST, Height, [...] Refills, Maintenance, 09/16/21 16:48:00EDT, CR Capsule, [facility], Parti... Start Date: 09/16/21 Stop Date: 12/15/21 Status: Ordered dapagliflozin 10 mg oral tablet 1 tablet = 10 mg, By Mouth, Daily, # 30 tablet, 5 Refills, Maintenance, 01/15/22 12:01:00 EDT, Tablet, [facility], Partial fill upon patient [...] Maintenance, 02/12/2013:29:00 EDT, Route to Pharmacy Electronically, [facility], 167, cm, 02/13/20 8:42:00 EDT, Height, 86.2, kg, 01/22/20 7:46:00 EDT, Dry... Start Date: 02/13/20 Stop Date: 04/13/20 Status: Ordered entecavir 0.5 mg oral tablet 1 tablet = 0.5 mg, By Mouth, Daily, # 30 tablet, 1 Refills, Maintenance, 03/13/20 15:32:00 EST, Tablet, [facility], 167, cm, 03/13/20 9:06:00 EST, Height, 86.2, kg, 01/22/20 7:46:00 EDT, Dry Weight Start Date: 03/13/20 Stop Date: 05/12/20 Status: Ordered Envarsus XR 1 mg oral tablet, extended release 3 tablet = 3 mg, By Mouth, Daily in AM, # 90 tablet, 2 Refills, Maintenance, 03/13/20 15:32:00 EST,[facility], 167, cm, 03/13/20 9:06:00 [...] 10:26:00 EST, Route to Pharmacy Electronically, [facility], Partial fill upon patient request, 170, cm, 04/07/22 14:06:00 EST,... Start Date: 05/21/22 Stop Date: 07/20/22 Status: Ordered glipiZIDE 10 mg oral tablet, extended release 1 tablet = 10 mg, By Mouth, 2 times a day, # 60 tablet, 5 Refills, Maintenance, 01/15/22 12:01:00 EDT, ER Tablet, [facility], DxE11.65, 170, cm, 12/13/21 11:01:00 EDT, Height, 80, kg, 12/12/21 16:28:00 EDT, Dry Weight Start Date: 01/15/22 Status: Ordered Lantus Solostar Pen 100 units/mL subcutaneous solution See Instructions, INJECT 44 UNITS SUBCUTANEOUSLY ONCE DAILY AT BEDTIME, # 15 mL, 2 Refills, Maintenance, 05/25/22 20:02:00 EST, [facility], 170, cm, 04/07/22 14:06:00 EST, Height, 80, kg, 12/12/21 16:28:00 EDT, Dry Weight Start Date: 05/25/22 Status: Ordered metFORMIN 500 mg oral tablet 1 tablet = 500 mg, By Mouth, 2 times a day, # 60 tablet, 11 Refills, Maintenance, 04/18/20 11:39:00EST, Tablet, [facility], Partial fill upon patient request, 168, cm, 04/16/20 13:36:00 EST, Height, 73.55, kg, 03/20/20 19:52:00 EST,... Start Date: 04/18/20 Status: Ordered Pen [place], 31 G x 8 mm BD Ultra [...] Refills, Maintenance, 03/20/20 16:11:00 EST, Tablet, [facility], Partial fill upon [...] neuropathy Confirmed Active 1rept scope 1 yr [address] [facility] M, W, F 3campath induction Social History Social History Type Response Smoking Status Never smoker entered on: 09/25/16 Sex Patient Care team information Care Team Personnel Name: Teresa Ha RN Position: [facility] RN Supv Member Role: Primary Care Nurse Name: Elena Roberts RN Position: [facility] RN Member Role: Primary Care Nurse Name: Osvaldo House DO Position: [facility] Renal MD Member Role: Lifetime Consulting Physician Address: Address: [address] [place] [address] [address] [facility] [place] [address]- Name: Avla Melchor RN Position: [facility] RN Member Role: Primary Care Nurse Name: Brendan Guillermo MD Position: [facility] Renal MD Member Role: Lifetime Consulting Physician Address: Address: [address] [place] [address] [address] [facility] [place], [place] [address]- Name: Gale Wilcox Position: [facility] AMB Nurse Member Role: Primary Care Nurse Name: Cata Gong RN Position: [facility] AMB Nurse Member Role: Primary Care Nurse Name: Monae Rodriguez RN Position: [facility] RN Member Role: Primary Care Nurse Name: Alisha Polanco RN Position: [facility] RN Member Role: Primary Care Nurse Name: Gabbie Park RN Position: [facility] OB RN Member Role: Primary Care Nurse Name: Lou Hodge RN Position: [facility] SN RN Member Role: Primary Care Nurse Name: Ryann Salas RN Position: [facility] SN RN Member Role: Primary Care Nurse Name: Harmony Cr MD Position: [facility] Resident Member Role: PCP Address: Address: [address] [place] [id number]- Name: Stephanie Schroeder RN Position: [facility] RN Member Role: Primary Care Nurse Name: Lynette Comer RN Position: [facility] Onco RN Member Role: Primary Care Nurse Name: Paul FRENCH [place] Position: [facility] SN RN Member Role: Primary Care Nurse Name: Olu Cortés MD Position: [facility] Renal MD Member Role: Lifetime Consulting Physician Address: Address: [address] [place] [address] [facility] [place] [address]- Care Team Related Persons Name: TAYLOR ENCISO Name: DARELL ENCISO Address: [place] [address]
--- OUTSIDE RECORDS SUMMARY | 2022-09-11 14:09 | XMS_ITS | Continuity of Care Document ---
Author Name Unknown Organization [facility] Address [address] [place] [id number]- Care Team Providers Care Car Checker Name Role Phone Jose Miguel SADLER, Sakshi Primary Care Physician Encounter [facility] [place] Date(s): 02/27/21 - 02/27/[address] [address] Discharge Disposition: A-D/C Home Attending Physician: Jhonatan Moreno MD, I Admitting Physician: Jhonatan Moreno MD, I Referring Physician: Jhonatan Moreno MD, I Allergies, Adverse Reactions, Alerts No Known Medication [...] 03/13/20 15:34:00 EST, Route to Pharmacy Electronically, [facility], 167, cm, 03/13/20 9:06:00EST, Height, 86.2, kg, 01/22/20 7:46:00 EDT, Dry We... Start Date: 03/13/20 Stop Date: 06/11/20 Status: Ordered calcitriol 0.5 mcg oral capsule 2 capsule = 1 mcg, By Mouth, Daily, # 60 capsule, 2 Refills, Maintenance, 05/13/20 16:02:00 EST, Capsule, [facility], 168, cm, 04/02/20 13:09:00 EST, Height, 73.55, kg, 03/20/20 19:52:00 EST, Dry Weight Start Date: 05/13/20 Stop Date: 08/11/20 Status: Ordered Coreg 25 mg oral tablet 25 mg, 1, tablet, By Mouth, 2 times a day, # 60 tablet, Refills 2, Tot. Refills 2, Maintenance, 02/16/20 12:56:00 EDT, Route to Pharmacy Electronically, [facility], 167, cm, 02/15/2010:08:00 EDT, Height, 86.2, kg, 01/22/20 7:46:00 ED... Start Date: 02/16/20 Stop Date: 05/16/20 Status: Ordered dapagliflozin 10 mg oral tablet 1 tablet = 10 mg, By Mouth, Daily, # 30 tablet, 2 Refills, Maintenance, 02/04/21 13:38:00 EDT, Tablet, [facility], Partial fill upon patient request if the prescription is for a schedule II opioid drug., 168, cm, 04/23/20 8:27:00 EST,... Start Date: 02/04/21 Stop Date: 05/05/21 Status: Ordered docusate sodium 100 mg oral capsule 100 mg, 1, capsule, By Mouth, Daily, # 30 capsule, Refills 1, Tot. Refills 1, Maintenance, 02/12/2013:29:00 EDT, Route to Pharmacy Electronically, [facility], 167, cm, 02/13/20 8:42:00 EDT, Height, 86.2, kg, 01/22/20 7:46:00 EDT, Dry... Start Date: 02/13/20 Stop Date: 04/13/20 Status: Ordered entecavir 0.5 mg oral tablet 1 tablet = 0.5 mg, By Mouth, Daily, # 30 tablet, 1 Refills, Maintenance, 03/13/20 15:32:00 EST, Tablet, [facility], 167, cm, 03/13/20 9:06:00 EST, Height, 86.2, kg, 01/22/20 7:46:00 EDT, Dry Weight Start Date: 03/13/20 Stop Date: 05/12/20 Status: Ordered Envarsus XR 0.75 mg oral tablet, extended release 1 tablet = 0.75 mg, By Mouth, Daily in AM, to use with envarsus 1 mg tablets, # 30 tablet, 2 Refills, Maintenance, 03/05/20 16:42:00 EST, [facility], 167, cm, 03/05/20 8:28:00 EST, Height, 86.2, kg, 01/22/20 7:46:00 EDT, Dry Weight Start Date: 03/05/20 Stop Date: 06/03/20 Status: Ordered Envarsus XR 1 mg oral tablet, extended release 1 tablet = 1 mg, By Mouth, Daily in AM, # 30 tablet, 2 Refills, Maintenance, 03/13/20 15:32:00 EST,[facility], 167, cm, 03/13/20 9:06:00 EST, [...] Route to Pharmacy Electronically, [facility], Partial fill upon patient request, 168, cm, 04/09/20 8:57:00 EST,... Start Date: 04/16/20 Stop Date: 06/15/20 Status: Ordered glipiZIDE 10 mg oral tablet, extended release 1 tablet = 10 mg, By Mouth, 2 times a day, # 60 tablet, 6 Refills, Maintenance, 07/26/20 14:54:00 EDT, ER Tablet, [facility], DxE11.65, 168, cm, 04/23/20 8:27:00 EST, Height, 73.55, kg, 03/20/20 19:52:00 EST, Dry Weight Start Date: 07/26/20 Status: Ordered Lantus Solostar Pen 100 units/mL subcutaneous solution See Instructions, Take 40 units daily at bedtime. E11.65, # 30 mL, 3 Refills, Maintenance, 03/29/2020:26:00 EST, [facility], Partial fill upon patient request, 168, cm, 03/29/20 9:02:00 EST, Height, 73.55, kg, 03/20/20 19:52:00 EST,... Start Date: 03/29/20 Status: Ordered metFORMIN 500 mg oral tablet 1 tablet = 500 mg, By Mouth, 2 times a day, # 60 tablet, 11 Refills, Maintenance, 04/18/20 11:39:00EST, Tablet, [facility], Partial fill upon patient request, 168, cm, 04/16/20 13:36:00 EST, Height, 73.55, kg, 03/20/20 19:52:00 EST,... Start Date: 04/18/20 Status: Ordered omeprazole 40 mg oral enteric coated capsule 1 capsule = 40 mg, By Mouth, 2 times a day, # 60 capsule, 1 Refills, Maintenance, 04/16/20 10:32:00EST, [facility], Partial fill upon patient request if the prescription is for a schedule II opioid drug., 168, cm, 04/09/20 8:57:00 ES... Start Date: 04/16/20 Stop Date: 06/15/20 Status: Ordered Pen [place], 31 G x 8 mm BD Ultra [...] 1 Refills, Maintenance, 03/20/20 16:11:00 EST, Tablet, [facility], Partial fill upon [...] HTN (hypertension)(Confirmed) Active 1rept scope 1 yr [address] [facility] M, W, F 3campath induction Vital Signs Most recent to oldest [Reference Range]: 1 Height 168 cm (02/27/21 9:40 AM) Weight 80 kg (02/27/21 9:40 AM) Oxygen Saturation [94-100 %] 98 % (02/27/21 9:35 AM) Pulse Rate [55-90 bpm] 67 bpm (02/27/21 9:35 AM) Blood Pressure [90-138/55-84 mm Hg] 120/ 81mm Hg (02/27/21 9:35 AM) Respiratory Rate [16-30 br/min] 20 br/mi n (02/27/21 9:35 AM) Temperature [96.8-100.4 DegF] 98.2 DegF (02/27/21 9:35 AM) Blood pressure sites Arm, right (02/27/21 9:35 AM) Temperature Route Oral (02/27/21 9:35 AM) Dry Weight 80 kg (02/27/21 9:40 AM) Social History Social History Type Response Smoking Status Never smoker entered on: 09/25/16 Sex
--- OUTSIDE RECORDS SUMMARY | 2022-09-11 14:09 | XMS_ITS | Continuity of Care Document ---
Author Name Unknown Organization [facility] Address [address] [place] [address]- Care Team Providers Care Real Estate Rep Name Role Phone Jose Miguel SADLER, Sakshi Primary Care Physician Encounter [facility] ACCT R [id number] Date(s): 01/25/20 - 03/03/20 [facility] [address] [place] [address]- Attending Physician: Gino Billingsley MD Admitting Physician: [...] 02/27/20 16:53:00 EST, Route to Pharmacy Electronically, [facility], 167, cm, 02/26... Start Date: 02/27/20 Stop Date: 04/27/20 Status: Ordered amLODIPine 10 mg oral tablet 10 mg, 1, tablet, By Mouth, Daily, # 30 tablet, Refills 0, Tot. Refills 0, Maintenance, 01/24/20 9:40:00 EDT, Route to Pharmacy Electronically, [facility], 167, cm, 01/24/20 7:13:00 EDT, Height, 86.2, kg, 01/22/20 7:46:00 EDT, Dry Weight Start Date: 01/24/20 Status: Ordered calcitriol 0.5 mcg oral capsule 2 capsule = 1 mcg, By Mouth, Daily, # 60 capsule, 2 Refills, Maintenance, 02/13/20 16:02:00 EDT, Capsule, [facility], 167, cm, 02/13/20 8:42:00 EDT, Height, 86.2, kg, 01/22/20 7:46:00 EDT, Dry Weight Start Date: 02/13/20 Stop Date: 05/13/20 Status: Ordered cloNIDine 0.1 mg oral tablet 0.1 mg, 1, tablet, By Mouth, 3 times a day, # 90 tablet, Refills 2, Tot. 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 Start Date: 01/27/20 Stop Date: 04/26/20 Status: Ordered clotrimazole 10 mg oral lozenge 10 mg, 1, lozenge, By Mouth, 3 times a day after meals, for 30 days, # 90 lozenge, Refills 1, Tot. Refills 1, Acute 04/13/20 13:28:00 EST, 02/13/20 13:28:00 EDT, Route to Pharmacy Electronically, [facility], 167, cm, 02/13/20 8:42:00... Start Date: 02/13/20 Stop Date: 04/13/20 Status: Ordered Coreg 25 mg oral tablet 25 mg, 1, tablet, By Mouth, 2 times a day, # 60 tablet, Refills 2, Tot. Refills 2, Maintenance, 02/16/20 12:56:00 EDT, Route to Pharmacy Electronically, [facility], 167, cm, 02/15/2010:08:00 EDT, Height, 86.2, kg, 01/22/20 7:46:00 ED... Start Date: 02/16/20 Stop Date: 05/16/20 Status: Ordered docusate sodium 100 mg oral capsule 100 mg, 1, capsule, By Mouth, 2 times a day, # 60 capsule, Refills 1, Tot. Refills 1, Maintenance, 02/13/20 13:29:00 EDT, Route to Pharmacy Electronically, [facility], 167, cm, 02/13/20 8:42:00 EDT, Height, 86.2, kg, 01/22/20 7:46:00... Start Date: 02/13/20 Stop Date: 04/13/20 Status: Ordered entecavir 0.5 mg oral tablet 1 tablet = 0.5 mg, By Mouth, Daily, # 30 tablet, 0 Refills, Maintenance, 01/24/20 9:39:00 EDT, Tablet, [facility], 167, cm, 01/24/20 7:13:00 EDT, Height, 86.2, kg, 01/22/20 7:46:00 EDT, Dry Weight Start Date: 01/24/20 Status: Ordered Envarsus XR 1 mg oral tablet, extended release 8 tablet = 8 mg, By Mouth, Daily in AM, # 240 tablet, 0 Refills, Maintenance, 01/24/20 9:37:00 EDT,[facility], 167, cm, 01/24/20 7:13:00 EDT, Height, 86.2, kg, 01/22/20 7:46:00 EDT,Dry Weight Start Date: 01/24/20 Status: Ordered glipiZIDE 5 mg oral tablet 5 mg, 1, tablet, By Mouth, Daily, # 30 tablet, Refills 1, Tot. Refills 1, Maintenance, 02/09/20 16:34:00 EDT, Route to Pharmacy Electronically, [facility], 167, cm, 02/09/20 9:30:00 EDT, Height, 86.2, kg, 01/22/20 7:46:00 EDT, Dry Weight Start Date: 02/09/20 Stop Date: 04/09/20 Status: Ordered hydrALAZINE 50 mg oral tablet 1 tablet = 50 mg, By Mouth, 3 times a day, # 90 tablet, 1 Refills, Maintenance, 02/16/20 12:55:00 EDT, Tablet, [facility], 167, cm, 02/16/20 10:08:00 EDT, Height, 86.2, kg, 01/22/20 7:46:00 EDT, Dry Weight Start Date: 02/16/20 Status: Ordered Kayexcelate Powder Kayexcelate Powder, 30 [...] 2 Refills, Maintenance, 02/02/20 15:39:00 EDT, Suspension, [facility], 167, cm, 02/02/20 10:10:00 EDT, Height, 86.2, kg, 01/22/20 7:46:00 EDT, Dry Weight Start Date: 02/02/20 Stop Date: 05/02/20 Status: Ordered Readi-Cat 2 oral suspension 450 mL = 9 Gm, By Mouth, Once, # 450 mL, 0 Refills, Soft Stop, 02/09/20 15:38:00 EDT, [facility], 450 mL By Mouth Once, 167, cm, 02/09/20 9:30:00 EDT, Height, 86.2, kg, 01/22/20 7:46:00 EDT, Dry Weight Start Date: 02/09/20 Status: Ordered Readi-Cat 2 oral suspension 900 mL = 18 Gm, By Mouth, Once, Drink 1 bottle at midnight then bring second bottlwe to appointment, # 900 mL, 0 Refills, Soft Stop, 02/09/20 15:54:00 EDT, [facility], 900 mL By Mouth Once,Instr:Drink [...] 02/13/20 13:29:00 EDT, Route to Pharmacy Electronically, [facility], 167, cm, 02/13/20 8:42:00 EDT, Height, 86.2, k... Start Date: 02/13/20 Stop Date: 04/13/20 Status: Ordered sulfamethoxazole-trimethoprim 400 mg-80 mg oral tablet 1 tablet, By Mouth, Daily at bedtime, for 30 days, # 30 tablet, 1 Refills, Acute 03/26/20 10:31:00 EST, 01/26/20 10:31:00 EDT, Tablet, [facility], 1 tablet By Mouth Daily at bedtime,x30 days, 167, cm, 01/26/20 9:51:00 EDT, Height, 86.... Start Date: 01/26/20 Stop Date: 03/26/20 Status: Ordered valganciclovir 450 mg oral tablet 450 mg, 1, tablet, By Mouth, Daily, for 30 days, # 30 tablet, Refills 2, Tot. Refills 2, Acute 05/13/20 13:27:00 EST, 02/13/20 13:27:00 EDT, Route to Pharmacy Electronically, [facility], 167, cm, 02/13/20 8:42:00 EDT, Height, 86.2, kg... Start Date: 02/13/20 Stop Date: 05/13/20 Status: Ordered Veltassa 8.4 g oral powder for reconstitution = 8.4 Gm, By Mouth, Every Thursday, Thursday and Thursday, # 30 pack/packet, 1 Refills, Maintenance, 02/01/20 12:58:00 EDT, [facility], Needs Delivery Today, 167, cm, 02/01/20 8:51:00 EDT, Height, 86.2, kg, 01/22/20 7:46:00 EDT, Dry Weight Start Date: 02/01/20 Stop Date: 04/01/20 Status: Ordered Problem List Condition Effective Dates Status Health Status Inform ant Polyp of colon, adenomatous( Confirmed) 1 07/24/16 Active Chronic renal impairment(Confirmed) Active ESRD on dialysis(Confirmed) 2 Active HTN (hypertension)(Confirmed) Active 1rept scope 1 yr [id number] [facility] M, W, F Social History Social History Type Response Smoking Status Never smoker entered on: 09/25/16 Sex
--- OUTSIDE RECORDS SUMMARY | 2022-09-11 14:09 | XMS_ITS | Continuity of Care Document ---
Author Name Unknown Organization [facility] Address [address] [place] [address]- Care Team Providers Care Clinical Sciences Professor Name Role Phone Jos eMiguel SADLER, Sakshi Primary Care Physician [phone] Encounter [facility] ACCT R [id number] Date(s): 11/25/19 - 12/25/19 [facility] [address] [place] [address]- [facility] Attending Physician: Dileep Montes Admitting Physician: Dileep Montes Referring Physician: AdmDileep mcclure Allergies, Adverse Reactions, Alerts No Known Medication [...] 02/01/19 10:08:36 EDT, Route to Pharmacy Electronically, [id number], [facility] #[id number] Start Date: 02/01/19 Status: Ordered Renvela [...] Start Date: 01/06/18 Status: Ordered Vitamin D 28841 iu oral capsule See Instructions, M, W, F at dialysis, Refills 0, Maintenance, 01/06/18 10:34:54 EDT Start Date: 01/06/18 Status: Ordered Problem List Condition Effective Dates Status Health Status Inform ant Polyp of colon, adenomatous( Confirmed) 1 07/24/16 Active Chronic renal impairment(Confirmed) Active ESRD on dialysis(Confirmed) 2 Active HTN (hypertension)(Confirmed) Active 1rept scope 1 yr [address] [facility] M, W, F Vital Signs Most [...]
[2022-09-11 16:06] VITALS: BP 124/75; PULSE 55; RESP 18; TEMP 36.4; O2SAT 97
--- NOTE | 2022-09-11 17:40 | PC.ADMIT ---
PATIENT ADMITTED TO S1 FROM [facility] ED AT 1445 ON CV. 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 PATIENT HAD ALSO BEEN MAKING SI STATEMENTS WITH PLAN TO OVERDOSE ON INSULIN. PATIENT IS WC BOUND AND HAD BEEN UNABLE TO GET OUT OF HIS APARTMENT DUE TO INADEQUATE HANDICAP ACCESS RESULTING IN DEPRESSIVE EPISODE. PAT[facility] PRESENTS [facility] DISHEVELED. ALERT AND ORIENTED X4, CLEAR SPEECH, APPROPRIATE PARTICIPATION IN ADMISSION PROCESS. PATIENT SIGNED 3 DAY NOTICE UPON ARRIVAL TO UNIT. PAST MEDICAL HX INCLUDES NKA, HTN AND DIABETES. PATIENT HAS RECENT HX OF KIDNEY TRANSPLANT X 1 YEAR.TRANSFERS WITH WALKER TO TOILET/BED ACCORDING TO PATIENT. PLACED ON 5 MINUTE CHECKS .
[2022-09-11 20:58] VITALS: BP 124/71; PULSE 54; TEMP 35.7; O2SAT 95
[2022-09-11 21:10] LABS: Glucose, Whole Blood 163 mg/dL (60-115)
[2022-09-11] MEDS: Acetaminophen 325 MG TABLET 1300 MG PO (21:11)
[2022-09-11] MEDS: rOPINIRole HCL 0.5 MG TABLET PO (21:14)
--- NOTE | 2022-09-11 21:19 | PC.NURSE ---
Patient said he normally takes Gabapentin 300 mg in a.m. and 300 mg at HS. He said the current dose of Gabapentin 100 mg po tid is not enough and his hands and feet hurt from the neuropathy. Please review in the a.m.
[2022-09-11] MEDS: Insulin Glargine,Hum.rec.anlog 100 UNIT/ML 10 ML VIAL 40 UNIT SUBCUT (21:35)
[2022-09-11 22:24] VITALS: BP 109/59; PULSE 59; TEMP 36.2; O2SAT 96
--- NOTE | 2022-09-12 00:21 | PC.NURSE ---
This group underwriter noticed that urine culture was resulted. Dr. Elizalde was notified of results. He will address the issue in the a.m.
[2022-09-12 07:41] LABS: Alanine Aminotransferase 18 U/L (0-40); Albumin Level 4.1 g/dL (3.5-5.0); Alkaline Phosphatase 114 U/L (39-117); Anion Gap 16 (12-20); Aspartate Amino Transferase 17 U/L (5-37); Bilirubin Total 0.7 mg/dL (0.0-1.0); Blood Urea Nitrogen 15 mg/dL (9-16); Calcium 8.2 mg/dL (8.4-10.2); Carbon Dioxide 25 mmol/L (22-29); Chloride 105 mmol/L (96-108); Cholesterol 119 mg/dL; Creatinine Clr Calc Pharmacy 68.1; Estimated Glomerular Filt Rate > 60; Glucose Fasting 73 mg/dL (60-99); HDL Cholesterol 26 mg/dL; LDL Cholesterol Calculated 57 mg/dl; Potassium 4.2 mmol/L (3.3-5.1); Sodium 142 mmol/L (135-145); Total Protein 6.6 g/dL (6.5-8.0); Triglycerides 184 mg/dL
[2022-09-12 07:45] VITALS: BP 129/71; PULSE 56; RESP 18; TEMP 36.2; O2SAT 94
[2022-09-12 08:27] VITALS: BP 109/59; PULSE 59; O2SAT 96
[2022-09-12] MEDS: TACROLIMUS 1 MG 3 EACH PO (10:05)
[2022-09-12] MEDS: glipiZIDE XL 10 MG TAB.ER.24 PO (10:08)
[2022-09-12] MEDS: DULoxetine HCl 30 MG CAPSULE.DR PO ×2 (10:08→16:47)
[2022-09-12] MEDS: Empagliflozin 10 MG TABLET PO (10:08)
[2022-09-12] MEDS: metFORMIN HCl 500 MG TABLET PO (10:08)
[2022-09-12] MEDS: Docusate Sodium 100 MG CAPSULE PO (10:08)
[2022-09-12] MEDS: Gabapentin 100 MG CAPSULE PO (10:09)
[2022-09-12] MEDS: amLODIPine Besylate 10 MG TABLET PO (10:10)
--- NOTE | 2022-09-12 10:39 | MHC.CLN ---
NUTRITION DIET CHANGED TO DIABETIC 2000 KCALS. ELEVATED BLOOD SUGARS AND TAKES DM MEDS. HX KIDNEY TRANSPLANT ONE YEAR AGO.
--- NOTE | 2022-09-12 11:14 | HO.PSYADMNOT ---
HPI Date of Service: 09/12/22 Chief Complaint: Mood Sources of Information: patient interviewed, chart reviewed and crisis/core team assessment reviewed Additional Sources of Information: daughter HPI Subjective Notes: [place] Warning (given and shows understanding), Conditional Voluntary and 3 Day Narrative: Mr. Chisholm is a 57 year-old male with hx of MDD who initially presented on 09/08 reporting chronic LLE weakness and depression. at that time, pt was seen by care team, no SI reported and he was referred to [facility]. He returned via EMS after he called 911 on 09/10 reporting suicidal ideation with plan to OD on insulin. In the ED, utox is negative. On the unit, pt reports that he has increasingly more depressed and frustrated for the past 3 months due to the ramp of his apartment being broken for the past 3 years and as his mobility has worsened he is now wheelchair bound. Pt on the unit denies any intent to harm himself. He expresses appropriate frustration about missing medication tacrolimus for his kidney transplant. He worries that if this medication is not given daily he may have complications of renal function. Pt denies hx of visual or auditory hallucinations. Pt reports fair sleep. 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 She worries that if emergency happens, such as a fire, he won't be able to get out of the house. Daughter reports pt is frustrated with being confine in the apartment along with fact that his health is deteriorating and is taking a toll on his mental health. Daughter report he does have hx of one previous suicide attempt about 4-5 years ago when he OD on medications. Past Psychiatric History: Inpatient: one prior unclear details. OP: none Past trial: duloxetine Hx of suicide attempt: 4-5 years ago OD on medication. Medical Evaluation Reviewed: Yes [facility] Medical History Diabetes HTN (hypertension) Surgical History Kidney transplanted Diagnostics Vital Signs (24Hr): Vital Signs - 24 hr 09/11/22 16:06 09/11/22 20:58 09/11/22 22:24 Temperature 97.6 F 96.3 F L 97.2 F Pulse Rate 55 54 59 Respiratory Rate 18 Blood Pressure 124/75 124/71 109/59 L Pulse Oximetry 97 95 96 Oxygen Delivery Method Room Air Room Air Room Air 09/12/22 08:27 Temperature Pulse Rate 59 Respiratory Rate Blood Pressure 109/59 L Pulse Oximetry 96 Oxygen Delivery Method BMI result Body Mass Index 29.9 Labs 09/10/22 07:41 09/12/22 07:20 Labs: Laboratory Results - last 48 hr 09/10/22 09/11/22 09/11/22 20:43 07:22 21:03 Sodium Potassium Chloride Carbon Dioxide Anion Gap BUN Creatinine Estim Creat Clear Calc Estimated GFR POC Glucose 215 H 203 H 163 H Fasting Glucose Calcium Total Bilirubin AST ALT Alkaline Phosphatase Total Protein Albumin Triglycerides Cholesterol LDL Cholesterol, Calc HDL Cholesterol 09/12/22 07:20 Sodium 142 Potassium 4.2 Chloride 105 Carbon Dioxide 25 Anion Gap 16 BUN 15 Creatinine 1.20 Estim Creat Clear Calc 68.1 Estimated GFR > 60 POC Glucose Fasting Glucose 73 Calcium 8.2 L Total Bilirubin 0.7 AST 17 ALT 18 Alkaline Phosphatase 114 Total Protein 6.6 Albumin 4.1 Triglycerides 184 Cholesterol 119 LDL Cholesterol, Calc 57 HDL Cholesterol 26 Meds/Allergies Meds Home Medications Medication Instructions Recorded Confirmed Type amlodipine 10 mg tablet 10 mg PO DAILY 05/23/21 09/10/22 History carvedilol 25 mg tablet 25 mg PO BID 05/23/21 09/10/22 History dapagliflozin 10 mg tablet 10 mg PO DAILY 05/23/21 09/10/22 History (Farxiga) gabapentin 100 mg capsule 100 mg PO TID 05/23/21 09/10/22 History glipizide 10 mg tablet, extended 10 mg PO BID 05/23/21 09/10/22 History release 24 hr insulin glargine 100 unit/mL (3 44 unit subcut BEDTIME 05/23/21 09/10/22 History mL) subcutaneous pen (Lantus Solostar U-100 Insulin) metformin 500 mg tablet 500 mg PO BID 05/23/21 09/10/22 History pen needle, diabetic 31 gauge x #1,200 ea 05/23/21 09/10/22 History 5/16 (BD Ultra-Fine Short Pen Needle) ropinirole 0.5 mg tablet 0.5 mg PO BEDTIME 05/23/21 09/10/22 History tacrolimus 1 mg tablet,extended 3 mg PO DAILY 05/23/21 09/10/22 History release 24 hr (Envarsus XR) acetaminophen 650 mg 1,300 mg PO Q8H PRN Pain 09/08/22 09/10/22 History tablet,extended release capsaicin 0.025 % topical cream 1 appl topical BID 09/08/22 09/10/22 History docusate sodium 100 mg capsule 100 mg PO DAILY 09/08/22 09/10/22 History duloxetine 30 mg capsule,delayed 30 mg PO DAILY 09/08/22 09/10/22 History release Allergies Allergies Allergy/AdvReac Type Severity Reaction Status Date / Time No Known Allergies Allergy Verified 09/10/22 03:42 [No Known Allergies*] Mental Status Exam Mental Status Exam Narrative: Appearance: casually groomed, fair hygiene, in NAD Behavior: cooperative, somewhat frustrated and irritable as he wants to leave today Psychomotor: no agitation or retardation noted Speech: clear, normal rate/rhythm/volume, spontaneous TP: linear TC: wanting to go home, not wanting to stay here in the hospital Mood: depressed Affect: blunted, somewhat irritable as he also wants to go home Si: passive, at this time denies any plan or intent HI: denies VH/AH: none Delusions: none Insight/judgment: fair x 2. Memory/cog: alert, oriented x 3. Assessment & Plan Assessment & Plan (1) MDD (major depressive disorder), recurrent episode, moderate: Status: Acute Code(s): F33.1 - Major depressive disorder, recurrent, moderate Plan Mr. Chisholm is a 57 year-old male with hx of MDD. He was brought via EMS to [facility] [place] after he called 911 reporting suicidal ideation with plan to OD on insulin. Pt reports increased depression in past 3 months due to ramp at home being broken for past 3 years, he is now wheelchair bound and is confined to his apartment. He also reports depression related to worsening physical health. We discussed risks, benefits and alternative treatment options. Pt agrees to increase duloxetine from 30mg to 60mg daily. PLAN 1. Admit to S1, cv 15 minutes check. Pt did sign 3 day notice. 2. increase cymbalta to 60mg po daily 3. aftercare planning Patient educated on: diagnosis Reason for continued inpatient stay Substantial Risk for: harm to self Statement Statement: I have reviewed the history and physical and performed a pertinent examination on my patient. No changes have occurred unless specified. If the History and Physical was not performed prior to admission, the Hospitalist's service will be consulted for completing the admission physical. Time Spent With Patient Time: Total time managing care of this patient today ____ minutes.
[2022-09-12 16:37] LABS: Glucose, Whole Blood 128 mg/dL (60-115)
[2022-09-13 08:07] LABS: Glucose, Whole Blood 126 mg/dL (60-115)
[2022-09-13 08:35] VITALS: BP 118/71; PULSE 63; RESP 18; TEMP 36.6; O2SAT 97
[2022-09-13] MEDS: metFORMIN HCl 500 MG TABLET PO ×2 (08:44→20:46)
[2022-09-13] MEDS: glipiZIDE XL 10 MG TAB.ER.24 PO ×2 (08:44→20:46)
[2022-09-13] MEDS: carvediloL 25 MG TABLET PO ×2 (08:44→20:46)
[2022-09-13] MEDS: Docusate Sodium 100 MG CAPSULE PO (08:44)
[2022-09-13] MEDS: Gabapentin 300 MG CAPSULE PO ×2 (08:45→20:46)
[2022-09-13] MEDS: amLODIPine Besylate 10 MG TABLET PO (08:45)
[2022-09-13] MEDS: Empagliflozin 10 MG TABLET PO (08:45)
[2022-09-13] MEDS: TACROLIMUS 1 MG 3 EACH PO (08:47)
[2022-09-13 11:17] LABS: Glucose, Whole Blood 129 mg/dL (60-115)
--- NOTE | 2022-09-13 12:16 | P.PNPSI_ITS ---
Subjective Subjective Date of Service: 09/13/22 Reason For Visit: Mood Subjective Notes: Conditional Voluntary and 3 Day Interim History: Patient was seen and discussed in rounds today. Records and plans were reviewed. He has put on a 3 day notice and is hoping to be discharged next week to go back home. His blood sugars have been running within acceptable range. It was 126 this morning. He declined the Cymbalta because it makes him drowsy. I did not make any changes today. Eating and sleeping adequately. Medication Compliance: Intermittent Side effects from medications: Yes (Drowsiness on Cymbalta) Review of Systems Review of Systems Yes all other systems are reviewed and are negative Mental Status Exam Mental Status Exam Narrative: In today's visit he is alert, oriented and pleasant. Normal speech. Moderate eye contact. Appropriate and varied affect. No overt signs of psychosis or delusions. No SI. Cognitively appears to be grossly intact. Judgment is intact Diagnostics Vital Signs (24Hr): Vital Signs - 24 hr 09/13/22 08:35 Temperature 97.9 F Pulse Rate 63 Respiratory Rate 18 Blood Pressure 118/71 Pulse Oximetry 97 Oxygen Delivery Method Room Air BMI result Body Mass Index 29.9 Labs 09/10/22 07:41 09/12/22 07:20 Labs: Laboratory Results - last 48 hr 09/11/22 09/12/22 09/12/22 21:03 07:20 16:33 Sodium 142 Potassium 4.2 Chloride 105 Carbon Dioxide 25 Anion Gap 16 BUN 15 Creatinine 1.20 Estim Creat Clear Calc 68.1 Estimated GFR > 60 POC Glucose 163 H 128 H Fasting Glucose 73 Calcium 8.2 L Total Bilirubin 0.7 AST 17 ALT 18 Alkaline Phosphatase 114 Total Protein 6.6 Albumin 4.1 Triglycerides 184 Cholesterol 119 LDL Cholesterol, Calc 57 HDL Cholesterol 26 09/13/22 09/13/22 08:03 11:05 Sodium Potassium Chloride Carbon Dioxide Anion Gap BUN Creatinine Estim Creat Clear Calc Estimated GFR POC Glucose 126 H 129 H Fasting Glucose Calcium Total Bilirubin AST ALT Alkaline Phosphatase Total Protein Albumin Triglycerides Cholesterol LDL Cholesterol, Calc HDL Cholesterol Medications Medications Current Medications Acetaminophen (Acetaminophen 325 Mg Tablet) 1,300 mg PO Q8H PRN PRN Reason: Pain, Mild (Pain Scale 1-3) Last Admin: 09/11/22 21:11 Dose: 1,300 mg Al Hydroxide/Mg Hydroxide (Magnesium Hydrox/Alum Hydrox 30 Ml Oral.Susp) 30 ml PO Q6H PRN PRN Reason: Heartburn/Nausea Amlodipine Besylate (Amlodipine Besylate 10 Mg Tablet) 10 mg PO DAILY [facility]; Protocol Last Admin: 09/13/22 08:45 Dose: 10 mg Capsaicin (Capsaicin 0.025% Cream 60 Gm Tube) 1 appl TOPICAL BID [facility]; Protocol Last Admin: 09/13/22 11:10 Dose: Not Given Carvedilol (Carvedilol 25 Mg Tablet) 25 mg PO BID [facility]; Protocol Last Admin: 09/13/22 08:44 Dose: 25 mg Docusate Sodium (Docusate Sodium 100 Mg Capsule) 100 mg PO DAILY [facility] Last Admin: 09/13/22 08:44 Dose: 100 mg Duloxetine HCl (Duloxetine Hcl 60 Mg Capsule.Dr) 60 mg PO DAILY [facility] Last Admin: 09/13/22 08:46 Dose: Not Given Empagliflozin (Empagliflozin 10 Mg Tablet) 10 mg PO DAILY [facility] Last Admin: 09/13/22 08:45 Dose: 10 mg Gabapentin (Gabapentin 300 Mg Capsule) 300 mg PO BID [facility] Last Admin: 09/13/22 08:45 Dose: 300 mg Glipizide (Glipizide Xl 10 Mg Tab.Er.24) 10 mg PO BID [facility] Last Admin: 09/13/22 08:44 Dose: 10 mg Hydroxyzine HCl (Hydroxyzine Hcl 25 Mg Tablet) 25 mg PO Q6H PRN PRN Reason: Anxiety Insulin Glargine (Insulin Glargine,Hum.Rec.Anlog 100 Unit/Ml 10 Ml Vial) 40 unit SUBCUT BEDTIME [facility] Last Admin: 09/12/22 20:39 Dose: Not Given Insulin Human Lispro (Insulin Lispro 100 Unit/Ml 3 Ml Vial) 0 unit SUBCUT QIDACHS [facility]; Protocol Last Admin: 09/13/22 08:44 Dose: Not Given Magnesium Hydroxide (Milk Of Magnesia 30 Ml Oral.Susp) 30 ml PO DAILY PRN PRN Reason: Constipation Metformin HCl (Metformin Hcl 500 Mg Tablet) 500 mg PO BID [facility] Last Admin: 09/13/22 08:44 Dose: 500 mg Pt Own (Tacrolimus [ Envarsus Xr] 1 Mg Tablet Extended Release 24 Hr) 3 mg PO DAILY [facility] Last Admin: 09/13/22 08:47 Dose: 3 mg Ropinirole HCl (Ropinirole Hcl 0.5 Mg Tablet) 0.5 mg PO BEDTIME [facility] Last Admin: 09/12/22 20:40 Dose: Not Given Trazodone HCl (Trazodone Hcl 50 Mg Tablet) 50 mg PO BEDTIME MRX1 PRN PRN Reason: Insomnia Allergies Allergies Allergy/AdvReac Type Severity Reaction Status Date / Time No Known Allergies Allergy Verified 09/10/22 03:42 [No Known Allergies*] Assessment & Plan Assessment & Plan (1) MDD (major depressive disorder), recurrent episode, moderate: Status: Acute Code(s): F33.1 - Major depressive disorder, recurrent, moderate Plan Mr. Chisholm is a 57 year-old male with hx of MDD. He was brought via EMS to [facility] ED after he called 911 reporting suicidal ideation with plan to OD on insulin. Pt reports increased depression in past 3 months due to ramp at home being broken for past 3 years, he is now wheelchair bound and is confined to his apartment. He also reports depression related to worsening physical health. We discussed risks, benefits and alternative treatment options. Pt agrees to increase duloxetine from 30mg to 60mg daily. PLAN 1. Admit to S1, cv 15 minutes check. Pt did sign 3 day notice. 2. increase cymbalta to 60mg po daily 3. aftercare planning 09/13: Continue current regimen and plans Reason for continued inpatient stay Substantial Risk for: med/psych decompensation Time Spent With Patient Time: Total time managing care of this patient today ____ minutes.
[2022-09-13 15:23] LABS: TSH reflex Free T4 1.41 uIU/mL (0.32-4.0)
[2022-09-13 15:26] LABS: Estimated Average Glucose 171 mg/dL; Hemoglobin A1c % 7.6 %
[2022-09-13 18:00] VITALS: BP 137/77; PULSE 66; RESP 18; TEMP 36.6; O2SAT 95
[2022-09-13] MEDS: Acetaminophen 325 MG TABLET 1300 MG PO (20:44)
[2022-09-13] MEDS: rOPINIRole HCL 0.5 MG TABLET PO (20:46)
[2022-09-13] MEDS: Insulin Glargine,Hum.rec.anlog 100 UNIT/ML 10 ML VIAL 40 UNIT SUBCUT (20:49)
[2022-09-14 08:00] VITALS: BP 125/74; PULSE 60; RESP 18; TEMP 36.5; O2SAT 97
[2022-09-14] MEDS: glipiZIDE XL 10 MG TAB.ER.24 PO ×2 (08:12→20:44)
[2022-09-14] MEDS: metFORMIN HCl 500 MG TABLET PO ×2 (08:12→20:45)
[2022-09-14] MEDS: amLODIPine Besylate 10 MG TABLET PO (08:12)
[2022-09-14] MEDS: carvediloL 25 MG TABLET PO ×2 (08:12→20:45)
[2022-09-14] MEDS: Docusate Sodium 100 MG CAPSULE PO (08:13)
[2022-09-14] MEDS: Empagliflozin 10 MG TABLET PO (08:13)
[2022-09-14] MEDS: Gabapentin 300 MG CAPSULE PO ×2 (08:13→20:44)
[2022-09-14] MEDS: DULoxetine HCl 60 MG CAPSULE.DR PO (08:13)
[2022-09-14] MEDS: TACROLIMUS 1 MG 3 EACH PO (08:14)
--- NOTE | 2022-09-14 11:24 | HO.PSYCHPN ---
Subjective Subjective Date of Service: 09/14/22 Reason For Visit: Mood Subjective Notes: Conditional Voluntary and 3 Day Interim History: Patient was seen and discussed in rounds today. Records and plans were reviewed. He has been fairly stable and is doing okay. Some psychomotor retardation is observed. That was yesterday and he actually is doing better today. Continues to have depression. He has been able to take care of his own needs. He has been afebrile. He is medication and meal compliant. No complaints or side effects. No changes were made today Medication Compliance: Intermittent Side effects from medications: Yes (Drowsiness on Cymbalta) Review of Systems Review of Systems Yes all other systems are reviewed and are negative Diagnostics Vital Signs (24Hr): Vital Signs - 24 hr 09/13/22 18:00 09/14/22 08:00 Temperature 98 F 97.7 F Pulse Rate 66 60 Respiratory Rate 18 18 Blood Pressure 137/77 125/74 Pulse Oximetry 95 97 Oxygen Delivery Method Room Air Room Air BMI result Body Mass Index 29.9 Labs 09/10/22 07:41 09/12/22 07:20 Labs: Laboratory Results - last 48 hr 09/12/22 09/13/22 09/13/22 16:33 08:03 11:05 POC Glucose 128 H 126 H 129 H Estimat Average Glucose Hemoglobin A1c % TSH 09/13/22 09/13/22 14:31 14:31 POC Glucose Estimat Average Glucose 171 Hemoglobin A1c % 7.6 TSH 1.41 Medications Medications Current Medications Acetaminophen (Acetaminophen 325 Mg Tablet) 1,300 mg PO Q8H PRN PRN Reason: Pain, Mild (Pain Scale 1-3) Last Admin: 09/13/22 20:44 Dose: 1,300 mg Al Hydroxide/Mg Hydroxide (Magnesium Hydrox/Alum Hydrox 30 Ml Oral.Susp) 30 ml PO Q6H PRN PRN Reason: Heartburn/Nausea Amlodipine Besylate (Amlodipine Besylate 10 Mg Tablet) 10 mg PO DAILY [facility]; Protocol Last Admin: 09/14/22 08:12 Dose: 10 mg Capsaicin (Capsaicin 0.025% Cream 60 Gm Tube) 1 appl TOPICAL BID [facility]; Protocol Last Admin: 09/14/22 08:16 Dose: Not Given Carvedilol (Carvedilol 25 Mg Tablet) 25 mg PO BID [facility]; Protocol Last Admin: 09/14/22 08:12 Dose: 25 mg Docusate Sodium (Docusate Sodium 100 Mg Capsule) 100 mg PO DAILY [facility] Last Admin: 09/14/22 08:13 Dose: 100 mg Duloxetine HCl (Duloxetine Hcl 60 Mg Capsule.Dr) 60 mg PO DAILY [facility] Last Admin: 09/14/22 08:13 Dose: 60 mg Empagliflozin (Empagliflozin 10 Mg Tablet) 10 mg PO DAILY [facility] Last Admin: 09/14/22 08:13 Dose: 10 mg Gabapentin (Gabapentin 300 Mg Capsule) 300 mg PO BID [facility] Last Admin: 09/14/22 08:13 Dose: 300 mg Glipizide (Glipizide Xl 10 Mg Tab.Er.24) 10 mg PO BID [facility] Last Admin: 09/14/22 08:12 Dose: 10 mg Hydroxyzine HCl (Hydroxyzine Hcl 25 Mg Tablet) 25 mg PO Q6H PRN PRN Reason: Anxiety Insulin Glargine (Insulin Glargine,Hum.Rec.Anlog 100 Unit/Ml 10 Ml Vial) 40 unit SUBCUT BEDTIME [facility] Last Admin: 09/13/22 20:49 Dose: 40 unit Magnesium Hydroxide (Milk Of Magnesia 30 Ml Oral.Susp) 30 ml PO DAILY PRN PRN Reason: Constipation Metformin HCl (Metformin Hcl 500 Mg Tablet) 500 mg PO BID [facility] Last Admin: 09/14/22 08:12 Dose: 500 mg Pt Own (Tacrolimus [ Envarsus Xr] 1 Mg Tablet Extended Release 24 Hr) 3 mg PO DAILY [facility] Last Admin: 09/14/22 08:14 Dose: 3 mg Ropinirole HCl (Ropinirole Hcl 0.5 Mg Tablet) 0.5 mg PO BEDTIME [facility] Last Admin: 09/13/22 20:46 Dose: 0.5 mg Trazodone HCl (Trazodone Hcl 50 Mg Tablet) 50 mg PO BEDTIME MRX1 PRN PRN Reason: Insomnia Allergies Allergies Allergy/AdvReac Type Severity Reaction Status Date / Time No Known Allergies Allergy Verified 09/10/22 03:42 [No Known Allergies*] Assessment & Plan Assessment & Plan (1) MDD (major depressive disorder), recurrent episode, moderate: Status: Acute Code(s): F33.1 - Major depressive disorder, recurrent, moderate Plan Mr. Chisholm is a 57 year-old male with hx of MDD. He was [place] via EMS [place] [facility] [place] he called 911 reporting suicidal ideation with plan to OD on insulin. Pt reports increased depression in past 3 months due to ramp at home being broken for past 3 years, he is now wheelchair bound and is confined to his apartment. He also reports depression related to worsening physical health. We discussed risks, benefits and alternative treatment options. Pt agrees to increase duloxetine from 30mg to 60mg daily. PLAN 1. Admit to S1, cv 15 minutes check. Pt did sign 3 day notice. 2. increase cymbalta to 60mg po daily 3. aftercare planning 09/13: Continue current regimen and plans 09/14: Continue current regimen and plans Reason for continued inpatient stay Substantial Risk for: med/psych decompensation Time Spent With Patient Time: Total time managing care of this patient today ____ minutes.
[2022-09-14 18:00] VITALS: BP 135/77; PULSE 64; RESP 16; TEMP 36.3; O2SAT 96
[2022-09-14] MEDS: rOPINIRole HCL 0.5 MG TABLET PO (20:45)
[2022-09-14] MEDS: Insulin Glargine,Hum.rec.anlog 100 UNIT/ML 10 ML VIAL 40 UNIT SUBCUT (20:49)
[2022-09-15 10:00] VITALS: BP 115/75; PULSE 63; RESP 16; TEMP 36.1; O2SAT 98
[2022-09-15] MEDS: amLODIPine Besylate 10 MG TABLET PO (10:48)
[2022-09-15] MEDS: glipiZIDE XL 10 MG TAB.ER.24 PO ×2 (10:48→20:41)
[2022-09-15] MEDS: carvediloL 25 MG TABLET PO ×2 (10:48→20:39)
[2022-09-15] MEDS: Docusate Sodium 100 MG CAPSULE PO (10:48)
[2022-09-15] MEDS: Gabapentin 300 MG CAPSULE PO ×2 (10:48→20:41)
[2022-09-15] MEDS: DULoxetine HCl 60 MG CAPSULE.DR PO (10:48)
[2022-09-15] MEDS: metFORMIN HCl 500 MG TABLET PO ×2 (10:49→20:41)
[2022-09-15] MEDS: Empagliflozin 10 MG TABLET PO (10:49)
[2022-09-15] MEDS: TACROLIMUS 1 MG 3 EACH PO (10:50)
[2022-09-15] MEDS: Insulin Lispro 100 UNIT/ML 3 ML VIAL SUBCUT ×2 (11:42→21:50)
[2022-09-15 13:27] LABS: Glucose, Whole Blood 180 mg/dL (60-115)
--- NOTE | 2022-09-15 16:04 | HO.PSYCHPN ---
Subjective Subjective Date of Service: 09/15/22 Reason For Visit: Mood Subjective Notes: Conditional Voluntary Interim History: Pt reports the weekend went well. he denies SI/HI. He denies VH/AH. He reports he looks foward to be discharged tomorrow. He is taking medications as prescribed. No side effects. He reports feeling weak today and prefers to stay in bed. Medication Compliance: Yes Review of Systems Review of Systems No chest pain stiffness of both hands and pins and needle sensation of both hands bilat LE weakness No constipation nor diarrhea. Yes all other systems are reviewed and are negative Constitutional: Reports as per HPI, Reports body ache(s) and Reports difficulty sleeping Mental Status Exam Mental Status Exam Narrative: Appearance: casually groomed, fair hygiene, in NAD Behavior: cooperative, somewhat frustrated and irritable as he wants to leave today Psychomotor: no agitation or retardation noted Speech: clear, normal rate/rhythm/volume, spontaneous TP: linear TC: wanting to go home, not wanting to stay here in the hospital Mood: depressed Affect: blunted, somewhat irritable as he also wants to go home Si: passive, at this time denies any plan or intent HI: denies VH/AH: none Delusions: none Insight/judgment: fair x 2. Memory/cog: alert, oriented x 3. Diagnostics Vital Signs (24Hr): Vital Signs - 24 hr 09/14/22 18:00 09/15/22 10:00 Temperature 97.4 F 97 F Pulse Rate 64 63 Respiratory Rate 16 16 Blood Pressure 135/77 115/75 Pulse Oximetry 96 98 Oxygen Delivery Method Room Air Room Air BMI result Body Mass Index 29.9 Labs 09/10/22 07:41 09/12/22 07:20 Labs: Laboratory Results - last 48 hr 09/15/22 11:30 POC Glucose 180 H Medications Medications Current Medications Acetaminophen (Acetaminophen 325 Mg Tablet) 1,300 mg PO Q8H PRN PRN Reason: Pain, Mild (Pain Scale 1-3) Last Admin: 09/13/22 20:44 Dose: 1,300 mg Al Hydroxide/Mg Hydroxide (Magnesium Hydrox/Alum Hydrox 30 Ml Oral.Susp) 30 ml PO Q6H PRN PRN Reason: Heartburn/Nausea Amlodipine Besylate (Amlodipine Besylate 10 Mg Tablet) 10 mg PO DAILY [facility]; Protocol Last Admin: 09/15/22 10:48 Dose: 10 mg Capsaicin (Capsaicin 0.025% Cream 60 Gm Tube) 1 appl TOPICAL BID [facility]; Protocol Last Admin: 09/15/22 10:49 Dose: Not Given Carvedilol (Carvedilol 25 Mg Tablet) 25 mg PO BID [facility]; Protocol Last Admin: 09/15/22 10:48 Dose: 25 mg Docusate Sodium (Docusate Sodium 100 Mg Capsule) 100 mg PO DAILY [facility] Last Admin: 09/15/22 10:48 Dose: 100 mg Duloxetine HCl (Duloxetine Hcl 60 Mg Capsule.Dr) 60 mg PO DAILY [facility] Last Admin: 09/15/22 10:48 Dose: 60 mg Empagliflozin (Empagliflozin 10 Mg Tablet) 10 mg PO DAILY [facility] Last Admin: 09/15/22 10:49 Dose: 10 mg Gabapentin (Gabapentin 300 Mg Capsule) 300 mg PO BID [facility] Last Admin: 09/15/22 10:48 Dose: 300 mg Glipizide (Glipizide Xl 10 Mg Tab.Er.24) 10 mg PO BID [facility] Last Admin: 09/15/22 10:48 Dose: 10 mg Hydroxyzine HCl (Hydroxyzine Hcl 25 Mg Tablet) 25 mg PO Q6H PRN PRN Reason: Anxiety Insulin Glargine (Insulin Glargine,Hum.Rec.Anlog 100 Unit/Ml 10 Ml Vial) 40 unit SUBCUT BEDTIME [facility] Last Admin: 09/14/22 20:49 Dose: 40 unit Insulin Human Lispro (Insulin Lispro 100 Unit/Ml 3 Ml Vial) 0 unit SUBCUT QIDACHS [facility]; Protocol Last Admin: 09/15/22 11:42 Dose: 2 unit Magnesium Hydroxide (Milk Of Magnesia 30 Ml Oral.Susp) 30 ml PO DAILY PRN PRN Reason: Constipation Metformin HCl (Metformin Hcl 500 Mg Tablet) 500 mg PO BID [facility] Last Admin: 09/15/22 10:49 Dose: 500 mg Pt Own (Tacrolimus [ Envarsus Xr] 1 Mg Tablet Extended Release 24 Hr) 3 mg PO DAILY [facility] Last Admin: 09/15/22 10:50 Dose: 3 mg Ropinirole HCl (Ropinirole Hcl 0.5 Mg Tablet) 0.5 mg PO BEDTIME [facility] Last Admin: 09/14/22 20:45 Dose: 0.5 mg Trazodone HCl (Trazodone Hcl 50 Mg Tablet) 50 mg PO BEDTIME MRX1 PRN PRN Reason: Insomnia Allergies Allergies Allergy/AdvReac Type Severity Reaction Status Date / Time No Known Allergies Allergy Verified 09/10/22 03:42 [No Known Allergies*] Assessment & Plan Assessment & Plan (1) MDD (major depressive disorder), recurrent episode, moderate: Status: Acute Code(s): F33.1 - Major depressive disorder, recurrent, moderate Plan Mr. Chisholm is a 57 year-old male with hx of MDD. He was [place] via EMS [place] [facility] [place] he called 911 reporting suicidal ideation with plan to OD on insulin. Pt reports increased depression in past 3 months due to ramp at home being broken for past 3 years, he is now wheelchair bound and is confined to his apartment. He also reports depression related to worsening physical health. We discussed risks, benefits and alternative treatment options. Pt agrees to increase duloxetine from 30mg to 60mg daily. PLAN 1. Admit to S1, cv 15 minutes check. Pt did sign 3 day notice. 2. increase cymbalta to 60mg po daily 3. aftercare planning 09/13: Continue current regimen and plans 09/14: Continue current regimen and plans 09/15 continue tx. Reason for continued inpatient stay Substantial Risk for: stable for discharge Time Spent With Patient Time: Total time managing care of this patient today ____ minutes.
[2022-09-15 16:29] LABS: Glucose, Whole Blood 71 mg/dL (60-115)
[2022-09-15 18:00] VITALS: BP 143/76; PULSE 60; RESP 18; TEMP 36.2; O2SAT 94
[2022-09-15] MEDS: rOPINIRole HCL 0.5 MG TABLET PO (20:41)
[2022-09-15] MEDS: Acetaminophen 325 MG TABLET 1300 MG PO (21:15)
[2022-09-15 21:25] LABS: Glucose, Whole Blood 181 mg/dL (60-115)
[2022-09-15] MEDS: Insulin Glargine,Hum.rec.anlog 100 UNIT/ML 10 ML VIAL 40 UNIT SUBCUT (21:51)
[2022-09-16 06:00] VITALS: BP 140/86; PULSE 82; RESP 16; TEMP 35.8; O2SAT 96
[2022-09-16 07:40] LABS: Glucose, Whole Blood 45 mg/dL (60-115)
[2022-09-16] MEDS: amLODIPine Besylate 10 MG TABLET PO (09:14)
[2022-09-16] MEDS: DULoxetine HCl 60 MG CAPSULE.DR PO (09:14)
[2022-09-16] MEDS: Gabapentin 300 MG CAPSULE PO (09:14)
[2022-09-16] MEDS: Docusate Sodium 100 MG CAPSULE PO (09:14)
[2022-09-16] MEDS: metFORMIN HCl 500 MG TABLET PO (09:14)
[2022-09-16] MEDS: carvediloL 25 MG TABLET PO (09:14)
[2022-09-16] MEDS: TACROLIMUS 1 MG 3 EACH PO (09:19)
--- NOTE | 2022-09-16 10:08 | P.DS_ITS ---
DS: Providers Provider Date of Service: 09/16/22 Date of admission: 09/11/22 13:57 Primary care physician: Unknown Physician DS: Diagnosis Discharge Diagnosis (1) MDD (major depressive disorder), recurrent episode, moderate: Status: Acute DS: Medications Discharge Medications Home Medications: Home Medications Medication Instructions Recorded Confirmed amlodipine 10 mg tablet 10 mg PO DAILY 05/23/21 09/10/22 carvedilol 25 mg tablet 25 mg PO BID 05/23/21 09/10/22 dapagliflozin 10 mg tablet 10 mg PO DAILY 05/23/21 09/10/22 (Farxiga) glipizide 10 mg tablet, extended 10 mg PO BID 05/23/21 09/10/22 release 24 hr insulin glargine 100 unit/mL (3 44 unit subcut BEDTIME 05/23/21 09/10/22 mL) subcutaneous pen (Lantus Solostar U-100 Insulin) metformin 500 mg tablet 500 mg PO BID 05/23/21 09/10/22 pen needle, diabetic 31 gauge x #1,200 ea 05/23/21 09/10/22 5/16 (BD Ultra-Fine Short Pen Needle) ropinirole 0.5 mg tablet 0.5 mg PO BEDTIME 05/23/21 09/10/22 tacrolimus 1 mg tablet,extended 3 mg PO DAILY 05/23/21 09/10/22 release 24 hr (Envarsus XR) acetaminophen 650 mg 1,300 mg PO Q8H PRN Pain 09/08/22 09/10/22 tablet,extended release capsaicin 0.025 % topical cream 1 appl topical BID 09/08/22 09/10/22 docusate sodium 100 mg capsule 100 mg PO DAILY 09/08/22 09/10/22 Previous Rx's Medication Instructions Recorded duloxetine 60 mg capsule,delayed 60 mg PO DAILY #30 caps 09/16/22 release gabapentin 300 mg capsule 300 mg PO BID #60 caps 09/16/22 Mental Status Exam Mental Status Exam Narrative: Appearance: casually groomed, fair hygiene, in NAD Behavior: cooperative, somewhat frustrated and irritable as he wants to leave today Psychomotor: no agitation or retardation noted Speech: clear, normal rate/rhythm/volume, spontaneous TP: linear TC: wanting to go home, not wanting to stay here in the hospital Mood: depressed Affect: blunted, somewhat irritable as he also wants to go home Si: passive, at this time denies any plan or intent HI: denies VH/AH: none Delusions: none Insight/judgment: fair x 2. Memory/cog: alert, oriented x 3. Data Data Completed and Pending Completed studies during hospitalization [Text1]: 09/10/22 09/10/22 09/10/22 03:43 04:01 05:08 WBC RBC Hgb Hct MCV MCH MCHC RDW Plt Count MPV Immature Gran % (Auto) Neut % (Auto) Lymph % (Auto) Frontier % (Auto) Eos % (Auto) Baso % (Auto) Lymph # (Auto) Frontier # (Auto) Eos # (Auto) Baso # (Auto) Abs Immat Gran (auto) Absolute Neuts (auto) Absolute Nucleated RBC Nucleated RBC % (auto) Sodium Potassium Chloride Carbon Dioxide Anion Gap BUN Creatinine Estim Creat Clear Calc Estimated GFR POC Glucose 241 H 199 H Random Glucose Fasting Glucose Estimat Average Glucose Hemoglobin A1c % Calcium Magnesium Total Bilirubin Direct Bilirubin AST ALT Alkaline Phosphatase Total Protein Albumin Triglycerides Cholesterol LDL Cholesterol, Calc HDL Cholesterol TSH Urine Color Urine Appearance Urine pH Ur Specific Phelps Urine Protein Urine Glucose (UA) Urine Ketones Urine Blood Urine Nitrite Ur Leukocyte Esterase Urine RBC Urine WBC Ur Squamous Epith Cells Urine Bacteria Hyaline Casts Urine Opiates Screen Urine Fentanyl Screen Ur Barbiturates Screen Ur Phencyclidine Scrn Ur Amphetamines Screen U Benzodiazepines Scrn Urine Cocaine Screen U Marijuana (THC) Screen Ethyl Alcohol COVID-19 ([facility]) Negative COVID-19 Clin Com See Note 09/10/22 09/10/22 09/10/22 07:06 07:41 07:41 WBC 6.3 RBC 4.53 L Hgb 13.9 L Hct 40.9 L MCV 90.3 MCH 30.7 MCHC 34.0 RDW 12.3 Plt Count 149 L MPV 10.8 Immature Gran % (Auto) 0.3 Neut % (Auto) 66.5 Lymph % (Auto) 19.6 L Frontier % (Auto) 9.2 Eos % (Auto) 3.8 Baso % (Auto) 0.6 Lymph # (Auto) 1.2 Frontier # (Auto) 0.6 Eos # (Auto) 0.2 Baso # (Auto) 0.0 Abs Immat Gran (auto) 0.02 Absolute Neuts (auto) 4.2 Absolute Nucleated RBC 0.000 Nucleated RBC % (auto) 0.0 Sodium 144 Potassium 4.0 Chloride 109 H Carbon Dioxide 28 Anion Gap 11 L BUN 11 Creatinine 1.07 Estim Creat Clear Calc 76.4 Estimated GFR > 60 POC Glucose 145 H Random Glucose 126 H Fasting Glucose Estimat Average Glucose Hemoglobin A1c % Calcium 7.8 L Magnesium 1.5 L Total Bilirubin 0.4 Direct Bilirubin 0.1 AST 14 ALT 16 Alkaline Phosphatase 130 H Total Protein 5.8 L Albumin 3.7 Triglycerides Cholesterol LDL Cholesterol, Calc HDL Cholesterol TSH Urine Color Urine Appearance Urine pH Ur Specific Phelps Urine Protein Urine Glucose (UA) Urine Ketones Urine Blood Urine Nitrite Ur Leukocyte Esterase Urine RBC Urine WBC Ur Squamous Epith Cells Urine Bacteria Hyaline Casts Urine Opiates Screen Urine Fentanyl Screen Ur Barbiturates Screen Ur Phencyclidine Scrn Ur Amphetamines Screen U Benzodiazepines Scrn Urine Cocaine Screen U Marijuana (THC) Screen Ethyl Alcohol < 10 COVID-19 ([facility]) COVID-19 [facility] Com 09/10/22 09/10/22 09/10/22 09:21 09:21 20:43 WBC RBC Hgb Hct MCV MCH MCHC RDW Plt Count MPV Immature Gran % (Auto) Neut % (Auto) Lymph % (Auto) Frontier % (Auto) Eos % (Auto) Baso % (Auto) Lymph # (Auto) Frontier # (Auto) Eos # (Auto) Baso # (Auto) Abs Immat Gran (auto) Absolute Neuts (auto) Absolute Nucleated RBC Nucleated RBC % (auto) Sodium Potassium Chloride Carbon Dioxide Anion Gap BUN Creatinine Estim Creat Clear Calc Estimated GFR POC Glucose 215 H Random Glucose Fasting Glucose Estimat Average Glucose Hemoglobin A1c % Calcium Magnesium Total Bilirubin Direct Bilirubin AST ALT Alkaline Phosphatase Total Protein Albumin Triglycerides Cholesterol LDL Cholesterol, Calc HDL Cholesterol TSH Urine Color Yellow Urine Appearance Clear Urine pH 6.5 Ur Specific Phelps 1.015 Urine Protein Trace Urine Glucose (UA) >=1000 H Urine Ketones Negative Urine Blood Negative Urine Nitrite Negative Ur Leukocyte Esterase Small (1+) H Urine RBC 0-2 Urine WBC 0-5 Ur Squamous Epith Cells 0-2 Urine Bacteria None Seen Hyaline Casts 0-2 Urine Opiates Screen Not Detected Urine Fentanyl Screen Not Detected Ur Barbiturates Screen Not Detected Ur Phencyclidine Scrn Not Detected Ur Amphetamines Screen Not Detected U Benzodiazepines Scrn Not Detected Urine Cocaine Screen Not Detected U Marijuana (THC) Screen Not Detected Ethyl Alcohol COVID-19 ([facility]) COVID-19 [email or web address] 09/11/22 09/11/22 09/12/22 07:22 21:03 07:20 WBC RBC Hgb Hct MCV MCH MCHC RDW Plt Count MPV Immature Gran % (Auto) Neut % (Auto) Lymph % (Auto) Frontier % (Auto) Eos % (Auto) Baso % (Auto) Lymph # (Auto) Frontier # (Auto) Eos # (Auto) Baso # (Auto) Abs Immat Gran (auto) Absolute Neuts (auto) Absolute Nucleated RBC Nucleated RBC % (auto) Sodium 142 Potassium 4.2 Chloride 105 Carbon Dioxide 25 Anion Gap 16 BUN 15 Creatinine 1.20 Estim Creat Clear Calc 68.1 Estimated GFR > 60 POC Glucose 203 H 163 H Random Glucose Fasting Glucose 73 Estimat Average Glucose Hemoglobin A1c % Calcium 8.2 L Magnesium Total Bilirubin 0.7 Direct Bilirubin AST 17 ALT 18 Alkaline Phosphatase 114 Total Protein 6.6 Albumin 4.1 Triglycerides 184 Cholesterol 119 LDL Cholesterol, Calc 57 HDL Cholesterol 26 TSH Urine Color Urine Appearance Urine pH Ur Specific Phelps Urine Protein Urine Glucose (UA) Urine Ketones Urine Blood Urine Nitrite Ur Leukocyte Esterase Urine RBC Urine WBC Ur Squamous Epith Cells Urine Bacteria Hyaline Casts Urine Opiates Screen Urine Fentanyl Screen Ur Barbiturates Screen Ur Phencyclidine Scrn Ur Amphetamines Screen U Benzodiazepines Scrn Urine Cocaine Screen U Marijuana (THC) Screen Ethyl Alcohol COVID-19 ([facility]) COVID-19 [email or web address] 09/12/22 09/13/22 09/13/22 16:33 08:03 11:05 WBC RBC Hgb Hct MCV MCH MCHC RDW Plt Count MPV Immature Gran % (Auto) Neut % (Auto) Lymph % (Auto) Frontier % (Auto) Eos % (Auto) Baso % (Auto) Lymph # (Auto) Frontier # (Auto) Eos # (Auto) Baso # (Auto) Abs Immat Gran (auto) Absolute Neuts (auto) Absolute Nucleated RBC Nucleated RBC % (auto) Sodium Potassium Chloride Carbon Dioxide Anion Gap BUN Creatinine Estim Creat Clear Calc Estimated GFR POC Glucose 128 H 126 H 129 H Random Glucose Fasting Glucose Estimat Average Glucose Hemoglobin A1c % Calcium Magnesium Total Bilirubin Direct Bilirubin AST ALT Alkaline Phosphatase Total Protein Albumin Triglycerides Cholesterol LDL Cholesterol, Calc HDL Cholesterol TSH Urine Color Urine Appearance Urine pH Ur Specific Phelps Urine Protein Urine Glucose (UA) Urine Ketones Urine Blood Urine Nitrite Ur Leukocyte Esterase Urine RBC Urine WBC Ur Squamous Epith Cells Urine Bacteria Hyaline Casts Urine Opiates Screen Urine Fentanyl Screen Ur Barbiturates Screen Ur Phencyclidine Scrn Ur Amphetamines Screen U Benzodiazepines Scrn Urine Cocaine Screen U Marijuana (THC) Screen Ethyl Alcohol COVID-19 ([facility]) COVID-19 [facility] 09/13/22 09/13/22 09/15/22 14:31 14:31 11:30 WBC RBC Hgb Hct MCV MCH MCHC RDW Plt Count MPV Immature Gran % (Auto) Neut % (Auto) Lymph % (Auto) Frontier % (Auto) Eos % (Auto) Baso % (Auto) Lymph # (Auto) Frontier # (Auto) Eos # (Auto) Baso # (Auto) Abs Immat Gran (auto) Absolute Neuts (auto) Absolute Nucleated RBC Nucleated RBC % (auto) Sodium Potassium Chloride Carbon Dioxide Anion Gap BUN Creatinine Estim Creat Clear Calc Estimated GFR POC Glucose 180 H Random Glucose Fasting Glucose Estimat Average Glucose 171 Hemoglobin A1c % 7.6 Calcium Magnesium Total Bilirubin Direct Bilirubin AST ALT Alkaline Phosphatase Total Protein Albumin Triglycerides Cholesterol LDL Cholesterol, Calc HDL Cholesterol TSH 1.41 Urine Color Urine Appearance Urine pH Ur Specific Phelps Urine Protein Urine Glucose (UA) Urine Ketones Urine Blood Urine Nitrite Ur Leukocyte Esterase Urine RBC Urine WBC Ur Squamous Epith Cells Urine Bacteria Hyaline Casts Urine Opiates Screen Urine Fentanyl Screen Ur Barbiturates Screen Ur Phencyclidine Scrn Ur Amphetamines Screen U Benzodiazepines Scrn Urine Cocaine Screen U Marijuana (THC) Screen Ethyl Alcohol COVID-19 ([facility]) COVID-19 [facility] 09/15/22 09/15/22 09/16/22 16:25 21:12 07:35 WBC RBC Hgb Hct MCV MCH MCHC RDW Plt Count MPV Immature Gran % (Auto) Neut % (Auto) Lymph % (Auto) Frontier % (Auto) Eos % (Auto) Baso % (Auto) Lymph # (Auto) Frontier # (Auto) Eos # (Auto) Baso # (Auto) Abs Immat Gran (auto) Absolute Neuts (auto) Absolute Nucleated RBC Nucleated RBC % (auto) Sodium Potassium Chloride Carbon Dioxide Anion Gap BUN Creatinine Estim Creat Clear Calc Estimated GFR POC Glucose 71 181 H 45 L* Random Glucose Fasting Glucose Estimat Average Glucose Hemoglobin A1c % Calcium Magnesium Total Bilirubin Direct Bilirubin AST ALT Alkaline Phosphatase Total Protein Albumin Triglycerides Cholesterol LDL Cholesterol, Calc HDL Cholesterol TSH Urine Color Urine Appearance Urine pH Ur Specific Phelps Urine Protein Urine Glucose (UA) Urine Ketones Urine Blood Urine Nitrite Ur Leukocyte Esterase Urine RBC Urine WBC Ur Squamous Epith Cells Urine Bacteria Hyaline Casts Urine Opiates Screen Urine Fentanyl Screen Ur Barbiturates Screen Ur Phencyclidine Scrn Ur Amphetamines Screen U Benzodiazepines Scrn Urine Cocaine Screen U Marijuana (THC) Screen Ethyl Alcohol COVID-19 ([facility]) COVID-19 Clin Com 09/10/22 Unknown Urine clean catch - Urine live top Urine Culture - Final Strep agalactiae (Grp B) DS: Summary Hospital Course Hospital Course: Subjective Notes: [place] Warning (given and shows understanding), Conditional Voluntary and 3 Day Narrative: Mr. Chisholm is a 57 year-old male with hx of MDD who initially presented on 09/08 reporting chronic LLE weakness and depression. at that time, pt was seen by care team, no SI reported and he was referred to [facility]. He returned via EMS after he called 911 on 09/10 reporting suicidal ideation with plan to OD on insulin. In the ED, utox is negative. On the unit, pt reports that he has increasingly more depressed and frustrated for the past 3 months due to the ramp of his apartment being broken for the past 3 years and as his mobility has worsened he is now wheelchair bound. Pt on the unit denies any intent to harm himself. He expresses appropriate frustration about missing medication tacrolimus for his kidney transplant. He worries that if this medication is not given daily he may have complications of renal function. Pt denies hx of visual or auditory hallucinations. Pt reports fair sleep. This service writer advisor spoke with his daugter who reports landlord has not fixed ramp and he can't get out of his apartment. She worries that if emergency happens, such as a fire, he won't be able to get out of the house. Daughter reports pt is frustrated with being confine in the apartment along with fact that his health is deteriorating and is taking a toll on his mental health. Daughter report he does have hx of one previous suicide attempt about 4-5 years ago when he OD on medications. Past Psychiatric History: Inpatient: one prior unclear details. OP: none Past trial: duloxetine Hx of suicide attempt:? 4-5 years ago OD on medication. Medical Evaluation Reviewed: Yes HOSPITAL COURSE On the unit, pt was admitted on a CV and he signed 3 day notice. He was placed on 15 minutes checks for safety. On the unit, pt reports feeling more depressed, anxious, frustrated about living situation and fact that he is now wheelchair bound. He denied any plan or intent to harm himself. We discussed risks, benefits and alternative treatment options. He agreed to increase cymbalta from 30mg po daily to 60mg po daily. His affect gradually presented as brighter, less irritable. He denied suicidal or homicidal ideation. No signs of psychosis or delusions. Pt was sleeping through the night. No behavioral concerns. He agreed to be referred to [facility] services at home as he reported not being able to go out of his apartment, which is the case, especially as ramp has not been fixed by his landlord in 3 years. Time spent discussing smoking cessation with patient: 3 to 10 minutes Status at Discharge Cognitive/behavioral status at discharge: Pt with brighter, less labile affect. No SI/HI. No VH/AH. No delusions. Pt sleeping through the night. No behavioral concerns. No signs of aggression towards self or others. Functional status at discharge: wheelchair bound Overall status at discharge: patient is progressing back to baseline Time Spent with Patient Time attestation: Total time managing care of this patient today ____ minutes. Time spent: Greater than 30 minutes Discharge Plan Discharge Anticipated Discharge Date/Time: 09/16/22 10:03 Patient Disposition: Home, Self-Care Discharge Diagnosis: MDD, recurrent, moderate Referrals: [facility] [Other] - 09/17/22 (Your Rv Technician will contact you 24 hours post discharge.) [facility] [Other] - 09/16/22 2:00 pm (You have appointment with PCP Dr Crockett on 09/16/22 at 2PM. ) [facility] [Other] - 1 Week (Call was placed and request made for in home therapy follow up. [facility] will contact you with appointment following discharge. ) [facility] [Other] - 09/18/22 4:00 pm ([facility]loise [facility]el community behavioral health clinician from [facility] will provide follow up home visit to you on 09/18/22 at 4PM.) [facility] [Other] - 09/17/22 (Referral for intermediate for medication management and PT placed. [facility]i will contact you to schedule first RN home visit. ) Discharge Medications: New gabapentin 300 mg Capsule 300 mg PO BID Qty: 60 0RF duloxetine 60 mg Capsule,Delayed Release(Dr/Ec) 60 mg PO DAILY Qty: 30 0RF Continued acetaminophen 650 mg tablet extended release 1,300 mg PO Q8H PRN (Reason: Pain) capsaicin 0.025 % cream 1 appl topical BID docusate sodium 100 mg Capsule 100 mg PO DAILY ropinirole 0.5 mg tablet 0.5 mg PO BEDTIME amlodipine 10 mg tablet 10 mg PO DAILY Farxiga 10 mg tablet 10 mg PO DAILY (DME) pen needle, diabetic [BD Ultra-Fine Short Pen Needle] 31 gauge x 5/16 needle See Rx Instructions subcut DAILY Qty: 1200 Rx Instructions: As directed glipizide 10 mg tablet extended release 24hr 10 mg PO BID metformin 500 mg tablet 500 mg PO BID carvedilol 25 mg tablet 25 mg PO BID Envarsus XR 1 mg tablet extended release 24 hr 3 mg PO DAILY Lantus Solostar U-100 Insulin 100 unit/mL (3 mL) insulin pen 44 unit subcut BEDTIME Discontinued duloxetine 30 mg Capsule,Delayed Release(Dr/Ec) 30 mg PO DAILY gabapentin 100 mg capsule 100 mg PO TID Discharge Orders: Discharge Order (Routine); Ordered 09/16/22 Ordered By: Lacy Cazares Activity on Discharge: As tolerated Stand Alone Forms: Patient Portal Discharge page Care Plan Goals: 1. Maintain mood 2. No SI/HI 3. No aggression towards self or others. Health Concerns: Follow up with PCP Plan of Treatment: 1. Take medications as prescribed 2. Go to nearest ED or call 911 in event of emergency. Assessment: Pt with brighter, less irritable mood. No SI/HI. No VH/AH. No delusions. Pt with future thinking. No signs of aggression towards self or others.
== END 2022-09-16 11:40 | disposition home or self-care (01) | DRG 885 ==
LOC: HO.ED 09-11 10:42 → HO.PGERI 09-11 14:05
PROVIDERS: Physician Assistant; Social Worker; Admitting Provider Psychiatry & Neurology Psychiatry; Emergency Provider Student in an Organized Health Care Education/Training Program; Visit Provider Psychiatry & Neurology Psychiatry
DX: F33.1 Major depressive disorder, recurrent, moderate (principal); R45.851 Suicidal ideations; Z94.0 Kidney transplant status; E11.40 Type 2 diabetes mellitus with diabetic neuropathy, unspecified; Z99.3 Dependence on wheelchair; I10 Essential (primary) hypertension; Z20.822 Contact with and (suspected) exposure to COVID-19; Z87.891 Personal history of nicotine dependence; Z79.4 Long term (current) use of insulin; Z79.84 Long term (current) use of oral hypoglycemic drugs; Z79.899 Other long term (current) drug therapy
CPT/HCPCS: 36415; 80048; 80053; 80061; 80076; 80307; 81001; 82947; 83036; 83735; 84443; 85025; 87086; 87147; 87635; 93005; 97161; 99285; S9485